=== PATIENT | female | born 1935 | race Caucasian/White ===

== ENCOUNTER → 2021-11-03 14:25 | Outpatient (BNVA) | payer OTHER, SELFPAY | PROVIDERS: PCP Internal Medicine; Referring Provider Internal Medicine; Visit Provider Internal Medicine Gastroenterology | DX: R19.7 Diarrhea, unspecified (principal); K21.9 Gastro-esophageal reflux disease without esophagitis; Z79.899 Other long term (current) drug therapy | CPT/HCPCS: 99212 ==

== ENCOUNTER 2021-11-11 08:32 | Outpatient (REF) | payer OTHER, SELFPAY ==
[2021-11-11 09:17] LABS: MANUAL DIFF FLAG NO
[2021-11-11 09:27] LABS: Basophils Percent Auto 0.6 % (0-2); Eosinophils Absolute Auto 0.1 X10*3/uL (0.0-0.4); Eosinophils Percent Auto 1.3 % (0-4); Hematocrit 35.8 % (37.0-47.0); Imm Gran Abs Auto 0.03 X10*3/uL (0.00-0.03); Imm Gran Pct Auto 0.4 % (0.0-0.4); Lymphocytes Absolute Auto 2.3 X10*3/uL (1.2-4.9); Lymphocytes Percent Auto 32.7 % (20-40); Mean Corpuscular HGB Conc 33.5 g/dl (31.0-35.0); Mean Corpuscular Hemoglobin 31.3 pg (27.0-33.0); Mean Corpuscular Volume 93.5 fL (80.0-98.0); Mean Platelet Volume 9.6 fL (9.4-12.3); Monocytes Absolute Auto 0.6 X10*3/uL (0.1-1.2); Monocytes Percent Auto 8.5 % (2-11); Neutrophils Absolute Auto 3.9 x10*3/uL (2.0-8.3); Neutrophils Percent Auto 56.5 % (45-73); Platelet Count 288 X10*3/uL (160-400); Red Blood Count 3.83 X10*6/uL (4.20-5.50); Red Cell Distribution Width 13.4 % (11.0-16.0); White Blood Count 6.9 X10*3/uL (4.8-10.8)
[2021-11-11 09:47] LABS: Estimated Average Glucose 169 mg/dL; Hemoglobin A1c % 7.5 %
[2021-11-11 10:00] LABS: Alanine Aminotransferase 18 U/L (0-31); Albumin Level 3.8 g/dL (3.5-5.0); Alkaline Phosphatase 64 U/L (39-117); Anion Gap 16 (12-20); Aspartate Amino Transferase 14 U/L (5-31); Bilirubin Total 0.2 mg/dL (0.0-1.0); Blood Urea Nitrogen 26 mg/dL (9-16); Calcium 8.2 mg/dL (8.4-10.2); Carbon Dioxide 24 mmol/L (22-29); Chloride 102 mmol/L (96-108); Cholesterol 179 mg/dL; Estimated Glomerular Filt Rate 33; Glucose Fasting 188 mg/dL (60-99); HDL Cholesterol 40 mg/dL; LDL Cholesterol Calculated 83 mg/dl; Potassium 4.4 mmol/L (3.3-5.1); Sodium 138 mmol/L (135-145); Total Protein 6.2 g/dL (6.5-8.0); Triglycerides 283 mg/dL
[2021-11-11 10:11] LABS: TSH reflex Free T4 4.29 uIU/mL (0.32-4.0); Vitamin D 25-OH Total 29.1 ng/mL (>30)
[2021-11-11 11:11] LABS: Free T4 (Free Thyroxine) 1.03 ng/dL (0.71-1.85)
== END 2021-11-11 08:33 | disposition home or self-care (01) ==
LOC: HO.LAB 08:32
PROVIDERS: PCP Internal Medicine; Visit Provider Internal Medicine Hypertension Specialist
DX: E78.00 Pure hypercholesterolemia, unspecified (principal); E55.9 Vitamin D deficiency, unspecified; I12.9 Hypertensive chronic kidney disease with stage 1 through stage 4 chronic kidney disease, or unspecified chronic kidney disease; N18.32 Chronic kidney disease, stage 3b; E11.22 Type 2 diabetes mellitus with diabetic chronic kidney disease
CPT/HCPCS: 36415; 80053; 80061; 82306; 83036; 84439; 84443; 85025

== ENCOUNTER 2021-11-12 15:09 | Outpatient (REF) | payer OTHER, SELFPAY ==
[2021-11-12 15:29] LABS: Appearance Urine CLEAR; Color Urine YELLOW; Glucose Urine UA NEG (NEG); Leukocyte Esterase Urine 1+ (NEG); Nitrite Urine NEG (NEG); PH 5.5 (5.0-8.0); Specific Gravity - Urine <= 1.005 (1.005-1.025); UACC Culture Trigger YES; Urine Blood NEG (NEG); Urine Ketones NEG (NEG); Urine Protein NEG (NEG-TRACE)
[2021-11-12 15:46] LABS: Bacteria Urine 1+ /LPF; Squamous Epithelial Cell Urine 3+ /LPF
[2021-11-12 16:22] LABS: Creatinine Urine 50.28 mg/dL; Microalbum/Creatinine Ratio Ur 31.8 ug/mg cr
== END 2021-11-12 15:10 | disposition home or self-care (01) ==
LOC: HO.LNP 15:09
PROVIDERS: Visit Provider Internal Medicine
DX: G47.33 Obstructive sleep apnea (adult) (pediatric) (principal); J44.9 Chronic obstructive pulmonary disease, unspecified; J30.9 Allergic rhinitis, unspecified; I10 Essential (primary) hypertension; E11.9 Type 2 diabetes mellitus without complications; Z99.89 Dependence on other enabling machines and devices
CPT/HCPCS: 81001; 82043; 87086; 99212

== ENCOUNTER → 2022-01-12 13:20 | Outpatient (BNVA) | payer OTHER, SELFPAY | PROVIDERS: PCP Internal Medicine; Visit Provider Physician Assistant | DX: M17.0 Bilateral primary osteoarthritis of knee (principal); E66.01 Morbid (severe) obesity due to excess calories; Z68.41 Body mass index [BMI] 40.0-44.9, adult | CPT/HCPCS: 20610; 99212; J1020 ==

== ENCOUNTER → 2022-03-19 13:12 | Outpatient (BNVA) | payer OTHER, SELFPAY | PROVIDERS: PCP Internal Medicine; Visit Provider Internal Medicine | DX: J44.9 Chronic obstructive pulmonary disease, unspecified (principal); G47.33 Obstructive sleep apnea (adult) (pediatric); E66.01 Morbid (severe) obesity due to excess calories; Z68.41 Body mass index [BMI] 40.0-44.9, adult; Z99.89 Dependence on other enabling machines and devices | CPT/HCPCS: 99212 ==

== ENCOUNTER → 2022-04-13 14:02 | Outpatient (BNVA) | payer OTHER, SELFPAY | PROVIDERS: PCP Internal Medicine; Visit Provider Internal Medicine Gastroenterology | DX: R19.7 Diarrhea, unspecified (principal); R13.10 Dysphagia, unspecified | CPT/HCPCS: 99212 ==

== ENCOUNTER → 2022-04-17 12:47 | Outpatient (BNVA) | payer OTHER, SELFPAY | PROVIDERS: PCP Internal Medicine; Visit Provider Physician Assistant | DX: M17.0 Bilateral primary osteoarthritis of knee (principal); E66.01 Morbid (severe) obesity due to excess calories; E11.8 Type 2 diabetes mellitus with unspecified complications; Z68.41 Body mass index [BMI] 40.0-44.9, adult | CPT/HCPCS: 20610; J1020 ==

== ENCOUNTER 2022-06-29 09:42 | Outpatient (REF) | payer OTHER, SELFPAY ==
[2022-06-29 10:01] LABS: MANUAL DIFF FLAG NO
[2022-06-29 10:28] LABS: Basophils Absolute Auto 0.1 X10*3/uL (0.0-0.2); Basophils Percent Auto 0.7 % (0-2); Eosinophils Absolute Auto 0.1 X10*3/uL (0.0-0.4); Eosinophils Percent Auto 1.6 % (0-4); Hematocrit 35.8 % (37.0-47.0); Hemoglobin 11.6 g/dl (12.0-16.0); Imm Gran Abs Auto 0.02 X10*3/uL (0.00-0.03); Imm Gran Pct Auto 0.3 % (0.0-0.4); Lymphocytes Absolute Auto 1.8 X10*3/uL (1.2-4.9); Mean Corpuscular HGB Conc 32.4 g/dl (31.0-35.0); Mean Corpuscular Hemoglobin 30.4 pg (27.0-33.0); Mean Platelet Volume 9.6 fL (9.4-12.3); Monocytes Absolute Auto 0.6 X10*3/uL (0.1-1.2); Monocytes Percent Auto 7.9 % (2-11); Neutrophils Absolute Auto 4.8 x10*3/uL (2.0-8.3); Neutrophils Percent Auto 65.5 % (45-73); Platelet Count 254 X10*3/uL (160-400); Red Blood Count 3.81 X10*6/uL (4.20-5.50); Red Cell Distribution Width 12.8 % (11.0-16.0); White Blood Count 7.4 X10*3/uL (4.8-10.8)
[2022-06-29 10:54] LABS: Estimated Average Glucose 180 mg/dL; Hemoglobin A1c % 7.9 %
[2022-06-29 11:31] LABS: Alanine Aminotransferase 12 U/L (0-31); Albumin Level 3.9 g/dL (3.5-5.0); Alkaline Phosphatase 60 U/L (39-117); Anion Gap 16 (12-20); Aspartate Amino Transferase 13 U/L (5-31); Bilirubin Total 0.3 mg/dL (0.0-1.0); Blood Urea Nitrogen 30 mg/dL (9-16); Calcium 8.9 mg/dL (8.4-10.2); Carbon Dioxide 25 mmol/L (22-29); Chloride 104 mmol/L (96-108); Cholesterol 187 mg/dL; Estimated Glomerular Filt Rate 33; Glucose Fasting 167 mg/dL (60-99); HDL Cholesterol 36 mg/dL; LDL Cholesterol Calculated 93 mg/dl; Potassium 4.6 mmol/L (3.3-5.1); Sodium 140 mmol/L (135-145); TSH reflex Free T4 1.91 uIU/mL (0.32-4.0); Total Protein 6.2 g/dL (6.5-8.0); Triglycerides 292 mg/dL; Vitamin D 25-OH Total 28.3 ng/mL (>30)
== END 2022-06-29 09:43 | disposition home or self-care (01) ==
LOC: HO.LAB 09:42
PROVIDERS: PCP Internal Medicine; Visit Provider Internal Medicine
DX: E55.9 Vitamin D deficiency, unspecified (principal); E78.00 Pure hypercholesterolemia, unspecified; E11.9 Type 2 diabetes mellitus without complications; I10 Essential (primary) hypertension
CPT/HCPCS: 36415; 80053; 80061; 82306; 83036; 84443; 85025

== ENCOUNTER 2022-07-01 09:12 | Outpatient (REF) | payer OTHER, SELFPAY ==
[2022-07-01 09:37] LABS: Appearance Urine Cloudy; Color Urine Yellow; Glucose Urine UA Negative (Negative); Leukocyte Esterase Urine Moderate (2+) (Negative); Nitrite Urine Negative (Negative); PH 5.5 (5.0-9.0); UMIC TRIGGER UACC YES; Urine Blood Negative (Negative); Urine Ketones Trace mg/dL (Negative); Urine Protein Negative (Neg-Trace)
[2022-07-01 09:40] LABS: Bacteria Urine 2+ (None Seen); RBC Urine 0-2 /HPF (0-2); UACC Culture Trigger YES; WBC Urine 21-50 /HPF (0-5)
[2022-07-01 09:52] LABS: Creatinine Urine 194.22 mg/dL; Microalbum/Creatinine Ratio Ur 5.6 ug/mg cr
== END 2022-07-01 09:13 | disposition home or self-care (01) ==
LOC: HO.LNP 09:12
PROVIDERS: Visit Provider Internal Medicine
DX: I10 Essential (primary) hypertension (principal); E11.9 Type 2 diabetes mellitus without complications; R82.90 Unspecified abnormal findings in urine
CPT/HCPCS: 81001; 82043; 87086

== ENCOUNTER → 2022-08-03 12:45 | Outpatient (BNVA) | payer OTHER, SELFPAY | PROVIDERS: PCP Internal Medicine; Visit Provider Physician Assistant | DX: M17.0 Bilateral primary osteoarthritis of knee (principal); E11.8 Type 2 diabetes mellitus with unspecified complications; E66.01 Morbid (severe) obesity due to excess calories; Z68.41 Body mass index [BMI] 40.0-44.9, adult | CPT/HCPCS: 20610; 99212; J1020 ==

== ENCOUNTER → 2022-09-30 14:21 | Outpatient (BNVA) | payer OTHER, SELFPAY | PROVIDERS: PCP Internal Medicine; Referring Provider Internal Medicine; Visit Provider Internal Medicine | DX: I11.0 Hypertensive heart disease with heart failure (principal); I50.32 Chronic diastolic (congestive) heart failure; I25.10 Atherosclerotic heart disease of native coronary artery without angina pectoris; G47.33 Obstructive sleep apnea (adult) (pediatric); E11.8 Type 2 diabetes mellitus with unspecified complications; E66.01 Morbid (severe) obesity due to excess calories; Z68.41 Body mass index [BMI] 40.0-44.9, adult | CPT/HCPCS: 93005; 99212 ==

== ENCOUNTER → 2022-10-07 13:44 | Outpatient (BNVA) | payer OTHER, SELFPAY | PROVIDERS: PCP Internal Medicine; Visit Provider Internal Medicine | DX: J44.9 Chronic obstructive pulmonary disease, unspecified (principal); J30.9 Allergic rhinitis, unspecified; G47.33 Obstructive sleep apnea (adult) (pediatric); Z99.89 Dependence on other enabling machines and devices | CPT/HCPCS: 99212 ==

== ENCOUNTER → 2022-11-02 13:30 | Outpatient (BNVA) | payer OTHER, SELFPAY | PROVIDERS: PCP Internal Medicine; Visit Provider Physician Assistant | DX: M17.0 Bilateral primary osteoarthritis of knee (principal); E11.8 Type 2 diabetes mellitus with unspecified complications; E66.01 Morbid (severe) obesity due to excess calories; Z68.41 Body mass index [BMI] 40.0-44.9, adult | CPT/HCPCS: 20610; 99212; J1020 ==

== ENCOUNTER 2022-11-17 09:08 | Outpatient (REF) | payer OTHER, SELFPAY ==
--- NOTE | ~2022-11-17 | FL_ITS ---
EXAMINATION: FL BARIUM SWALLOW CLINICAL INFORMATION: Food gets stuck when swallowing. Dysphagia. COMPARISON: None available. TECHNIQUE: Exam is limited due to limited patient mobility and language barrier. Barium swallow was performed using thin and thick barium. Patient was given a barium tablet. Effervescent granules were not administered. Fluoroscopy time: 1.3 minutes DAP: 8.3 Gycm2 Images: 93 FINDINGS: Evaluation of swallowing is limited due to patient condition and communication. There is retention in the vallecula. No aspiration or penetration is appreciated. Barium tablet passed freely into the stomach. No mass or stricture is seen. There is mild gastroesophageal reflux. No appreciable hernia. The stomach is normal. FL/FL barium swallow IMPRESSION: Limited exam. Retention of liquid barium in the vallecula. No aspiration or penetration. Gastroesophageal reflux. Barium tablet passed freely into the esophagus.
== END 2022-11-17 09:09 | disposition home or self-care (01) ==
LOC: HO.XRAY 09:08
PROVIDERS: PCP Internal Medicine; Visit Provider Internal Medicine Gastroenterology
DX: R13.10 Dysphagia, unspecified (principal)
CPT/HCPCS: 74220

== ENCOUNTER 2022-12-28 09:22 | Outpatient (REF) | payer OTHER, SELFPAY ==
[2022-12-28 09:47] LABS: MANUAL DIFF FLAG NO
[2022-12-28 10:19] LABS: Basophils Absolute Auto 0.1 X10*3/uL (0.0-0.2); Basophils Percent Auto 0.7 % (0-2); Eosinophils Absolute Auto 0.1 X10*3/uL (0.0-0.4); Eosinophils Percent Auto 1.6 % (0-4); Hematocrit 32.6 % (37.0-47.0); Hemoglobin 10.7 g/dl (12.0-16.0); Imm Gran Abs Auto 0.04 X10*3/uL (0.00-0.03); Imm Gran Pct Auto 0.5 % (0.0-0.4); Lymphocytes Absolute Auto 1.7 X10*3/uL (1.2-4.9); Lymphocytes Percent Auto 22.3 % (20-40); Mean Corpuscular HGB Conc 32.8 g/dl (31.0-35.0); Mean Corpuscular Volume 94.5 fL (80.0-98.0); Mean Platelet Volume 9.5 fL (9.4-12.3); Monocytes Absolute Auto 0.6 X10*3/uL (0.1-1.2); Monocytes Percent Auto 7.7 % (2-11); Neutrophils Absolute Auto 5.1 x10*3/uL (2.0-8.3); Neutrophils Percent Auto 67.2 % (45-73); Platelet Count 278 X10*3/uL (160-400); Red Blood Count 3.45 X10*6/uL (4.20-5.50); Red Cell Distribution Width 12.6 % (11.0-16.0); White Blood Count 7.6 X10*3/uL (4.8-10.8)
[2022-12-28 10:53] LABS: Alanine Aminotransferase 12 U/L (0-31); Albumin Level 3.8 g/dL (3.5-5.0); Alkaline Phosphatase 49 U/L (39-117); Anion Gap 18 (12-20); Aspartate Amino Transferase 11 U/L (5-31); Bilirubin Total 0.2 mg/dL (0.0-1.0); Blood Urea Nitrogen 42 mg/dL (9-16); Calcium 8.6 mg/dL (8.4-10.2); Carbon Dioxide 20 mmol/L (22-29); Chloride 105 mmol/L (96-108); Cholesterol 202 mg/dL; Estimated Glomerular Filt Rate 19; Glucose Fasting 121 mg/dL (60-99); HDL Cholesterol 40 mg/dL; LDL Cholesterol Calculated 104 mg/dl; Potassium 4.3 mmol/L (3.3-5.1); Sodium 139 mmol/L (135-145); Total Protein 6.3 g/dL (6.5-8.0); Triglycerides 294 mg/dL
[2022-12-28 11:09] LABS: Estimated Average Glucose 143 mg/dL; Hemoglobin A1c % 6.6 %
[2022-12-28 11:13] LABS: TSH reflex Free T4 2.37 uIU/mL (0.32-4.0); Vitamin D 25-OH Total 38.6 ng/mL (>30)
== END 2022-12-28 09:23 | disposition home or self-care (01) ==
LOC: HO.LAB 09:22
PROVIDERS: PCP Internal Medicine; Visit Provider Internal Medicine
DX: E11.9 Type 2 diabetes mellitus without complications (principal); E78.00 Pure hypercholesterolemia, unspecified; I10 Essential (primary) hypertension; E55.9 Vitamin D deficiency, unspecified; R30.0 Dysuria
CPT/HCPCS: 36415; 80053; 80061; 82306; 83036; 84443; 85025

== ENCOUNTER 2023-01-06 14:13 | Outpatient (AMB) | payer OTHER, SELFPAY ==
[2023-01-06 14:35] VITALS: BP 116/62; PULSE 72; O2SAT 97; BMI 43.0
--- NOTE | 2023-01-06 14:35 | MHC.PC.OV ---
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 cetirizine (Zyrtec) 10 mg PO DAILY PRN 15 days cetirizine (Zyrtec) 10 mg PO DAILY 30 days [CHAIR LIFT As directed] cholecalciferol (vitamin D3) 25 mcg PO DAILY 90 days citalopram 20 mg PO QAM clotrimazole-betamethasone 1-0.05 % 1 appl topical BID 15 days cyanocobalamin (vitamin B-12) 500 mcg PO DAILY 90 days ferrous sulfate 325 mg PO DAILY furosemide 40 mg PO DAILY 90 days ipratropium-albuterol 0.5 mg-3 mg(2.5 mg base)/3 mL 3 mL inhalation Q6H PRN lancets (COADE Delica Lancets) As directed-To test blood sugar daily. [LIGHTWEIGHT TRANSPORT WHEELCHAIR WITH HANDBRAKES As directed] linagliptin (Tradjenta) 5 mg PO DAILY loperamide 2 mg PO Q6-8H PRN melatonin 10 mg PO BEDTIME metformin 1,000 mg PO BID 90 days metoprolol succinate ER (Toprol XL) 25 mg PO DAILY nebulizers (VixOne Nebulizer-Adult Mask) As directed nitroglycerin 0.2 mg/hr 1 patch topical DAILY omeprazole 20 mg PO BID pravastatin 40 mg PO DAILY 90 days quetiapine 50 mg PO BEDTIME quetiapine 25 mg PO BID zolpidem 5 mg PO BEDTIME PRN Tobacco use date assessed: 01/06/23 Fall risk assessment: 1 Fall in past year Last assessed Fall Risk: 01/06/23 Dental Screening Dental Screen Date: 01/06/23 Did you have a dental visit in the last 12 months?: No Did you have a dental problem in the last 6 months where you did not have access to dental care?: No Was dental information given to patient?: No HPI 3mth f/u HPI Details Patient comes in today for her follow up visit - is accompanied as usual by her daughter Patient's daughter states that she found patient on the floor at home one day last month, thinks it was on 12/07/2022 and that she was reportedly down on the floor for about 45 minutes until they could get her back up States that she called some nurse on the phone but was reportedly not told much as to what she should do at the time Recalls that patient was also experiencing lightheadedness and dizziness at the time and could not get up on her own States that she noted that patient's blood pressure was also low then and has held her Amlodipine 5 mg since; has also cut back on her Metoprolol ER 25 mg to 1/2 tablet daily - is currently still just on 1/2 tablet QD of Metoprolol ER Her daughter has also noticed that patient seems weaker overall since her fall last month Patient presently denies increased dizziness; daughter states that she's had on and off headaches lately and recalls that she was also complaining of both headaches and dizziness after she fell last month Denies any chest pains or SOB but reports (+) on and off epigastric discomfort and pressure Denies any nausea/vomiting and no change in bowel habits noted; has not noticed any blood in her stool or black stools lately Needs her Nitropatch Rx refilled Had her follow up labs done last week - to discuss her results [facility] Medical History (Updated 01/06/23 @ 16:12 by Nima Farooq MD) Anxiety Benign essential hypertension CAD (coronary artery disease) Cellulitis of right foot Chronic heart failure with preserved ejection fraction (HFpEF) Chronic kidney disease (CKD), stage III (moderate) Chronic kidney disease, stage 4 (severe) CKD (chronic kidney disease) stage 3, GFR 30-59 ml/min COPD (chronic obstructive pulmonary disease) Coronary artery disease COVID-19 Depression Diabetes mellitus GERD (gastroesophageal reflux disease) GERD without esophagitis GI bleed Heart disease HTN (hypertension) Hypercholesteremia Mild cognitive impairment Morbid obesity with BMI of 40.0-44.9, adult Obstructive sleep apnea LESLIE (obstructive sleep apnea) LESLIE on CPAP Primary insomnia Pulmonary hypertension Pure hypercholesterolemia Type 2 diabetes mellitus with diabetic chronic kidney disease Vitamin D deficiency Surgical History H/O abdominal hysterectomy History of esophagogastroduodenoscopy (EGD) History of eye surgery Hx of colonoscopy Family History Father No problems noted. Mother No problems noted. Social History Household Members Other:: lives with her daughter who cares for her Housing: Apartment Alcohol intake: never Patient Tobacco Use Status: Never used Tobacco e-Cigarette/Vaping Use: Never Used Second Hand Smoke Exposure: Yes service: No Current occupational status: retired and disabled Cognitive needs: No Hearing needs: No Vision needs: Yes Questionnaire PHQ-9 Over the last 2 weeks, how often have you been bothered by any of the following problems? 1. Little interest or pleasure in doing things: not at all 2. Feeling down, depressed, or hopeless: several days 3. Trouble falling or staying asleep, or sleeping too much: not at all 4. Feeling tired or having little energy: not at all 5. Poor appetite or overeating: not at all 6. Feeling bad about yourself - or that you are a failure or have let yourself or your family down: not at all 7. Trouble concentrating on things, such as reading the newspaper or watching television: not at all 8. Moving or speaking so slowly that other people could have noticed. Or the opposite - being so fidgety or restless that you have been moving around a lot more than usual: not at all 9. Thoughts that you would be better off or of hurting yourself in some way: not at all Total score: 1 Depression Screening Interpretation: Negative [id number] - PHQ-9 Billing: Yes Source: Developed by Drs. Feng Suazo, Liz Carrillo, Raymond Morales and colleagues, with an educational katarina from [employer] Thrive Questionnaire Date Thrive assessed: 01/06/23 I am a: Patient What is your living situation today?: I have a steady place to live Within the past 12 months, did the food you bought not last and you didn't have the money to get more?: Never true Within the past 12 months, did you worry whether your food would run out before you got money to buy more?: Never true Do you have trouble paying for medicines?: No Do you have trouble getting transportation to medical appointments?: No Do you have trouble paying your heating and electricity bill?: No Do you have trouble taking care of your child, family member or friend?: No Do you have trouble with day-to-day activities such as bathing, preparing meals, shopping, managing finances, etc.?: No Are you currently unemployed and looking for a job?: No Are you interested in more education?: No Please select the resources that you would like help with: None Currently or been in a relationship where the following occur: no concerns reported AUDIT C Alcohol Use Questionnaire (AUDIT-C) 1. How often do you have a drink containing alcohol?: Never 3. How often do you have six or more drinks on one occasion?: Never Total Score: 0 Score Reviewed/Action Taken: Yes EMERSON-7 AMB Questionnaire EMERSON-7 Date EMERSON - 7 assessed: 01/06/23 Feeling nervous, anxious, or on edge: 0 = Not at all Not being able to stop or control worryin = Not at all Worrying too much about different things: 0 = Not at all Trouble relaxin = Not at all Being so restless that it is hard to sit still: 0 = Not at all Becoming easily annoyed or irritable: 0 = Not at all Feeling afraid as if something awful might happen: 0 = Not at all Total EMERSON-7 score (0-4 normal; 5-9 mild; 10-14 moderate; 15-21 severe): 0 Source: Developed by Drs. Feng Suazo, Liz Carrillo, Raymond Morales and colleagues, with an educational katarina from [employer] Review of Systems Const Details: information is obtained primarily from daughter as patient has some confusion and is unable to provide any pertinent info; also has issues with language barrier - patient speaks very little Georgian Denies chills, Reports fatigue, Denies fever(s), Reports headache(s) (occasionally; did report also (+) TRONCOSO when she fell last month) and Reports weakness ENT Denies dysphagia, Reports dizziness (on and off for the past month), Reports dry mouth (frequent - mostly due to her nightly CPAP device use), Denies otalgia, Reports headache(s) (occasionally; did report also (+) TRONCOSO when she fell last month), Denies odynophagia, Denies sinus pain and Denies sore throat Card Denies chest pain, Denies palpitations and Reports dyspnea on exertion (mild) Resp Denies cough and Reports dyspnea on exertion (mild) GI Denies abdominal pain (but reports (+) epigastric discomfort/pressure at times), Denies hematochezia, Denies constipation, Denies dysphagia, Denies heartburn, Reports diarrhea (occasional, controlled with Imodium PRN), Denies nausea, Denies odynophagia and Denies vomiting Denies difficulty voiding, Denies nocturia and Denies dysuria Musc Reports tingling (on and off in both hands) Neuro Denies behavioral changes, Reports confusion (on and off), Reports dizziness (on and off for the past month), Reports headache(s) (occasionally; did report also (+) TRONCOSO when she fell last month), Reports memory loss, Reports tingling (on and off in both hands), Reports paresthesias (on and off in her hands) and Reports weakness Psych Denies behavioral changes, Reports confusion (on and off) and Reports memory loss Endo Reports fatigue and Denies palpitations Physical exam (Primary Care) Vital Signs: Last Vital Signs Pulse 72 01/06/23 14:35 BP 116/62 01/06/23 14:35 Pulse Ox 97 01/06/23 14:35 Oxygen Delivery Method Room Air 01/06/23 14:35 BMI result Body Mass Index 43.0 Tobacco/Smoking Status: Tobacco use Status Tobacco use date assessed 01/06/23 01/06/23 14:42 Patient Tobacco Use Status Never used Tobacco 01/06/23 14:42 e-Cigarette/Vaping Use Never Used 01/06/23 14:42 PHQ-9: PHQ-9 Score PHQ-9: Total score 1 01/06/23 14:42 Depression Screening Interpretation: Negative Thrive Assessment: Date of Thrive Assessment Date Thrive assessed 01/06/23 01/06/23 14:42 Currently or been in a relationship where the following occur: no concerns reported Const General: comfortable, no acute distress and confusion (on and off) Orientation/consciousness: confusion (on and off) HENMT Ears: TM's normal bilaterally and EAC's normal Throat: Yes posterior oropharynx normal and Yes tonsils normal (no TP congestion noted) Neck Neck: Yes no lymphadenopathy and Yes supple Resp Auscultation: clear to auscultation bilaterally, no rales and no wheezes Cardio Rate: regular rate Rhythm: regular rhythm Heart sounds: no murmurs GI Palpation (GI): Soft to palpation, nontender and no guarding Auscultation: normal bowel sounds General: Yes no CVA tenderness Back/Spine/Pelvis Back: no CVA tenderness Neuro General: confusion (on and off) Extrem General: Yes no clubbing, cyanosis or edema Results Reviewed Results Reviewed: Laboratory Tests 12/28/22 12/28/22 12/28/22 09:45 09:45 09:45 WBC 7.6 Hgb 10.7 L Hct 32.6 L Plt Count 278 Sodium 139 Potassium 4.3 Creatinine 2.37 H Estimated GFR 19 Fasting Glucose 121 H Hemoglobin A1c % 6.6 Calcium 8.6 AST 11 ALT 12 Cholesterol 202 LDL Cholesterol, Calc 104 HDL Cholesterol 40 25-OH Vitamin D Total 38.6 TSH 2.37 Assessment and Plan Assessment & Plan (1) Coronary artery disease: Code(s): I25.10 - Atherosclerotic heart disease of [place] coronary artery without angina pectoris Qualifiers: Coronary Disease-Associated Artery/Lesion type: [place] artery [place] vs. transplanted heart: [place] heart Associated angina: without angina Qualified Code(s): I25.10 - Atherosclerotic heart disease of [place] coronary artery without angina pectoris Plan: Myocardial perfusion scan done back in 2008 at [facility] showed (+) ischemia of the left ventricular apex; EF and wall motion studies were normal Echocardiogram done on 04/17/2009 showed low-normal LV systolic function with EF between 55-60%, mild concentric left ventricular hypertrophy, mild MR; diastolic filling pattern indicated impaired relaxation and moderate pulmonary hypertension Patient has been asymptomatic so far from a cardiac standpoint Continue Nitroglycerin patch 0.2 mg per hour once a day - Rx refilled Was seen by cardiology in September 2022 and advised to continue on current meds and management EKG done in the office at the time showed normal EKG with low voltage Follow up with cardiology as scheduled (2) Chronic heart failure with preserved ejection fraction (HFpEF): Code(s): I50.32 - Chronic diastolic (congestive) heart failure Plan: Has been compensated and was advised by cardiology to continue on low dose beta ciro and conservative medical management, given patient's age Was on Metoprolol ER 25 mg QD but patient's daughter cut this down to 1/2 tablet QD since she fell and was experiencing frequent dizziness and on and off headaches last month Amlodipine 5 mg QD was also held since Will send patient for some repeat labs and EKG ANA for further work up Will also have her get a repeat echocardiogram ANA for further evaluation (3) Type 2 diabetes mellitus with diabetic chronic kidney disease: Code(s): E11.22 - Type 2 diabetes mellitus with diabetic chronic kidney disease Qualifiers: Diabetes mellitus snf insulin use: without buttermaker continuous churn use Chronic kidney disease stage: unspecified stage Qualified Code(s): E11.22 - Type 2 diabetes mellitus with diabetic chronic kidney disease Plan: Patient's HgbA1c was at 6.6% on her labs done last week (in-office HgbA1c was at 7.0% a few months ago) - goal is at least < 7.5% Reinforced diabetic diet Continue Metformin 1000 mg BID and Tradjenta 5 mg QD for now although if her repeat serum creatinine and renal function continue to be suppressed, may need to discontinue Metformin (4) Chronic kidney disease, stage 4 (severe): Code(s): N18.4 - Chronic kidney disease, stage 4 (severe) Plan: Have cautioned patient and her daughter that based on her recent labs, patient's kidney function has declined significantly lately and she is now in CKD stage 4 Discussed that whatever happened to her last month when she fell (suspect possible mild TN, dehydration, rhabdomyolysis, etc) may have led to hypoperfusion of her kidneys and accelerated the decline in her renal function Will have patient get some labs rechecked ANA for further evaluation - will include tests for CPK, ESR as well as repeat CBC (5) Status post fall: Code(s): Z91.81 - History of falling Plan: Occurred around 12/07/2022, wherein patient was found on the floor and was reportedly down for about 45 minutes before she could be helped up Patient's daughter did not bring her to the ER for evaluation following her fall - states that she was never instructed by the nurses she talked to on the phone to do so At this time, patient is not complaining of any specific symptoms although she is reportedly weaker, still has on and off dizziness and relates (+) on and off epigastric discomfort Follow up labs revealed (+) decline in her H/H as well as her renal function Will send her for some follow up labs ANA for now and further intervention will be determined depending on the results of her labs and tests (6) Pure hypercholesterolemia: Code(s): E78.00 - Pure hypercholesterolemia, unspecified Plan: Results of her labs done last week reviewed and discussed with patient and her daughter Reinforced low cholesterol diet Continue Pravastatin 40 mg QD Will recheck her labs in 3 months for follow-up (7) Benign essential hypertension: Code(s): I10 - Essential (primary) hypertension Plan: Reinforced low-sodium diet -? goal is systolic BP of at least 140 to 150 mm or less Was on Amlodipine 5 mg QD and Furosemide 20 mg QD in AM as well as Metoprolol ER 25 mg QD but her Amlodipine has been held and Metoprolol ER cut in half by her daughter over the past few weeks since she fell (8) Mild cognitive impairment: Code(s): G31.84 - Mild cognitive impairment of uncertain or unknown etiology Plan: Follow up with neurology as scheduled (9) COPD (chronic obstructive pulmonary disease): Comment: PATIENT HAS MODERATELY SEVERE OBSTRUCTIVE AIRWAY DISORDER. ALSO HAS SIGNIFICANT RESTRICTIVE DISORDER. NO RECENT PULMONARY FUNCTION TEST HAS BEEN DONE BECAUSE IT WILL BE IMPOSSIBLE TO DO. TX : DUO -NEB UDs . AT LEAST BID ,, AND Q 6 HRS PRN Code(s): J44.9 - Chronic obstructive pulmonary disease, unspecified Qualifiers: COPD type: unspecified COPD Qualified Code(s): J44.9 - Chronic obstructive pulmonary disease, unspecified Plan: Well-controlled and stable on her current regimen - uses her Albuterol HFA every 6 hours PRN; also uses Duoneb updraft when needed if she is at home and has access to her nebulizer Follow-up with pulmonary as scheduled (10) Obstructive sleep apnea: Code(s): G47.33 - Obstructive sleep apnea (adult) (pediatric) Plan: Continue using her CPAP device when sleeping at night daily (11) At high risk for aspiration: Code(s): Z91.89 - Other specified personal risk factors, not elsewhere classified Plan: Barium swallow done in October 2022 revealed (+)limited exam but (+) retention of liquid barium in the vallecula; no aspiration or penetration; (+) gastroesophageal reflux. Barium tablet passed freely into the esophagus Following up Dr. Weaver (GI) as scheduled (12) GERD without esophagitis: Code(s): K21.9 - Gastro-esophageal reflux disease without esophagitis Plan: Dietary restrictions reinforced Continue Omeprazole 20 mg QD Follow-up with GI as scheduled (13) Vitamin D deficiency: Code(s): E55.9 - Vitamin D deficiency, unspecified Plan: Continue Vitamin D3 1000 units QD (14) Primary osteoarthritis of knees, bilateral: Code(s): M17.0 - Bilateral primary osteoarthritis of knee Plan: Has received injections into her knees in the past and more recently in December 2021 with (+) relief of her knee pain Follow-up with orthopedics as scheduled (15) Paresthesia of both hands: Code(s): R20.2 - Paresthesia of skin Plan: Symptoms are likely due to a combination of 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 (similar to what one would experience in carpal tunnel syndrome) Advised that unless her symptoms are significant and keep her up at night, would prefer not to start her on any Rx to help with her neuropathic pain as a lot of these Rx can cause sedation or are associated with some side effects that can be problematic for her given her age (16) Primary insomnia: Code(s): F51.01 - Primary insomnia Plan: Sleep hygiene reinforced Continue OTC Melatonin capsule 10 mg once a day at bedtime as needed (17) Anxiety: Code(s): F41.9 - Anxiety disorder, unspecified Plan: Continue Alprazolam 0.5 mg 1 tablet twice a day as needed for agitation (18) Depression: Code(s): F32.9 - Major depressive disorder, single episode, unspecified Qualifiers: Depression Type: unspecified Qualified Code(s): F32.9 - Major depressive disorder, single episode, unspecified Plan: Continue Citalopram? 20 mg QD in AM and Seroquel 25 mg Q HS Follow-up with Psychiatry as scheduled (19) Morbid obesity with BMI of 40.0-44.9, adult: Code(s): E66.01 - Morbid (severe) obesity due to excess calories; Z68.41 - Body mass index [BMI] 40.0-44.9, adult Plan: Reinforced diet; due to patient's age and comorbidities, there is no realistic expectation of any significant improvement in her activity level and in losing weight here Plan Follow up in 3 months Orders: Orders CA echo transthoracic complete Today I50.32 - Chronic diastolic (congestive) heart failure, R06.09 - Other forms of dyspnea B Type Natriuretic Peptide Today I50.9 - Heart failure, unspecified, N18.4 - Chronic kidney disease, stage 4 (severe), R06.00 - Dyspnea, unspecified, Z91.81 - History of falling CK, Total+Isoenzymes, Serum Today N18.4 - Chronic kidney disease, stage 4 (severe), R06.00 - Dyspnea, unspecified, Z91.81 - History of falling Comprehensive Met. Panel Today N18.4 - Chronic kidney disease, stage 4 (severe), R06.00 - Dyspnea, unspecified, Z91.81 - History of falling Complete Blood Count Auto Diff Today N18.4 - Chronic kidney disease, stage 4 (severe), R06.00 - Dyspnea, unspecified, Z91.81 - History of falling C Reactive Protein Today R07.9 - Chest pain, unspecified Erythrocyte Sedimentation Rate Today R07.9 - Chest pain, unspecified ECG 12 lead EKG Today I25.10 - Atherosclerotic heart disease of [place] coronary artery without angina pectoris, I50.32 - Chronic diastolic (congestive) heart failure, Z91.81 - History of falling B Type Natriuretic Peptide 3 Months I50.9 - Heart failure, unspecified Comprehensive Hiko. Panel Fast 3 Months E78.00 - Pure hypercholesterolemia, unspecified Lipid Panel 3 Months E78.00 - Pure hypercholesterolemia, unspecified TSH reflex Free T4 3 Months E78.00 - Pure hypercholesterolemia, unspecified Vitamin D 25-OH Total 3 Months E55.9 - Vitamin D deficiency, unspecified Complete Blood Count Auto Diff 3 Months I10 - Essential (primary) hypertension UA CC w/rflx Micro + Cult 3 Months R30.0 - Dysuria Hemoglobin A1c 3 Months E11.9 - Type 2 diabetes mellitus without complications Microalbumin, Random (w Creat) 3 Months E11.9 - Type 2 diabetes mellitus without complications Medications: Refilled nitroglycerin 0.2 mg/hr 1 patch topical DAILY 30 patches 5RF Coding Level of Care Code Est Pt Level 4 (23778) Diagnoses Coronary artery disease I25.10 Coronary Disease-Associated Artery/Lesion type: [place] artery [place] vs. transplanted heart: [place] heart Associated angina: without angina Chronic heart failure with preserved ejection fraction (HFpEF) I50.32 Type 2 diabetes mellitus with diabetic chronic kidney disease E11.22 Diabetes mellitus buttermaker continuous churn insulin use: without snf use Chronic kidney disease stage: unspecified stage Chronic kidney disease, stage 4 (severe) N18.4 Status post fall Z91.81 Pure hypercholesterolemia E78.00 Benign essential hypertension I10 Mild cognitive impairment G31.84 COPD (chronic obstructive pulmonary disease) J44.9 COPD type: unspecified COPD Obstructive sleep apnea G47.33 At high risk for aspiration Z91.89 GERD without esophagitis K21.9 Vitamin D deficiency E55.9 Primary osteoarthritis of knees, bilateral M17.0 Paresthesia of both hands R20.2 Primary insomnia F51.01 Anxiety F41.9 Depression F32.9 Depression Type: unspecified Morbid obesity with BMI of 40.0-44.9, adult E66.01; Z68.41
== END 2023-01-06 15:42 | disposition home or self-care (01) ==
PROVIDERS: PCP Internal Medicine; Visit Provider Internal Medicine
DX: E11.22 Type 2 diabetes mellitus with diabetic chronic kidney disease (principal); I50.32 Chronic diastolic (congestive) heart failure; N18.4 Chronic kidney disease, stage 4 (severe); Z91.81 History of falling; I25.10 Atherosclerotic heart disease of native coronary artery without angina pectoris; E78.00 Pure hypercholesterolemia, unspecified; I12.9 Hypertensive chronic kidney disease with stage 1 through stage 4 chronic kidney disease, or unspecified chronic kidney disease; G31.84 Mild cognitive impairment of uncertain or unknown etiology; J44.9 Chronic obstructive pulmonary disease, unspecified; G47.33 Obstructive sleep apnea (adult) (pediatric); Z91.89 Other specified personal risk factors, not elsewhere classified; K21.9 Gastro-esophageal reflux disease without esophagitis
CPT/HCPCS: 99214

== ENCOUNTER → 2023-01-06 15:48 | Outpatient (REF) | payer OTHER, SELFPAY ==
--- NOTE | 2023-01-06 15:53 | ECG_ITS ---
Test Reason : chr chf Blood Pressure : / mmHG Vent. Rate : 072 BPM Atrial Rate : 072 BPM P-R Int : 198 ms QRS Dur : 076 ms QT Int : 390 ms P-R-T Axes : 049 003 034 degrees QTc Int : 427 ms Normal sinus rhythm Low voltage QRS Borderline ECG When compared with ECG of 10-JAN-2019 09:25, No significant change was found Referred By: Nima Farooq Electronically Signed By:Mykel Taylor
[2023-01-06 16:06] LABS: MANUAL DIFF FLAG NO
[2023-01-06 16:45] LABS: Basophils Percent Auto 0.5 % (0-2); Eosinophils Absolute Auto 0.1 X10*3/uL (0.0-0.4); Hematocrit 33.8 % (37.0-47.0); Hemoglobin 10.9 g/dl (12.0-16.0); Imm Gran Abs Auto 0.05 X10*3/uL (0.00-0.03); Imm Gran Pct Auto 0.6 % (0.0-0.4); Lymphocytes Absolute Auto 1.8 X10*3/uL (1.2-4.9); Lymphocytes Percent Auto 21.7 % (20-40); Mean Corpuscular HGB Conc 32.2 g/dl (31.0-35.0); Mean Corpuscular Hemoglobin 30.7 pg (27.0-33.0); Mean Corpuscular Volume 95.2 fL (80.0-98.0); Mean Platelet Volume 9.4 fL (9.4-12.3); Monocytes Absolute Auto 0.7 X10*3/uL (0.1-1.2); Monocytes Percent Auto 7.7 % (2-11); Neutrophils Absolute Auto 5.8 x10*3/uL (2.0-8.3); Neutrophils Percent Auto 68.5 % (45-73); Platelet Count 330 X10*3/uL (160-400); Red Blood Count 3.55 X10*6/uL (4.20-5.50); Red Cell Distribution Width 12.8 % (11.0-16.0); White Blood Count 8.4 X10*3/uL (4.8-10.8)
[2023-01-06 16:52] LABS: B Type Natriuretic Peptide 31 pg/mL (<100)
[2023-01-06 17:12] LABS: Alanine Aminotransferase 10 U/L (0-31); Albumin Level 4.1 g/dL (3.5-5.0); Alkaline Phosphatase 61 U/L (39-117); Anion Gap 17 (12-20); Aspartate Amino Transferase 11 U/L (5-31); Bilirubin Total 0.2 mg/dL (0.0-1.0); Blood Urea Nitrogen 42 mg/dL (9-16); C Reactive Protein 0.16 mg/dL (< or = 0.50); Calcium 9.3 mg/dL (8.4-10.2); Carbon Dioxide 24 mmol/L (22-29); Chloride 106 mmol/L (96-108); Estimated Glomerular Filt Rate 20; Glucose Random 119 mg/dL (60-115); Potassium 5.8 mmol/L (3.3-5.1); Sodium 141 mmol/L (135-145); Total Protein 6.9 g/dL (6.5-8.0)
[2023-01-06 18:09] LABS: Erythrocyte Sedimentation Rate 27 MM/HR (0-20)
[2023-01-12 19:55] LABS: CK-BB None Detected (None Detected); CK-MB 0 % (<5); CK-MM 100 % (95-100); Creatine Kinase,Total,Serum 103 U/L (29-143)
== END ==
LOC: HO.CARD 15:48
PROVIDERS: PCP Internal Medicine; Visit Provider Internal Medicine
DX: R07.9 Chest pain, unspecified (principal); I50.32 Chronic diastolic (congestive) heart failure; I25.10 Atherosclerotic heart disease of native coronary artery without angina pectoris; R06.00 Dyspnea, unspecified; N18.4 Chronic kidney disease, stage 4 (severe); Z91.81 History of falling
CPT/HCPCS: 36415; 80053; 82552; 83880; 85025; 85652; 86140; 93005

== ENCOUNTER → 2023-01-06 15:53 | Outpatient (BNV) | payer OTHER, SELFPAY | PROVIDERS: PCP Internal Medicine; Visit Provider Internal Medicine Cardiovascular Disease | DX: I50.32 Chronic diastolic (congestive) heart failure (principal) | CPT/HCPCS: 93010 ==

== ENCOUNTER → 2023-02-11 12:54 | Outpatient (REF) | payer OTHER, SELFPAY ==
--- NOTE | 2023-02-11 12:57 | CA_ITS ---
Transthoracic Echocardiogram Patient (Last, First, Middle): Deepika Fernandez, Gender: Female Date of : 1935 Age: 87 Procedure Date: 02/11/2023 Procedure Type: Transthoracic Echocardiogram Location: OP Height: 139.7 cm Weight: 84.37 kg BSA: 1.70 m2 Heart Rate: 71 bpm BP: 120 / 60 mmHg Health Science Specialist: TO Referring MD: Nima Farooq MD Symptoms: I50.32 - Chronic diastolic (congestive) heart failure Study Quality: Technically Difficult/no iv access ECG Rhythm: Sinus Conclusions: - The left ventricular systolic function is hyperdynamic. The visually estimated ejection fraction is >70%. - There is moderate septal asymmetric hypertrophy. - Evidence suggests grade I (mild) diastolic dysfunction. - No obvious valvular pathology seen on this study. Findings Procedure Information The study quality is limited by patients body habitus. Left Ventricle Normal left ventricular cavity size. The left ventricular systolic function is hyperdynamic. The visually estimated ejection fraction is >70%. There is no evidence of regional wall motion abnormalities. Evidence suggests grade I (mild) diastolic dysfunction. There is moderate septal asymmetric hypertrophy. Right Ventricle Normal right ventricular cavity size and systolic function. Atria Both atria are normal in size. Aortic Valve There is mild calcification of the aortic valve. There is no aortic valve stenosis. There is no aortic valve regurgitation. Mitral Valve The mitral valve appears normal. There is no mitral valve regurgitation. There is no mitral valve stenosis. Pulmonic Valve The pulmonic valve is likely normal. Tricuspid Valve There is trace tricuspid valve regurgitation. Tricuspid regurgitation envelope is inadequate for calculation of right ventricular systolic pressure. Great Vessels The asc aorta is normal in size. Venous The inferior vena cava is normal in size and collapses greater than 50% with inspiration. Pericardium/Pleural Prominent epicardial adipose tissue noted. There is no evidence of pericardial effusion. Prior Study Comparison No significant change compared to prior study dated: 01/29/2021. Recommendations, Care & Conclusions No obvious valvular pathology seen on this study. Measurements 2D Linear Measurements IVSd: 1.30 0.6-0.9/0.6-1.0 cm LVIDd: 4.10 3.9-5.3/4.2-5.9 cm LVIDd Index: 2.41 2.4-3.2/2.2-3.1 cm/m2 LVIDs: 2.80 2.0-3.6 cm LVPWd: 0.80 0.7-1.1 cm LA Diam: 3.20 2.7-3.8/3.0-4.0 cm LAIDs Index: 1.88 1.5-2.3 cm/m2 LV Mass: 176.18 67-162/88-224 g LV Mass Index: 103.64 43-95/49-115 g/m2 LVOT Diam: 1.80 3.0+(-)1.3 cm Mitral Valve MV VTI: 0.23 MV Pk Casey: 1.02 MV Mn Casey: 0.61 MV Pk Grad: 4.00 MV Mn Grad: 2.00 MV Pk E: 0.62 MV PK A: 1.08 MV Decel Time: 195.00 E/A: 0.60 E'Lateral: 3.59 E'Medial: 3.81 E/E' Med: 16.30 E/E' Lat: 17.30 PHT: 57.00 MVA PHT: 3.86 MVA Continuity: 2.26 Decel Zavala: 3.18 Aortic Valve AoV Pk Casey: 1.78 AoV Mn Casey: 1.15 AoV VTI: 0.35 AoV Pk Grad: 13.00 Aov Mn Grad: 6.00 TOMMIE Cont.VTI: 1.51 LVOT LVOT Pk Casey: 0.95 LVOT Mn Casey: 0.59 LVOT VTI: 0.21 LVOT Pk Grad: 4.00 LVOT Mn Grad: 2.00 LVOT Diam: 1.80 LVOT Area: 2.54 Diastolic Function MV Pk E: 0.62 MV Pk A: 1.08 E/A: 0.60 E'Medial: 3.81 E/E' Med: 16.30 E' Laterial: 3.59 E/E' Lat: 17.30 Right Ventricle TAPSE (mm): 21.40 TVS' Casey: 12.30 Tricuspid Valve RA Press: 3.00 Great Vessels Aorta Sinus of Valsalva: 2.90 2.0-3.5 cm Ao Asc: 3.40 2.1-3.4 cm Updated in Other Vendor System with Status of Final Arthur Bess MD electronically signed on 02/12/2023 8:44:40 AM with status of Final
== END ==
LOC: HO.CARD 12:54
PROVIDERS: Visit Provider Internal Medicine
DX: I50.32 Chronic diastolic (congestive) heart failure (principal); R06.09 Other forms of dyspnea
CPT/HCPCS: 93306

== ENCOUNTER → 2023-02-11 12:57 | Outpatient (BNV) | payer OTHER, SELFPAY | PROVIDERS: Visit Provider Internal Medicine | DX: I50.32 Chronic diastolic (congestive) heart failure (principal) | CPT/HCPCS: 93306 ==

== ENCOUNTER 2023-03-05 13:48 | Outpatient (AMB) | payer OTHER, SELFPAY ==
[2023-03-05 13:57] VITALS: BMI 43.0
--- NOTE | 2023-03-05 13:57 | MHC.OFFVIS ---
Intake Vital Signs 03/05/23 13:57 Height 4 ft 7 in Weight 185 lb BMI 43.0 Intake Visit Reasons: OV-B/L knee pain, last inj 11/02/22 Intake Note: Deepika is a 87 year old female who presents today for a follow up for her bilateral knee pain, last inj 11/02/22. Patient reports here last injection gave her relief and would like to repeat. Allergies No Known Allergies Allergy (Verified 03/05/23 14:01) HPI OV-B/L knee pain, last inj 11/02/22 HPI Details Deepika is a 87 year old female who presents today for a follow up for her bilateral knee pain, last inj 11/02/22. Patient reports here last injection gave her relief and would like to repeat. [facility] Medical History (Updated 01/06/23 @ 16:12 by Nima Farooq MD) Chronic kidney disease, stage 4 (severe) Mild cognitive impairment LESLIE on CPAP Chronic heart failure with preserved ejection fraction (HFpEF) COPD (chronic obstructive pulmonary disease) Cellulitis of right foot Morbid obesity with BMI of 40.0-44.9, adult Depression Primary insomnia GERD without esophagitis Vitamin D deficiency Obstructive sleep apnea Benign essential hypertension Pure hypercholesterolemia Chronic kidney disease (CKD), stage III (moderate) Type 2 diabetes mellitus with diabetic chronic kidney disease Coronary artery disease COVID-19 GI bleed GERD (gastroesophageal reflux disease) LESLIE (obstructive sleep apnea) Anxiety CKD (chronic kidney disease) stage 3, GFR 30-59 ml/min Pulmonary hypertension CAD (coronary artery disease) Diabetes mellitus Heart disease Hypercholesteremia HTN (hypertension) Surgical History Hx of colonoscopy History of esophagogastroduodenoscopy (EGD) History of eye surgery H/O abdominal hysterectomy Family History Father No problems noted. Mother No problems noted. Social History Household Members Other:: lives with her daughter who cares for her Housing: Apartment Alcohol intake: never Patient Tobacco Use Status: Never used Tobacco e-Cigarette/Vaping Use: Never Used Second Hand Smoke Exposure: Yes service: No Current occupational status: retired and disabled Cognitive needs: No Hearing needs: No Vision needs: Yes Review of Systems Const All systems reviewed & are unremarkable except as noted in HPI and below Physical Exam Vital Signs: BMI result Body Mass Index 43.0 Const General: cooperative and no acute distress Orientation/consciousness: patient oriented x3 Resp Effort & Inspection: normal respiratory effort and able to speak in complete sentences Cardio Rate: regular rate Peripheral pulses: Peripheral pulses 2+ throughout GI Palpation (GI): Soft to palpation Skin Lesions: no lesions Rashes: no rashes Neuro General: patient oriented x3 Extrem Other: Bilateral knees: Normal to inspection. No ecchymosis, erythema, or joint effusion. Patient is able to demonstrate full knee flexion and extension. NVI. Psych Mental Status: mental status grossly normal Office Procedures Joint Injection/Drain Joint Injection/Drain Primary Site: right knee Secondary Site: left knee Injected: 40 mg of, DepoMedrol, with 8 mL of (2% plain lido ) and in the joint Approach Used: anterolateral Procedure: The patient tolerated the procedure well, but had some pain with the injection and there was some relief with the local anesthesia Coding 41414 - Large joint Procedure code (CPT) selection complete Results Reviewed Results Reviewed: 03/05/23 13:59 Lidocaine HCl 2 % MPF [Xylocaine 2 % MPF] 5 ml .ROUTE .STK-MED ONE methylPREDNISolone acetate [DEPO-MedroL] 40 mg .ROUTE .STK-MED ONE Assessment & Plan Assessment & Plan (1) Osteoarthritis of knees, bilateral: Code(s): M17.0 - Bilateral primary osteoarthritis of knee (2) Type 2 diabetes mellitus with unspecified complications: Code(s): E11.8 - Type 2 diabetes mellitus with unspecified complications (3) Morbid obesity with BMI of 40.0-44.9, adult: Code(s): E66.01 - Morbid (severe) obesity due to excess calories; Z68.41 - Body mass index [BMI] 40.0-44.9, adult Plan Ms. Fernandez is an 87-year-old female who presents in the office today for a follow up of bilateral knee pain. The patient had bilateral knee cortisone injections on 08/03/2022, which gave her relief. She would like to have repeat injections while in the office today. The patient was offered a cortisone injection in the bilateral knees with 40 mg of DepoMedrol. The patient was explained the risk, benefits, and alternatives to receiving this injection. After receiving consent for the injection, the patient had the procedure done while in office today. The patient tolerated the procedure well with no complications. Due to the patient?s history of diabetes, they were instructed to monitor her blood glucose level. The patient was informed that they could see a rise in their numbers and if the numbers became too high, they were instructed to call their PCP. The patient was also informed that they could have facial flushing as a side effect of the injection but this will pass. Follow up will be in 3 months for repeat cortisone injections, or sooner if needed. Coding Level of Care Code Est Pt Level 3 (94616) Diagnoses Osteoarthritis of knees, bilateral M17.0 Type 2 diabetes mellitus with unspecified complications E11.8 Morbid obesity with BMI of 40.0-44.9, adult E66.01; Z68.41 CPT Codes Coding - 22152 Large joint: 50960 - Large joint ([id number])
== END 2023-03-05 14:26 | disposition home or self-care (01) ==
PROVIDERS: PCP Internal Medicine; Visit Provider Physician Assistant
DX: M17.0 Bilateral primary osteoarthritis of knee (principal); E11.8 Type 2 diabetes mellitus with unspecified complications; E66.01 Morbid (severe) obesity due to excess calories; Z68.41 Body mass index [BMI] 40.0-44.9, adult
CPT/HCPCS: 20610; 99213

== ENCOUNTER → 2023-03-05 13:48 | Outpatient (BNVA) | payer OTHER, SELFPAY | PROVIDERS: PCP Internal Medicine; Visit Provider Physician Assistant | DX: M17.0 Bilateral primary osteoarthritis of knee (principal); E11.8 Type 2 diabetes mellitus with unspecified complications; E66.01 Morbid (severe) obesity due to excess calories; Z68.41 Body mass index [BMI] 40.0-44.9, adult | CPT/HCPCS: 20610; 99212; J1020 ==

== ENCOUNTER 2023-03-15 13:45 | Emergency (ER) | payer OTHER, SELFPAY ==
--- NOTE | ~2023-03-15 | CT_ITS ---
EXAMINATION: CT ABDOMEN AND PELVIS WITHOUT CONTRAST CLINICAL INFORMATION: Low back pain and flank pain. COMPARISON: None available. TECHNIQUE: Multidetector volumetric imaging was performed from the superior aspect of the liver through the pubic symphysis. Sagittal and coronal reformatted images were obtained on the technologist's workstation. This CT examination was performed using dose optimization techniques as appropriate, variously including the following: *Automated exposure control *Adjustment of mA and/or kV according to patient size (this includes techniques or standardized protocols for targeted exams where dose is matched to indication/reason for exam; i.e. extremities or head) *Use of iterative reconstruction technique DLP: 669 mGy-cm FINDINGS: LUNG BASES: Minimal atelectatic changes seen in the right lower lobe lateral basal segment. LIVER, GALLBLADDER, AND BILIARY TREE: The liver is normal in size, shape, and attenuation. No focal hepatic lesion or biliary ductal dilatation is present. The gallbladder is unremarkable with no evidence of radiopaque gallstones, gallbladder wall thickening, or obvious pericholecystic inflammatory changes. PANCREAS: Unremarkable. SPLEEN: Unremarkable. ADRENAL GLANDS: Unremarkable. KIDNEYS AND URETERS: The kidneys are normal in size, shape, and attenuation. No hydronephrosis, hydroureter, or calculi seen. No perinephric stranding. There is a small exophytic 9 mm cyst in mid and lower pole left kidney. BLADDER: The bladder is mildly distended but no radiopaque calculi wall thickening. GASTROINTESTINAL TRACT: There is scattered stool, diverticuli and gas seen throughout the colon without any significant distention. The small bowel loops are normal caliber. The appendix is normal caliber There is no free air or free fluid seen. ABDOMINAL WALL: There is a small umbilical hernia containing fat the neck is 1.5 cm wide and 1.4 cm in craniocaudad length. LYMPH NODES: Normal. VASCULAR: The abdominal aorta is of normal caliber. No aneurysmal dilatation seen. PELVIC VISCERA: There is no free air or free fluid. OSSEOUS STRUCTURES: No aggressive lytic or sclerotic process seen. There is moderate ventral bridging osteophytes lower dorsal and upper lumbar spine. CT/CT abdomen pelvis wo IV con IMPRESSION: 1. No acute intra-abdominal process seen. 2. Colonic diverticulosis without diverticulitis. Mild constipation. 3. No radiopaque urolith or hydroureteronephrosis. Fleischner guidelines were followed.
[2023-03-15 14:15] VITALS: BP 111/47; PULSE 84; RESP 18; TEMP 36.4; O2SAT 98; BMI 43.2
[2023-03-15 16:33] LABS: MANUAL DIFF FLAG NO
[2023-03-15 16:36] LABS: Appearance Urine Cloudy; Basophils Percent Auto 0.3 % (0-2); Color Urine Yellow; Eosinophils Percent Auto 0.3 % (0-4); Glucose Urine UA Negative (Negative); Hematocrit 34.7 % (37.0-47.0); Hemoglobin 11.6 g/dl (12.0-16.0); Imm Gran Abs Auto 0.06 X10*3/uL (0.00-0.03); Imm Gran Pct Auto 0.4 % (0.0-0.4); Leukocyte Esterase Urine Moderate (2+) (Negative); Lymphocytes Absolute Auto 1.8 X10*3/uL (1.2-4.9); Lymphocytes Percent Auto 13.1 % (20-40); Mean Corpuscular HGB Conc 33.4 g/dl (31.0-35.0); Mean Corpuscular Hemoglobin 31.3 pg (27.0-33.0); Mean Corpuscular Volume 93.5 fL (80.0-98.0); Mean Platelet Volume 9.2 fL (9.4-12.3); Monocytes Absolute Auto 1.2 X10*3/uL (0.1-1.2); Monocytes Percent Auto 8.4 % (2-11); Neutrophils Absolute Auto 10.7 x10*3/uL (2.0-8.3); Neutrophils Percent Auto 77.5 % (45-73); Nitrite Urine Negative (Negative); Platelet Count 309 X10*3/uL (160-400); Red Blood Count 3.71 X10*6/uL (4.20-5.50); Red Cell Distribution Width 12.6 % (11.0-16.0); Specific Gravity - Urine 1.015 (1.005-1.025); UMIC TRIGGER UACC YES; Urine Blood Negative (Negative); Urine Ketones Negative (Negative); Urine Protein Negative (Neg-Trace); White Blood Count 13.8 X10*3/uL (4.8-10.8)
[2023-03-15 16:41] LABS: Bacteria Urine 2+ (None Seen); RBC Urine 0-2 /HPF (0-2); UACC Culture Trigger YES; WBC Urine 21-50 /HPF (0-5)
[2023-03-15 17:02] LABS: Alanine Aminotransferase 13 U/L (0-31); Albumin Level 4.3 g/dL (3.5-5.0); Alkaline Phosphatase 70 U/L (39-117); Anion Gap 20 (12-20); Aspartate Amino Transferase 12 U/L (5-31); Bilirubin Total 0.4 mg/dL (0.0-1.0); Blood Urea Nitrogen 54 mg/dL (9-16); Calcium 9.2 mg/dL (8.4-10.2); Carbon Dioxide 17 mmol/L (22-29); Chloride 104 mmol/L (96-108); Creatinine Clr Calc Pharmacy 13.3; Estimated Glomerular Filt Rate 18; Glucose Random 144 mg/dL (60-115); Potassium 4.9 mmol/L (3.3-5.1); Sodium 136 mmol/L (135-145); Total Protein 7.8 g/dL (6.5-8.0)
[2023-03-15 19:18] VITALS: BP 105/86; PULSE 86; RESP 17; TEMP 36.6; O2SAT 100
--- NOTE | 2023-03-15 19:20 | MHC.EDTECH ---
vital done, pt changed into hospital attire
--- NOTE | 2023-03-15 19:31 | PC.NURSE ---
pt a &ox3. respirations even and unlabored. pt reporting 10/10 lower back pain for 2 weeks that is radiating into the left leg. pt reports being able to walk but very uncomfortable. pt able to lift lower extremities but has pain when lifting the left leg. pt reports normal bowel movements and no issues with urination. pt denies nausea, vomiting, diarrhea and chest pain.
--- NOTE | 2023-03-15 19:45 | ED.BACK ---
HPI - Back Pain/Injury General Chief Complaint: Back Pain/Injury Stated Complaint: low back pain travels to leg Time Seen by Provider: 03/15/23 19:43 Source: patient and family History of Present Illness HPI Narrative: 87-year-old female who reports that she has had atraumatic lower back discomfort for a couple of days, this is not been associated with any fever, chills. Related Data Home Medications Medication Instructions Recorded Confirmed alprazolam 0.5 mg tablet 0.5 mg PO BID 03/18/20 01/06/23 ascorbic acid (vitamin C) 500 mg mg PO DAILY 03/18/20 01/06/23 capsule quetiapine 25 mg tablet 25 mg PO BID 03/18/20 01/06/23 quetiapine 50 mg tablet 50 mg PO BEDTIME 06/10/20 01/06/23 citalopram 20 mg tablet 20 mg PO QAM 12/24/20 01/06/23 zolpidem 5 mg tablet 5 mg PO BEDTIME PRN insomnia 12/24/20 01/06/23 Previous Rx's Medication Instructions Recorded cetirizine 10 mg capsule (Zyrtec) 10 mg PO DAILY PRN allergy 05/07/20 symptoms 15 days #20 caps clotrimazole-betamethasone 1 1 appl topical BID itching 15 days 05/07/20 %-0.05 % topical cream #15 grams CHAIR LIFT #1 ea 05/26/21 LIGHTWEIGHT TRANSPORT WHEELCHAIR #1 ea 05/26/21 WITH HANDBRAKES amlodipine 5 mg tablet 5 mg PO DAILY 90 days #90 tabs 11/19/21 loperamide 2 mg capsule 2 mg PO Q6-8H PRN loose stool #90 12/30/21 caps blood pressure monitor #1 ea 03/16/22 linagliptin 5 mg tablet (Tradjenta) 5 mg PO DAILY #90 tabs 04/19/22 melatonin 10 mg capsule 10 mg PO BEDTIME #90 caps 05/07/22 metoprolol succinate 25 mg 25 mg PO DAILY #90 tabs 07/28/22 tablet,extended release 24 hr (Toprol XL) cyanocobalamin (vitamin B-12) 500 500 mcg PO DAILY 90 days #90 tabs 09/21/22 mcg tablet pravastatin 40 mg tablet 40 mg PO DAILY 90 days #90 tabs 09/21/22 cetirizine 10 mg tablet (Zyrtec) 10 mg PO DAILY 30 days #30 tabs 10/07/22 furosemide 40 mg tablet 40 mg PO DAILY 90 days #90 tabs 11/22/22 albuterol sulfate 90 mcg/actuation 2 puff PO Q4-6H PRN for wheezing 12/04/22 aerosol inhaler #8.5 ea ipratropium 0.5 mg-albuterol 3 mg 3 ml inhalation Q6H PRN shortness 12/04/22 (2.5 mg base)/3 mL nebulization of breath or wheezing #270 mL soln nebulizers (VixOne Nebulizer-Adult #1 ea 12/04/22 Mask) nitroglycerin 0.2 mg/hr 1 patch topical DAILY #30 patches 01/06/23 transdermal 24 hour patch cholecalciferol (vitamin D3) 25 25 mcg PO DAILY 90 days #90 tabs 01/20/23 mcg (1,000 unit) tablet ferrous sulfate 325 mg (65 mg 325 mg PO DAILY #90 tabs 01/20/23 iron) tablet blood sugar diagnostic (OneTouch #100 ea 01/25/23 Verio test strips) lancets 30 gauge #100 ea 01/25/23 omeprazole 20 mg capsule,delayed 20 mg PO BID #60 caps 01/28/23 release metformin 1,000 mg tablet 1,000 mg PO BID 90 days #180 tabs 03/02/23 Allergies Allergy/AdvReac Type Severity Reaction Status Date / Time No Known Allergies Allergy Verified 03/05/23 14:01 Review of Systems Review of Systems: Pertinent positives and negatives as stated in HPI [facility] Past Medical History Source: nursing notes reviewed Medical History (Updated 03/15/23 @ 22:49 by Lashell Sarabia MD) Chronic kidney disease, stage 4 (severe) Mild cognitive impairment LESLIE on CPAP Chronic heart failure with preserved ejection fraction (HFpEF) COPD (chronic obstructive pulmonary disease) Cellulitis of right foot Morbid obesity with BMI of 40.0-44.9, adult Depression Primary insomnia GERD without esophagitis Vitamin D deficiency Obstructive sleep apnea Benign essential hypertension Pure hypercholesterolemia Chronic kidney disease (CKD), stage III (moderate) Type 2 diabetes mellitus with diabetic chronic kidney disease Coronary artery disease COVID-19 GI bleed GERD (gastroesophageal reflux disease) LESLIE (obstructive sleep apnea) Anxiety CKD (chronic kidney disease) stage 3, GFR 30-59 ml/min Pulmonary hypertension CAD (coronary artery disease) Diabetes mellitus Heart disease Hypercholesteremia HTN (hypertension) Surgical History Hx of colonoscopy History of esophagogastroduodenoscopy (EGD) History of eye surgery H/O abdominal hysterectomy Family History Family History Father No problems noted. Mother No problems noted. Social History Social History Household Members Other:: lives with her daughter who cares for her Housing: Apartment Alcohol intake: never Patient Tobacco Use Status: Never used Tobacco Smoked in Last 30 Days: No e-Cigarette/Vaping Use: Never Used Second Hand Smoke Exposure: Yes Use of substances other than those prescribed or required for medical reasons: No Advance Directives: No Advance Directives Information Provided: No service: No Current occupational status: retired and disabled Cognitive needs: No Hearing needs: No Vision needs: Yes Physical Exam Vital Signs: Vital Signs: Last Vital Signs Temp 97.8 F 03/15/23 19:18 Pulse 86 03/15/23 19:18 Resp 17 03/15/23 19:18 BP 105/86 03/15/23 19:18 Pulse Ox 100 03/15/23 19:18 O2 Del Method Room Air 03/15/23 19:18 BMI result Body Mass Index 43.2 VITAL SIGNS: Reviewed. GENERAL: Well developed, well nourished, in no acute distress. HEAD: Normocephalic/atraumatic EYES: PERRLA, EOMI EARS: Ext canals without abnormality NOSE: Nares patent bilateral OROPHARYNX: no oral lesions noted, posterior pharynx clear NECK: Supple, no adenopathy LUNGS: Normal breath sounds. No adventitious sounds or accessory muscle use. SpO2<100> CARDIOVASCULAR: Regular rate and rhythm without noted murmurs ABDOMEN: Soft, non-tender, non-distended with bowel sounds. BACK: There is tenderness to palpation but notes office in no erythema or induration MUSCULOSKELETAL: No tenderness, deformities, or effusions noted on gross inspection. EXTREMITIES: No cyanosis, clubbing or edema. SKIN: Inspection of the skin reveals no rashes NEUROLOGIC: Alert and oriented x 4. Strength and sensation to light touch were grossly intact x 4. Medications Administered Discontinued Medications Generic Name Dose Route Start Last Admin Trade Name Rosalva PRN Reason Stop Dose Admin Acetaminophen 975 mg 03/15/23 20:15 03/15/23 20:19 Acetaminophen 325 Mg Tablet PO 03/15/23 20:16 975 mg ONCE ONE Administration Lidocaine 1 patch 03/15/23 20:15 03/15/23 20:19 Lidocaine 4 % Patch Adh..Patch TRANSDERMA 03/15/23 20:16 1 patch ONCE ONE Administration Protocol Medical Decision Making Medical Decision Making [facility] Narrative: 87-year-old female with history and clinical presentation, DDX: Acute on chronic back pain, UTI, intra-abdominal pathology I reviewed all investigations, hematologic indices demonstrate a leukocytosis as well as a left shift but patient is afebrile and review of urine appears to be a dirty sample and CT scan negative for any acute infectious intra-abdominal pathology. Chemistry indices demonstrate chronically stable CKD, no electrolyte or liver enzyme abnormalities. Urinalysis negative for nitrite positivity or the presence of ketones and patient has leukocyte esterase but appears to be a dirty sample as there are numerous squamous epithelial cells and on review of prior microbiology urine cultures there has been no growth. Patient offered acetaminophen and lidocaine and on re-evaluation is resting comfortably. 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 Differential Diagnosis Differential Diagnoses: The differential diagnosis associated with the presentation includes Please see the discussion above Admission/Observation Consideration of admission/observation: Escalation of care including admission/observation considered Please see the discussion above Lab Data [facility] Lab Attestation statement: I reviewed the patient's lab results. Please see the discussion above 03/15/23 16:28 03/15/23 16:28 Labs: Lab Results 03/15/23 03/15/23 03/15/23 Range/Units 16:28 16:28 16:28 WBC 13.8 H (4.8-10.8) X10*3/uL RBC 3.71 L (4.20-5.50) X10*6/uL Hgb 11.6 L (12.0-16.0) g/dl Hct 34.7 L (37.0-47.0) % MCV 93.5 (80.0-98.0) fL MCH 31.3 (27.0-33.0) pg MCHC 33.4 (31.0-35.0) g/dl RDW 12.6 (11.0-16.0) % Plt Count 309 (160-400) X10*3/uL MPV 9.2 L (9.4-12.3) fL Immature Gran % (Auto) 0.4 (0.0-0.4) % Neut % (Auto) 77.5 H (45-73) % Lymph % (Auto) 13.1 L (20-40) % [place] % (Auto) 8.4 (2-11) % Eos % (Auto) 0.3 (0-4) % Baso % (Auto) 0.3 (0-2) % Lymph # (Auto) 1.8 (1.2-4.9) X10*3/uL [place] # (Auto) 1.2 (0.1-1.2) X10*3/uL Eos # (Auto) 0.0 (0.0-0.4) X10*3/uL Baso # (Auto) 0.0 (0.0-0.2) X10*3/uL Abs Immat Gran (auto) 0.06 H (0.00-0.03) X10*3/uL Absolute Neuts (auto) 10.7 H (2.0-8.3) x10*3/uL Absolute Nucleated RBC 0.000 (0.0-0.012) X10*3/uL Nucleated RBC % (auto) 0.0 (0.0-0.2) /100WBC Sodium 136 (135-145) mmol/L Potassium 4.9 (3.3-5.1) mmol/L Chloride 104 (96-108) mmol/L Carbon Dioxide 17 L (22-29) mmol/L Anion Gap 20 (12-20) BUN 54 H (9-16) mg/dL Creatinine 2.50 H (0.5-1.4) mg/dL Estim Creat Clear Calc 13.3 Estimated GFR 18 Random Glucose 144 H (60-115) mg/dL Calcium 9.2 (8.4-10.2) mg/dL Total Bilirubin 0.4 (0.0-1.0) mg/dL AST 12 (5-31) U/L ALT 13 (0-31) U/L Alkaline Phosphatase 70 (39-117) U/L Total Protein 7.8 (6.5-8.0) g/dL Albumin 4.3 (3.5-5.0) g/dL Urine Color Yellow Cancelled Urine Appearance Cloudy Cancelled Urine pH 5.0 (5.0-9.0) Ur Specific [place] (1.005-1.025) Urine Protein (Neg-Trace) mg/dL Urine Glucose (UA) (Negative) mg/dL Urine Ketones (Negative) mg/dL Urine Blood (Negative) Urine Nitrite (Negative) Ur Leukocyte Esterase (Negative) Urine RBC (0-2) /HPF Urine WBC (0-5) /HPF Urine WBC Clumps Ur Squamous Epith Cells (0-2) /HPF Ur Transition Epith Cell Ur Renal Epithelial Cell Calcium Oxalate Crystal Leucine Crystals Cystine Crystals Tyrosine Crystals Other Crystals Urine Bacteria (None Seen) Urine Parasites Bilirubin Casts Epithelial Casts Fatty Casts Hyaline Casts (0-2) /LPF Granular Casts Waxy Casts Broad Casts RBC Casts WBC Casts Other Casts Urine Trichomonas Urine Yeast 03/15/23 03/15/23 03/15/23 Range/Units 16:28 16:28 16:28 WBC (4.8-10.8) X10*3/uL RBC (4.20-5.50) X10*6/uL Hgb (12.0-16.0) g/dl Hct (37.0-47.0) % MCV (80.0-98.0) fL MCH (27.0-33.0) pg MCHC (31.0-35.0) g/dl RDW (11.0-16.0) % Plt Count (160-400) X10*3/uL MPV (9.4-12.3) fL Immature Gran % (Auto) (0.0-0.4) % Neut % (Auto) (45-73) % Lymph % (Auto) (20-40) % [place] % (Auto) (2-11) % Eos % (Auto) (0-4) % Baso % (Auto) (0-2) % Lymph # (Auto) (1.2-4.9) X10*3/uL [place] # (Auto) (0.1-1.2) X10*3/uL Eos # (Auto) (0.0-0.4) X10*3/uL Baso # (Auto) (0.0-0.2) X10*3/uL Abs Immat Gran (auto) (0.00-0.03) X10*3/uL Absolute Neuts (auto) (2.0-8.3) x10*3/uL Absolute Nucleated RBC (0.0-0.012) X10*3/uL Nucleated RBC % (auto) (0.0-0.2) /100WBC Sodium (135-145) mmol/L Potassium (3.3-5.1) mmol/L Chloride (96-108) mmol/L Carbon Dioxide (22-29) mmol/L Anion Gap (12-20) BUN (9-16) mg/dL Creatinine (0.5-1.4) mg/dL Estim Creat Clear Calc Estimated GFR Random Glucose (60-115) mg/dL Calcium (8.4-10.2) mg/dL Total Bilirubin (0.0-1.0) mg/dL AST (5-31) U/L ALT (0-31) U/L Alkaline Phosphatase (39-117) U/L Total Protein (6.5-8.0) g/dL Albumin (3.5-5.0) g/dL Urine Color Urine Appearance Urine pH Cancelled (5.0-9.0) Ur Specific [place] 1.015 Cancelled (1.005-1.025) Urine Protein Negative Cancelled (Neg-Trace) mg/dL Urine Glucose (UA) Negative (Negative) mg/dL Urine Ketones (Negative) mg/dL Urine Blood (Negative) Urine Nitrite (Negative) Ur Leukocyte Esterase (Negative) Urine RBC (0-2) /HPF Urine WBC (0-5) /HPF Urine WBC Clumps Ur Squamous Epith Cells (0-2) /HPF Ur Transition Epith Cell Ur Renal Epithelial Cell Calcium Oxalate Crystal Leucine Crystals Cystine Crystals Tyrosine Crystals Other Crystals Urine Bacteria (None Seen) Urine Parasites Bilirubin Casts Epithelial Casts Fatty Casts Hyaline Casts (0-2) /LPF Granular Casts Waxy Casts Broad Casts RBC Casts WBC Casts Other Casts Urine Trichomonas Urine Yeast 03/15/23 03/15/23 03/15/23 Range/Units 16:28 16:28 16:28 WBC (4.8-10.8) X10*3/uL RBC (4.20-5.50) X10*6/uL Hgb (12.0-16.0) g/dl Hct (37.0-47.0) % MCV (80.0-98.0) fL MCH (27.0-33.0) pg MCHC (31.0-35.0) g/dl RDW (11.0-16.0) % Plt Count (160-400) X10*3/uL MPV (9.4-12.3) fL Immature Gran % (Auto) (0.0-0.4) % Neut % (Auto) (45-73) % Lymph % (Auto) (20-40) % [place] % (Auto) (2-11) % Eos % (Auto) (0-4) % Baso % (Auto) (0-2) % Lymph # (Auto) (1.2-4.9) X10*3/uL [place] # (Auto) (0.1-1.2) X10*3/uL Eos # (Auto) (0.0-0.4) X10*3/uL Baso # (Auto) (0.0-0.2) X10*3/uL Abs Immat Gran (auto) (0.00-0.03) X10*3/uL Absolute Neuts (auto) (2.0-8.3) x10*3/uL Absolute Nucleated RBC (0.0-0.012) X10*3/uL Nucleated RBC % (auto) (0.0-0.2) /100WBC Sodium (135-145) mmol/L Potassium (3.3-5.1) mmol/L Chloride (96-108) mmol/L Carbon Dioxide (22-29) mmol/L Anion Gap (12-20) BUN (9-16) mg/dL Creatinine (0.5-1.4) mg/dL Estim Creat Clear Calc Estimated GFR Random Glucose (60-115) mg/dL Calcium (8.4-10.2) mg/dL Total Bilirubin (0.0-1.0) mg/dL AST (5-31) U/L ALT (0-31) U/L Alkaline Phosphatase (39-117) U/L Total Protein (6.5-8.0) g/dL Albumin (3.5-5.0) g/dL Urine Color Urine Appearance Urine pH (5.0-9.0) Ur Specific [place] (1.005-1.025) Urine Protein (Neg-Trace) mg/dL Urine Glucose (UA) Cancelled (Negative) mg/dL Urine Ketones Negative Cancelled (Negative) mg/dL Urine Blood Negative Cancelled (Negative) Urine Nitrite Negative (Negative) Ur Leukocyte Esterase (Negative) Urine RBC (0-2) /HPF Urine WBC (0-5) /HPF Urine WBC Clumps Ur Squamous Epith Cells (0-2) /HPF Ur Transition Epith Cell Ur Renal Epithelial Cell Calcium Oxalate Crystal Leucine Crystals Cystine Crystals Tyrosine Crystals Other Crystals Urine Bacteria (None Seen) Urine Parasites Bilirubin Casts Epithelial Casts Fatty Casts Hyaline Casts (0-2) /LPF Granular Casts Waxy Casts Broad Casts RBC Casts WBC Casts Other Casts Urine Trichomonas Urine Yeast 03/15/23 03/15/23 03/15/23 Range/Units 16:28 16:28 16:28 WBC (4.8-10.8) X10*3/uL RBC (4.20-5.50) X10*6/uL Hgb (12.0-16.0) g/dl Hct (37.0-47.0) % MCV (80.0-98.0) fL MCH (27.0-33.0) pg MCHC (31.0-35.0) g/dl RDW (11.0-16.0) % Plt Count (160-400) X10*3/uL MPV (9.4-12.3) fL Immature Gran % (Auto) (0.0-0.4) % Neut % (Auto) (45-73) % Lymph % (Auto) (20-40) % [place] % (Auto) (2-11) % Eos % (Auto) (0-4) % Baso % (Auto) (0-2) % Lymph # (Auto) (1.2-4.9) X10*3/uL [place] # (Auto) (0.1-1.2) X10*3/uL Eos # (Auto) (0.0-0.4) X10*3/uL Baso # (Auto) (0.0-0.2) X10*3/uL Abs Immat Gran (auto) (0.00-0.03) X10*3/uL Absolute Neuts (auto) (2.0-8.3) x10*3/uL Absolute Nucleated RBC (0.0-0.012) X10*3/uL Nucleated RBC % (auto) (0.0-0.2) /100WBC Sodium (135-145) mmol/L Potassium (3.3-5.1) mmol/L Chloride (96-108) mmol/L Carbon Dioxide (22-29) mmol/L Anion Gap (12-20) BUN (9-16) mg/dL Creatinine (0.5-1.4) mg/dL Estim Creat Clear Calc Estimated GFR Random Glucose (60-115) mg/dL Calcium (8.4-10.2) mg/dL Total Bilirubin (0.0-1.0) mg/dL AST (5-31) U/L ALT (0-31) U/L Alkaline Phosphatase (39-117) U/L Total Protein (6.5-8.0) g/dL Albumin (3.5-5.0) g/dL Urine Color Urine Appearance Urine pH (5.0-9.0) Ur Specific [place] (1.005-1.025) Urine Protein (Neg-Trace) mg/dL Urine Glucose (UA) (Negative) mg/dL Urine Ketones (Negative) mg/dL Urine Blood (Negative) Urine Nitrite Cancelled (Negative) Ur Leukocyte Esterase Moderate (2+) H Cancelled (Negative) Urine RBC 0-2 Cancelled (0-2) /HPF Urine WBC 21-50 H (0-5) /HPF Urine WBC Clumps Ur Squamous Epith Cells (0-2) /HPF Ur Transition Epith Cell Ur Renal Epithelial Cell Calcium Oxalate Crystal Leucine Crystals Cystine Crystals Tyrosine Crystals Other Crystals Urine Bacteria (None Seen) Urine Parasites Bilirubin Casts Epithelial Casts Fatty Casts Hyaline Casts (0-2) /LPF Granular Casts Waxy Casts Broad Casts RBC Casts WBC Casts Other Casts Urine Trichomonas Urine Yeast 03/15/23 03/15/23 03/15/23 Range/Units 16:28 16:28 16:28 WBC (4.8-10.8) X10*3/uL RBC (4.20-5.50) X10*6/uL Hgb (12.0-16.0) g/dl Hct (37.0-47.0) % MCV (80.0-98.0) fL MCH (27.0-33.0) pg MCHC (31.0-35.0) g/dl RDW (11.0-16.0) % Plt Count (160-400) X10*3/uL MPV (9.4-12.3) fL Immature Gran % (Auto) (0.0-0.4) % Neut % (Auto) (45-73) % Lymph % (Auto) (20-40) % [place] % (Auto) (2-11) % Eos % (Auto) (0-4) % Baso % (Auto) (0-2) % Lymph # (Auto) (1.2-4.9) X10*3/uL [place] # (Auto) (0.1-1.2) X10*3/uL Eos # (Auto) (0.0-0.4) X10*3/uL Baso # (Auto) (0.0-0.2) X10*3/uL Abs Immat Gran (auto) (0.00-0.03) X10*3/uL Absolute Neuts (auto) (2.0-8.3) x10*3/uL Absolute Nucleated RBC (0.0-0.012) X10*3/uL Nucleated RBC % (auto) (0.0-0.2) /100WBC Sodium (135-145) mmol/L Potassium (3.3-5.1) mmol/L Chloride (96-108) mmol/L Carbon Dioxide (22-29) mmol/L Anion Gap (12-20) BUN (9-16) mg/dL Creatinine (0.5-1.4) mg/dL Estim Creat Clear Calc Estimated GFR Random Glucose (60-115) mg/dL Calcium (8.4-10.2) mg/dL Total Bilirubin (0.0-1.0) mg/dL AST (5-31) U/L ALT (0-31) U/L Alkaline Phosphatase (39-117) U/L Total Protein (6.5-8.0) g/dL Albumin (3.5-5.0) g/dL Urine Color Urine Appearance Urine pH (5.0-9.0) Ur Specific [place] (1.005-1.025) Urine Protein (Neg-Trace) mg/dL Urine Glucose (UA) (Negative) mg/dL Urine Ketones (Negative) mg/dL Urine Blood (Negative) Urine Nitrite (Negative) Ur Leukocyte Esterase (Negative) Urine RBC (0-2) /HPF Urine WBC Cancelled (0-5) /HPF Urine WBC Clumps Cancelled Ur Squamous Epith Cells 11-20 Cancelled (0-2) /HPF Ur Transition Epith Cell Cancelled Ur Renal Epithelial Cell Cancelled Calcium Oxalate Crystal Cancelled Leucine Crystals Cancelled Cystine Crystals Cancelled Tyrosine Crystals Cancelled Other Crystals Cancelled Urine Bacteria 2+ Cancelled (None Seen) Urine Parasites Cancelled Bilirubin Casts Cancelled Epithelial Casts Cancelled Fatty Casts Cancelled Hyaline Casts 3-5 (0-2) /LPF Granular Casts Waxy Casts Broad Casts RBC Casts WBC Casts Other Casts Urine Trichomonas Urine Yeast 03/15/23 Range/Units 16:28 WBC (4.8-10.8) X10*3/uL RBC (4.20-5.50) X10*6/uL Hgb (12.0-16.0) g/dl Hct (37.0-47.0) % MCV (80.0-98.0) fL MCH (27.0-33.0) pg MCHC (31.0-35.0) g/dl RDW (11.0-16.0) % Plt Count (160-400) X10*3/uL MPV (9.4-12.3) fL Immature Gran % (Auto) (0.0-0.4) % Neut % (Auto) (45-73) % Lymph % (Auto) (20-40) % [place] % (Auto) (2-11) % Eos % (Auto) (0-4) % Baso % (Auto) (0-2) % Lymph # (Auto) (1.2-4.9) X10*3/uL [place] # (Auto) (0.1-1.2) X10*3/uL Eos # (Auto) (0.0-0.4) X10*3/uL Baso # (Auto) (0.0-0.2) X10*3/uL Abs Immat Gran (auto) (0.00-0.03) X10*3/uL Absolute Neuts (auto) (2.0-8.3) x10*3/uL Absolute Nucleated RBC (0.0-0.012) X10*3/uL Nucleated RBC % (auto) (0.0-0.2) /100WBC Sodium (135-145) mmol/L Potassium (3.3-5.1) mmol/L Chloride (96-108) mmol/L Carbon Dioxide (22-29) mmol/L Anion Gap (12-20) BUN (9-16) mg/dL Creatinine (0.5-1.4) mg/dL Estim Creat Clear Calc Estimated GFR Random Glucose (60-115) mg/dL Calcium (8.4-10.2) mg/dL Total Bilirubin (0.0-1.0) mg/dL AST (5-31) U/L ALT (0-31) U/L Alkaline Phosphatase (39-117) U/L Total Protein (6.5-8.0) g/dL Albumin (3.5-5.0) g/dL Urine Color Urine Appearance Urine pH (5.0-9.0) Ur Specific [place] (1.005-1.025) Urine Protein (Neg-Trace) mg/dL Urine Glucose (UA) (Negative) mg/dL Urine Ketones (Negative) mg/dL Urine Blood (Negative) Urine Nitrite (Negative) Ur Leukocyte Esterase (Negative) Urine RBC (0-2) /HPF Urine WBC (0-5) /HPF Urine WBC Clumps Ur Squamous Epith Cells (0-2) /HPF Ur Transition Epith Cell Ur Renal Epithelial Cell Calcium Oxalate Crystal Leucine Crystals Cystine Crystals Tyrosine Crystals Other Crystals Urine Bacteria (None Seen) Urine Parasites Bilirubin Casts Epithelial Casts Fatty Casts Hyaline Casts Cancelled (0-2) /LPF Granular Casts Cancelled Waxy Casts Cancelled Broad Casts Cancelled RBC Casts Cancelled WBC Casts Cancelled Other Casts Cancelled Urine Trichomonas Cancelled Urine Yeast Cancelled Radiology Impression Discussion of test interpretation with radiology: I have reviewed the radiologist's reading. Radiologist Impression: Please see the discussion above External Record Review External record reviewed: Outpatient record, Prior outpatient labs and Prior outpatient radiology Chronic Conditions Patient?s care impacted by: Diabetes and Hypertension CKD Critical Care Time Critical Care Time Critical Care Time: Yes Total Critical Care Time: 30 Attestation: I personally attest to this time spent taking care of the patient. Discharge Plan Discharge Clinical Impression: Acute exacerbation of chronic low back pain Patient Disposition: Home, Self-Care Instructions: Lower Back Exercises (ED), Back Pain (ED) Additional Instructions: 1. Reanudar todos los medicamentos caseros. 2. Tylenol 1000 mg, por v?a oral, cada 6 horas seg?n sea necesario para el control del dolor. No exceda los 4000 mg en 24 horas. 3. Parche de lidoca?na, apl?quelo en el ?alex de m?xima sensibilidad mitch se indica en el paquete exterior. 4. Vijaya un seguimiento con el m?dico de atenci?n primaria y analice la derivaci?n a fisioterapia para aliviar el dolor de espalda. Regrese a la bernadette de emergencias si presenta n?useas, v?mitos, fiebre o escalofr?os. 1. Resume all home medications. 2. Tylenol 1000 mg, orally, every 6 hours as needed pain control. Do not exceed 4000 mg within 24 hours. 3. Lidocaine patch, apply this to the area of maximal tenderness as directed on the outside packaging. 4. Follow-up with the primary care doctor and discuss referral to physical therapy for relief of back pain. Return to the ER if there is any development of nausea, vomiting, fever, chills. Prescriptions: No Action amlodipine 5 mg tablet 5 mg PO DAILY 90 Days Qty: 90 2RF loperamide 2 mg capsule 2 mg PO Q6-8H PRN (Reason: loose stool) Qty: 90 1RF Tradjenta 5 mg tablet 5 mg PO DAILY Qty: 90 3RF melatonin 10 mg capsule 10 mg PO BEDTIME Qty: 90 0RF metoprolol succinate [Toprol XL] 25 mg tablet extended release 24 hr 25 mg PO DAILY Qty: 90 4RF cyanocobalamin (vitamin B-12) 500 mcg tablet 500 mcg PO DAILY 90 Days Qty: 90 3RF pravastatin 40 mg tablet 40 mg PO DAILY 90 Days Qty: 90 1RF furosemide 40 mg tablet 40 mg PO DAILY 90 Days Qty: 90 1RF albuterol sulfate 90 mcg/actuation HFA aerosol inhaler 2 puff PO Q4-6H PRN (Reason: for wheezing) Qty: 8.5 1RF ipratropium-albuterol 0.5 mg-3 mg(2.5 mg base)/3 mL solution for nebulization 3 ml inhalation Q6H PRN (Reason: shortness of breath or wheezing) Qty: 270 4RF (DME) VixOne Nebulizer-Adult Mask Misc See Rx Instructions .ROUTE .MEDSUPPLY Qty: 1 2RF Rx Instructions: As directed ferrous sulfate 325 mg (65 mg iron) tablet 325 mg PO DAILY Qty: 90 0RF cholecalciferol (vitamin D3) 25 mcg (1,000 unit) tablet 25 mcg PO DAILY 90 Days Qty: 90 2RF (DME) OneTouch Verio test strips Strip See Rx Instructions .Route Qty: 100 3RF Rx Instructions: As directed- To test blood sugar daily. (DME) lancets 30 gauge misc See Rx Instructions .Route Qty: 100 0RF Rx Instructions: As directed-To test blood sugar daily. omeprazole 20 mg capsule,delayed release(DR/EC) 20 mg PO BID Qty: 60 3RF metformin 1,000 mg tablet 1,000 mg PO BID 90 Days Qty: 180 1RF (DME) LIGHTWEIGHT TRANSPORT WHEELCHAIR WITH HANDBRAKES See Rx Instructions .Route .MEDSUPPLY Qty: 1 0RF Rx Instructions: As directed (DME) CHAIR LIFT See Rx Instructions .Route .MEDSUPPLY Qty: 1 0RF Rx Instructions: As directed Zyrtec 10 mg capsule 10 mg PO DAILY PRN (Reason: allergy symptoms) 15 Days Qty: 20 0RF clotrimazole-betamethasone 1-0.05 % cream 1 appl topical BID 15 Days Qty: 15 0RF nitroglycerin 0.2 mg/hr patch 24 hour 1 patch topical DAILY Qty: 30 5RF (DME) blood pressure monitor Kit See Rx Instructions .Route Qty: 1 0RF Rx Instructions: As directed quetiapine 50 mg tablet 50 mg PO BEDTIME alprazolam 0.5 mg tablet 0.5 mg PO BID Rx Instructions: TAKE TWICE A DAY AND 1 TABLET ADDITIONAL PER DAY NEEDED FOR AGITATION quetiapine 25 mg tablet 25 mg PO BID ascorbic acid (vitamin C) 500 mg capsule PO DAILY citalopram 20 mg tablet 20 mg PO QAM zolpidem 5 mg tablet 5 mg PO BEDTIME PRN (Reason: insomnia) cetirizine [Zyrtec] 10 mg tablet 10 mg PO DAILY 30 Days Qty: 30 5RF Referrals: Nima Farooq MD [Primary Care Provider] - Print Language: Sinhala
[2023-03-15] MEDS: Lidocaine 4 % Patch ADH..PATCH 1 PATCH TRANSDERMA (20:19)
[2023-03-15] MEDS: Acetaminophen 325 MG TABLET 975 MG PO (20:19)
--- NOTE | 2023-03-15 21:40 | PC.NURSE ---
this rn and Carmen Virgen, 2 person assisted pt to bathroom with wheeled walker. pt unsteady on feet initially but able to stand up and walk with short steps. pt daughter at bedside reports pt does not have problems ambulating at home. pt helped back into bed and is resting comfortably at this time.
[2023-03-15 23:02] VITALS: BP 115/78; PULSE 98; RESP 18; O2SAT 98
== END 2023-03-15 23:05 | disposition home or self-care (01) ==
PROVIDERS: Emergency Provider Student in an Organized Health Care Education/Training Program; PCP Internal Medicine
DX: M54.50 Low back pain, unspecified (principal); M79.605 Pain in left leg; R10.2 Pelvic and perineal pain; Z79.899 Other long term (current) drug therapy
CPT/HCPCS: 36415; 74176; 80053; 81001; 85025; 87086; 99284

== ENCOUNTER 2023-04-05 10:11 | Outpatient (AMB) | payer OTHER, SELFPAY ==
--- NOTE | 2023-04-05 10:11 | MHC.OFFVIS ---
Intake Intake Visit Reasons: Follow Up appt Intake Note: Deepika presents as a video follow up. CC: unable to eat - lots of diarrhea. She has to run to the bathroom when she eats. She did the BA swallow. 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 Allergies No Known Allergies Allergy (Verified 04/05/23 10:12) HPI Follow Up appt HPI Details RECAP: Saw Yodit for epigastric pain and diarrhea had been taking imodium on omeprazole at baseline EGD/colon 2005 for IGNACIO with doshi--polyps removed 5 mm, diverticulosis, nml duodenal bx EGD 2010- small to moderate hiatal hernia, no ulcers MBS 2018- Ba swallow: ba tab passed freely, retention of some fluid in vallecula INTERIM: she has has some choking with water, otherwise ok, she does howard when drinking she has post prandial diarrhea for several months, maybe longer she has cut down the dairy, uses lactose free milk she has ongoing epigastric discomfort she has omeprazole 20 mg, rakes OD not BID EXAM: GENERAL: The patient is frail and nontoxic, obese, sitting in the house but relaxed A/P: 1/ Diarrhea-- multifactorial prob from DM, medication effects, lactose intolerance (eats cheese +) ddx: microscopic colitis, other colitis, 2/ swallowing issues, maybe related to GERD or? DM--no mechanical obstruction PLAN: 1/ stool tests, if neg then increase fiber and fluids 2/ Offered speech therapy eval but wants to try smaller sips and upright posture at home first 3/ increase oomeprazole 40 mg once daily [facility] Medical History (Updated 04/05/23 @ 10:34 by Angel Weaver MD) Chronic kidney disease, stage 4 (severe) Mild cognitive impairment LESLIE on CPAP Chronic heart failure with preserved ejection fraction (HFpEF) COPD (chronic obstructive pulmonary disease) Cellulitis of right foot Morbid obesity with BMI of 40.0-44.9, adult Depression Primary insomnia GERD without esophagitis Vitamin D deficiency Obstructive sleep apnea Benign essential hypertension Pure hypercholesterolemia Chronic kidney disease (CKD), stage III (moderate) Type 2 diabetes mellitus with diabetic chronic kidney disease Coronary artery disease COVID-19 GI bleed GERD (gastroesophageal reflux disease) LESLIE (obstructive sleep apnea) Anxiety CKD (chronic kidney disease) stage 3, GFR 30-59 ml/min Pulmonary hypertension CAD (coronary artery disease) Diabetes mellitus Heart disease Hypercholesteremia HTN (hypertension) Surgical History Hx of colonoscopy History of esophagogastroduodenoscopy (EGD) History of eye surgery H/O abdominal hysterectomy Family History Father No problems noted. Mother No problems noted. Social History Household Members Other:: lives with her daughter who cares for her Housing: Apartment Alcohol intake: never Patient Tobacco Use Status: Never used Tobacco e-Cigarette/Vaping Use: Never Used Second Hand Smoke Exposure: Yes service: No Current occupational status: retired and disabled Cognitive needs: No Hearing needs: No Vision needs: Yes Assessment & Plan Assessment & Plan (1) Postprandial diarrhea: Code(s): K52.9 - Noninfective gastroenteritis and colitis, unspecified Orders: Orders CDiff Gene PCR Today K52.9 - Noninfective gastroenteritis and colitis, unspecified Giardia Ag Stool EIA Today K52.9 - Noninfective gastroenteritis and colitis, unspecified Lactoferrin, Fecal, Quant. Today K51.50 - Left sided colitis without complications, K52.9 - Noninfective gastroenteritis and colitis, unspecified Pancreatic Elastase-1 Today K52.9 - Noninfective gastroenteritis and colitis, unspecified Fecal Fat Qualitative Today K52.9 - Noninfective gastroenteritis and colitis, unspecified Medications: New omeprazole 40 mg PO DAILY 30 caps 2RF Discontinued omeprazole Discontinued Reason: Doctor's Order 20 mg PO BID 60 caps 3RF K21.9 - Gastro-esophageal reflux disease without esophagitis Coding Level of Care Code Est Pt Level 3 (17145) Diagnoses Postprandial diarrhea K52.9
== END 2023-04-05 12:32 | disposition home or self-care (01) ==
LOC: HO.HGI 10:11
PROVIDERS: PCP Internal Medicine; Visit Provider Internal Medicine Gastroenterology
DX: K52.9 Noninfective gastroenteritis and colitis, unspecified (principal)
CPT/HCPCS: 99213

== ENCOUNTER → 2023-04-05 10:11 | Outpatient (BNVA) | payer OTHER, SELFPAY | PROVIDERS: PCP Internal Medicine; Visit Provider Internal Medicine Gastroenterology | DX: K52.9 Noninfective gastroenteritis and colitis, unspecified (principal) | CPT/HCPCS: 99212 ==

== ENCOUNTER 2023-04-06 15:44 | Outpatient (AMB) | payer OTHER, SELFPAY ==
--- NOTE | 2023-04-06 14:54 | HO.NEPHOV ---
HPI HPI Comments History of Present Illness Details 87-year-old old woman with a history of chronic kidney disease stage IIIB baseline creatinine of I 0.5 mg/dL. She has a history of atherosclerotic cardiovascular disease and hypertension. In November she had a fall she was on the floor for quite some time. She has been on Lasix 40 mg daily. Creatinine is bumped to 2.3 in December and as of February creatinine is at 2.5. This was a tele visit. Spoke to her daughter who was able to give a clear history. The patient does not have any edema at this time. No shortness of breath. No urinary symptoms. Blood pressure has been relatively low at home. [facility] Medical History (Updated 04/05/23 @ 10:34 by Angel Weaver MD) Chronic kidney disease, stage 4 (severe) Mild cognitive impairment LESLIE on CPAP Chronic heart failure with preserved ejection fraction (HFpEF) COPD (chronic obstructive pulmonary disease) Cellulitis of right foot Morbid obesity with BMI of 40.0-44.9, adult Depression Primary insomnia GERD without esophagitis Vitamin D deficiency Obstructive sleep apnea Benign essential hypertension Pure hypercholesterolemia Chronic kidney disease (CKD), stage III (moderate) Type 2 diabetes mellitus with diabetic chronic kidney disease Coronary artery disease COVID-19 GI bleed GERD (gastroesophageal reflux disease) LESLIE (obstructive sleep apnea) Anxiety CKD (chronic kidney disease) stage 3, GFR 30-59 ml/min Pulmonary hypertension CAD (coronary artery disease) Diabetes mellitus Heart disease Hypercholesteremia HTN (hypertension) Surgical History Hx of colonoscopy History of esophagogastroduodenoscopy (EGD) History of eye surgery H/O abdominal hysterectomy Family History Father No problems noted. Mother No problems noted. Social History Household Members Other:: lives with her daughter who cares for her Housing: Apartment Alcohol intake: never Patient Tobacco Use Status: Never used Tobacco e-Cigarette/Vaping Use: Never Used Second Hand Smoke Exposure: Yes service: No Current occupational status: retired and disabled Cognitive needs: No Hearing needs: No Vision needs: Yes Results Reviewed Results Reviewed: All labs are reviewed Assessment & Plan Assessment & Plan (1) Chronic kidney disease, stage 4 (severe): Code(s): N18.4 - Chronic kidney disease, stage 4 (severe) Plan Elderly woman with acute kidney injury superimposed on chronic disease. Acute kidney injury is most likely due to hypoperfusion from relatively low blood pressure and volume depletion. According to her daughter she has no edema and I believe she is hypovolemic. Recommendation would be to hold the Lasix for 1 day. Restart Lasix at 50% of the dose which would be 20 mg daily. I will wait 2 weeks and recheck the renal function. New The meantime increase the diuretic monitor her mom for shortness of breath and edema. I have asked her to call me if she has any questions. I will see her again in the next 3-4 weeks Orders: Orders Electrolytes 2 Weeks N18.4 - Chronic kidney disease, stage 4 (severe) Blood Urea Nitrogen 2 Weeks N18.4 - Chronic kidney disease, stage 4 (severe) Creatinine 2 Weeks N18.4 - Chronic kidney disease, stage 4 (severe) Calcium 2 Weeks N18.4 - Chronic kidney disease, stage 4 (severe) Telehealth Telehealth Location of provider rendering services: practice address Location of patient: address on file Patient Identification confirmed using: Name, : Yes Telehealth method: voice only Patient verbally consented to treatment: Yes Patient verbally consented to billing insurance company: Yes Patient informed of any privacy concerns related to visit: Yes Minutes spent on Phone/Video with Pt.: 12 Coding Level of Care Code Tele New Pt Level 3 (80688) Diagnoses Chronic kidney disease, stage 4 (severe) N18.4
== END 2023-04-06 16:07 | disposition home or self-care (01) ==
PROVIDERS: PCP Internal Medicine; Visit Provider Internal Medicine Hypertension Specialist
DX: N18.4 Chronic kidney disease, stage 4 (severe) (principal)
CPT/HCPCS: 99442

== ENCOUNTER 2023-04-19 13:47 | Outpatient (AMB) | payer OTHER, SELFPAY ==
[2023-04-19 13:58] VITALS: BP 108/68; PULSE 70; O2SAT 97; BMI 45.4
--- NOTE | 2023-04-19 13:58 | A.OFFPC_ITS ---
Vital Signs 04/19/23 13:58 Height 4 ft 7 in Weight 195 lb 8.8 oz BMI 45.4 BP 108/68 Blood Pressure Location Lt brachial Position Sitting Pulse 70 Pulse Source Pulse Oximeter Pulse Oximetry (%) 97 Oxygen Delivery Method Room Air Intake Visit Reasons: 3 month f/u Optical Advisor Required: No Accompanied by: Self / Same As Patient Allergies No Known Allergies Allergy (Verified 05/12/23 14:54) Tobacco use date assessed: 04/19/23 Fall risk assessment: No Falls in past year Last assessed Fall Risk: 04/19/23 Dental Screening Dental Screen Date: 04/19/23 Did you have a dental visit in the last 12 months?: No Did you have a dental problem in the last 6 months where you did not have access to dental care?: No Was dental information given to patient?: No HPI 3 month f/u HPI Details Patient comes in today for her follow up visit - is accompanied as usual by her daughter States that she feels okay but per her daughter, patientseems to be congested lately and her daughter states that she hears her coughing more than usual over the past few days Patient denies any headaches or dizziness; denies any fever or sore throat Denies any chest pains, no increased SOB No nausea/vomiting, no abdominal pain No change in bowel habits noted - still has occasional diarrhea/loose stools Patient did not get her follow up labs done recently - her daughter states that it is becoming harder to get patient to the lab to get her blood drawn, especially in the winter time, and is requesting for VNA referral to have her labs drawn at home prior to her next follow up [facility] Medical History Chronic kidney disease, stage 4 (severe) Mild cognitive impairment LESLIE on CPAP Chronic heart failure with preserved ejection fraction (HFpEF) COPD (chronic obstructive pulmonary disease) Cellulitis of right foot Morbid obesity with BMI of 40.0-44.9, adult Depression Primary insomnia GERD without esophagitis Vitamin D deficiency Obstructive sleep apnea Benign essential hypertension Pure hypercholesterolemia Chronic kidney disease (CKD), stage III (moderate) Type 2 diabetes mellitus with diabetic chronic kidney disease Coronary artery disease COVID-19 GI bleed GERD (gastroesophageal reflux disease) LESLIE (obstructive sleep apnea) Anxiety CKD (chronic kidney disease) stage 3, GFR 30-59 ml/min Pulmonary hypertension CAD (coronary artery disease) Diabetes mellitus Heart disease Hypercholesteremia HTN (hypertension) Surgical History Hx of colonoscopy History of esophagogastroduodenoscopy (EGD) History of eye surgery H/O abdominal hysterectomy Family History Father No problems noted. Mother No problems noted. Social History Household Members Other:: lives with her daughter who cares for her Housing: Apartment Alcohol intake: never Patient Tobacco Use Status: Never used Tobacco e-Cigarette/Vaping Use: Never Used Second Hand Smoke Exposure: Yes service: No Current occupational status: retired and disabled Cognitive needs: No Hearing needs: No Vision needs: Yes Questionnaire PHQ-9 Over the last 2 weeks, how often have you been bothered by any of the following problems? 1. Little interest or pleasure in doing things: not at all 2. Feeling down, depressed, or hopeless: several days 3. Trouble falling or staying asleep, or sleeping too much: not at all 4. Feeling tired or having little energy: not at all 5. Poor appetite or overeating: not at all 6. Feeling bad about yourself - or that you are a failure or have let yourself or your family down: not at all 7. Trouble concentrating on things, such as reading the newspaper or watching television: not at all 8. Moving or speaking so slowly that other people could have noticed. Or the opposite - being so fidgety or restless that you have been moving around a lot more than usual: not at all 9. Thoughts that you would be better off or of hurting yourself in some way: not at all Total score: 1 Depression Screening Interpretation: Negative Depression Screening Done: Yes [id number] - PHQ-9 Billing: Yes Source: Developed by Drs. Feng Suazo, Liz Carrillo, Raymond Morales and colleagues, with an educational katarina from [employer]. Thrive Questionnaire Date Thrive assessed: 04/19/23 I am a: Patient What is your living situation today?: I have a steady place to live Within the past 12 months, did the food you bought not last and you didn't have the money to get more?: Never true Within the past 12 months, did you worry whether your food would run out before you got money to buy more?: Never true Do you have trouble paying for medicines?: No Do you have trouble getting transportation to medical appointments?: No Do you have trouble paying your heating and electricity bill?: No Do you have trouble taking care of your child, family member or friend?: No Do you have trouble with day-to-day activities such as bathing, preparing meals, shopping, managing finances, etc.?: No Are you currently unemployed and looking for a job?: No Are you interested in more education?: No Please select the resources that you would like help with: None Currently or been in a relationship where the following occur: no concerns reported AUDIT C Alcohol Use Questionnaire (AUDIT-C) 1. How often do you have a drink containing alcohol?: Never 3. How often do you have six or more drinks on one occasion?: Never Total Score: 0 Score Reviewed/Action Taken: Yes EMERSON-7 AMB Questionnaire EMERSON-7 Date EMERSON - 7 assessed: 04/19/23 Feeling nervous, anxious, or on edge: 0 = Not at all Not being able to stop or control worryin = Not at all Worrying too much about different things: 0 = Not at all Trouble relaxin = Not at all Being so restless that it is hard to sit still: 0 = Not at all Becoming easily annoyed or irritable: 0 = Not at all Feeling afraid as if something awful might happen: 0 = Not at all Total EMERSON-7 score (0-4 normal; 5-9 mild; 10-14 moderate; 15-21 severe): 0 Source: Developed by Drs. Feng Suazo, Liz Carrillo, Raymond Morales and colleagues, with an educational katarina from [employer]. Review of Systems Const Details: information is obtained primarily from daughter as patient has some confusion and is unable to provide any pertinent info; also has issues with language barrier - patient speaks very little Kosovan Denies chills, Denies fatigue, Denies fever(s) and Denies headache(s) ENT Denies dysphagia, Denies dizziness, Reports dry mouth (frequent - mostly due to her nightly CPAP device use), Denies otalgia, Denies headache(s), Denies odynophagia, Denies sinus pain and Denies sore throat Card Denies chest pain, Denies palpitations and Reports dyspnea on exertion (mild) Resp Denies chest congestion, Reports cough (on and off lately), Reports dyspnea on exertion (mild) and Denies wheezing GI Denies abdominal pain (but reports (+) epigastric discomfort/pressure at times), Denies hematochezia, Denies constipation, Denies dysphagia, Denies heartburn, Reports diarrhea (occasional, controlled with Imodium PRN), Denies nausea, Denies odynophagia and Denies vomiting Denies difficulty voiding, Denies nocturia, Denies dysuria and Denies urinary urgency Musc Reports tingling (on and off in both hands) Neuro Denies behavioral changes, Reports confusion (on and off), Denies dizziness, Denies headache(s), Reports memory loss, Reports tingling (on and off in both hands) and Reports paresthesias (on and off in her hands) Psych Denies behavioral changes, Reports confusion (on and off) and Reports memory loss Endo Denies fatigue and Denies palpitations Aller/Immun Denies wheezing Physical exam (Primary Care) Vital Signs: Last Vital Signs Pulse 70 04/19/23 13:58 BP 108/68 04/19/23 13:58 Pulse Ox 97 04/19/23 13:58 Oxygen Delivery Method Room Air 04/19/23 13:58 BMI result Body Mass Index 45.4 Tobacco/Smoking Status: Tobacco use Status Tobacco use date assessed 04/19/23 04/19/23 14:00 Patient Tobacco Use Status Never used Tobacco 04/19/23 14:00 e-Cigarette/Vaping Use Never Used 04/19/23 14:00 PHQ-9: PHQ-9 Score PHQ-9: Total score 1 04/19/23 14:49 Depression Screening Interpretation: Negative Thrive Assessment: Date of Thrive Assessment Date Thrive assessed 04/19/23 04/19/23 14:00 Currently or been in a relationship where the following occur: no concerns reported Const General: confusion (on and off) Orientation/consciousness: confusion (on and off) HENMT Ears: TM's normal bilaterally and EAC's normal Throat: Yes posterior oropharynx normal and Yes tonsils normal (no TP congestion noted) Neck Neck: Yes no lymphadenopathy and Yes supple Resp Auscultation: no rales, rhonchi (occasional, bilaterally), no wheezes and diminished lung sounds (slightly, bilaterally) Cardio Rate: regular rate Rhythm: regular rhythm Heart sounds: no murmurs GI Palpation (GI): Soft to palpation and nontender Auscultation: normal bowel sounds General: Yes no CVA tenderness Back/Spine/Pelvis Back: no CVA tenderness Skin Rashes: no rashes Neuro General: confusion (on and off) Extrem General: Yes no clubbing, cyanosis or edema Assessment and Plan Assessment & Plan (1) Upper respiratory tract infection: Code(s): J06.9 - Acute upper respiratory infection, unspecified Qualifiers: URI type: unspecified URI Qualified Code(s): J06.9 - Acute upper respiratory infection, unspecified Plan: Will start patient empirically on Azithromycin QD x 5 days Patient's daughter is instructed to call if patient's symptoms do not improve or get worse despite empiric Abx Tx (2) Coronary artery disease: Code(s): I25.10 - Atherosclerotic heart disease of [place] coronary artery without angina pectoris Qualifiers: Coronary Disease-Associated Artery/Lesion type: [place] artery [place] vs. transplanted heart: [place] heart Associated angina: without angina Qualified Code(s): I25.10 - Atherosclerotic heart disease of [place] coronary artery without angina pectoris Plan: Myocardial perfusion scan done back in 2008 at [facility] [place] showed (+) ischemia of the left ventricular apex; EF and wall motion studies were normal Echocardiogram done on 04/17/2009 showed low-normal LV systolic function with EF between 55-60%, mild concentric left ventricular hypertrophy, mild MR; diastolic filling pattern indicated impaired relaxation and moderate pulmonary hypertension Patient has been asymptomatic so far from a cardiac standpoint Continue Nitroglycerin patch 0.2 mg per hour once a day - Rx refilled Was seen by cardiology last year in September 2022 and advised to continue on current meds and management EKG done in the office at the time showed normal EKG with low voltage Follow up with cardiology as scheduled (3) Chronic heart failure with preserved ejection fraction (HFpEF): Code(s): I50.32 - Chronic diastolic (congestive) heart failure Plan: Has been compensated and was advised by cardiology to continue on low dose beta ciro and conservative medical management, given patient's age Was on Metoprolol ER 25 mg QD but patient's daughter cut this down to 1/2 tablet QD since she fell and was experiencing frequent dizziness and on and off headaches a few months ago Amlodipine 5 mg QD has also been held since EKG done back in December 2022 revealed low voltage but EKG was otherwise normal Echocardiogram done in January 2023 showed that the left ventricular systolic function is hyperdynamic. The visually estimated ejection fraction is >70%. There is moderate septal asymmetric hypertrophy and evidence suggests grade I (mild) diastolic dysfunction. No obvious valvular pathology was seen on this study. (4) Type 2 diabetes mellitus with diabetic chronic kidney disease: Code(s): E11.22 - Type 2 diabetes mellitus with diabetic chronic kidney disease Qualifiers: Diabetes mellitus continuous churn buttermaker insulin use: without penitentiary use Chronic kidney disease stage: unspecified stage Qualified Code(s): E11.22 - Type 2 diabetes mellitus with diabetic chronic kidney disease Plan: Patient's HgbA1c was at 6.6% when last checked in November 2022 (in-office HgbA1c was at 7.0% a few months prior to that) - goal is at least < 7.5% Reinforced diabetic diet Continue Metformin 1000 mg BID and Tradjenta 5 mg QD for now although if her repeat serum creatinine and renal function continue to be suppressed, may need to discontinue Metformin (5) Chronic kidney disease, stage 4 (severe): Code(s): N18.4 - Chronic kidney disease, stage 4 (severe) Plan: Have cautioned patient and her daughter before that based on her most recent labs, patient's kidney function has declined significantly lately and she is now in CKD stage 4 Follow up with nephrology as scheduled (6) Status post fall: Code(s): Z91.81 - History of falling Plan: Occurred around 12/07/2022, wherein patient was found on the floor and was reportedly down for about 45 minutes before she could be helped up Patient's daughter did not bring her to the ER for evaluation following her fall - states that she was never instructed by the nurses she talked to on the phone to do so Follow up labs done at the time revealed (+) decline in her H/H as well as her renal function Fall precautions reinforced - patient's daughter is aware that patient should NEVER be left alone on her own for any given period of time (7) Pure hypercholesterolemia: Code(s): E78.00 - Pure hypercholesterolemia, unspecified Plan: Reinforced low cholesterol diet Continue Pravastatin 40 mg QD Will recheck her labs and fasting lpids in 3 months for follow-up (8) Benign essential hypertension: Code(s): I10 - Essential (primary) hypertension Plan: Reinforced low-sodium diet -? goal is systolic BP of at least 140 to 150 mm or less Was on Amlodipine 5 mg QD and Furosemide 20 mg QD in AM as well as Metoprolol ER 25 mg QD but her Amlodipine has been held and Metoprolol ER cut in half by her daughter over the past few weeks since she fell (9) Mild cognitive impairment: Code(s): G31.84 - Mild cognitive impairment of uncertain or unknown etiology Plan: Follow up with neurology as scheduled (10) COPD (chronic obstructive pulmonary disease): Comment: PATIENT HAS MODERATELY SEVERE OBSTRUCTIVE AIRWAY DISORDER. ALSO HAS SIGNIFICANT RESTRICTIVE DISORDER. NO RECENT PULMONARY FUNCTION TEST HAS BEEN DONE BECAUSE IT WILL BE IMPOSSIBLE TO DO. Code(s): J44.9 - Chronic obstructive pulmonary disease, unspecified Qualifiers: COPD type: unspecified COPD Qualified Code(s): J44.9 - Chronic obstructive pulmonary disease, unspecified Plan: Well-controlled and stable on her current regimen - uses her Albuterol HFA every 6 hours PRN; also uses Duoneb updraft when needed if she is at home and has access to her nebulizer Follow-up with pulmonary as scheduled (11) Obstructive sleep apnea: Code(s): G47.33 - Obstructive sleep apnea (adult) (pediatric) Plan: Continue using her CPAP device when sleeping at night daily (12) At high risk for aspiration: Code(s): Z91.89 - Other specified personal risk factors, not elsewhere classified Plan: Barium swallow done in October 2022 revealed (+)limited exam but (+) retention of liquid barium in the vallecula; no aspiration or penetration; (+) gastroesophageal reflux. Barium tablet passed freely into the esophagus Following up Dr. Weaver (GI) as scheduled (13) GERD without esophagitis: Code(s): K21.9 - Gastro-esophageal reflux disease without esophagitis Plan: Dietary restrictions reinforced Continue Omeprazole 20 mg QD Follow-up with GI as scheduled (14) Vitamin D deficiency: Code(s): E55.9 - Vitamin D deficiency, unspecified Plan: Continue Vitamin D3 1000 units QD (15) Primary osteoarthritis of knees, bilateral: Code(s): M17.0 - Bilateral primary osteoarthritis of knee Plan: Has received injections into her knees in the past and more recently in December 2021 with (+) relief of her knee pain Follow-up with orthopedics as scheduled (16) Paresthesia of both hands: Code(s): R20.2 - Paresthesia of skin Plan: Symptoms are likely due to a combination of 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 (similar to what one would experience in carpal tunnel syndrome) Advised that unless her symptoms are significant and keep her up at night, would prefer not to start her on any Rx to help with her neuropathic pain as a lot of these Rx can cause sedation or are associated with some side effects that can be problematic for her given her age (17) Primary insomnia: Code(s): F51.01 - Primary insomnia Plan: Sleep hygiene reinforced Continue OTC Melatonin capsule 10 mg once a day at bedtime as needed (18) Anxiety: Code(s): F41.9 - Anxiety disorder, unspecified Plan: Continue Alprazolam 0.5 mg 1 tablet twice a day as needed for agitation (19) Depression: Code(s): F32.9 - Major depressive disorder, single episode, unspecified Qualifiers: Depression Type: unspecified Qualified Code(s): F32.9 - Major depressive disorder, single episode, unspecified Plan: Continue Citalopram? 20 mg QD in AM and Seroquel 25 mg Q HS Follow-up with Psychiatry as scheduled (20) Morbid obesity with BMI of 40.0-44.9, adult: Code(s): E66.01 - Morbid (severe) obesity due to excess calories; Z68.41 - Body mass index [BMI] 40.0-44.9, adult Plan: Reinforced diet; due to patient's age and comorbidities, there is no realistic expectation of any significant improvement in her activity level and in losing weight here Plan Follow up in 3 months Orders: Orders Complete Blood Count Auto Diff 3 Months I10 - Essential (primary) hypertension Comprehensive [place]. Panel Fast 3 Months E78.00 - Pure hypercholesterolemia, unspecified Lipid Panel 3 Months E78.00 - Pure hypercholesterolemia, unspecified Hemoglobin A1c 3 Months E11.9 - Type 2 diabetes mellitus without complications UA CC w/rflx Micro + Cult 3 Months R30.0 - Dysuria TSH reflex Free T4 3 Months E78.00 - Pure hypercholesterolemia, unspecified Microalbumin, Random (w Creat) 3 Months E11.9 - Type 2 diabetes mellitus without complications Vitamin D 25-OH Total 3 Months E55.9 - Vitamin D deficiency, unspecified [facility]errals [facility] Referral Z01.89 - Encounter for other specified special examinations Medications: New azithromycin take 500 mg today (day 1), then 250 mg for 4 days (days 2-5) PO 6 tabs 0RF Coding Level of Care Code Est Pt Level 4 (51877) Diagnoses Upper respiratory tract infection, unspecified type J06.9 URI type: unspecified URI Coronary artery disease involving [place] coronary artery of [place] heart without angina pectoris I25.10 Coronary Disease-Associated Artery/Lesion type: [place] artery [place] vs. transplanted heart: [place] heart Associated angina: without angina Chronic heart failure with preserved ejection fraction (HFpEF) I50.32 Type 2 diabetes mellitus with chronic kidney disease, without long-term current use of insulin, unspecified CKD stage E11.22 Diabetes mellitus continuous churn buttermaker insulin use: without continuous churn buttermaker use Chronic kidney disease stage: unspecified stage Chronic kidney disease, stage 4 (severe) N18.4 Status post fall Z91.81 Pure hypercholesterolemia E78.00 Benign essential hypertension I10 Mild cognitive impairment G31.84 Chronic obstructive pulmonary disease, unspecified COPD type J44.9 COPD type: unspecified COPD Obstructive sleep apnea G47.33 At high risk for aspiration Z91.89 GERD without esophagitis K21.9 Vitamin D deficiency E55.9 Primary osteoarthritis of knees, bilateral M17.0 Paresthesia of both hands R20.2 Primary insomnia F51.01 Anxiety F41.9 Depression, unspecified depression type F32.9 Depression Type: unspecified Morbid obesity with BMI of 40.0-44.9, adult E66.01; Z68.41
== END 2023-04-19 15:14 | disposition home or self-care (01) ==
PROVIDERS: PCP Internal Medicine; Visit Provider Internal Medicine
DX: E11.22 Type 2 diabetes mellitus with diabetic chronic kidney disease (principal); I50.32 Chronic diastolic (congestive) heart failure; N18.4 Chronic kidney disease, stage 4 (severe); J44.9 Chronic obstructive pulmonary disease, unspecified; E66.01 Morbid (severe) obesity due to excess calories; Z68.41 Body mass index [BMI] 40.0-44.9, adult; J06.9 Acute upper respiratory infection, unspecified; I25.10 Atherosclerotic heart disease of native coronary artery without angina pectoris; Z91.81 History of falling; E78.00 Pure hypercholesterolemia, unspecified; I12.9 Hypertensive chronic kidney disease with stage 1 through stage 4 chronic kidney disease, or unspecified chronic kidney disease; G31.84 Mild cognitive impairment of uncertain or unknown etiology
CPT/HCPCS: 99214

== ENCOUNTER 2023-05-12 14:20 | Outpatient (AMB) | payer OTHER, SELFPAY ==
--- NOTE | 2023-05-12 14:32 | A.OFFVIS_ITS ---
Intake Vital Signs 05/12/23 14:33 Height 4 ft 7 in Weight 182 lb 15.739 oz BMI 42.5 BP 120/62 Blood Pressure Location Rt brachial Position Sitting Pulse 72 Pulse Source Doppler Pulse Oximetry (%) 97 Oxygen Delivery Method Room Air Intake Visit Reasons: COPD follow-up Intake Note: Patient is here for a follow up on COPD, reports good use of CPAP machine and doing well Allergies No Known Allergies Allergy (Verified 05/12/23 14:54) Medication List - Last Reconciled 05/12/23 by Brandy Blank MD albuterol sulfate 90 mcg/actuation 2 puffs PO Q4-6H PRN alprazolam 0.5 mg PO BID amlodipine 5 mg PO DAILY ascorbic acid (vitamin C) mg PO DAILY azithromycin take 500 mg today (day 1), then 250 mg for 4 days (days 2-5) PO blood pressure monitor As directed blood sugar diagnostic (Boost MediaTouch Verio test strips) As directed- To test blood sugar daily. cetirizine (Zyrtec) 10 mg PO DAILY PRN 15 days [CHAIR LIFT As directed] cholecalciferol (vitamin D3) 25 mcg PO DAILY 90 days citalopram 20 mg PO QAM clotrimazole-betamethasone 1-0.05 % 1 appl topical BID 15 days cyanocobalamin (vitamin B-12) 500 mcg PO DAILY 90 days ferrous sulfate 325 mg PO DAILY furosemide 40 mg PO DAILY 90 days ipratropium-albuterol 0.5 mg-3 mg(2.5 mg base)/3 mL 3 mL inhalation Q6H PRN lancets As directed-To test blood sugar daily. lidocaine 5% 1 patch topical DAILY [LIGHTWEIGHT TRANSPORT WHEELCHAIR WITH HANDBRAKES As directed] linagliptin (Tradjenta) 5 mg PO DAILY loperamide 2 mg PO Q6-8H PRN melatonin 10 mg PO BEDTIME metformin 1,000 mg PO BID 90 days metoprolol succinate ER (Toprol XL) 12.5 mg PO DAILY nebulizers (VixOne Nebulizer-Adult Mask) As directed nitroglycerin 0.2 mg/hr 1 patch topical DAILY omeprazole 40 mg PO DAILY pravastatin 40 mg PO DAILY 90 days quetiapine 50 mg PO BEDTIME zolpidem 5 mg PO BEDTIME PRN Do you need a note to return to daycare/school/sports/work: No HPI COPD follow-up HPI Details This 87 years old very pleasant female is morbidly obese and is being treated for obstructive sleep apnea. She uses her CPAP very regularly every night, and sleeps well. She does wake up with some wheezing during the night only off and on. She uses the albuterol HFA with a spacing tube and face mask.. She has mild anxiety which is controlled with alprazolam 0.5 mg b.i.d.. [facility] Medical History Chronic kidney disease, stage 4 (severe) Mild cognitive impairment LESLIE on CPAP Chronic heart failure with preserved ejection fraction (HFpEF) COPD (chronic obstructive pulmonary disease) Cellulitis of right foot Morbid obesity with BMI of 40.0-44.9, adult Depression Primary insomnia GERD without esophagitis Vitamin D deficiency Obstructive sleep apnea Benign essential hypertension Pure hypercholesterolemia Chronic kidney disease (CKD), stage III (moderate) Type 2 diabetes mellitus with diabetic chronic kidney disease Coronary artery disease COVID-19 GI bleed GERD (gastroesophageal reflux disease) LESLIE (obstructive sleep apnea) Anxiety CKD (chronic kidney disease) stage 3, GFR 30-59 ml/min Pulmonary hypertension CAD (coronary artery disease) Diabetes mellitus Heart disease Hypercholesteremia HTN (hypertension) Surgical History Hx of colonoscopy History of esophagogastroduodenoscopy (EGD) History of eye surgery H/O abdominal hysterectomy Family History Father No problems noted. Mother No problems noted. Social History Household Members Other:: lives with her daughter who cares for her Housing: Apartment Alcohol intake: never Patient Tobacco Use Status: Never used Tobacco e-Cigarette/Vaping Use: Never Used Second Hand Smoke Exposure: Yes service: No Current occupational status: retired and disabled Cognitive needs: No Hearing needs: No Vision needs: Yes Review of Systems Const All systems reviewed & are unremarkable except as noted in HPI and below Eyes Reports no additional complaints ENT Reports no additional complaints and Reports nasal congestion (off and on ) Card Denies chest pain, Denies irregular heart rhythm, Denies leg edema and Reports dyspnea on exertion (But she does not exert much anyway.) Resp Reports as per HPI, Reports cough (MILD INTERMITTENT) and Reports dyspnea on exertion (But she does not exert much anyway.) GI Reports no additional complaints Reports no additional complaints Musc Reports abnormal gait (PATIENT IS MOSTLY IN THE WHEELCHAIR), Reports back pain and Reports muscle weakness (BOTH LOWER EXTREMITIES ARE WEAK) Skin/Breast Reports system reviewed and no additional complaints, except as documented Neuro Reports abnormal gait (PATIENT IS MOSTLY IN THE WHEELCHAIR) and Reports memory loss (HAS COGNITIVE IMPAIRMENT) Psych Reports depression (BEING TREATED WITH MED) and Reports memory loss (HAS COGNITIVE IMPAIRMENT) Endo Reports other (BEING TREATED FOR DIABETES MELLITUS) Physical Exam Vital Signs: Last Vital Signs Pulse 72 05/12/23 14:33 BP 120/62 05/12/23 14:33 Pulse Ox 97 05/12/23 14:33 Oxygen Delivery Method Room Air 05/12/23 14:33 BMI result Body Mass Index 42.5 Const Other: PATIENT IS MODERATELY OBESE, SHE IS IN A WHEELCHAIR, SHE IS ALERT BUT NOT ABLE TO CONVERSE General: comfortable, no acute distress, alert and awake Orientation/consciousness: patient oriented x3 HEENT Head: Yes normal to inspection General nose exam: No nasal polyps present and No nasal discharge present Face and sinus: Yes sinuses nontender Mouth: oropharynx normal Throat: Yes posterior oropharynx normal Eyes General: appearance normal, both eyes and all related structures Neck Neck: Yes normal visual inspection, Yes no lymphadenopathy, Yes trachea midline and Yes no JVD Thyroid: Thyroid normal Chest Chest palpation & inspection: normal inspection of the chest, normal palpation of entire chest wall and no tenderness Resp Other: PERCUSSION NOTE IS NOT PERCEPTIBLE, BREATH SOUNDS ARE DISTANT ESPECIALLY DECREASED OVER THE BASILAR AREAS. NO AUDIBLE WHEEZES RHONCHI OR CREPITATIONS. Cardio Palpation: normal PMI Rate: regular rate Rhythm: regular rhythm Heart sounds: no gallops and no murmurs GI Palpation (GI): Soft to palpation, nontender, No hepatosplenomegaly present, no masses and Other GI palpation findings present (ABDOMEN IS OBESE AND PROTUBERANT) Auscultation: normal bowel sounds Back/Spine/Pelvis Thoracic/Lumbar Spine: thoracic and lumbar spine normal to inspection and thoraco-lumbar ROM limited Skin General skin exam: no rashes or lesions noted Neuro General: patient oriented x3, No gait normal (PATIENT IS NON AMBULATORY AND IS IN WHEELCHAIR) and no focal motor deficits Cranial nerves: Yes CN's II-XII intact bilaterally Extrem General: Yes normal to inspection, Yes no clubbing, cyanosis or edema and Yes no calf tenderness Psych Mental Status: mental status grossly normal and other (PATIENT HAS IMPAIRED MENTAL STATUS, NOT VERY COMMUNICATIVE) Results Reviewed Results Reviewed: . 97% Average use it per night 6 hours 55 minutes. Pressure 12 cm. There is moderate amount of air leak. Residual AHI 1.5 Assessment & Plan Assessment & Plan (1) LESLIE on CPAP: Comment: PATIENT HAS HAD OBSTRUCTIVE SLEEP APNEA FOR MANY YEARS. REMAINS WELL CONTROLLED WITH THE USE OF CPAP. WHICH SHE USES EVERY NIGHT. COMPLIANCEIS 97 % NO ISSUES WITH THE CPAP DEVICE ARE MASK ARE RAISED AT THIS TIME. WILL CONTINUE TO USE REGULARLY. Code(s): G47.33 - Obstructive sleep apnea (adult) (pediatric); Z99.89 - Dependence on other enabling machines and devices Plan: COMMENDED FOR GOOD COMPLIANCE. ADVISED TO KEEP ON USING IT EVERY NIGHT (2) Allergic rhinitis: Comment: CHRONIC MILD INTERMITTENT. Code(s): J30.9 - Allergic rhinitis, unspecified Plan: [place] : USE CETRAZINE 10 MG ONCE A DAY NEEDED. (3) COPD (chronic obstructive pulmonary disease): Comment: PATIENT HAS MODERATELY SEVERE OBSTRUCTIVE AIRWAY DISORDER. ALSO HAS SIGNIFICANT RESTRICTIVE DISORDER. NO RECENT PULMONARY FUNCTION TEST HAS BEEN DONE BECAUSE IT WILL BE IMPOSSIBLE TO DO. Code(s): J44.9 - Chronic obstructive pulmonary disease, unspecified Qualifiers: COPD type: unspecified COPD Qualified Code(s): J44.9 - Chronic obstructive pulmonary disease, unspecified Plan: [place] : DUO -NEB UDs . AT LEAST BID ,, AND Q 6 HRS PRN Coding Level of Care Code Est Pt Level 3 (03803) Diagnoses LESLIE on CPAP G47.33; Z99.89 Allergic rhinitis J30.9 Chronic obstructive pulmonary disease, unspecified COPD type J44.9 COPD type: unspecified COPD
[2023-05-12 14:33] VITALS: BP 120/62; PULSE 72; O2SAT 97; BMI 42.5
== END 2023-05-12 14:51 | disposition home or self-care (01) ==
PROVIDERS: PCP Internal Medicine; Visit Provider Internal Medicine
DX: G47.33 Obstructive sleep apnea (adult) (pediatric) (principal); Z99.89 Dependence on other enabling machines and devices; J30.9 Allergic rhinitis, unspecified; J44.9 Chronic obstructive pulmonary disease, unspecified
CPT/HCPCS: 99213

== ENCOUNTER → 2023-05-12 14:20 | Outpatient (BNVA) | payer OTHER, SELFPAY | PROVIDERS: PCP Internal Medicine; Visit Provider Internal Medicine | DX: J44.9 Chronic obstructive pulmonary disease, unspecified (principal); J30.9 Allergic rhinitis, unspecified; G47.33 Obstructive sleep apnea (adult) (pediatric); Z99.89 Dependence on other enabling machines and devices | CPT/HCPCS: 99212 ==

== ENCOUNTER 2023-07-27 08:17 | Outpatient (REF) | payer OTHER, SELFPAY ==
[2023-07-27 08:38] LABS: MANUAL DIFF FLAG NO
[2023-07-27 09:30] LABS: Basophils Absolute Auto 0.1 X10*3/uL (0.0-0.2); Basophils Percent Auto 0.7 % (0-2); Eosinophils Absolute Auto 0.1 X10*3/uL (0.0-0.4); Eosinophils Percent Auto 2.1 % (0-4); Hematocrit 29.7 % (37.0-47.0); Hemoglobin 9.4 g/dl (12.0-16.0); Imm Gran Abs Auto 0.06 X10*3/uL (0.00-0.03); Imm Gran Pct Auto 0.9 % (0.0-0.4); Lymphocytes Absolute Auto 1.6 X10*3/uL (1.2-4.9); Lymphocytes Percent Auto 23.9 % (20-40); Mean Corpuscular HGB Conc 31.6 g/dl (31.0-35.0); Mean Corpuscular Hemoglobin 30.6 pg (27.0-33.0); Mean Corpuscular Volume 96.7 fL (80.0-98.0); Mean Platelet Volume 9.4 fL (9.4-12.3); Monocytes Absolute Auto 0.7 X10*3/uL (0.1-1.2); Monocytes Percent Auto 10.9 % (2-11); Neutrophils Absolute Auto 4.2 x10*3/uL (2.0-8.3); Neutrophils Percent Auto 61.5 % (45-73); Platelet Count 300 X10*3/uL (160-400); Red Blood Count 3.07 X10*6/uL (4.20-5.50); Red Cell Distribution Width 13.2 % (11.0-16.0); White Blood Count 6.8 X10*3/uL (4.8-10.8)
[2023-07-27 09:43] LABS: Estimated Average Glucose 126 mg/dL
[2023-07-27 10:35] LABS: B Type Natriuretic Peptide < 10 pg/mL (<100)
[2023-07-27 11:32] LABS: Alanine Aminotransferase 12 U/L (0-31); Albumin Level 3.7 g/dL (3.5-5.0); Alkaline Phosphatase 63 U/L (39-117); Anion Gap 16 (12-20); Aspartate Amino Transferase 13 U/L (5-31); Bilirubin Total 0.2 mg/dL (0.0-1.0); Blood Urea Nitrogen 45 mg/dL (9-16); Calcium 7.9 mg/dL (8.4-10.2); Carbon Dioxide 19 mmol/L (22-29); Chloride 107 mmol/L (96-108); Cholesterol 156 mg/dL (<200); Estimated Glomerular Filt Rate 17; Glucose Fasting 114 mg/dL (60-99); HDL Cholesterol 41 mg/dL (>40); LDL Cholesterol Calculated 63 mg/dL (<100); Potassium 4.4 mmol/L (3.3-5.1); Sodium 138 mmol/L (135-145); TSH reflex Free T4 2.86 uIU/mL (0.32-4.0); Total Protein 6.3 g/dL (6.5-8.0); Triglycerides 264 mg/dL (<150)
== END 2023-07-27 08:18 | disposition home or self-care (01) ==
LOC: HO.LAB 08:17
PROVIDERS: PCP Internal Medicine; Visit Provider Internal Medicine
DX: I10 Essential (primary) hypertension (principal); E55.9 Vitamin D deficiency, unspecified; R30.0 Dysuria; E78.00 Pure hypercholesterolemia, unspecified; E11.9 Type 2 diabetes mellitus without complications
CPT/HCPCS: 36415; 80053; 80061; 82306; 83036; 83880; 84443; 85025

== ENCOUNTER 2023-08-02 13:51 | Outpatient (AMB) | payer OTHER, SELFPAY ==
[2023-08-02 14:44] VITALS: BP 130/70; PULSE 80; O2SAT 97; BMI 41.9
--- NOTE | 2023-08-02 14:44 | A.OFFPC_ITS ---
Vital Signs 08/02/23 14:44 Height 4 ft 7 in Weight 180 lb 5.41 oz BMI 41.9 BP 130/70 Blood Pressure Location Lt brachial Position Sitting Pulse 80 Pulse Source Pulse Oximeter Pulse Oximetry (%) 97 Oxygen Delivery Method Room Air Intake Visit Reasons: 3mth f/u Intake Note: Patient is here to follow up on 3months Contracting Executive Required: No Allergies No Known Allergies Allergy (Verified 08/02/23 15:15) Medication List - Last Reconciled 08/02/23 by Nima Farooq MD acetaminophen 500 mg PO Q6-8H PRN albuterol sulfate 90 mcg/actuation 2 puffs PO Q4-6H PRN alprazolam 0.5 mg PO BID amlodipine 5 mg PO DAILY ascorbic acid (vitamin C) mg PO DAILY benzonatate 100 mg PO BID-TID PRN blood pressure monitor As directed blood sugar diagnostic ([employer] App[employer] Verio test strips) As directed- To test blood sugar daily. cetirizine (Zyrtec) 10 mg PO DAILY PRN 15 days [CHAIR LIFT As directed] cholecalciferol (vitamin D3) 25 mcg PO DAILY 90 days citalopram 20 mg PO QAM clotrimazole-betamethasone 1-0.05 % 1 appl topical BID 15 days cyanocobalamin (vitamin B-12) 500 mcg PO DAILY 90 days ferrous sulfate 325 mg PO DAILY furosemide 40 mg PO DAILY 90 days ipratropium-albuterol 0.5 mg-3 mg(2.5 mg base)/3 mL 3 mL inhalation Q6H PRN lancets As directed-To test blood sugar daily. lidocaine 5% 1 patch topical DAILY [LIGHTWEIGHT TRANSPORT WHEELCHAIR WITH HANDBRAKES As directed] linagliptin (Tradjenta) 5 mg PO DAILY loperamide 2 mg PO Q6-8H PRN melatonin 10 mg PO BEDTIME metformin 1,000 mg PO BID 90 days metoprolol succinate ER (Toprol XL) 12.5 mg PO DAILY nebulizers (VixOne Nebulizer-Adult Mask) As directed nitroglycerin 0.2 mg/hr 1 patch topical DAILY omeprazole 40 mg PO DAILY pravastatin 40 mg PO DAILY 90 days quetiapine 50 mg PO BEDTIME zolpidem 5 mg PO BEDTIME PRN Tobacco use date assessed: 08/02/23 Fall risk assessment: No Falls in past year Last assessed Fall Risk: 08/02/23 HPI 3mth f/u HPI Details Patient comes in today for her follow up visit - is accompanied as usual by her daughter, who is also her caregiver and HCP Per her daughter, patient has reportedly been coughing a lot and sounds very congested for about 3 weeks now Relates that she called up the office a few weeks ago for the same issues but she only had some Tylenol and Benzonatate Rx sent in to the pharmacy even though her daughter was expecting some Abx Rx at the time States that she herself had a prescription for Doxycycline called in by pulmonary for her and she ended up giving her mother the Abx Rx instead of taking it for herself States that she thinks the Abx helped her mother somewhat but never did completely clear up her respiratory symptoms as she is still presently coughing a lot and coughs up thick yellowish phlegm at times States that her mother also looks fatigued often lately and frequently does not eat much as she has no appetite She has not had any fever or chills lately; denies any increased headaches or dizziness Denies any chest pains but often sounds very congested with her breathing lately No nausea/vomiting, no abdominal pain No change in bowel habits noted Had her follow up labs done last week [facility] Medical History Anemia of chronic disease Chronic kidney disease, stage 4 (severe) Mild cognitive impairment LESLIE on CPAP Chronic heart failure with preserved ejection fraction (HFpEF) COPD (chronic obstructive pulmonary disease) Cellulitis of right foot Morbid obesity with BMI of 40.0-44.9, adult Depression Primary insomnia GERD without esophagitis Vitamin D deficiency Obstructive sleep apnea Benign essential hypertension Pure hypercholesterolemia Chronic kidney disease (CKD), stage III (moderate) Type 2 diabetes mellitus with diabetic chronic kidney disease Coronary artery disease COVID-19 GI bleed GERD (gastroesophageal reflux disease) LESLIE (obstructive sleep apnea) Anxiety CKD (chronic kidney disease) stage 3, GFR 30-59 ml/min Pulmonary hypertension CAD (coronary artery disease) Diabetes mellitus Heart disease Hypercholesteremia HTN (hypertension) Surgical History Hx of colonoscopy History of esophagogastroduodenoscopy (EGD) History of eye surgery H/O abdominal hysterectomy Family History Father No problems noted. Mother No problems noted. Social History Household Members Other:: lives with her daughter who cares for her Housing: Apartment Alcohol intake: never Patient Tobacco Use Status: Never used Tobacco e-Cigarette/Vaping Use: Never Used Second Hand Smoke Exposure: Yes service: No Current occupational status: retired and disabled Cognitive needs: No Hearing needs: No Vision needs: Yes Questionnaire PHQ-9 Over the last 2 weeks, how often have you been bothered by any of the following problems? 1. Little interest or pleasure in doing things: not at all 2. Feeling down, depressed, or hopeless: several days 3. Trouble falling or staying asleep, or sleeping too much: not at all 4. Feeling tired or having little energy: not at all 5. Poor appetite or overeating: not at all 6. Feeling bad about yourself - or that you are a failure or have let yourself or your family down: not at all 7. Trouble concentrating on things, such as reading the newspaper or watching television: not at all 8. Moving or speaking so slowly that other people could have noticed. Or the opposite - being so fidgety or restless that you have been moving around a lot more than usual: not at all 9. Thoughts that you would be better off or of hurting yourself in some way: not at all Total score: 1 Depression Screening Interpretation: Negative Depression Screening Done: Yes 50541 - PHQ-9 Billing: Yes Source: Developed by Drs. Feng Suazo, Liz Carrillo, Raymond Morales and colleagues, with an educational katarina from [employer]. Thrive Questionnaire Date Thrive assessed: 08/02/23 I am a: Patient What is your living situation today?: I have a steady place to live Within the past 12 months, did the food you bought not last and you didn't have the money to get more?: Never true Within the past 12 months, did you worry whether your food would run out before you got money to buy more?: Never true Do you have trouble paying for medicines?: No Do you have trouble getting transportation to medical appointments?: No Do you have trouble paying your heating and electricity bill?: No Do you have trouble taking care of your child, family member or friend?: No Do you have trouble with day-to-day activities such as bathing, preparing meals, shopping, managing finances, etc.?: No Are you currently unemployed and looking for a job?: No Are you interested in more education?: No Please select the resources that you would like help with: None Currently or been in a relationship where the following occur: no concerns reported THRIVE Score: 0 AUDIT C Alcohol Use Questionnaire (AUDIT-C) 1. How often do you have a drink containing alcohol?: Never 3. How often do you have six or more drinks on one occasion?: Never Total Score: 0 Score Reviewed/Action Taken: Yes EMERSON-7 AMB Questionnaire EMERSON-7 Date EMERSON - 7 assessed: 08/02/23 Source: Developed by Drs. Feng Suazo, Liz Carrillo, Raymond Morales and colleagues, with an educational katarina from [employer]. Review of Systems Const Details: information is obtained primarily from daughter as patient has some confusion and is unable to provide any pertinent info; also has issues with language barrier - patient speaks very little Marshallese Denies chills, Reports fatigue (increased lately), Denies fever(s), Denies headache(s) and Reports poor appetite ENT Denies dysphagia, Denies dizziness, Reports dry mouth (frequent - mostly due to her nightly CPAP device use), Denies otalgia, Denies headache(s), Reports nasal congestion, Denies odynophagia, Denies sinus pain and Denies sore throat Card Denies chest pain, Denies palpitations and Reports dyspnea on exertion (mild) Resp Reports chest congestion (increased), Reports cough (recurrent; coughs up thick yellowish phlegm at times), Reports dyspnea on exertion (mild) and Denies wheezing GI Denies abdominal pain (but reports (+) epigastric discomfort/pressure at times), Denies hematochezia, Denies constipation, Denies dysphagia, Denies heartburn, Reports diarrhea (occasional, controlled with Imodium PRN), Denies nausea, Denies odynophagia and Denies vomiting Denies difficulty voiding, Denies nocturia, Denies dysuria and Denies urinary urgency Musc Reports tingling (on and off in both hands) Skin/Breast Denies rash Neuro Denies behavioral changes, Reports confusion (on and off), Denies dizziness, Denies headache(s), Reports memory loss, Reports tingling (on and off in both hands) and Reports paresthesias (on and off in her hands) Psych Denies behavioral changes, Reports confusion (on and off) and Reports memory loss Endo Reports fatigue (increased lately) and Denies palpitations Aller/Immun Denies wheezing Physical exam (Primary Care) Vital Signs: Last Vital Signs Pulse 80 08/02/23 14:44 BP 130/70 08/02/23 14:44 Pulse Ox 97 08/02/23 14:44 Oxygen Delivery Method Room Air 08/02/23 14:44 BMI result Body Mass Index 41.9 Tobacco/Smoking Status: Tobacco use Status Tobacco use date assessed 08/02/23 08/02/23 14:53 Patient Tobacco Use Status Never used Tobacco 08/02/23 14:46 e-Cigarette/Vaping Use Never Used 08/02/23 14:46 Depression Screening Interpretation: Negative Thrive Assessment: Date of Thrive Assessment Date Thrive assessed 04/19/23 08/02/23 14:46 Currently or been in a relationship where the following occur: no concerns reported Const General: confusion (on and off) Orientation/consciousness: confusion (on and off) HENMT Ears: TM's normal bilaterally and EAC's normal Throat: Yes posterior oropharynx normal and Yes tonsils normal (no TP congestion noted) Neck Neck: Yes no lymphadenopathy and Yes supple Thyroid: Thyroid normal Resp Auscultation: no crackles, no rales, rhonchi (scattered, bilaterally), no wheezes, diminished lung sounds (bilaterally) and bronchial breath sounds Cardio Rate: regular rate Rhythm: regular rhythm Heart sounds: no murmurs GI Palpation (GI): Soft to palpation and nontender Auscultation: normal bowel sounds General: Yes no CVA tenderness Back/Spine/Pelvis Back: no CVA tenderness Skin Rashes: no rashes Neuro General: confusion (on and off) Extrem General: Yes no clubbing, cyanosis or edema Results Reviewed Results Reviewed: Laboratory Tests 07/27/23 08:33 WBC 6.8 Hgb 9.4 L Hct 29.7 L Plt Count 300 Sodium 138 Potassium 4.4 Creatinine 2.67 H Estimated GFR 17 Fasting Glucose 114 H Hemoglobin A1c % 6.0 Calcium 7.9 L D AST 13 ALT 12 Triglycerides 264 H Cholesterol 156 LDL Cholesterol, Calc 63 HDL Cholesterol 41 25-OH Vitamin D Total 36.0 TSH 2.86 Assessment and Plan Assessment & Plan (1) COPD exacerbation: Comment: PATIENT HAS MODERATELY SEVERE OBSTRUCTIVE AIRWAY DISORDER. ALSO HAS SIGNIFICANT RESTRICTIVE DISORDER. NO RECENT PULMONARY FUNCTION TEST HAS BEEN DONE BECAUSE IT WILL BE IMPOSSIBLE TO DO Code(s): J44.1 - Chronic obstructive pulmonary disease with (acute) exacerbation Plan: Patient currently sounds very congested on chest auscultation Will send her for chest x-rays ANA for further evaluation and to help r/o pneumonia Will go ahead and start her empirically as well on Doxycycline 100 mg BID x 10 days Continue Albuterol HFA every 6 hours PRN; also has Duoneb updraft to use when needed if she is at home and has access to her nebulizer Follow-up with pulmonary as scheduled As always, have advised patient's daughter to call for help ([phone]) immediately if patient starts experiencing increasing SOB (2) Chronic kidney disease, stage 4 (severe): Code(s): N18.4 - Chronic kidney disease, stage 4 (severe) Plan: Have cautioned patient and her daughter before that based on her most recent labs, patient's kidney function has declined significantly lately and she is now in CKD stage 4 Will now have to take her OFF her Metformin 1000 mg BID Follow up with nephrology as scheduled (3) Anemia of chronic disease: Code(s): D63.8 - Anemia in other chronic diseases classified elsewhere Plan: Have cautioned patient's daughter that patient's recent labs show a significant decline in her H/H, which is now down to 9.4/29.7 Discussed that this is most likely related to her declining renal function - anemia of chronic disease Will have patient recheck her CBC in 1 month and if her H/H continues to decline further, may need to see nephrology about getting Procrit injections (4) Coronary artery disease: Code(s): I25.10 - Atherosclerotic heart disease of [place] coronary artery without angina pectoris Qualifiers: Coronary Disease-Associated Artery/Lesion type: [place] artery [place] vs. transplanted heart: [place] heart Associated angina: without angina Qualified Code(s): I25.10 - Atherosclerotic heart disease of [place] coronary artery without angina pectoris Plan: Myocardial perfusion scan done back in 2008 at [facility] [place] showed (+) ischemia of the left ventricular apex; EF and wall motion studies were normal Echocardiogram done on 04/17/2009 showed low-normal LV systolic function with EF between 55-60%, mild concentric left ventricular hypertrophy, mild MR; diastolic filling pattern indicated impaired relaxation and moderate pulmonary hypertension Patient has been asymptomatic so far from a cardiac standpoint Continue Nitroglycerin patch 0.2 mg per hour once a day - Rx refilled Was seen by cardiology last year in September 2022 and advised to continue on current meds and management EKG done in the office at the time showed normal EKG with low voltage Follow up with cardiology as scheduled (5) Chronic heart failure with preserved ejection fraction (HFpEF): Code(s): I50.32 - Chronic diastolic (congestive) heart failure Plan: Has been compensated and was advised by cardiology to continue on low dose beta ciro and conservative medical management, given patient's age Was on Metoprolol ER 25 mg QD but patient's daughter cut this down to 1/2 tablet QD since she fell and was experiencing frequent dizziness and on and off headaches a few months ago Amlodipine 5 mg QD has also been held since EKG done back in December 2022 revealed low voltage but EKG was otherwise normal Echocardiogram done in January 2023 showed that the left ventricular systolic function is hyperdynamic. The visually estimated ejection fraction is >70%. There is moderate septal asymmetric hypertrophy and evidence suggests grade I (mild) diastolic dysfunction. No obvious valvular pathology was seen on this study. (6) Type 2 diabetes mellitus with diabetic chronic kidney disease: Code(s): E11.22 - Type 2 diabetes mellitus with diabetic chronic kidney disease Qualifiers: Diabetes mellitus intermission coordinator insulin use: without intermission coordinator use Chronic kidney disease stage: unspecified stage Qualified Code(s): E11.22 - Type 2 diabetes mellitus with diabetic chronic kidney disease Plan: Patient's HgbA1c was at 6.0% on her labs done last week (was at 6.6% a few months ago) - goal is at least < 7.5% Reinforced diabetic diet Continue Tradjenta 5 mg QD Will need to discontinue her Metformin 1000 mg BID as her renal function and serum creatinine has been progressively declining over the past year and her serum creatinine is now at 2.67 on her recent labs Will start her additionally for now on Glimepiride 1 mg QD to offset the loss of Metformin for her diabetes (7) Pure hypercholesterolemia: Code(s): E78.00 - Pure hypercholesterolemia, unspecified Plan: Results of her labs done last week reviewed and discussed with patient's daughter Reinforced low cholesterol diet Continue Pravastatin 40 mg QD Will recheck her labs and fasting lpids in 3 months for follow-up (8) Benign essential hypertension: Code(s): I10 - Essential (primary) hypertension Plan: Reinforced low-sodium diet -? goal is systolic BP of at least 140 to 150 mm or less Was on Amlodipine 5 mg QD and Furosemide 20 mg QD in AM as well as Metoprolol ER 25 mg QD but her Amlodipine has been held and Metoprolol ER cut in half by her daughter over the past few months (since she fell back in November 2022) and patient seems to be doing well on her reduced Rx dosage - will continue on her current dosages for now (9) Mild cognitive impairment: Code(s): G31.84 - Mild cognitive impairment of uncertain or unknown etiology Plan: Follow up with neurology as scheduled (10) Obstructive sleep apnea: Code(s): G47.33 - Obstructive sleep apnea (adult) (pediatric) Plan: Continue using her CPAP device when sleeping at night daily (11) At high risk for aspiration: Code(s): Z91.89 - Other specified personal risk factors, not elsewhere classified Plan: Barium swallow done in October 2022 revealed (+)limited exam but (+) retention of liquid barium in the vallecula; no aspiration or penetration; (+) gastroesophageal reflux. Barium tablet passed freely into the esophagus Following up Dr. Weaver (GI) as scheduled (12) GERD without esophagitis: Code(s): K21.9 - Gastro-esophageal reflux disease without esophagitis Plan: Dietary restrictions reinforced Continue Omeprazole 20 mg QD Follow-up with GI as scheduled (13) Vitamin D deficiency: Code(s): E55.9 - Vitamin D deficiency, unspecified Plan: Continue Vitamin D3 1000 units QD (14) Primary osteoarthritis of knees, bilateral: Code(s): M17.0 - Bilateral primary osteoarthritis of knee Plan: Has received injections into her knees in the past and more recently in December 2021 with (+) relief of her knee pain Follow-up with orthopedics as scheduled (15) Paresthesia of both hands: Code(s): R20.2 - Paresthesia of skin Plan: Symptoms are likely due to a combination of 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 (similar to what one would experience in carpal tunnel syndrome) Advised that unless her symptoms are significant and keep her up at night, would prefer not to start her on any Rx to help with her neuropathic pain as a lot of these Rx can cause sedation or are associated with some side effects that can be problematic for her given her age (16) Primary insomnia: Code(s): F51.01 - Primary insomnia Plan: Sleep hygiene reinforced Continue OTC Melatonin capsule 10 mg once a day at bedtime as needed (17) Anxiety: Code(s): F41.9 - Anxiety disorder, unspecified Plan: Continue Alprazolam 0.5 mg 1 tablet twice a day as needed for agitation (18) Depression: Code(s): F32.9 - Major depressive disorder, single episode, unspecified Qualifiers: Depression Type: unspecified Qualified Code(s): F32.9 - Major depressive disorder, single episode, unspecified Plan: Continue Citalopram? 20 mg QD in AM and Seroquel 25 mg Q HS Follow-up with Psychiatry as scheduled (19) Morbid obesity with BMI of 40.0-44.9, adult: Code(s): E66.01 - Morbid (severe) obesity due to excess calories; Z68.41 - Body mass index [BMI] 40.0-44.9, adult Plan: Reinforced diet; due to patient's age and comorbidities, there is no realistic expectation of any significant improvement in her activity level and in losing weight here Plan Follow up in 3 months Orders: Orders Erythropoietin (EPO) 1 Month D64.9 - Anemia, unspecified XR chest 2V Today R05.9 - Cough, unspecified Lipid Panel 3 Months E78.00 - Pure hypercholesterolemia, unspecified TSH reflex Free T4 3 Months E78.00 - Pure hypercholesterolemia, unspecified UA CC w/rflx Micro + Cult 3 Months R30.0 - Dysuria Microalbumin, Random (w Creat) 3 Months E11.9 - Type 2 diabetes mellitus without complications Comprehensive Met. Panel 1 Month N18.4 - Chronic kidney disease, stage 4 (severe) Complete Blood Count Auto Diff 1 Month D64.9 - Anemia, unspecified Hemoglobin A1c 3 Months E11.9 - Type 2 diabetes mellitus without complications Complete Blood Count Auto Diff 3 Months D64.9 - Anemia, unspecified Comprehensive [place]. Panel Fast 3 Months E78.00 - Pure hypercholesterolemia, unspecified Vitamin D 25-OH Total 3 Months E55.9 - Vitamin D deficiency, unspecified Medications: New doxycycline hyclate 100 mg PO BID 10 days 20 tabs 0RF glimepiride administer with breakfast 1 mg PO QAM 30 days 30 tabs 2RF Coding Level of Care Code Est Pt Level 4 (06946) Diagnoses COPD exacerbation J44.1 Chronic kidney disease, stage 4 (severe) N18.4 Anemia of chronic disease D63.8 Coronary artery disease involving [place] coronary artery of [place] heart without angina pectoris I25.10 Coronary Disease-Associated Artery/Lesion type: [place] artery [place] vs. transplanted heart: [place] heart Associated angina: without angina Chronic heart failure with preserved ejection fraction (HFpEF) I50.32 Type 2 diabetes mellitus with chronic kidney disease, without long-term current use of insulin, unspecified CKD stage E11.22 Diabetes mellitus intermission coordinator insulin use: without group home use Chronic kidney disease stage: unspecified stage Pure hypercholesterolemia E78.00 Benign essential hypertension I10 Mild cognitive impairment G31.84 Obstructive sleep apnea G47.33 At high risk for aspiration Z91.89 GERD without esophagitis K21.9 Vitamin D deficiency E55.9 Primary osteoarthritis of knees, bilateral M17.0 Paresthesia of both hands R20.2 Primary insomnia F51.01 Anxiety F41.9 Depression, unspecified depression type F32.9 Depression Type: unspecified Morbid obesity with BMI of 40.0-44.9, adult E66.01; Z68.41
== END 2023-08-02 15:52 | disposition home or self-care (01) ==
PROVIDERS: PCP Internal Medicine; Visit Provider Internal Medicine
DX: J44.1 Chronic obstructive pulmonary disease with (acute) exacerbation (principal); I12.9 Hypertensive chronic kidney disease with stage 1 through stage 4 chronic kidney disease, or unspecified chronic kidney disease; N18.4 Chronic kidney disease, stage 4 (severe); D63.8 Anemia in other chronic diseases classified elsewhere; I25.10 Atherosclerotic heart disease of native coronary artery without angina pectoris; E78.00 Pure hypercholesterolemia, unspecified; G31.84 Mild cognitive impairment of uncertain or unknown etiology; G47.33 Obstructive sleep apnea (adult) (pediatric); Z91.89 Other specified personal risk factors, not elsewhere classified; K21.9 Gastro-esophageal reflux disease without esophagitis; E55.9 Vitamin D deficiency, unspecified; M17.0 Bilateral primary osteoarthritis of knee
CPT/HCPCS: 99214

== ENCOUNTER 2023-08-02 16:01 | Outpatient (REF) | payer OTHER, SELFPAY ==
--- NOTE | ~2023-08-02 | XR_ITS ---
EXAMINATION: XR CHEST CLINICAL INFORMATION: Cough. Rule out pneumonia. COMPARISON: Chest radiograph dated 02/16/2019. TECHNIQUE: 2 views of the chest were obtained. FINDINGS: The trachea remains in normal anatomic position. Heart size remains normal. The cardiomediastinal lead remains unchanged in contour. There is no consolidation. No pleural effusion or pneumothorax. No acute osseous abnormality. XR/XR chest 2V IMPRESSION: No acute cardiopulmonary disease. No pneumonia. No significant change compared with prior examination.
== END 2023-08-02 16:02 | disposition home or self-care (01) ==
LOC: HO.XRAY 16:01
PROVIDERS: PCP Internal Medicine; Visit Provider Internal Medicine
DX: R05.9 Cough, unspecified (principal)
CPT/HCPCS: 71046

== ENCOUNTER 2023-09-15 10:14 | Outpatient (REF) | payer OTHER, SELFPAY ==
[2023-09-15 10:29] LABS: MANUAL DIFF FLAG NO
[2023-09-15 10:45] LABS: Basophils Percent Auto 0.8 % (0-2); Eosinophils Absolute Auto 0.1 X10*3/uL (0.0-0.4); Eosinophils Percent Auto 2.4 % (0-4); Hematocrit 30.3 % (37.0-47.0); Hemoglobin 10.1 g/dl (12.0-16.0); Imm Gran Abs Auto 0.02 X10*3/uL (0.00-0.03); Imm Gran Pct Auto 0.4 % (0.0-0.4); Lymphocytes Absolute Auto 1.4 X10*3/uL (1.2-4.9); Lymphocytes Percent Auto 28.2 % (20-40); Mean Corpuscular HGB Conc 33.3 g/dl (31.0-35.0); Mean Corpuscular Hemoglobin 31.9 pg (27.0-33.0); Mean Corpuscular Volume 95.6 fL (80.0-98.0); Mean Platelet Volume 9.3 fL (9.4-12.3); Monocytes Absolute Auto 0.4 X10*3/uL (0.1-1.2); Monocytes Percent Auto 8.9 % (2-11); Neutrophils Absolute Auto 2.9 x10*3/uL (2.0-8.3); Neutrophils Percent Auto 59.3 % (45-73); Platelet Count 210 X10*3/uL (160-400); Red Blood Count 3.17 X10*6/uL (4.20-5.50); Red Cell Distribution Width 13.2 % (11.0-16.0)
[2023-09-15 11:21] LABS: Alanine Aminotransferase 10 U/L (0-31); Albumin Level 3.7 g/dL (3.5-5.0); Alkaline Phosphatase 56 U/L (39-117); Anion Gap 12 (12-20); Aspartate Amino Transferase 11 U/L (5-31); Bilirubin Total 0.3 mg/dL (0.0-1.0); Blood Urea Nitrogen 41 mg/dL (9-16); Calcium 8.9 mg/dL (8.4-10.2); Carbon Dioxide 23 mmol/L (22-29); Chloride 107 mmol/L (96-108); Estimated Glomerular Filt Rate 14; Glucose Random 104 mg/dL (60-115); Potassium 4.2 mmol/L (3.3-5.1); Sodium 138 mmol/L (135-145); Total Protein 6.4 g/dL (6.5-8.0)
== END 2023-09-15 10:15 | disposition home or self-care (01) ==
LOC: HO.LAB 10:14
PROVIDERS: PCP Internal Medicine; Visit Provider Internal Medicine
DX: D64.9 Anemia, unspecified (principal); N18.4 Chronic kidney disease, stage 4 (severe)
CPT/HCPCS: 36415; 80053; 82668; 85025

== ENCOUNTER 2023-10-04 09:41 | Outpatient (AMB) | payer OTHER, SELFPAY ==
--- NOTE | 2023-10-04 10:07 | MHC.OFFVIS ---
Vital Signs 10/04/23 10:08 Height 4 ft 7 in Weight 186 lb BMI 43.2 BP 137/59 L Blood Pressure Location Lt brachial Position Sitting Pulse 61 Intake Visit Reasons: 4 month follow up Intake Note: Deepika presents in the office as a 4 month follow up. CC: When they took her off her metformin she had diarrhea but now she has severe constipation. daughter tries to give her prune juice and it does not seem to be working for her. Daughter has been giving patient ProLax that works for her. Allergies No Known Allergies Allergy (Verified 10/04/23 10:08) HPI HPI 4 month follow up: Details: 88 yr old f here for f/u RECAP: Saw Yodit for epigastric pain and diarrhea had been taking imodium on omeprazole at baseline EGD/colon 2005 for IGNACIO with doshi--polyps removed 5 mm, diverticulosis, nml duodenal bx EGD 2010- small to moderate hiatal hernia, no ulcers MBS 2019- Ba swallow: ba tab passed freely, retention of some fluid in vallecula INTERIM: she feels better with omeprazole 40 mg, daughter had been adding OTC 20 mg in the evening and she feels this worked well not choking as much now denies epigastric pain conts to use lactose free milk she stopped metformin and no longer having post prandial diarrhea but rather having constipation, daugher tried prune lax and it is working well EXAM: GENERAL: The patient is relaxed and sitting in the wheelchair VITAL SIGNS:see workflow HEENT: Nonicteric sclerae, PERRLA, EOMI. Oropharynx clear. Moist mucous membranes. Conjunctivae appear well perfused. No thyroid mass. CHEST: Chest wall is nontender. HEART: Regular rate and rhythm without murmurs. LUNGS: Clear to auscultation bilaterally. ABDOMEN: Soft, positive bowel sounds, nontender, no organomegaly.no flank tenderness SKIN: No rash, no excessive bruising, petechiae, or purpura. NEUROLOGIC: Cranial nerves II-XII intact without motor/sensory deficit. Psych: normal affect A/P: 1/ Diarrhea--better since stopped metformin, now taking prunlax 2/ swallowing issues, maybe related to GERD or? DM--no mechanical obstruction --better with PPI PLAN: 1/ change to esomeprazole 40 mg, and stop omeprazole 2/ cont with prune [facility] Medical History Anemia of chronic disease Chronic kidney disease, stage 4 (severe) Mild cognitive impairment LESLIE on CPAP Chronic heart failure with preserved ejection fraction (HFpEF) COPD (chronic obstructive pulmonary disease) Cellulitis of right foot Morbid obesity with BMI of 40.0-44.9, adult Depression Primary insomnia GERD without esophagitis Vitamin D deficiency Obstructive sleep apnea Benign essential hypertension Pure hypercholesterolemia Chronic kidney disease (CKD), stage III (moderate) Type 2 diabetes mellitus with diabetic chronic kidney disease Coronary artery disease COVID-19 GI bleed GERD (gastroesophageal reflux disease) LESLIE (obstructive sleep apnea) Anxiety CKD (chronic kidney disease) stage 3, GFR 30-59 ml/min Pulmonary hypertension CAD (coronary artery disease) Diabetes mellitus Heart disease Hypercholesteremia HTN (hypertension) Surgical History Hx of colonoscopy History of esophagogastroduodenoscopy (EGD) History of eye surgery H/O abdominal hysterectomy Family History Father No problems noted. Mother No problems noted. Social History Household Members Other:: lives with her daughter who cares for her Housing: Apartment Alcohol intake: never Patient Tobacco Use Status: Never used Tobacco e-Cigarette/Vaping Use: Never Used Second Hand Smoke Exposure: Yes service: No Current occupational status: retired and disabled Cognitive needs: No Hearing needs: No Vision needs: Yes Physical Exam Vital Signs: Last Vital Signs Pulse 61 10/04/23 10:08 BP 137/59 L 10/04/23 10:08 BMI result Body Mass Index 43.2 Assessment & Plan Assessment & Plan (1) Postprandial diarrhea: Code(s): K52.9 - Noninfective gastroenteritis and colitis, unspecified Category: Medical Plan: A/P: 1/ Diarrhea--better since stopped metformin, now taking prunlax 2/ swallowing issues, maybe related to GERD or? DM--no mechanical obstruction --better with PPI PLAN: 1/ change to esomeprazole 40 mg, and stop omeprazole 2/ cont with prune Medications: New esomeprazole magnesium 40 mg PO DAILY 30 caps 2RF Discontinued omeprazole Discontinued Reason: Doctor's Order 40 mg PO DAILY 30 caps 2RF Coding Level of Care Code Est Pt Level 3 (44275) Diagnoses Postprandial diarrhea K52.9
[2023-10-04 10:08] VITALS: BP 137/59; PULSE 61; BMI 43.2
== END 2023-10-04 10:48 | disposition home or self-care (01) ==
PROVIDERS: PCP Internal Medicine; Visit Provider Internal Medicine Gastroenterology
DX: K52.9 Noninfective gastroenteritis and colitis, unspecified (principal)
CPT/HCPCS: 99213

== ENCOUNTER 2023-10-04 09:41 | Outpatient (REF) | payer OTHER, SELFPAY ==
--- NOTE | ~2023-10-04 | XR_ITS ---
EXAMINATION: XR CHEST CLINICAL INFORMATION: Dyspnea, unspecified. COMPARISON: 08/02/2023 TECHNIQUE: 2 views of the chest were obtained. FINDINGS: There is no gross pneumothorax. Lung volumes are low. Stable cardiomediastinal silhouette, allowing for patient rotation. Redemonstration of mild bibasilar opacities, left greater than right, characteristic of atelectasis, although an infectious/inflammatory process should also be considered in the appropriate clinical setting. Multilevel degenerative changes in the imaged thoracolumbar spine. XR/XR chest 2V IMPRESSION: Redemonstration of mild bibasilar opacities, left greater than right, characteristic of atelectasis, although an infectious/inflammatory process should also be considered in the appropriate clinical setting.
== END 2023-10-04 09:42 | disposition home or self-care (01) ==
LOC: HO.XRAY 09:41
PROVIDERS: PCP Internal Medicine; Visit Provider Internal Medicine Gastroenterology
DX: R06.00 Dyspnea, unspecified (principal); K52.9 Noninfective gastroenteritis and colitis, unspecified; K59.00 Constipation, unspecified
CPT/HCPCS: 71046; 99212

== ENCOUNTER 2023-10-05 14:19 | Outpatient (AMB) | payer OTHER, SELFPAY ==
[2023-10-05 14:33] VITALS: BP 120/54; PULSE 64; BMI 43.2
--- NOTE | 2023-10-05 14:33 | MHC.OFFVIS ---
Vital Signs 10/05/23 14:33 Height 4 ft 7 in Weight 186 lb BMI 43.2 BP 120/54 L Blood Pressure Location Rt brachial Position Sitting Pulse 64 Intake Visit Reasons: 1 yr f/u Medical Certification Specialist Required: No Medical Certification Specialist Name: brigid/ daughter Accompanied by: Daughter Allergies No Known Allergies Allergy (Verified 10/04/23 10:08) Medication List - Last Reconciled 10/05/23 by Arthur Bess MD acetaminophen 500 mg PO Q6-8H PRN albuterol sulfate 90 mcg/actuation 2 puffs PO Q4-6H PRN alprazolam 0.5 mg PO BID amlodipine 5 mg PO DAILY ascorbic acid (vitamin C) mg PO DAILY benzonatate 100 mg PO BID-TID PRN blood pressure monitor As directed blood sugar diagnostic (Bandwidthuch Verio test strips) As directed- To test blood sugar daily. cetirizine 10 mg PO DAILY cetirizine (Zyrtec) 10 mg PO DAILY PRN 15 days [CHAIR LIFT As directed] cholecalciferol (vitamin D3) 25 mcg PO DAILY 90 days citalopram 20 mg PO QAM cyanocobalamin (vitamin B-12) 500 mcg PO DAILY 90 days doxycycline hyclate 100 mg PO BID 10 days esomeprazole magnesium 40 mg PO DAILY ferrous sulfate 325 mg PO DAILY furosemide 40 mg PO DAILY 90 days glimepiride 1 mg PO QAM 30 days ipratropium-albuterol 0.5 mg-3 mg(2.5 mg base)/3 mL 3 mL inhalation Q6H PRN lancets As directed-To test blood sugar daily. lidocaine 5% 1 patch topical DAILY [LIGHTWEIGHT TRANSPORT WHEELCHAIR WITH HANDBRAKES As directed] linagliptin (Tradjenta) 5 mg PO DAILY melatonin 10 mg PO BEDTIME metoprolol succinate ER (Toprol XL) 12.5 mg (1/2 x 25 mg) PO DAILY 90 days nebulizers (VixOne Nebulizer-Adult Mask) As directed nitroglycerin 0.2 mg/hr 1 patch topical DAILY pravastatin 40 mg PO DAILY 90 days quetiapine 100 mg PO BEDTIME quetiapine 25 mg PO DAILY zolpidem 5 mg PO BEDTIME PRN HPI Comments Details: Deepika returns for follow-up. She is frail and comes in a wheelchair. Carries a diagnosis of congestive heart failure. Probably diastolic. Suspected CAD based on prior stress testing, but did not have any catheterization. Occasional shortness of breath/chest pressure but unclear etiology. Per daughter, question of happening with anxiety. She has been on nitro patch for a long time. In 2008, she underwent a stress test that showed apical ischemia but patient states that she never underwent any cardiac catheterization because of possible GI bleed but again details are not very clear. No new complaints since last seen. [facility] Medical History Anemia of chronic disease Chronic kidney disease, stage 4 (severe) Mild cognitive impairment LESLIE on CPAP Chronic heart failure with preserved ejection fraction (HFpEF) COPD (chronic obstructive pulmonary disease) Cellulitis of right foot Morbid obesity with BMI of 40.0-44.9, adult Depression Primary insomnia GERD without esophagitis Vitamin D deficiency Obstructive sleep apnea Benign essential hypertension Pure hypercholesterolemia Chronic kidney disease (CKD), stage III (moderate) Type 2 diabetes mellitus with diabetic chronic kidney disease Coronary artery disease COVID-19 GI bleed GERD (gastroesophageal reflux disease) LESLIE (obstructive sleep apnea) Anxiety CKD (chronic kidney disease) stage 3, GFR 30-59 ml/min Pulmonary hypertension CAD (coronary artery disease) Diabetes mellitus Heart disease Hypercholesteremia HTN (hypertension) Surgical History Hx of colonoscopy History of esophagogastroduodenoscopy (EGD) History of eye surgery H/O abdominal hysterectomy Family History Father No problems noted. Mother No problems noted. Social History Household Members Other:: lives with her daughter who cares for her Housing: Apartment Alcohol intake: never Patient Tobacco Use Status: Never used Tobacco e-Cigarette/Vaping Use: Never Used Second Hand Smoke Exposure: Yes service: No Current occupational status: retired and disabled Cognitive needs: No Hearing needs: No Vision needs: Yes Review of Systems Const Denies chills, Denies fatigue, Denies fever(s), Denies frequent falls, Denies weakness, Denies weight gain and Denies weight loss ENT Denies dizziness Card Denies chest pain, Denies leg edema, Denies lightheadedness, Denies palpitations, Denies dyspnea and Denies dyspnea on exertion Resp Denies cough, Denies dyspnea and Denies dyspnea on exertion GI Denies hematochezia Musc Denies abnormal gait, Denies muscle weakness, Denies numbness, Denies radiating pain into limb and Denies tingling Neuro Denies abnormal gait, Denies dizziness, Denies frequent falls, Denies numbness, Denies tingling and Denies weakness Endo Denies fatigue and Denies palpitations Physical Exam Vital Signs: Last Vital Signs Pulse 64 10/05/23 14:33 BP 120/54 L 10/05/23 14:33 BMI result Body Mass Index 43.2 Const General: comfortable and no acute distress Orientation/consciousness: patient oriented x3 HEENT Other: Unremarkable Head: Yes normal to inspection Neck Neck: Yes normal visual inspection Chest Chest palpation & inspection: normal inspection of the chest Resp Auscultation: clear to auscultation bilaterally Cardio Palpation: normal PMI Heart sounds: S1 normal heart sound present, S2 normal heart sound present, no gallops, no murmurs and no rubs GI Palpation (GI): Soft to palpation Back/Spine/Pelvis Other: unremarkable Skin General skin exam: no rashes or lesions noted Neuro General: patient oriented x3 Extrem General: Yes normal to inspection Psych Mental Status: mental status grossly normal Assessment & Plan Assessment & Plan (1) Chronic heart failure with preserved ejection fraction (HFpEF): Code(s): I50.32 - Chronic diastolic (congestive) heart failure Category: Medical Plan: Continue diuretics. No changes. (2) Atherosclerotic cardiovascular disease: Code(s): I25.10 - Atherosclerotic heart disease of wiyot coronary artery without angina pectoris Category: Medical Plan: Apical ischemia reported a stress test from 2008. No reports of cardiac catheterization. Repeat stress test shows mild anteroapical reversible defect that could be from soft tissue attenuation versus mild ischemia. There is presumed CAD at her age but no clear-cut symptoms. Has been on long-term nitro patch and that can be continued without changes. Continue beta-blockers. With regard to aspirin use, she states there was GI bleed from peptic ulcer disease and hence not started. With advanced age, being wheelchair-bound, high creatinine, not a candidate for any invasive workup. Discussed with daughter. (3) Obstructive sleep apnea: Code(s): G47.33 - Obstructive sleep apnea (adult) (pediatric) Category: Medical Plan: Continue CPAP. (4) Type 2 diabetes mellitus with unspecified complications: Code(s): E11.8 - Type 2 diabetes mellitus with unspecified complications Category: Medical Plan: Hemoglobin A1c is 6%. (5) Essential hypertension: Code(s): I10 - Essential (primary) hypertension Category: Medical Plan: On amlodipine. (6) Morbid obesity with BMI of 40.0-44.9, adult: Code(s): E66.01 - Morbid (severe) obesity due to excess calories; Z68.41 - Body mass index [BMI] 40.0-44.9, adult Category: Medical Plan: Unlikely that this is going to change as she presents in a wheelchair and has minimal mobility. Coding Level of Care Code Est Pt Level 4 (87435) Diagnoses Chronic heart failure with preserved ejection fraction (HFpEF) I50.32 Atherosclerotic cardiovascular disease I25.10 Obstructive sleep apnea G47.33 Type 2 diabetes mellitus with unspecified complications E11.8 Essential hypertension I10 Morbid obesity with BMI of 40.0-44.9, adult E66.01; Z68.41
== END 2023-10-05 15:01 | disposition home or self-care (01) ==
PROVIDERS: Visit Provider Internal Medicine
DX: I50.32 Chronic diastolic (congestive) heart failure (principal); I25.10 Atherosclerotic heart disease of native coronary artery without angina pectoris; G47.33 Obstructive sleep apnea (adult) (pediatric); E11.8 Type 2 diabetes mellitus with unspecified complications; I10 Essential (primary) hypertension; E66.01 Morbid (severe) obesity due to excess calories; Z68.41 Body mass index [BMI] 40.0-44.9, adult
CPT/HCPCS: 99214

== ENCOUNTER → 2023-10-05 14:19 | Outpatient (BNVA) | payer OTHER, SELFPAY | PROVIDERS: Visit Provider Internal Medicine | DX: I11.0 Hypertensive heart disease with heart failure (principal); I50.32 Chronic diastolic (congestive) heart failure; I25.10 Atherosclerotic heart disease of native coronary artery without angina pectoris; E11.8 Type 2 diabetes mellitus with unspecified complications; G47.33 Obstructive sleep apnea (adult) (pediatric); E66.01 Morbid (severe) obesity due to excess calories; Z68.41 Body mass index [BMI] 40.0-44.9, adult; Z79.899 Other long term (current) drug therapy; Z99.89 Dependence on other enabling machines and devices | CPT/HCPCS: 99212 ==

== ENCOUNTER 2023-10-12 12:57 | Outpatient (AMB) | payer OTHER, SELFPAY ==
[2023-10-12 13:06] VITALS: BP 112/50; PULSE 64; O2SAT 93
--- NOTE | 2023-10-12 13:06 | HO.NEPHOV ---
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 She has a history of atherosclerotic cardiovascular disease and hypertension. In November she had a fall she was on the floor for quite some time. She has been on Lasix 40 mg daily. Creatinine is bumped to 2.3 in December and as of February creatinine is at 2.5. The patient does not have any edema at this time. No shortness of breath. Creatinine has bumped up [facility] Medical History Anemia of chronic disease Chronic kidney disease, stage 4 (severe) Mild cognitive impairment LESLIE on CPAP Chronic heart failure with preserved ejection fraction (HFpEF) COPD (chronic obstructive pulmonary disease) Cellulitis of right foot Morbid obesity with BMI of 40.0-44.9, adult Depression Primary insomnia GERD without esophagitis Vitamin D deficiency Obstructive sleep apnea Benign essential hypertension Pure hypercholesterolemia Chronic kidney disease (CKD), stage III (moderate) Type 2 diabetes mellitus with diabetic chronic kidney disease Coronary artery disease COVID-19 GI bleed GERD (gastroesophageal reflux disease) LESLIE (obstructive sleep apnea) Anxiety CKD (chronic kidney disease) stage 3, GFR 30-59 ml/min Pulmonary hypertension CAD (coronary artery disease) Diabetes mellitus Heart disease Hypercholesteremia HTN (hypertension) Surgical History Hx of colonoscopy History of esophagogastroduodenoscopy (EGD) History of eye surgery H/O abdominal hysterectomy Family History Father No problems noted. Mother No problems noted. Social History Household Members Other:: lives with her daughter who cares for her Housing: Apartment Alcohol intake: never Patient Tobacco Use Status: Never used Tobacco e-Cigarette/Vaping Use: Never Used Second Hand Smoke Exposure: Yes service: No Current occupational status: retired and disabled Cognitive needs: No Hearing needs: No Vision needs: Yes Physical Exam Vital Signs: Last Vital Signs Pulse 64 10/12/23 13:06 BP 112/50 L 10/12/23 13:06 Pulse Ox 93 10/12/23 13:06 Oxygen Delivery Method Room Air 10/12/23 13:06 Const General: comfortable and no acute distress Orientation/consciousness: patient oriented x3 HEENT Other: Unremarkable Head: Yes normal to inspection Neck Neck: Yes normal visual inspection Chest Chest palpation & inspection: normal inspection of the chest Resp Auscultation: clear to auscultation bilaterally Cardio Palpation: normal PMI Heart sounds: S1 normal heart sound present, S2 normal heart sound present, no gallops, no murmurs and no rubs GI Palpation (GI): Soft to palpation Back/Spine/Pelvis Other: unremarkable Skin General skin exam: no rashes or lesions noted Neuro General: patient oriented x3 Extrem General: Yes normal to inspection Psych Mental Status: mental status grossly normal Results Reviewed Nephrology Results: Hgb 10.1 g/dl (12.0-16.0) L 09/15/23 WBC 5.0 X10*3/uL (4.8-10.8) 09/15/23 Plt Count 210 X10*3/uL (160-400) 09/15/23 Sodium 138 mmol/L (135-145) 09/15/23 Potassium 4.2 mmol/L (3.3-5.1) 09/15/23 Chloride 107 mmol/L (96-108) 09/15/23 Carbon Dioxide 23 mmol/L (22-29) 09/15/23 BUN 41 mg/dL (9-16) H 09/15/23 Creatinine 3.11 mg/dL (0.5-1.4) H 09/15/23 Calcium 8.9 mg/dL (8.4-10.2) 09/15/23 Assessment & Plan Assessment & Plan (1) Chronic kidney disease, stage 4 (severe): Code(s): N18.4 - Chronic kidney disease, stage 4 (severe) Category: Medical (2) Anemia of chronic disease: Code(s): D63.8 - Anemia in other chronic diseases classified elsewhere Category: Medical Plan Elderly woman with acute kidney injury superimposed on chronic disease. Advanced renal failure approaching ESRD NO s/s of uremia Fluid status seems acceptable Need to r/o obstruction Ordered ultrasound Avoid hypotension and nephrotoxins Anemia due to CKD If HCT < 30%, will start Epogen check Iron Orders: Orders US renal BI Today D63.8 - Anemia in other chronic diseases classified elsewhere, N18.4 - Chronic kidney disease, stage 4 (severe) Complete Blood Count Auto Diff 2 Weeks N18.30 - Chronic kidney disease, stage 3 unspecified, N18.4 - Chronic kidney disease, stage 4 (severe) Comprehensive Met. Panel 2 Weeks N18.4 - Chronic kidney disease, stage 4 (severe), N18.9 - Chronic kidney disease, unspecified Parathyroid Hormone Intact 2 Weeks N18.4 - Chronic kidney disease, stage 4 (severe) IRON PROFILE 2 Weeks N18.4 - Chronic kidney disease, stage 4 (severe), N18.5 - Chronic kidney disease, stage 5 Phosphorus 2 Weeks N18.4 - Chronic kidney disease, stage 4 (severe) UA and rflx microscopic 2 Weeks N18.4 - Chronic kidney disease, stage 4 (severe) Coding Level of Care Code Est Pt Level 4 (60972) Diagnoses Chronic kidney disease, stage 4 (severe) N18.4 Anemia of chronic disease D63.8
== END 2023-10-12 13:38 | disposition home or self-care (01) ==
PROVIDERS: PCP Internal Medicine; Visit Provider Internal Medicine Hypertension Specialist
DX: N18.4 Chronic kidney disease, stage 4 (severe) (principal); D63.8 Anemia in other chronic diseases classified elsewhere
CPT/HCPCS: 99214

== ENCOUNTER → 2023-10-12 12:57 | Outpatient (BNVA) | payer OTHER, SELFPAY | PROVIDERS: PCP Internal Medicine; Visit Provider Internal Medicine Hypertension Specialist | DX: N18.4 Chronic kidney disease, stage 4 (severe) (principal); D63.1 Anemia in chronic kidney disease | CPT/HCPCS: 99212 ==

== ENCOUNTER 2023-10-20 13:13 | Outpatient (REF) | payer OTHER, SELFPAY ==
--- NOTE | ~2023-10-20 | US_ITS ---
EXAMINATION: US RETROPERITONEAL LIMITED (RENAL ONLY) CLINICAL INFORMATION: Chronic kidney disease, stage IV. COMPARISON: CT abdomen and pelvis 03/15/2023. TECHNIQUE: Real-time imaging of the kidneys. FINDINGS: RIGHT KIDNEY: 9.2 x 5.4 x 5.1 cm (SAG x AP x TRV). The kidney is normal in size, contour, and echogenicity. Renal cortical thickness is normal. No renal calculi or hydronephrosis. 0.4 x 0.3 x 0.4 cm simple cyst is seen in the mid kidney, 0.3 x 0.3 x 0.4 cm cyst is seen in the upper pole, no imaging follow-up recommended. 0.4 x 0.3 x 0.4 cm mid renal echogenic focus is consistent with an angiomyolipoma. Minimal caliectasis. LEFT KIDNEY: 8.3 x 4.6 x 3.1 cm (SAG x AP x TRV). The kidney is normal in size, contour, and echogenicity. Renal cortical thickness is normal. No renal calculi or hydronephrosis. 1.4 x 1.3 x 1.2 cm exophytic lower pole cyst is seen, no imaging follow-up recommended. 0.5 x 0.4 x 0.5 cm mid renal cyst with layering milk of calcium is seen, no imaging follow-up recommended. Minimal caliectasis. US/US renal BI IMPRESSION: 1. Bilateral renal cysts, no imaging follow-up is recommended. 2. 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
== END 2023-10-20 13:14 | disposition home or self-care (01) ==
LOC: HO.US 13:13
PROVIDERS: PCP Internal Medicine; Visit Provider Internal Medicine Hypertension Specialist
DX: N18.4 Chronic kidney disease, stage 4 (severe) (principal); D63.8 Anemia in other chronic diseases classified elsewhere
CPT/HCPCS: 76775

== ENCOUNTER 2023-10-21 08:59 | Outpatient (REF) | payer OTHER, SELFPAY | END 2023-10-21 09:00 | disposition home or self-care (01) | LOC: HO.HOSX 08:59 | PROVIDERS: Visit Provider Physician Assistant | DX: M17.0 Bilateral primary osteoarthritis of knee (principal); E11.8 Type 2 diabetes mellitus with unspecified complications; E66.01 Morbid (severe) obesity due to excess calories; Z68.41 Body mass index [BMI] 40.0-44.9, adult | CPT/HCPCS: 20610; 99212; J1010 ==

== ENCOUNTER 2023-10-21 13:44 | Outpatient (AMB) | payer OTHER, SELFPAY ==
--- NOTE | 2023-10-21 14:07 | MHC.OFFVIS ---
Intake Visit Reasons: Bilateral Knee Injections - 03/05/23 Intake Note: Deepika is a 87 year old female who presents today for a follow up for her bilateral knee pain, last inj 11/02/22. Patient reports here last injection gave her relief and would like to repeat. Allergies No Known Allergies Allergy (Verified 10/12/23 13:08) HPI HPI Bilateral Knee Injections - 03/05/23: Details: 88-year-old female who presents in the office today for a follow up of bilateral knee pain. I last saw the patient in the office on 03/05/2023 when she received cortisone injections in the bilateral knees. Patient has a significant medical history of diabetes mellitus and a BMI of 43.2 as of 10/05/2023. [facility] Medical History Anemia of chronic disease Chronic kidney disease, stage 4 (severe) Mild cognitive impairment LESLIE on CPAP Chronic heart failure with preserved ejection fraction (HFpEF) COPD (chronic obstructive pulmonary disease) Cellulitis of right foot Morbid obesity with BMI of 40.0-44.9, adult Depression Primary insomnia GERD without esophagitis Vitamin D deficiency Obstructive sleep apnea Benign essential hypertension Pure hypercholesterolemia Chronic kidney disease (CKD), stage III (moderate) Type 2 diabetes mellitus with diabetic chronic kidney disease Coronary artery disease COVID-19 GI bleed GERD (gastroesophageal reflux disease) LESLIE (obstructive sleep apnea) Anxiety CKD (chronic kidney disease) stage 3, GFR 30-59 ml/min Pulmonary hypertension CAD (coronary artery disease) Diabetes mellitus Heart disease Hypercholesteremia HTN (hypertension) Surgical History Hx of colonoscopy History of esophagogastroduodenoscopy (EGD) History of eye surgery H/O abdominal hysterectomy Family History Father No problems noted. Mother No problems noted. Social History Household Members Other:: lives with her daughter who cares for her Housing: Apartment Alcohol intake: never Patient Tobacco Use Status: Never used Tobacco e-Cigarette/Vaping Use: Never Used Second Hand Smoke Exposure: Yes service: No Current occupational status: retired and disabled Cognitive needs: No Hearing needs: No Vision needs: Yes Review of Systems Const All systems reviewed & are unremarkable except as noted in HPI and below Physical Exam Const General: cooperative, healthy appearing and no acute distress Resp Effort & Inspection: normal respiratory effort and able to speak in complete sentences Cardio Rate: regular rate Peripheral pulses: Peripheral pulses 2+ throughout GI Palpation (GI): Soft to palpation Skin Lesions: no lesions Rashes: no rashes Extrem Other: Bilateral knees: Normal to inspection. No ecchymosis, erythema, or joint effusion. Patient is able to demonstrate full knee flexion and extension. NVI. Office Procedures Joint Injection/Drain Joint Injection/Drain Primary Site: right knee Secondary Site: left knee Prep: site was prepped using aseptic technique, ethochloride spray was applied and injection warnings given Injected: 40 mg of, DepoMedrol, with 8 mL of (2% plain lido ) and in the joint Approach Used: anterolateral Procedure: The patient tolerated the procedure well, but had some pain with the injection and there was some relief with the local anesthesia Coding 31231 - Large joint Procedure code (CPT) selection complete Assessment & Plan Assessment & Plan (1) Osteoarthritis of knees, bilateral: Code(s): M17.0 - Bilateral primary osteoarthritis of knee Category: Medical (2) Type 2 diabetes mellitus with unspecified complications: Code(s): E11.8 - Type 2 diabetes mellitus with unspecified complications Category: Medical (3) Morbid obesity with BMI of 40.0-44.9, adult: Code(s): E66.01 - Morbid (severe) obesity due to excess calories; Z68.41 - Body mass index [BMI] 40.0-44.9, adult Category: Medical Plan Ms. Fernandez is a 88-year-old female who presents in the office today for a follow up of bilateral knee pain. I last saw the patient in the office on 03/05/2023 when she received cortisone injections in the bilateral knees. Patient has a significant medical history of diabetes mellitus and a BMI of 43.2 as of 10/05/2023. The patient was offered a cortisone injection in the bilateral knees with 40 mg of DepoMedrol. The patient was explained the risk, benefits, and alternatives to receiving this injection. After receiving consent for the injection, the patient had the procedure done while in the office today. The patient tolerated the procedure well with no complications. Due to the patient?s history of diabetes, they were instructed to monitor her blood glucose level. The patient was informed that they could see a rise in their numbers and if the numbers became too high, they were instructed to call their PCP. The patient was also informed that they could have facial flushing as a side effect of the injection, but this will pass. Follow up will be PRN, or sooner if needed. Patient Instructions: Scribed by Myla Clayton medical instrument technician, for Shiloh Gonzalez PA-C on 10/21/2023 at 2:09 pm, EST. Coding Level of Care Code Est Pt Level 4 (72324) Diagnoses Osteoarthritis of knees, bilateral M17.0 Type 2 diabetes mellitus with unspecified complications E11.8 Morbid obesity with BMI of 40.0-44.9, adult E66.01; Z68.41 CPT Codes Coding - 43647 Large joint: 77747 - Large joint ([id number])
== END 2023-10-21 14:32 | disposition home or self-care (01) ==
PROVIDERS: PCP Internal Medicine; Visit Provider Physician Assistant
DX: M17.0 Bilateral primary osteoarthritis of knee (principal); E11.8 Type 2 diabetes mellitus with unspecified complications; E66.01 Morbid (severe) obesity due to excess calories; Z68.41 Body mass index [BMI] 40.0-44.9, adult
CPT/HCPCS: 20610; 99214

== ENCOUNTER 2023-11-04 09:32 | Outpatient (REF) | payer OTHER, SELFPAY ==
[2023-11-04 09:54] LABS: MANUAL DIFF FLAG NO
[2023-11-04 10:18] LABS: Basophils Absolute Auto 0.1 X10*3/uL (0.0-0.2); Basophils Percent Auto 0.7 % (0-2); Eosinophils Absolute Auto 0.5 X10*3/uL (0.0-0.4); Hematocrit 31.7 % (37.0-47.0); Hemoglobin 10.3 g/dl (12.0-16.0); Imm Gran Abs Auto 0.03 X10*3/uL (0.00-0.03); Imm Gran Pct Auto 0.4 % (0.0-0.4); Lymphocytes Absolute Auto 1.8 X10*3/uL (1.2-4.9); Lymphocytes Percent Auto 27.3 % (20-40); Mean Corpuscular HGB Conc 32.5 g/dl (31.0-35.0); Mean Corpuscular Hemoglobin 31.4 pg (27.0-33.0); Mean Corpuscular Volume 96.6 fL (80.0-98.0); Mean Platelet Volume 9.6 fL (9.4-12.3); Monocytes Absolute Auto 0.5 X10*3/uL (0.1-1.2); Monocytes Percent Auto 7.2 % (2-11); Neutrophils Absolute Auto 3.8 x10*3/uL (2.0-8.3); Neutrophils Percent Auto 57.4 % (45-73); Platelet Count 226 X10*3/uL (160-400); Red Blood Count 3.28 X10*6/uL (4.20-5.50); Red Cell Distribution Width 12.9 % (11.0-16.0); White Blood Count 6.7 X10*3/uL (4.8-10.8)
[2023-11-04 10:22] LABS: Estimated Average Glucose 128 mg/dL; Hemoglobin A1c % 6.1 % (<6.0)
[2023-11-04 10:51] LABS: Alanine Aminotransferase 11 U/L (0-31); Albumin Level 3.8 g/dL (3.5-5.0); Alkaline Phosphatase 64 U/L (39-117); Anion Gap 15 (12-20); Aspartate Amino Transferase 10 U/L (5-31); Bilirubin Total 0.3 mg/dL (0.0-1.0); Blood Urea Nitrogen 58 mg/dL (9-16); Calcium 9.2 mg/dL (8.4-10.2); Carbon Dioxide 22 mmol/L (22-29); Chloride 108 mmol/L (96-108); Cholesterol 207 mg/dL (<200); Estimated Glomerular Filt Rate 15; Glucose Fasting 103 mg/dL (60-99); HDL Cholesterol 45 mg/dL (>40); LDL Cholesterol Calculated 127 mg/dL (<100); Potassium 4.3 mmol/L (3.3-5.1); Sodium 141 mmol/L (135-145); Total Protein 6.4 g/dL (6.5-8.0); Triglycerides 178 mg/dL (<150)
[2023-11-04 11:15] LABS: TSH reflex Free T4 2.26 uIU/mL (0.32-4.0); Vitamin D 25-OH Total 33.9 ng/mL (>30)
== END 2023-11-04 09:33 | disposition home or self-care (01) ==
LOC: HO.LAB 09:32
PROVIDERS: Absent Provider Internal Medicine Hypertension Specialist; PCP Internal Medicine; Visit Provider Internal Medicine
DX: E11.9 Type 2 diabetes mellitus without complications (principal); D64.9 Anemia, unspecified; E78.00 Pure hypercholesterolemia, unspecified; E55.9 Vitamin D deficiency, unspecified
CPT/HCPCS: 36415; 80053; 80061; 82306; 83036; 84443; 85025

== ENCOUNTER 2023-11-09 14:30 | Outpatient (AMB) | payer OTHER, SELFPAY ==
[2023-11-09 14:31] VITALS: BP 118/66; PULSE 57; O2SAT 97; BMI 42.3
--- NOTE | 2023-11-09 14:31 | A.OFFPC_ITS ---
Vital Signs 11/09/23 14:31 Height 4 ft 7 in Weight 182 lb 1.629 oz BMI 42.3 BP 118/66 Blood Pressure Location Lt brachial Position Sitting Pulse 57 Pulse Source Pulse Oximeter Pulse Oximetry (%) 97 Oxygen Delivery Method Room Air Intake Visit Reasons: 3mth f/u Venue Attendant Required: No Allergies No Known Allergies Allergy (Verified 11/09/23 15:14) Medication List - Last Reconciled 11/09/23 by Nima Farooq MD acetaminophen 500 mg PO Q6-8H PRN albuterol sulfate 90 mcg/actuation 2 puffs PO Q4-6H PRN alprazolam 0.5 mg PO BID ascorbic acid (vitamin C) mg PO DAILY benzonatate 100 mg PO BID-TID PRN blood pressure monitor As directed blood sugar diagnostic ([employer] Dxuch Verio test strips) As directed- To test blood sugar daily. cetirizine 10 mg PO DAILY cetirizine (Zyrtec) 10 mg PO DAILY PRN 15 days [CHAIR LIFT As directed] cholecalciferol (vitamin D3) 25 mcg PO DAILY 90 days citalopram 20 mg PO QAM cyanocobalamin (vitamin B-12) 500 mcg PO DAILY 90 days esomeprazole magnesium 40 mg PO DAILY ferrous sulfate 325 mg PO DAILY furosemide 20 mg PO DAILY glimepiride 1 mg PO QAM 30 days ipratropium-albuterol 0.5 mg-3 mg(2.5 mg base)/3 mL 3 mL inhalation Q6H PRN lancets As directed-To test blood sugar daily. [LIGHTWEIGHT TRANSPORT WHEELCHAIR WITH HANDBRAKES As directed] linagliptin (Tradjenta) 5 mg PO DAILY melatonin 10 mg PO BEDTIME metoprolol succinate ER (Toprol XL) 12.5 mg (1/2 x 25 mg) PO DAILY 90 days nebulizers (VixOne Nebulizer-Adult Mask) As directed nitroglycerin 0.2 mg/hr 1 patch topical DAILY pravastatin 40 mg PO DAILY 90 days quetiapine 100 mg PO BEDTIME quetiapine 25 mg PO DAILY zolpidem 5 mg PO BEDTIME PRN Tobacco use date assessed: 11/09/23 Fall risk assessment: No Falls in past year Last assessed Fall Risk: 11/09/23 Dental Screening Dental Screen Date: 11/09/23 HPI 3mth f/u HPI Details Patient comes in today for her follow up visit - she is accompanied as usual by her daughter, who is her caregiver and also her HCP Her daughter states that patient still feels fatigued often but has been eating fairly well lately She has not had any increased headaches or dizziness lately Denies any chest pains but notes that she still has exertional dyspnea and often cannot do too much in terms of activities This is likely multifactorial, including due to her CHF and physical deconditioning No nausea/vomiting, no abdominal pain No change in bowel habits noted Had her follow up labs done a few days ago - to discuss her results She was also seen by nephrology recently for her CKD and was sent for a renal US for further evaluation and to r/o any obstruction Renal US done a couple of weeks ago revealed only (+) bilateral renal cysts and a right renal angiomyolipoma, with no follow up needed for these PFSH Medical History Anemia of chronic disease Chronic kidney disease, stage 4 (severe) Mild cognitive impairment LESLIE on CPAP Chronic heart failure with preserved ejection fraction (HFpEF) COPD (chronic obstructive pulmonary disease) Cellulitis of right foot Morbid obesity with BMI of 40.0-44.9, adult Depression Primary insomnia GERD without esophagitis Vitamin D deficiency Obstructive sleep apnea Benign essential hypertension Pure hypercholesterolemia Chronic kidney disease (CKD), stage III (moderate) Type 2 diabetes mellitus with diabetic chronic kidney disease Coronary artery disease COVID-19 GI bleed GERD (gastroesophageal reflux disease) LESLIE (obstructive sleep apnea) Anxiety CKD (chronic kidney disease) stage 3, GFR 30-59 ml/min Pulmonary hypertension CAD (coronary artery disease) Diabetes mellitus Heart disease Hypercholesteremia HTN (hypertension) Surgical History Hx of colonoscopy History of esophagogastroduodenoscopy (EGD) History of eye surgery H/O abdominal hysterectomy Family History Father No problems noted. Mother No problems noted. Social History Household Members Other:: lives with her daughter who cares for her Housing: Apartment Alcohol intake: never Patient Tobacco Use Status: Never used Tobacco e-Cigarette/Vaping Use: Never Used Second Hand Smoke Exposure: Yes service: No Current occupational status: retired and disabled Cognitive needs: No Hearing needs: No Vision needs: Yes Questionnaire Thrive Questionnaire Date Thrive assessed: 08/02/23 AUDIT C Alcohol Use Questionnaire (AUDIT-C) 1. How often do you have a drink containing alcohol?: Never 3. How often do you have six or more drinks on one occasion?: Never Total Score: 0 Score Reviewed/Action Taken: Yes EMERSON-7 AMB Questionnaire EMERSON-7 Date EMERSON - 7 assessed: 08/02/23 Source: Developed by Drs. Feng Suazo, Liz Carrillo, Raymond Morales and colleagues, with an educational katarina from [employer]. Review of Systems Const Details: information is obtained primarily from daughter as patient has some confusion and is unable to provide any pertinent info; also has issues with language barrier - patient speaks very little Malawian Denies chills, Reports fatigue (frequent), Denies fever(s) and Denies headache(s) ENT Denies dysphagia, Denies dizziness, Reports dry mouth (frequent - mostly due to her nightly CPAP device use), Denies otalgia, Denies headache(s), Denies neck pain, Denies odynophagia and Denies sore throat Card Denies chest pain, Denies palpitations and Reports dyspnea on exertion Resp Denies chest congestion, Denies cough, Reports dyspnea on exertion and Denies wheezing GI Denies abdominal pain (but reports (+) epigastric discomfort/pressure at times), Denies hematochezia, Denies constipation, Denies dysphagia, Denies heartburn, Reports diarrhea (occasional, controlled with Imodium PRN), Denies nausea, Denies odynophagia and Denies vomiting Denies difficulty voiding, Denies nocturia, Denies dysuria and Denies urinary urgency Musc Reports arthralgias (in both knees), Denies neck pain and Reports tingling (on and off in both hands) Skin/Breast Denies rash Neuro Denies behavioral changes, Reports confusion (on and off), Denies dizziness, Denies headache(s), Reports memory loss, Reports tingling (on and off in both hands) and Reports paresthesias (on and off in her hands) Psych Denies behavioral changes, Reports confusion (on and off) and Reports memory loss Endo Reports fatigue (frequent) and Denies palpitations Aller/Immun Denies wheezing Physical exam (Primary Care) Vital Signs: Last Vital Signs Pulse 57 11/09/23 14:31 BP 118/66 11/09/23 14:31 Pulse Ox 97 11/09/23 14:31 Oxygen Delivery Method Room Air 11/09/23 14:31 BMI result Body Mass Index 42.3 Tobacco/Smoking Status: Tobacco use Status Tobacco use date assessed 11/09/23 11/09/23 14:32 Patient Tobacco Use Status Never used Tobacco 11/09/23 14:32 e-Cigarette/Vaping Use Never Used 11/09/23 14:32 Thrive Assessment: Date of Thrive Assessment Date Thrive assessed 08/02/23 11/09/23 14:32 Const General: no acute distress, alert and confusion (on and off) Orientation/consciousness: confusion (on and off) HENMT Ears: TM's normal bilaterally and EAC's normal Throat: Yes posterior oropharynx normal and Yes tonsils normal (no TP congestion noted) Neck Neck: Yes no lymphadenopathy and Yes supple Thyroid: Thyroid normal Resp Auscultation: clear to auscultation bilaterally, no rales, no wheezes and diminished lung sounds (slightly) bilateral Cardio Rate: regular rate Rhythm: regular rhythm Heart sounds: no murmurs GI Palpation (GI): Soft to palpation and nontender Auscultation: normal bowel sounds General: Yes no CVA tenderness Back/Spine/Pelvis Back: no CVA tenderness Thoracic/Lumbar Spine: No lumbar spinal tenderness Skin Rashes: no rashes Neuro General: confusion (on and off) Extrem General: Yes no clubbing, cyanosis or edema Right lower extremity: knee Details: tenderness; no swelling Left lower extremity: knee Details: tenderness; no swelling Results Reviewed Results Reviewed: Laboratory Tests 11/04/23 09:53 WBC 6.7 Hgb 10.3 L Hct 31.7 L Plt Count 226 Sodium 141 Potassium 4.3 Creatinine 2.98 H Estimated GFR 15 Fasting Glucose 103 H Hemoglobin A1c % 6.1 H Calcium 9.2 AST 10 ALT 11 Triglycerides 178 H Cholesterol 207 H LDL Cholesterol, Calc 127 H HDL Cholesterol 45 25-OH Vitamin D Total 33.9 TSH 2.26 Assessment and Plan Assessment & Plan (1) COPD (chronic obstructive pulmonary disease): Comment: PATIENT HAS MODERATELY SEVERE OBSTRUCTIVE AIRWAY DISORDER. ALSO HAS SIGNIFICANT RESTRICTIVE DISORDER. NO RECENT PULMONARY FUNCTION TEST HAS BEEN DONE BECAUSE IT WILL BE IMPOSSIBLE TO DO. Code(s): J44.9 - Chronic obstructive pulmonary disease, unspecified Qualifiers: COPD type: unspecified COPD Qualified Code(s): J44.9 - Chronic obstructive pulmonary disease, unspecified Plan: Appears stable/controlled currently Continue Albuterol HFA every 6 hours PRN; she also has Duoneb updraft to use when needed if she is at home and has access to her nebulizer Follow-up with pulmonary as scheduled (2) Chronic kidney disease, stage 4 (severe): Code(s): N18.4 - Chronic kidney disease, stage 4 (severe) Plan: Her renal function appears to have stabilized on her recent labs Patient was taken OFF her Metformin 1000 mg BID at her last visit due to her then declining renal function She recently had renal US done, which revealed no obstructive process Follow up with nephrology as scheduled (3) Anemia of chronic disease: Code(s): D63.8 - Anemia in other chronic diseases classified elsewhere Plan: Discussed again that this is most likely related to her declining renal function - anemia of chronic disease Her H/H appears to have stabilized recently - H/H is at 10.3/31.7% on her recent labs Has been advised by nephrology that unless her Hct drops below 30%, she should not require Epogen yet Will continue to monitor her CBC regularly (4) Coronary artery disease: Code(s): I25.10 - Atherosclerotic heart disease of [place] coronary artery without angina pectoris Qualifiers: Associated angina: without angina Coronary Disease-Associated Artery/Lesion type: [place] artery [place] vs. transplanted heart: [place] heart Qualified Code(s): I25.10 - Atherosclerotic heart disease of [place] coronary artery without angina pectoris Plan: [place]ocardial [place] [facility] [place] (+) ischemia of the left ventricular apex; EF and wall motion studies were normal Echocardiogram done on 04/17/2009 showed low-normal LV systolic function with EF between 55-60%, mild concentric left ventricular hypertrophy, mild MR; diastolic filling pattern indicated impaired relaxation and moderate pulmonary hypertension Patient has been asymptomatic so far from a cardiac standpoint Continue Nitroglycerin patch 0.2 mg per hour once a day - Rx refilled Was seen by cardiology last year in September 2022 and advised to continue on current meds and management EKG done in the office at the time showed normal EKG with low voltage Follow up with cardiology as scheduled (5) Chronic heart failure with preserved ejection fraction (HFpEF): Code(s): I50.32 - Chronic diastolic (congestive) heart failure Plan: Patient has been compensated and was advised by cardiology to continue on low dose beta ciro and conservative medical management, given patient's age She was on Metoprolol ER 25 mg QD but patient's daughter cut this down to 1/2 t ablet QD since she fell and was experiencing frequent dizziness and on and off headaches several months ago Amlodipine 5 mg QD has also been held since EKG done back in December 2022 revealed low voltage but EKG was otherwise normal Echocardiogram done in January 2023 showed that the left ventricular systolic function is hyperdynamic. The visually estimated ejection fraction is >70%. There is moderate septal asymmetric hypertrophy and evidence suggests grade I (mild) diastolic dysfunction. No obvious valvular pathology was seen on this study. (6) Type 2 diabetes mellitus with diabetic chronic kidney disease: Code(s): E11.22 - Type 2 diabetes mellitus with diabetic chronic kidney disease Qualifiers: Chronic kidney disease stage: unspecified stage Diabetes mellitus long term acute care registered nurse insulin use: without long term acute care registered nurse use Qualified Code(s): E11.22 - Type 2 diabetes mellitus with diabetic chronic kidney disease Plan: Patient's HgbA1c was at 6.1% on her labs done a few days ago (was at 6.0% a few months ago) - goal is at least < 7.5% Reinforced diabetic diet Continue Tradjenta 5 mg QD and Glimepiride 1 mg QD (started at her last visit to offset Metformin being discontinued) Metformin 1000 mg BID was discontinued at her last appointment as her renal function and serum creatinine were progressively declining over the past year - her serum creatinine is now at 2.98 on her recent labs (7) Pure hypercholesterolemia: Code(s): E78.00 - Pure hypercholesterolemia, unspecified Plan: Results of her labs done a few days ago reviewed and discussed with patient's daughter - her daughter is cautioned that patient's cholesterol levels have increased significantly from previous Reinforced low cholesterol diet - her daughter admits that she has been giving her a lot of fried foods lately to try and coax her to eat more but will now stop doing this Continue Pravastatin 40 mg QD Will recheck her labs and fasting lpids in 3 months for follow-up (8) Benign essential hypertension: Code(s): I10 - Essential (primary) hypertension Plan: Reinforced low-sodium diet -? goal is systolic BP of at least 140 to 150 mm or less Was on Amlodipine 5 mg QD and Furosemide 20 mg QD in AM as well as Metoprolol ER 25 mg QD but her Amlodipine has been held and Metoprolol ER cut in half by her daughter over the past few months (since she fell back in November 2022) and patient seems to be doing well on her reduced Rx dosage - will continue on her current dosages for now (9) Mild cognitive impairment: Code(s): G31.84 - Mild cognitive impairment of uncertain or unknown etiology Plan: Follow up with neurology as scheduled (10) Obstructive sleep apnea: Code(s): G47.33 - Obstructive sleep apnea (adult) (pediatric) Plan: Continue using her CPAP device when sleeping at night daily (11) At high risk for aspiration: Code(s): Z91.89 - Other specified personal risk factors, not elsewhere classified Plan: Barium swallow done in October 2022 revealed (+)limited exam but (+) retention of liquid barium in the vallecula; no aspiration or penetration; (+) gastroesophageal reflux. Barium tablet passed freely into the esophagus Following up Dr. Weaver (GI) as scheduled (12) GERD without esophagitis: Code(s): K21.9 - Gastro-esophageal reflux disease without esophagitis Plan: Dietary restrictions reinforced Continue Omeprazole 20 mg QD Follow-up with GI as scheduled (13) Vitamin D deficiency: Code(s): E55.9 - Vitamin D deficiency, unspecified Plan: Continue Vitamin D3 1000 units QD (14) Primary osteoarthritis of knees, bilateral: Code(s): M17.0 - Bilateral primary osteoarthritis of knee Plan: Has received injections into her knees in the past and more recently in August 2023 with (+) relief of her knee pain Follow-up with orthopedics as scheduled (15) Paresthesia of both hands: Code(s): R20.2 - Paresthesia of skin Plan: Symptoms are likely due to a combination of 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 (similar to what one would experience in carpal tunnel syndrome) Advised that unless her symptoms are significant and keep her up at night, would prefer not to start her on any Rx to help with her neuropathic pain as a lot of these Rx can cause sedation or are associated with some side effects that can be problematic for her given her age (16) Primary insomnia: Code(s): F51.01 - Primary insomnia Plan: Sleep hygiene reinforced Continue OTC Melatonin capsule 10 mg once a day at bedtime as needed (17) Anxiety: Code(s): F41.9 - Anxiety disorder, unspecified Plan: Continue Alprazolam 0.5 mg 1 tablet twice a day as needed for agitation (18) Depression: Code(s): F32.9 - Major depressive disorder, single episode, unspecified Qualifiers: Depression Type: unspecified Qualified Code(s): F32.9 - Major depressive disorder, single episode, unspecified Plan: Continue Citalopram? 20 mg QD in AM and Seroquel 25 mg Q HS Follow-up with Psychiatry as scheduled (19) Morbid obesity with BMI of 40.0-44.9, adult: Code(s): E66.01 - Morbid (severe) obesity due to excess calories; Z68.41 - Body mass index [BMI] 40.0-44.9, adult Plan: Reinforced diet; due to patient's age and comorbidities, there is no realistic expectation of any significant improvement in her activity level and in losing weight here Plan Follow up in 3 months Orders: Orders Comprehensive [place]. Panel Fast 3 Months E78.00 - Pure hypercholesterolemia, unspecified TSH reflex Free T4 3 Months E78.00 - Pure hypercholesterolemia, unspecified UA CC w/rflx Micro + Cult 3 Months R30.0 - Dysuria Complete Blood Count Auto Diff 3 Months D64.9 - Anemia, unspecified Lipid Panel 3 Months E78.00 - Pure hypercholesterolemia, unspecified B Type Natriuretic Peptide 3 Months I50.9 - Heart failure, unspecified Hemoglobin A1c 3 Months E11.9 - Type 2 diabetes mellitus without complications Microalbumin, Random (w Creat) 3 Months E11.9 - Type 2 diabetes mellitus without complications Vitamin B12 and Folate 3 Months E53.8 - Deficiency of other specified B group vitamins Vitamin D 25-OH Total 3 Months E55.9 - Vitamin D deficiency, unspecified Coding Level of Care Code Est Pt Level 4 (10122) Complex EM visit Add On G2211 Diagnoses Chronic obstructive pulmonary disease, unspecified COPD type J44.9 COPD type: unspecified COPD Chronic kidney disease, stage 4 (severe) N18.4 Anemia of chronic disease D63.8 Coronary artery disease involving t[place] coronary artery of [place] heart without angina pectoris I25.10 Associated angina: without angina Coronary Disease-Associated Artery/Lesion type: [place] artery [place] vs. transplanted heart: [place] heart Chronic heart failure with preserved ejection fraction (HFpEF) I50.32 Type 2 diabetes mellitus with chronic kidney disease, without long-term current use of insulin, unspecified CKD stage E11.22 Chronic kidney disease stage: unspecified stage Diabetes mellitus long term acute care registered nurse insulin use: without long term acute care registered nurse use Pure hypercholesterolemia E78.00 Benign essential hypertension I10 Mild cognitive impairment G31.84 Obstructive sleep apnea G47.33 At high risk for aspiration Z91.89 GERD without esophagitis K21.9 Vitamin D deficiency E55.9 Primary osteoarthritis of knees, bilateral M17.0 Paresthesia of both hands R20.2 Primary insomnia F51.01 Anxiety F41.9 Depression, unspecified depression type F32.9 Depression Type: unspecified Morbid obesity with BMI of 40.0-44.9, adult E66.01; Z68.41
== END 2023-11-09 15:33 | disposition home or self-care (01) ==
PROVIDERS: PCP Internal Medicine; Visit Provider Internal Medicine
DX: J44.9 Chronic obstructive pulmonary disease, unspecified (principal); N18.4 Chronic kidney disease, stage 4 (severe); D63.8 Anemia in other chronic diseases classified elsewhere; I25.10 Atherosclerotic heart disease of native coronary artery without angina pectoris; I50.32 Chronic diastolic (congestive) heart failure; E11.22 Type 2 diabetes mellitus with diabetic chronic kidney disease; E78.00 Pure hypercholesterolemia, unspecified; I12.9 Hypertensive chronic kidney disease with stage 1 through stage 4 chronic kidney disease, or unspecified chronic kidney disease; G31.84 Mild cognitive impairment of uncertain or unknown etiology; G47.33 Obstructive sleep apnea (adult) (pediatric); E66.01 Morbid (severe) obesity due to excess calories; Z68.41 Body mass index [BMI] 40.0-44.9, adult
CPT/HCPCS: 99214; G2211

== ENCOUNTER 2023-11-10 13:49 | Outpatient (AMB) | payer OTHER, SELFPAY ==
[2023-11-10 14:07] VITALS: BP 102/62; PULSE 60; O2SAT 97
--- NOTE | 2023-11-10 14:07 | MHC.OFFVIS ---
Vital Signs 11/10/23 14:07 Height 4 ft 7 in BP 102/62 Blood Pressure Location Lt brachial Position Sitting Pulse 60 Pulse Source Pulse Oximeter Pulse Oximetry (%) 97 Oxygen Delivery Method Room Air Intake Visit Reasons: COPD follow-up Intake Note: pt is here for follow up and states she has some wheezing and cannot take a deep breath, and having issues with albuterol causing shaking when used with nebulizer. 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 cetirizine 10 mg PO DAILY cetirizine (Zyrtec) 10 mg PO DAILY PRN 15 days [CHAIR LIFT As directed] cholecalciferol (vitamin D3) 25 mcg PO DAILY 90 days citalopram 20 mg PO QAM cyanocobalamin (vitamin B-12) 500 mcg PO DAILY 90 days esomeprazole magnesium 40 mg PO DAILY ferrous sulfate 325 mg PO DAILY furosemide 20 mg PO DAILY glimepiride 1 mg PO QAM 30 days ipratropium-albuterol 0.5 mg-3 mg(2.5 mg base)/3 mL 3 mL inhalation Q6H PRN lancets As directed-To test blood sugar daily. [LIGHTWEIGHT TRANSPORT WHEELCHAIR WITH HANDBRAKES As directed] linagliptin (Tradjenta) 5 mg PO DAILY melatonin 10 mg PO BEDTIME metoprolol succinate ER (Toprol XL) 12.5 mg (1/2 x 25 mg) PO DAILY 90 days nebulizers (VixOne Nebulizer-Adult Mask) As directed nitroglycerin 0.2 mg/hr 1 patch topical DAILY pravastatin 40 mg PO DAILY 90 days quetiapine 100 mg PO BEDTIME quetiapine 25 mg PO DAILY zolpidem 5 mg PO BEDTIME PRN Do you need a note to return to daycare/school/sports/work: No HPI HPI COPD follow-up: Details: AMOS IS 88 YEARS OLD VERY PLEASANT FEMALE, COMES AFTER 6 MONTHS FOR ROUTINE FOLLOW-UP. MAIN COMPLAINT IS GETTING SHORT OF BREATH WHEN SHE CLIMBS 1 FLIGHT OF STAIRS, WHICH IS NEEDED TO GO TO THE BEDROOM. SHE DOES USE THE DUONEB UPDRAFT NEEDED, THE DAUGHTER TELLS THAT WITH THE ALBUTEROL IN THAT DUONEB SOLUTION, MAKES HER SHAKY. HOWEVER SHE CAN TOLERATE PROAIR 2 PUFFS WITHOUT ANY PROBLEM. SHE USES HER CPAP VERY REGULARLY EVERY NIGHT AND IT MAKES HER SLEEP GOOD. [facility] Medical History Anemia of chronic disease Chronic kidney disease, stage 4 (severe) Mild cognitive impairment LESLIE on CPAP Chronic heart failure with preserved ejection fraction (HFpEF) COPD (chronic obstructive pulmonary disease) Cellulitis of right foot Morbid obesity with BMI of 40.0-44.9, adult Depression Primary insomnia GERD without esophagitis Vitamin D deficiency Obstructive sleep apnea Benign essential hypertension Pure hypercholesterolemia Chronic kidney disease (CKD), stage III (moderate) Type 2 diabetes mellitus with diabetic chronic kidney disease Coronary artery disease COVID-19 GI bleed GERD (gastroesophageal reflux disease) LESLIE (obstructive sleep apnea) Anxiety CKD (chronic kidney disease) stage 3, GFR 30-59 ml/min Pulmonary hypertension CAD (coronary artery disease) Diabetes mellitus Heart disease Hypercholesteremia HTN (hypertension) Surgical History Hx of colonoscopy History of esophagogastroduodenoscopy (EGD) History of eye surgery H/O abdominal hysterectomy Family History Father No problems noted. Mother No problems noted. Social History Household Members Other:: lives with her daughter who cares for her Housing: Apartment Alcohol intake: never Patient Tobacco Use Status: Never used Tobacco e-Cigarette/Vaping Use: Never Used Second Hand Smoke Exposure: Yes service: No Current occupational status: retired and disabled Cognitive needs: No Hearing needs: No Vision needs: Yes Review of Systems Const All systems reviewed & are unremarkable except as noted in HPI and below Eyes Reports no additional complaints ENT Reports no additional complaints and Reports nasal congestion (off and on ) Card Denies chest pain, Denies irregular heart rhythm, Denies leg edema and Reports dyspnea on exertion (But she does not exert much anyway.) Resp Reports as per HPI, Reports cough (MILD INTERMITTENT) and Reports dyspnea on exertion (But she does not exert much anyway.) GI Reports no additional complaints Reports no additional complaints Musc Reports abnormal gait (PATIENT IS MOSTLY IN THE WHEELCHAIR), Reports back pain and Reports muscle weakness (BOTH LOWER EXTREMITIES ARE WEAK) Skin/Breast Reports system reviewed and no additional complaints, except as documented Neuro Reports abnormal gait (PATIENT IS MOSTLY IN THE WHEELCHAIR) and Reports memory loss (HAS COGNITIVE IMPAIRMENT) Psych Reports depression (BEING TREATED WITH MED) and Reports memory loss (HAS COGNITIVE IMPAIRMENT) Endo Reports other (BEING TREATED FOR DIABETES MELLITUS) Physical Exam Vital Signs: Last Vital Signs Pulse 60 11/10/23 14:07 BP 102/62 11/10/23 14:07 Pulse Ox 97 11/10/23 14:07 Oxygen Delivery Method Room Air 11/10/23 14:07 Const Other: PATIENT IS MODERATELY OBESE, SHE IS IN A WHEELCHAIR, SHE IS ALERT BUT NOT ABLE TO CONVERSE General: comfortable, no acute distress, alert and awake Orientation/consciousness: patient oriented x3 HEENT Head: Yes normal to inspection General nose exam: No nasal polyps present and No nasal discharge present Face and sinus: Yes sinuses nontender Mouth: oropharynx normal Throat: Yes posterior oropharynx normal Eyes General: appearance normal, both eyes and all related structures Neck Neck: Yes normal visual inspection, Yes no lymphadenopathy, Yes trachea midline and Yes no JVD Thyroid: Thyroid normal Chest Chest palpation & inspection: normal inspection of the chest, normal palpation of entire chest wall and no tenderness Resp Other: PERCUSSION NOTE IS NOT PERCEPTIBLE, BREATH SOUNDS ARE DISTANT ESPECIALLY DECREASED OVER THE BASILAR AREAS. NO AUDIBLE WHEEZES RHONCHI OR CREPITATIONS. Cardio Palpation: normal PMI Rate: regular rate Rhythm: regular rhythm Heart sounds: no gallops and no murmurs GI Palpation (GI): Soft to palpation, nontender, No hepatosplenomegaly present, no masses and Other GI palpation findings present (ABDOMEN IS OBESE AND PROTUBERANT) Auscultation: normal bowel sounds Back/Spine/Pelvis Thoracic/Lumbar Spine: thoracic and lumbar spine normal to inspection and thoraco-lumbar ROM limited Skin General skin exam: no rashes or lesions noted Neuro General: patient oriented x3, No gait normal (PATIENT IS NON AMBULATORY AND IS IN WHEELCHAIR) and no focal motor deficits Cranial nerves: Yes CN's II-XII intact bilaterally Extrem General: Yes normal to inspection, Yes no clubbing, cyanosis or edema and Yes no calf tenderness Psych Mental Status: mental status grossly normal and other (PATIENT HAS IMPAIRED MENTAL STATUS, NOT VERY COMMUNICATIVE) Results Reviewed Results Reviewed: COMPLIANCE REPORT FOR THE LAST 30 NIGHTS IS REVIEWED. SHE HAS USED THE CPAP 30/30 NIGHTS., 100% AVERAGE USE IT PER NIGHT. 8 HOURS 28 MINUTES WHICH IS EXCELLENT PRESSURE IS 12 CM. THERE IS SLIGHT AIR LEAK. HOWEVER HER RESIDUAL AHI IS ONLY 0.5 Assessment & Plan Assessment & Plan (1) Allergic rhinitis: Comment: CHRONIC MILD INTERMITTENT, REMAINS WELL CONTROLLED. Code(s): J30.9 - Allergic rhinitis, unspecified Category: Medical Plan: CETIRIZINE 10 MG HALF OR 1 TABLET ONCE A DAY P.R.N. IF THERE IS NASAL CONGESTION. (2) LESLIE on CPAP: Comment: PATIENT HAS HAD OBSTRUCTIVE SLEEP APNEA FOR MANY YEARS. REMAINS WELL CONTROLLED WITH THE USE OF CPAP. WHICH SHE USES EVERY NIGHT. COMPLIANCEIS 100 % NO ISSUES WITH THE CPAP DEVICE OR MASK ARE RAISED AT THIS TIME. Code(s): G47.33 - Obstructive sleep apnea (adult) (pediatric); Z99.89 - Dependence on other enabling machines and devices Category: Medical Plan: COMMENDED FOR GOOD COMPLIANCE AND ADVISED TO CONTINUE USING CPAP REGULARLY EVERY NIGHT. (3) COPD (chronic obstructive pulmonary disease): Comment: PATIENT HAS MODERATELY SEVERE OBSTRUCTIVE AIRWAY DISORDER. ALSO HAS SIGNIFICANT RESTRICTIVE DISORDER. CLINICALLY SEEMS TO BE WELL CONTROLLED. DYSPNEA ON EXERTION SINCE LIKE WHEN CLIMBING ONE FLIGHT OF STAIRS, IS THE EXPECTED. NO RECENT PULMONARY FUNCTION TEST HAS BEEN DONE BECAUSE IT WILL BE IMPOSSIBLE TO DO. Code(s): J44.9 - Chronic obstructive pulmonary disease, unspecified Category: Medical Qualifiers: COPD type: unspecified COPD Qualified Code(s): J44.9 - Chronic obstructive pulmonary disease, unspecified Plan: ADVISED TO CONTINUE THE BREATHING EXERCISES. CONTINUE TO USED IPRATROPIUM-ALBUTEROL INHALATION SOLUTION Q 6 HOURS P.R.N.. BUT USE ONLY HALF OF THE SOLUTION NOT THE COMPLETE WHILE. ALTERNATIVELY DURING THE DAYTIME SHE CAN USE PROAIR 2 PUFFS Q 4-6 HOURS P.R.N.. Coding Level of Care Code Est Pt Level 3 (00751) Diagnoses Allergic rhinitis J30.9 LSELIE on CPAP G47.33; Z99.89 Chronic obstructive pulmonary disease, unspecified COPD type J44.9 COPD type: unspecified COPD
== END 2023-11-10 14:21 | disposition home or self-care (01) ==
PROVIDERS: PCP Internal Medicine; Visit Provider Internal Medicine
DX: J30.9 Allergic rhinitis, unspecified (principal); G47.33 Obstructive sleep apnea (adult) (pediatric); Z99.89 Dependence on other enabling machines and devices; J44.9 Chronic obstructive pulmonary disease, unspecified
CPT/HCPCS: 99213

== ENCOUNTER 2023-11-10 14:45 | Outpatient (REF) | payer OTHER, SELFPAY ==
[2023-11-10 14:55] LABS: Appearance Urine Cloudy; Color Urine Yellow; Glucose Urine UA Negative (Negative); Leukocyte Esterase Urine Large (3+) (Negative); Nitrite Urine Negative (Negative); UMIC TRIGGER UACC YES; Urine Blood Negative (Negative); Urine Ketones Negative (Negative); Urine Protein Negative (Neg-Trace)
[2023-11-10 14:57] LABS: Bacteria Urine Trace (None Seen); RBC Urine 0-2 /HPF (0-2); UACC Culture Trigger YES
[2023-11-10 15:25] LABS: Creatinine Urine 58.73 mg/dL; Microalbum/Creatinine Ratio Ur 25.5 ug/mg cr (<30)
== END 2023-11-10 14:46 | disposition home or self-care (01) ==
LOC: HO.LNP 14:45
PROVIDERS: Visit Provider Internal Medicine
DX: E11.9 Type 2 diabetes mellitus without complications (principal); R30.0 Dysuria
CPT/HCPCS: 81001; 82043; 82570; 87086; 99212

== ENCOUNTER 2023-11-11 13:10 | Outpatient (AMB) | payer OTHER, SELFPAY ==
[2023-11-11 13:20] VITALS: BP 126/48; PULSE 61; O2SAT 96
--- NOTE | 2023-11-11 13:20 | HO.NEPHOV_ITS ---
Vital Signs 11/11/23 13:20 Height 4 ft 7 in BP 126/48 L Blood Pressure Location Rt brachial Position Sitting Pulse 61 Pulse Source Pulse Oximeter Pulse Oximetry (%) 96 Oxygen Delivery Method Room Air Intake Visit Reasons: Anemia of chronic disease/ 1 MO FU/ Conf Vehicle Return Associate Required: No Accompanied by: Daughter Allergies No Known Allergies Allergy (Verified 11/11/23 13:22) Medication List - Last Reconciled 11/11/23 by Kevin Cox MD acetaminophen 500 mg PO Q6-8H PRN albuterol sulfate 90 mcg/actuation 2 puffs PO Q4-6H PRN alprazolam 0.5 mg PO BID ascorbic acid (vitamin C) mg PO DAILY benzonatate 100 mg PO BID-TID PRN blood pressure monitor As directed blood sugar diagnostic ([employer] Verio test strips) As directed- To test blood sugar daily. cetirizine 10 mg PO DAILY cetirizine (Zyrtec) 10 mg PO DAILY PRN 15 days [CHAIR LIFT As directed] cholecalciferol (vitamin D3) 25 mcg PO DAILY 90 days citalopram 20 mg PO QAM cyanocobalamin (vitamin B-12) 500 mcg PO DAILY 90 days esomeprazole magnesium 40 mg PO DAILY ferrous sulfate 325 mg PO DAILY furosemide 20 mg PO DAILY glimepiride 1 mg PO QAM 30 days ipratropium-albuterol 0.5 mg-3 mg(2.5 mg base)/3 mL 3 mL inhalation Q6H PRN lancets As directed-To test blood sugar daily. [LIGHTWEIGHT TRANSPORT WHEELCHAIR WITH HANDBRAKES As directed] linagliptin (Tradjenta) 5 mg PO DAILY melatonin 10 mg PO BEDTIME metoprolol succinate ER (Toprol XL) 12.5 mg (1/2 x 25 mg) PO DAILY 90 days nebulizers (VixOne Nebulizer-Adult Mask) As directed nitroglycerin 0.2 mg/hr 1 patch topical DAILY pravastatin 40 mg PO DAILY 90 days quetiapine 100 mg PO BEDTIME quetiapine 25 mg PO DAILY zolpidem 5 mg PO BEDTIME PRN HPI Comments Details: 87-year-old old woman with a history of chronic kidney disease stage IIIB baseline creatinine of I 0.5 mg/dL. She has a history of atherosclerotic cardiovascular disease and hypertension. In November she had a fall she was on the floor for quite some time. She has been on Lasix 40 mg daily. Creatinine is bumped to 2.3 in December and as of February creatinine is at 2.5. The patient does not have any edema at this time. No shortness of breath. Creatinine has bumped up 11/11/2023. Accompanied by daughter today. Feels better no new issues today. Appetite is good No nausea or vomiting no urinary symptoms. [facility] Medical History Anemia of chronic disease Chronic kidney disease, stage 4 (severe) Mild cognitive impairment LESLIE on CPAP Chronic heart failure with preserved ejection fraction (HFpEF) COPD (chronic obstructive pulmonary disease) Cellulitis of right foot Morbid obesity with BMI of 40.0-44.9, adult Depression Primary insomnia GERD without esophagitis Vitamin D deficiency Obstructive sleep apnea Benign essential hypertension Pure hypercholesterolemia Chronic kidney disease (CKD), stage III (moderate) Type 2 diabetes mellitus with diabetic chronic kidney disease Coronary artery disease COVID-19 GI bleed GERD (gastroesophageal reflux disease) LESLIE (obstructive sleep apnea) Anxiety CKD (chronic kidney disease) stage 3, GFR 30-59 ml/min Pulmonary hypertension CAD (coronary artery disease) Diabetes mellitus Heart disease Hypercholesteremia HTN (hypertension) Surgical History Hx of colonoscopy History of esophagogastroduodenoscopy (EGD) History of eye surgery H/O abdominal hysterectomy Family History Father No problems noted. Mother No problems noted. Social History Household Members Other:: lives with her daughter who cares for her Housing: Apartment Alcohol intake: never Patient Tobacco Use Status: Never used Tobacco e-Cigarette/Vaping Use: Never Used Second Hand Smoke Exposure: Yes service: No Current occupational status: retired and disabled Cognitive needs: No Hearing needs: No Vision needs: Yes Physical Exam Vital Signs: Last Vital Signs Pulse 61 11/11/23 13:20 BP 126/48 L 11/11/23 13:20 Pulse Ox 96 11/11/23 13:20 Oxygen Delivery Method Room Air 11/11/23 13:20 Const General: comfortable Nutritional Appearance: well nourished Orientation/consciousness: patient oriented x3 HEENT Head: No normal to inspection Mouth: moist mucous membranes Neck Neck: Yes supple and Yes no JVD Resp Auscultation: clear to auscultation bilaterally, no rales and rub present Cardio Jugular venous distension: no JVD Palpation: no palpable S3 and no palpable S4 Heart sounds: no rubs GI Palpation (GI): Soft to palpation and nontender Percussion: No Fluid wave present General: Yes no CVA tenderness Back/Spine/Pelvis Back: no CVA tenderness Skin General skin exam: no rashes or lesions noted Neuro General: patient oriented x3 Extrem General: Yes no pedal edema and No clubbing Results Reviewed Results Reviewed: September 2023 US/US renal BI IMPRESSION: 1. Bilateral renal cysts, no imaging follow-up is recommended. 2. 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 Nephrology Results: Hgb 10.3 g/dl (12.0-16.0) L 11/04/23 WBC 6.7 X10*3/uL (4.8-10.8) 11/04/23 Plt Count 226 X10*3/uL (160-400) 11/04/23 Sodium 141 mmol/L (135-145) 11/04/23 Potassium 4.3 mmol/L (3.3-5.1) 11/04/23 Chloride 108 mmol/L (96-108) 11/04/23 Carbon Dioxide 22 mmol/L (22-29) 11/04/23 BUN 58 mg/dL (9-16) H 11/04/23 Creatinine 2.98 mg/dL (0.5-1.4) H 11/04/23 Calcium 9.2 mg/dL (8.4-10.2) 11/04/23 Urine Protein Negative mg/dL (Neg-Trace) 11/10/23 Urine Creatinine 58.73 mg/dL 11/10/23 Renal US 10/20/23 Assessment & Plan Assessment & Plan (1) Chronic kidney disease, stage 4 (severe): Code(s): N18.4 - Chronic kidney disease, stage 4 (severe) Category: Medical (2) Anemia of chronic disease: Code(s): D63.8 - Anemia in other chronic diseases classified elsewhere Category: Medical Plan Elderly woman with acute kidney injury superimposed on chronic disease. Advanced renal failure approaching ESRD NO s/s of uremia Fluid status seems acceptable No obstruction on USG Given her advanced age we will try to manage her conservatively. 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 Continue current regimen. No changes were made Orders: Orders Complete Blood Count no Diff 3 Months D63.8 - Anemia in other chronic diseases classified elsewhere, N18.4 - Chronic kidney disease, stage 4 (severe) Parathyroid Hormone Intact 3 Months D63.8 - Anemia in other chronic diseases classified elsewhere, N18.4 - Chronic kidney disease, stage 4 (severe) Comprehensive Met. Panel 3 Months D63.8 - Anemia in other chronic diseases classified elsewhere, N18.4 - Chronic kidney disease, stage 4 (severe) Coding Level of Care Code Est Pt Level 4 (94612) Diagnoses Chronic kidney disease, stage 4 (severe) N18.4 Anemia of chronic disease D63.8
== END 2023-11-11 13:38 | disposition home or self-care (01) ==
PROVIDERS: PCP Internal Medicine; Visit Provider Internal Medicine Hypertension Specialist
DX: N18.4 Chronic kidney disease, stage 4 (severe) (principal); D63.8 Anemia in other chronic diseases classified elsewhere
CPT/HCPCS: 99214

== ENCOUNTER → 2023-11-11 13:10 | Outpatient (BNVA) | payer OTHER, SELFPAY | PROVIDERS: PCP Internal Medicine; Visit Provider Internal Medicine Hypertension Specialist | DX: I12.9 Hypertensive chronic kidney disease with stage 1 through stage 4 chronic kidney disease, or unspecified chronic kidney disease (principal); N18.32 Chronic kidney disease, stage 3b; D63.8 Anemia in other chronic diseases classified elsewhere; I25.10 Atherosclerotic heart disease of native coronary artery without angina pectoris | CPT/HCPCS: 99212 ==

== ENCOUNTER 2023-12-10 13:14 | Outpatient (AMB) | payer OTHER, SELFPAY ==
--- NOTE | 2023-12-10 13:53 | MHC.OFFVIS ---
Vital Signs 12/10/23 13:56 Handedness Right Intake Visit Reasons: Newprob-Left wrist pain Intake Note: Deepika is a 88 year old female who presents today with her daughter for a new problem visit with complaints of bilateral wrist pain. She is right hand dominant but does everything with her left hand. She expresses she has numbness, tingling and pain in the dorsal aspect of both her wrist. She has pain/discomfort when lifting object. Her daughter states she is unable to do daily task due to her pains such as doing her hair, getting dressed, showering and etc so her daughter does this all for her now. At times her middle and ring finger of her bilateral hands are stiff causing her to be unable to make a closed fist. hx of left hand fracture, unable to remember when this injury occured. Accompanied by: Mother Allergies No Known Allergies Allergy (Verified 12/10/23 14:02) HPI HPI Newprob-Left wrist pain: Details: Patient is a 88 year old female who presents for evaluation of bilateral wrist pain. The patient reports that, approximately 3-4 years ago, she fell and broke her L wrist, and since then she has had an achy pain on the radial and ulnar aspects of the L wrist. She also reports that she has begun to experience a similar pain in the R wrist as well. The patient reports that she is unable to perform her daily tasks due to pain and stiffness in bilateral wrists. Patient inquires about any potential treatment options available to her. Patient reports using OTC tylenol for pain relief, to minimal effect. Cannot take ibuprofen due to kidney disease. [facility] Medical History Anemia of chronic disease Chronic kidney disease, stage 4 (severe) Mild cognitive impairment LESLIE on CPAP Chronic heart failure with preserved ejection fraction (HFpEF) COPD (chronic obstructive pulmonary disease) Cellulitis of right foot Morbid obesity with BMI of 40.0-44.9, adult Depression Primary insomnia GERD without esophagitis Vitamin D deficiency Obstructive sleep apnea Benign essential hypertension Pure hypercholesterolemia Chronic kidney disease (CKD), stage III (moderate) Type 2 diabetes mellitus with diabetic chronic kidney disease Coronary artery disease COVID-19 GI bleed GERD (gastroesophageal reflux disease) LESLIE (obstructive sleep apnea) Anxiety CKD (chronic kidney disease) stage 3, GFR 30-59 ml/min Pulmonary hypertension CAD (coronary artery disease) Diabetes mellitus Heart disease Hypercholesteremia HTN (hypertension) Surgical History Hx of colonoscopy History of esophagogastroduodenoscopy (EGD) History of eye surgery H/O abdominal hysterectomy Family History Father No problems noted. Mother No problems noted. Social History Household Members Other:: lives with her daughter who cares for her Housing: Apartment Alcohol intake: never Patient Tobacco Use Status: Never used Tobacco e-Cigarette/Vaping Use: Never Used Second Hand Smoke Exposure: Yes service: No Current occupational status: retired and disabled Cognitive needs: No Hearing needs: No Vision needs: Yes Physical Exam Extrem Other: Patient is alert, oriented, and in no acute distress. Neuro: Median, ulnar, radial nerves motor and sensory intact and sensation is normal to the tips of all digits. Vascular: Cap refill brisk Pain: Patient reports a dull, achy pain in bilateral wrists at baseline, slightly worsened with ROM ROM: Patient has limited ROM in bilateral wrists due to pain Skin: No lacerations or abrasions. General: No ecchymosis, erythema, or evidence of infection. Psych: Appears grossly normal Affect normal Attitude cooperative Results Reviewed Results Reviewed: X-rays obtained in the office today and independently reviewed by me, Fercho Hand PA-C, demonstrate degenerative changes in the L wrist consistent with osteoarthritis. Assessment & Plan Assessment & Plan (1) Primary osteoarthritis, left wrist: Code(s): M19.032 - Primary osteoarthritis, left wrist Category: Medical (2) Right wrist pain: Code(s): M25.531 - Pain in right wrist Category: Medical Plan 1. L wrist osteoarthritis Due to patient symptom load and restriction of daily activities, I feel she is a good candidate for intra-articular wrist injection in her L wrist However, as Dr. Cordero is not in the office, this cannot be done today Patient is advised to follow up with Dr. Cordero in 3-4 weeks for discussion of wrist injections In the meantime, patient is advised to continue use of Tylenol, as well as rest, ice, compression, elevation, and topical treatments for pain relief 2. R wrist pain Patient reports that pain is similar to pain in the L wrist Patient will have R wrist X rays performed at follow up for assessment and subsequent discussion of treatment options Patient will follow up with R wrist X rays with Dr. Cordero for potential injections, sooner with any acute concerns. Orders: Orders XR wrist LT min 3V 12/10/23 M25.532 - Pain in left wrist Coding Level of Care Code Est Pt Level 3 (90339) Diagnoses Primary osteoarthritis, left wrist M19.032 Right wrist pain M25.531
== END 2023-12-10 14:36 | disposition home or self-care (01) ==
PROVIDERS: PCP Internal Medicine
DX: M19.032 Primary osteoarthritis, left wrist (principal); M25.531 Pain in right wrist
CPT/HCPCS: 99213

== ENCOUNTER 2023-12-10 15:05 | Outpatient (REF) | payer OTHER, SELFPAY ==
--- NOTE | ~2023-12-10 | XR_ITS ---
EXAMINATION: XR WRIST, LEFT CLINICAL INFORMATION: Pain left wrist, question arthritis. COMPARISON: February 17, 2012 x-rays. TECHNIQUE: PA, lateral, and oblique views of the left wrist. FINDINGS: Diffuse demineralization. Evidence of healing of previously identified impacted distal radial and ulnar styloid process fractures. Moderate degenerative changes in the first carpometacarpal joint with joint space narrowing and hypertrophic change. Narrowing of the radiocarpal joint. Amorphous calcifications in the soft tissues distal to the ulna are suggestive of chondrocalcinosis. XR/XR wrist LT min 3V IMPRESSION: 1. Advanced degenerative changes in the wrist. 2. Diffuse demineralization.
== END 2023-12-10 15:06 | disposition home or self-care (01) ==
LOC: HO.HOSX 15:05
DX: M19.032 Primary osteoarthritis, left wrist (principal); M25.531 Pain in right wrist; Z87.81 Personal history of (healed) traumatic fracture
CPT/HCPCS: 73110; 99212

== ENCOUNTER 2024-01-21 13:40 | Outpatient (AMB) | payer OTHER, SELFPAY ==
--- NOTE | 2024-01-21 13:44 | A.OFFVIS_ITS ---
Intake Visit Reasons: inj-Bilateral Knee Injections -last inj 10/21/23 Intake Note: Deepika is a 88 year old female who presents today with her daughter for repeat injections for her bilateral knees, last inj 10/21/23. Patient's daughter mentioned that the last injections didn't give her relief, however she would li ke to try gel injections. Accompanied by: Mother Allergies No Known Allergies Allergy (Verified 01/21/24 14:05) HPI HPI inj-Bilateral Knee Injections -last inj 10/21/23: Details: 88-year-old female who presents in the office today for a follow-up of bilateral knee pain. I last saw the patient in the office on 10/21/23 when she received cortisone injections in the bilateral knees. ? ? While in the office today, the patient?s daughter reports the last injection did not give the patient relief. However, she would like to repeat the injections today. ? ? Patient has a significant medical history of diabetes mellitus (A1c of 6.1 on 11/04/23) and a BMI of 42.3 as of 11/09/23.? PFSH Medical History Anemia of chronic disease Chronic kidney disease, stage 4 (severe) Mild cognitive impairment LESLIE on CPAP Chronic heart failure with preserved ejection fraction (HFpEF) COPD (chronic obstructive pulmonary disease) Cellulitis of right foot Morbid obesity with BMI of 40.0-44.9, adult Depression Primary insomnia GERD without esophagitis Vitamin D deficiency Obstructive sleep apnea Benign essential hypertension Pure hypercholesterolemia Chronic kidney disease (CKD), stage III (moderate) Type 2 diabetes mellitus with diabetic chronic kidney disease Coronary artery disease COVID-19 GI bleed GERD (gastroesophageal reflux disease) LESLIE (obstructive sleep apnea) Anxiety CKD (chronic kidney disease) stage 3, GFR 30-59 ml/min Pulmonary hypertension CAD (coronary artery disease) Diabetes mellitus Heart disease Hypercholesteremia HTN (hypertension) Surgical History Hx of colonoscopy History of esophagogastroduodenoscopy (EGD) History of eye surgery H/O abdominal hysterectomy Family History Father No problems noted. Mother No problems noted. Social History Household Members Other:: lives with her daughter who cares for her Housing: Apartment Alcohol intake: never Patient Tobacco Use Status: Never used Tobacco e-Cigarette/Vaping Use: Never Used Second Hand Smoke Exposure: Yes service: No Current occupational status: retired and disabled Cognitive needs: No Hearing needs: No Vision needs: Yes Review of Systems Const All systems reviewed & are unremarkable except as noted in HPI and below Physical Exam Const General: cooperative, healthy appearing and no acute distress Resp Effort & Inspection: normal respiratory effort and able to speak in complete sentences Cardio Rate: regular rate Peripheral pulses: Peripheral pulses 2+ throughout GI Palpation (GI): Soft to palpation Skin Lesions: no lesions Rashes: no rashes Extrem Other: Bilateral knees: Normal to inspection. No ecchymosis, erythema, or joint effusion. Patient is able to demonstrate full knee flexion and extension. NVI. Office Procedures Joint Injection/Aspiration Joint Injection/Aspiration Primary Site: right knee Secondary Site: left knee Injected: 40 mg of, DepoMedrol, with 8 mL of (2% plain lido) and in the joint Approach Used: anterolateral Procedure: The patient tolerated the procedure well, but had some pain with the injection and there was some relief with the local anesthesia Coding 93169 - Large joint Procedure code (CPT) selection complete Assessment & Plan Assessment & Plan (1) Osteoarthritis of knees, bilateral: Code(s): M17.0 - Bilateral primary osteoarthritis of knee Category: Medical (2) Type 2 diabetes mellitus with unspecified complications: Code(s): E11.8 - Type 2 diabetes mellitus with unspecified complications Category: Medical (3) Morbid obesity with BMI of 40.0-44.9, adult: Code(s): E66.01 - Morbid (severe) obesity due to excess calories; Z68.41 - Body mass index [BMI] 40.0-44.9, adult Category: Medical Plan Ms. Fernandez is an 88-year-old female who presents in the office today for a follow-up of bilateral knee pain. I last saw the patient in the office on 10/21/23 when she received cortisone injections in the bilateral knees. ? ? While in the office today, the patient?s daughter reports the last injection did not give the patient relief. However, she would like to repeat the injections today. ? ? Patient has a significant medical history of diabetes mellitus (A1c of 6.1 on 11/04/23) and a BMI of 42.3 as of 11/09/23.? ? The patient was offered a cortisone injection in the bilateral knees with 40 mg of DepoMedrol. The patient was explained the risk, benefits, and alternatives to receiving this injection. After receiving consent for the injection, the patient had the procedure done while in the office today. The patient tolerated the procedure well with no complications.? ?? Due to the patient?s history of diabetes, they were instructed to monitor her blood glucose level. The patient was informed that they could see a rise in their numbers and if the numbers became too high, they were instructed to call their PCP. The patient was also informed that they could have facial flushing as a side effect of the injection, but this will pass.? ?? Follow up will be PRN, or sooner if needed.? Patient Instructions: Scribed by Myla Clayton medical equipment repairer, for Shiloh Gonzalez PA-C on 01/21/2024 at 2:09 pm, EST.? Coding Level of Care Code Est Pt Level 3 (24655) Diagnoses Osteoarthritis of knees, bilateral M17.0 Type 2 diabetes mellitus with unspecified complications E11.8 Morbid obesity with BMI of 40.0-44.9, adult E66.01; Z68.41 CPT Codes Coding - 35572 Large joint: 60480 - Large joint ([id number])
== END 2024-01-21 14:05 | disposition home or self-care (01) ==
PROVIDERS: PCP Internal Medicine; Visit Provider Physician Assistant
DX: M17.0 Bilateral primary osteoarthritis of knee (principal); E11.8 Type 2 diabetes mellitus with unspecified complications; E66.01 Morbid (severe) obesity due to excess calories; Z68.41 Body mass index [BMI] 40.0-44.9, adult
CPT/HCPCS: 20610; 99214

== ENCOUNTER → 2024-01-21 13:40 | Outpatient (BNVA) | payer OTHER, SELFPAY | PROVIDERS: PCP Internal Medicine; Visit Provider Physician Assistant | DX: M17.0 Bilateral primary osteoarthritis of knee (principal); E11.8 Type 2 diabetes mellitus with unspecified complications; E66.01 Morbid (severe) obesity due to excess calories; Z68.41 Body mass index [BMI] 40.0-44.9, adult | CPT/HCPCS: 20610; 99212; J1010 ==

== ENCOUNTER 2024-02-04 09:51 | Outpatient (REF) | payer OTHER, SELFPAY ==
[2024-02-04 10:27] LABS: MANUAL DIFF FLAG NO
[2024-02-04 11:44] LABS: Basophils Percent Auto 0.6 % (0-2); Eosinophils Absolute Auto 0.1 X10*3/uL (0.0-0.4); Eosinophils Percent Auto 1.9 % (0-4); Hematocrit 32.8 % (37.0-47.0); Hemoglobin 10.7 g/dl (12.0-16.0); Imm Gran Abs Auto 0.03 X10*3/uL (0.00-0.03); Imm Gran Pct Auto 0.4 % (0.0-0.4); Lymphocytes Absolute Auto 1.5 X10*3/uL (1.2-4.9); Mean Corpuscular HGB Conc 32.6 g/dl (31.0-35.0); Mean Corpuscular Hemoglobin 31.8 pg (27.0-33.0); Mean Corpuscular Volume 97.3 fL (80.0-98.0); Mean Platelet Volume 9.7 fL (9.4-12.3); Monocytes Absolute Auto 0.5 X10*3/uL (0.1-1.2); Neutrophils Absolute Auto 4.5 x10*3/uL (2.0-8.3); Neutrophils Percent Auto 68.1 % (45-73); Platelet Count 228 X10*3/uL (160-400); Red Blood Count 3.37 X10*6/uL (4.20-5.50); Red Cell Distribution Width 13.1 % (11.0-16.0); White Blood Count 6.7 X10*3/uL (4.8-10.8)
[2024-02-04 11:47] LABS: Appearance Urine Clear; Color Urine Yellow; Glucose Urine UA Negative (Negative); Leukocyte Esterase Urine Moderate (2+) (Negative); Nitrite Urine Negative (Negative); PH 5.5 (5.0-9.0); UMIC TRIGGER UACC YES; Urine Blood Negative (Negative); Urine Ketones Negative (Negative); Urine Protein Negative (Neg-Trace)
[2024-02-04 11:58] LABS: B Type Natriuretic Peptide 31 pg/mL (<100)
[2024-02-04 12:15] LABS: Creatinine Urine 56.47 mg/dL; Microalbum/Creatinine Ratio Ur 33.6 ug/mg cr (<30)
[2024-02-04 12:21] LABS: Parathyroid Hormone Intact 287.9 pg/mL (8.7-77.1)
[2024-02-04 12:22] LABS: Alanine Aminotransferase 13 U/L (0-31); Albumin Level 3.8 g/dL (3.5-5.0); Alkaline Phosphatase 69 U/L (39-117); Anion Gap 10 (12-20); Aspartate Amino Transferase 9 U/L (5-31); Bilirubin Total 0.2 mg/dL (0.0-1.0); Blood Urea Nitrogen 50 mg/dL (9-16); Carbon Dioxide 23 mmol/L (22-29); Chloride 110 mmol/L (96-108); Cholesterol 195 mg/dL (<200); Estimated Glomerular Filt Rate 15; Glucose Fasting 101 mg/dL (60-99); Glucose Random 101 mg/dL (60-115); HDL Cholesterol 45 mg/dL (>40); Iron 51 mcg/dL (30-160); LDL Cholesterol Calculated 104 mg/dL (<100); Percent Iron Saturation 22 % (15-50); Phosphorus 3.9 mg/dL (2.7-4.5); Potassium 4.3 mmol/L (3.3-5.1); Sodium 139 mmol/L (135-145); Total Iron Binding Capacity 235 mcg/dL (228-428); Total Protein 6.3 g/dL (6.5-8.0); Triglycerides 232 mg/dL (<150); Unsaturated Iron Binding 184 ug/dL
[2024-02-04 12:25] LABS: Bacteria Urine None Seen (None Seen); Hyaline Casts Urine 0-2 /LPF (0-2); RBC Urine 0-2 /HPF (0-2); UACC Culture Trigger YES
[2024-02-04 12:33] LABS: Estimated Average Glucose 128 mg/dL; Hemoglobin A1c % 6.1 % (<6.0)
[2024-02-04 12:47] LABS: Vitamin D 25-OH Total 32.3 ng/mL (>30)
[2024-02-04 13:03] LABS: Folate 7.5 ng/mL (> or = 4.0); Vitamin B12 864 pg/mL (200-900)
== END 2024-02-04 09:52 | disposition home or self-care (01) ==
LOC: HO.LAB 09:51
PROVIDERS: Absent Provider Internal Medicine; PCP Internal Medicine; Visit Provider Internal Medicine Hypertension Specialist
DX: I50.9 Heart failure, unspecified (principal); E55.9 Vitamin D deficiency, unspecified; E53.8 Deficiency of other specified B group vitamins; E11.9 Type 2 diabetes mellitus without complications; E78.00 Pure hypercholesterolemia, unspecified; N18.30 Chronic kidney disease, stage 3 unspecified; N18.5 Chronic kidney disease, stage 5; D63.8 Anemia in other chronic diseases classified elsewhere; N18.4 Chronic kidney disease, stage 4 (severe)
CPT/HCPCS: 36415; 80053; 80061; 81001; 82043; 82306; 82570; 82607; 82746; 83036; 83540; 83880; 83970; 84100; 84443; 85025; 85027; 87086

== ENCOUNTER 2024-02-10 13:31 | Outpatient (AMB) | payer OTHER, SELFPAY ==
[2024-02-10 13:33] VITALS: BP 126/54; PULSE 58; O2SAT 97
--- NOTE | 2024-02-10 13:33 | HO.NEPHOV ---
Vital Signs 02/10/24 13:33 Height 4 ft 7 in BP 126/54 L Blood Pressure Location Rt brachial Position Sitting Pulse 58 Pulse Source Pulse Oximeter Pulse Oximetry (%) 97 Oxygen Delivery Method Room Air Intake Visit Reasons: Anemia of chronic disease/ Conf Billet Header Required: No Accompanied by: Daughter Allergies No Known Allergies Allergy (Verified 02/10/24 13:35) Medication List - Last Reconciled 02/10/24 by Kevin Cox MD acetaminophen 500 mg PO Q6-8H PRN albuterol sulfate 90 mcg/actuation 2 puffs PO Q4-6H PRN alprazolam 0.5 mg PO BID amlodipine 2.5 mg PO DAILY ascorbic acid (vitamin C) mg PO DAILY benzonatate 100 mg PO BID-TID PRN blood pressure monitor As directed blood sugar diagnostic ([employer]uch Verio test strips) As directed- To test blood sugar daily. cetirizine (Zyrtec) 10 mg PO DAILY PRN 15 days cetirizine 10 mg PO DAILY PRN [CHAIR LIFT As directed] cholecalciferol (vitamin D3) 25 mcg PO DAILY 90 days citalopram 20 mg PO QAM cyanocobalamin (vitamin B-12) 500 mcg PO DAILY 90 days esomeprazole magnesium 40 mg PO DAILY ferrous sulfate 325 mg PO DAILY furosemide 20 mg PO DAILY glimepiride 1 mg PO QAM 30 days ipratropium-albuterol 0.5 mg-3 mg(2.5 mg base)/3 mL 3 mL inhalation Q6H PRN lancets As directed-To test blood sugar daily. [LIGHTWEIGHT TRANSPORT WHEELCHAIR WITH HANDBRAKES As directed] linagliptin (Tradjenta) 5 mg PO DAILY melatonin 10 mg PO BEDTIME metoprolol succinate ER (Toprol XL) 12.5 mg (1/2 x 25 mg) PO DAILY 90 days nebulizers ([employer] Nebulizer-Adult Mask) As directed nitroglycerin 0.2 mg/hr 1 patch topical DAILY pravastatin 40 mg PO DAILY 90 days quetiapine 100 mg PO BEDTIME quetiapine 25 mg PO DAILY zolpidem 5 mg PO BEDTIME PRN HPI Comments Details: 87-year-old old woman with a history of chronic kidney disease stage IIIB baseline creatinine of I 0.5 mg/dL. She has a history of atherosclerotic cardiovascular disease and hypertension. In November she had a fall she was on the floor for quite some time. She has been on Lasix 40 mg daily. Creatinine is bumped to 2.3 in December and as of February creatinine is at 2.5. The patient does not have any edema at this time. No shortness of breath. Creatinine has bumped up 11/11/2023. Accompanied by daughter today. Feels better no new issues today. Appetite is good No nausea or vomiting no urinary symptoms. [facility] Medical History Anemia of chronic disease Chronic kidney disease, stage 4 (severe) Mild cognitive impairment LESLIE on CPAP Chronic heart failure with preserved ejection fraction (HFpEF) COPD (chronic obstructive pulmonary disease) Cellulitis of right foot Morbid obesity with BMI of 40.0-44.9, adult Depression Primary insomnia GERD without esophagitis Vitamin D deficiency Obstructive sleep apnea Benign essential hypertension Pure hypercholesterolemia Chronic kidney disease (CKD), stage III (moderate) Type 2 diabetes mellitus with diabetic chronic kidney disease Coronary artery disease COVID-19 GI bleed GERD (gastroesophageal reflux disease) LESLIE (obstructive sleep apnea) Anxiety CKD (chronic kidney disease) stage 3, GFR 30-59 ml/min Pulmonary hypertension CAD (coronary artery disease) Diabetes mellitus Heart disease Hypercholesteremia HTN (hypertension) Surgical History Hx of colonoscopy History of esophagogastroduodenoscopy (EGD) History of eye surgery H/O abdominal hysterectomy Family History Father No problems noted. Mother No problems noted. Social History Household Members Other:: lives with her daughter who cares for her Housing: Apartment Alcohol intake: never Patient Tobacco Use Status: Never used Tobacco e-Cigarette/Vaping Use: Never Used Second Hand Smoke Exposure: Yes service: No Current occupational status: retired and disabled Cognitive needs: No Hearing needs: No Vision needs: Yes Physical Exam Vital Signs: Last Vital Signs Pulse 58 02/10/24 13:33 BP 126/54 L 02/10/24 13:33 Pulse Ox 97 02/10/24 13:33 Oxygen Delivery Method Room Air 02/10/24 13:33 Const General: comfortable; No acute distress Orientation/consciousness: patient oriented x3 Eyes General: appearance normal, both eyes and all related structures Visual Ribera: normal visual ribera by confrontation Neck Neck: Yes supple and Yes no JVD Resp Effort & Inspection: normal respiratory effort and respiratory effort not decreased Auscultation: rhonchi Cardio Palpation: no palpable S3 and no palpable S4 Heart sounds: no rubs GI Inspection: Yes normal to inspection Palpation (GI): Soft to palpation Percussion: Yes normal to percussion Auscultation: normal bowel sounds General: Yes no CVA tenderness Back/Spine/Pelvis Back: no CVA tenderness Skin General skin exam: no petechiae and no purpura Neuro General: patient oriented x3 and no focal motor deficits Extrem General: No clubbing and No edema Results Reviewed Nephrology Results: Hgb 10.7 g/dl (12.0-16.0) L 02/04/24 WBC 6.7 X10*3/uL (4.8-10.8) 02/04/24 Plt Count 228 X10*3/uL (160-400) 02/04/24 Sodium 139 mmol/L (135-145) 02/04/24 Potassium 4.3 mmol/L (3.3-5.1) 02/04/24 Chloride 110 mmol/L (96-108) H 02/04/24 Carbon Dioxide 23 mmol/L (22-29) 02/04/24 BUN 50 mg/dL (9-16) H 02/04/24 Creatinine 2.89 mg/dL (0.5-1.4) H 02/04/24 Calcium 9.0 mg/dL (8.4-10.2) 02/04/24 Phosphorus 3.9 mg/dL (2.7-4.5) 02/04/24 PTH Intact 287.9 pg/mL (8.7-77.1) H 02/04/24 Urine Protein Negative mg/dL (Neg-Trace) 02/04/24 Urine Creatinine 56.47 mg/dL 02/04/24 Assessment & Plan Assessment & Plan (1) Chronic kidney disease, stage 4 (severe): Code(s): N18.4 - Chronic kidney disease, stage 4 (severe) Category: Medical (2) Anemia of chronic disease: Code(s): D63.8 - Anemia in other chronic diseases classified elsewhere Category: Medical Plan Elderly woman with acute kidney injury superimposed on chronic disease. Advanced renal failure approaching ESRD NO s/s of uremia Fluid status seems acceptable No obstruction on USG Given her advanced age we will try to manage her conservatively. 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 Continue current regimen. No changes were made Medications: New amlodipine 2.5 mg PO DAILY 30 tabs 6RF Coding Level of Care Code Est Pt Level 4 (81466) Diagnoses Chronic kidney disease, stage 4 (severe) N18.4 Anemia of chronic disease D63.8
== END 2024-02-10 13:54 | disposition home or self-care (01) ==
PROVIDERS: PCP Internal Medicine; Visit Provider Internal Medicine Hypertension Specialist
DX: N18.4 Chronic kidney disease, stage 4 (severe) (principal); D63.8 Anemia in other chronic diseases classified elsewhere
CPT/HCPCS: 99214

== ENCOUNTER → 2024-02-10 13:31 | Outpatient (BNVA) | payer OTHER, SELFPAY | PROVIDERS: PCP Internal Medicine; Visit Provider Internal Medicine Hypertension Specialist | DX: N18.4 Chronic kidney disease, stage 4 (severe) (principal); D63.1 Anemia in chronic kidney disease | CPT/HCPCS: 99212 ==

== ENCOUNTER → 2024-02-17 13:47 | Outpatient (BNVA) | payer OTHER, SELFPAY | PROVIDERS: PCP Internal Medicine; Visit Provider Physician Assistant | DX: M17.0 Bilateral primary osteoarthritis of knee (principal); E11.22 Type 2 diabetes mellitus with diabetic chronic kidney disease; N18.30 Chronic kidney disease, stage 3 unspecified; E66.01 Morbid (severe) obesity due to excess calories; Z68.41 Body mass index [BMI] 40.0-44.9, adult | CPT/HCPCS: 20610; J7323 ==

== ENCOUNTER 2024-02-17 13:59 | Outpatient (AMB) | payer OTHER, SELFPAY ==
--- NOTE | 2024-02-17 14:00 | A.OFFVIS_ITS ---
Intake Visit Reasons: B/L Euflexxa gel injections #1 Intake Note: Deepika is 88 year old female who presents today for her first Euflexxa gel injection for both of her knees. Allergies No Known Allergies Allergy (Verified 02/17/24 14:13) HPI HPI B/L Euflexxa gel injections #1: Details: 88-year-old female who presents in the office today for a follow up of bilateral knee pain and to obtain her first Euflexxa injection in a series of 3. I last saw the patient in the office on 01/21/24 when she received a cortisone injection in the bilateral knees. ? ? Patient has a significant medical history of diabetes mellitus.? [facility], [facility] Medical History Anemia of chronic disease Chronic kidney disease, stage 4 (severe) Mild cognitive impairment LESLIE on CPAP Chronic heart failure with preserved ejection fraction (HFpEF) COPD (chronic obstructive pulmonary disease) Cellulitis of right foot Morbid obesity with BMI of 40.0-44.9, adult Depression Primary insomnia GERD without esophagitis Vitamin D deficiency Obstructive sleep apnea Benign essential hypertension Pure hypercholesterolemia Chronic kidney disease (CKD), stage III (moderate) Type 2 diabetes mellitus with diabetic chronic kidney disease Coronary artery disease COVID-19 GI bleed GERD (gastroesophageal reflux disease) LESLIE (obstructive sleep apnea) Anxiety CKD (chronic kidney disease) stage 3, GFR 30-59 ml/min Pulmonary hypertension CAD (coronary artery disease) Diabetes mellitus Heart disease Hypercholesteremia HTN (hypertension) Surgical History Hx of colonoscopy History of esophagogastroduodenoscopy (EGD) History of eye surgery H/O abdominal hysterectomy Family History Father No problems noted. Mother No problems noted. Social History Household Members Other:: lives with her daughter who cares for her Housing: Apartment Alcohol intake: never Patient Tobacco Use Status: Never used Tobacco e-Cigarette/Vaping Use: Never Used Second Hand Smoke Exposure: Yes service: No Current occupational status: retired and disabled Cognitive needs: No Hearing needs: No Vision needs: Yes Review of Systems Const All systems reviewed & are unremarkable except as noted in HPI and below Physical Exam Const General: cooperative, healthy appearing and no acute distress Resp Effort & Inspection: normal respiratory effort and able to speak in complete sentences Cardio Rate: regular rate Peripheral pulses: Peripheral pulses 2+ throughout GI Palpation (GI): Soft to palpation Skin Lesions: no lesions Rashes: no rashes Extrem Other: Bilateral knees: Normal to inspection. No ecchymosis, erythema, or joint effusion. Patient is able to demonstrate full knee flexion and extension. NVI. Office Procedures Joint Injection/Aspiration Joint Injection/Aspiration Primary Site: right knee Secondary Site: left knee Prep: site was prepped using aseptic technique, ethochloride spray was applied and injection warnings given Injected: in the joint (Euflexxa #1) Approach Used: anterolateral Procedure: The patient tolerated the procedure well, but had some pain with the injection and there was some relief with the local anesthesia Coding 84389 - Large joint Procedure code (CPT) selection complete Assessment & Plan Assessment & Plan (1) Osteoarthritis of knees, bilateral: Code(s): M17.0 - Bilateral primary osteoarthritis of knee Category: Medical (2) Type 2 diabetes mellitus with unspecified complications: Code(s): E11.8 - Type 2 diabetes mellitus with unspecified complications Category: Medical (3) Morbid obesity with BMI of 40.0-44.9, adult: Code(s): E66.01 - Morbid (severe) obesity due to excess calories; Z68.41 - Body mass index [BMI] 40.0-44.9, adult Category: Medical Plan Ms. Fernandez is a 88-year-old female who presents in the office today for a follow up of bilateral knee pain and to obtain her first Euflexxa injection in a series of 3. I last saw the patient in the office on 01/21/24 when she received a cortisone injection in the bilateral knees. ? ? Patient has a significant medical history of diabetes mellitus.? ? The patient was injection with her first Euflexxa injection in the bilateral knees. The patient was explained the risk, benefits, and alternatives to receiving this injection. After receiving consent for the injection, the patient had the procedure done while in the office today. The patient tolerated the procedure well with no complications.?? ? The patient has a small half dollar sized superficial abrasion on the lateral aspect of the left knee distal to the joint line. This is from a fall that she took while trying to get ready to come to her appointment today. The abrasion was washed with normal saline and dressed with a dry bandage.? ? Follow-up will be in one week for her second Eulfexxa injection in a series of three, or sooner if needed.? Patient Instructions: Scribed by Myla Clayton medical safety director, for Shiloh Gonzalez PA-C on 02/17/2024 at 2:12 pm, EST.? Coding Level of Care Code Procedure Only Diagnoses Osteoarthritis of knees, bilateral M17.0 Type 2 diabetes mellitus with unspecified complications E11.8 Morbid obesity with BMI of 40.0-44.9, adult E66.01; Z68.41 CPT Codes Coding - 85855 Large joint: 52244 - Large joint ([id number])
== END 2024-02-17 14:13 | disposition home or self-care (01) ==
PROVIDERS: PCP Internal Medicine; Visit Provider Physician Assistant
DX: M17.0 Bilateral primary osteoarthritis of knee (principal)
CPT/HCPCS: 20610

== ENCOUNTER 2024-02-23 14:48 | Outpatient (AMB) | payer OTHER, SELFPAY ==
[2024-02-23 14:53] VITALS: BP 132/78; PULSE 74; O2SAT 95; BMI 42.5
--- NOTE | 2024-02-23 14:53 | MHC.PC.OV ---
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 cetirizine 10 mg PO DAILY PRN [CHAIR LIFT As directed] cholecalciferol (vitamin D3) 25 mcg PO DAILY 90 days citalopram 20 mg PO QAM cyanocobalamin (vitamin B-12) 500 mcg PO DAILY 90 days esomeprazole magnesium 40 mg PO DAILY ferrous sulfate 325 mg PO DAILY furosemide 20 mg PO DAILY glimepiride 1 mg PO QAM 30 days ipratropium-albuterol 0.5 mg-3 mg(2.5 mg base)/3 mL 3 mL inhalation Q6H PRN lancets As directed-To test blood sugar daily. [LIGHTWEIGHT TRANSPORT WHEELCHAIR WITH HANDBRAKES As directed] linagliptin (Tradjenta) 5 mg PO DAILY melatonin 10 mg PO BEDTIME metoprolol succinate ER (Toprol XL) 12.5 mg (1/2 x 25 mg) PO DAILY 90 days nebulizers ([employer] Nebulizer-Adult Mask) As directed nitroglycerin 0.2 mg/hr 1 patch topical DAILY pravastatin 40 mg PO DAILY 90 days quetiapine 100 mg PO BEDTIME quetiapine 25 mg PO DAILY zolpidem 5 mg PO BEDTIME PRN Tobacco use date assessed: 02/23/24 Fall risk assessment: 2 + Falls in past year Last assessed Fall Risk: 02/23/24 Dental Screening Dental Screen Date: 02/23/24 Did you have a dental visit in the last 12 months?: No Did you have a dental problem in the last 6 months where you did not have access to dental care?: No Was dental information given to patient?: No HPI 3mth f/u HPI Details Patient comes in today for her follow up visit - she is accompanied as usual by her daughter, who is her caregiver and also her HCP Her daughter states that patient still feels fatigued often but has been eating well and sleeps well at night She denies any headaches or dizziness Denies any chest pains but still has some EVANS Her daughter states that she is still coughing a lot often - cough is mostly non-productive and seems worse at night States that she would give patient a nebulizer treatment and her cough would calm down for a while after her updraft treatment States that she has no maintenance inhaler to use No nausea/vomiting, no abdominal pain No change in bowel habits noted She still has pain in her knees and just received her first shots of Euflexxa a couple of weeks ago - states that she has noticed only some relief so far She is scheduled for her second injection tomorrow with orthopedics She had her follow up labs done a couple of weeks ago - to discuss her results [facility] Medical History (Updated 02/23/24 @ 16:26 by Nima Farooq MD) Hyperparathyroidism, secondary renal Anemia of chronic disease Chronic kidney disease, stage 4 (severe) Mild cognitive impairment LESLIE on CPAP Chronic heart failure with preserved ejection fraction (HFpEF) COPD (chronic obstructive pulmonary disease) Cellulitis of right foot Morbid obesity with BMI of 40.0-44.9, adult Depression Primary insomnia GERD without esophagitis Vitamin D deficiency Obstructive sleep apnea Benign essential hypertension Pure hypercholesterolemia Chronic kidney disease (CKD), stage III (moderate) Type 2 diabetes mellitus with diabetic chronic kidney disease Coronary artery disease COVID-19 GI bleed GERD (gastroesophageal reflux disease) LESLIE (obstructive sleep apnea) Anxiety CKD (chronic kidney disease) stage 3, GFR 30-59 ml/min Pulmonary hypertension CAD (coronary artery disease) Diabetes mellitus Heart disease Hypercholesteremia HTN (hypertension) Surgical History Hx of colonoscopy History of esophagogastroduodenoscopy (EGD) History of eye surgery H/O abdominal hysterectomy Family History Father No problems noted. Mother No problems noted. Social History Household Members Other:: lives with her daughter who cares for her Housing: Apartment Alcohol intake: never Patient Tobacco Use Status: Never used Tobacco e-Cigarette/Vaping Use: Never Used Second Hand Smoke Exposure: Yes service: No Current occupational status: retired and disabled Cognitive needs: No Hearing needs: No Vision needs: Yes Questionnaire PHQ-9 Over the last 2 weeks, how often have you been bothered by any of the following problems? 1. Little interest or pleasure in doing things: not at all 2. Feeling down, depressed, or hopeless: several days 3. Trouble falling or staying asleep, or sleeping too much: not at all 4. Feeling tired or having little energy: not at all 5. Poor appetite or overeating: not at all 6. Feeling bad about yourself - or that you are a failure or have let yourself or your family down: not at all 7. Trouble concentrating on things, such as reading the newspaper or watching television: not at all 8. Moving or speaking so slowly that other people could have noticed. Or the opposite - being so fidgety or restless that you have been moving around a lot more than usual: not at all 9. Thoughts that you would be better off or of hurting yourself in some way: not at all Total score: 1 Depression Screening Interpretation: Negative Depression Screening Done: Yes 07017 - PHQ-9 Billing: Yes Source: Developed by Drs. Feng Suazo, Liz Carrillo, Raymond Morales and colleagues, with an educational katarina from [employer]. Thrive Questionnaire Date Thrive assessed: 02/23/24 I am a: Patient What is your living situation today?: I have a steady place to live Within the past 12 months, did the food you bought not last and you didn't have the money to get more?: Never true Within the past 12 months, did you worry whether your food would run out before you got money to buy more?: Never true Do you have trouble paying for medicines?: No Do you have trouble getting transportation to medical appointments?: No Do you have trouble paying your heating and electricity bill?: No Do you have trouble taking care of your child, family member or friend?: No Do you have trouble with day-to-day activities such as bathing, preparing meals, shopping, managing finances, etc.?: No Are you currently unemployed and looking for a job?: I choose not to answer this question Are you interested in more education?: No Please select the resources that you would like help with: None Currently or been in a relationship where the following occur: No concerns reported THRIVE Score: 0 AUDIT C Alcohol Use Questionnaire (AUDIT-C) 1. How often do you have a drink containing alcohol?: Never 3. How often do you have six or more drinks on one occasion?: Never Total Score: 0 Score Reviewed/Action Taken: Yes EMERSON-7 AMB Questionnaire EMERSON-7 Date EMERSON - 7 assessed: 02/23/24 Feeling nervous, anxious, or on edge: 0 = Not at all Not being able to stop or control worryin = Not at all Worrying too much about different things: 0 = Not at all Trouble relaxin = Not at all Being so restless that it is hard to sit still: 0 = Not at all Becoming easily annoyed or irritable: 0 = Not at all Feeling afraid as if something awful might happen: 0 = Not at all Total EMERSON-7 score (0-4 normal; 5-9 mild; 10-14 moderate; 15-21 severe): 0 Source: Developed by Drs. Feng Suazo, Liz Carrillo, Raymond Morales and colleagues, with an educational katarina from [employer]. Review of Systems Const Details: information is obtained primarily from daughter as patient has some confusion and is unable to provide any pertinent info; also has issues with language barrier - patient speaks very little Montenegrin Denies chills, Reports fatigue (frequent), Denies fever(s) and Denies headache(s) ENT Denies dysphagia, Denies dizziness, Reports dry mouth (frequent - mostly due to her nightly CPAP device use), Denies otalgia, Denies headache(s), Denies neck pain, Denies odynophagia and Denies sore throat Card Denies chest pain, Denies palpitations and Reports dyspnea on exertion (mild) Resp Denies chest congestion, Reports cough (recurrent, non-productive; often worse at night), Reports dyspnea on exertion (mild) and Denies wheezing GI Denies abdominal pain, Denies constipation, Denies dysphagia, Denies heartburn, Denies diarrhea, Denies nausea, Denies odynophagia and Denies vomiting Denies difficulty voiding, Denies nocturia, Denies dysuria and Denies urinary urgency Musc Details: legs feel weak; gait is unsteady Reports arthralgias (in both knees), Denies neck pain and Reports tingling (on and off in both hands) Skin/Breast Denies rash Neuro Denies behavioral changes, Reports confusion (on and off), Denies dizziness, Denies headache(s), Reports memory loss, Reports tingling (on and off in both hands) and Reports paresthesias (on and off in her hands) Psych Denies behavioral changes, Reports confusion (on and off) and Reports memory loss Endo Reports fatigue (frequent) and Denies palpitations Aller/Immun Denies wheezing Physical exam (Primary Care) Vital Signs: Last Vital Signs Pulse 74 02/23/24 14:53 BP 132/78 02/23/24 14:53 Pulse Ox 95 02/23/24 14:53 Oxygen Delivery Method Room Air 02/23/24 14:53 BMI result Body Mass Index 42.5 Tobacco/Smoking Status: Tobacco use Status Tobacco use date assessed 02/23/24 02/23/24 15:05 Patient Tobacco Use Status Never used Tobacco 02/23/24 14:56 e-Cigarette/Vaping Use Never Used 02/23/24 14:56 PHQ-9: PHQ-9 Score PHQ-9: Total score 1 02/23/24 15:05 Depression Screening Interpretation: Negative Thrive Assessment: Date of Thrive Assessment Date Thrive assessed 02/23/24 02/23/24 15:05 Currently or been in a relationship where the following occur: No concerns reported Const General: confusion (on and off) Orientation/consciousness: confusion (on and off) HENMT Ears: TM's normal bilaterally and EAC's normal Throat: Yes posterior oropharynx normal and Yes tonsils normal (no TP congestion noted) Neck Neck: Yes no lymphadenopathy and Yes supple Thyroid: Thyroid normal Resp Auscultation: clear to auscultation bilaterally, no rales, no wheezes and diminished lung sounds (slightly) bilateral Cardio Rate: regular rate Rhythm: regular rhythm Heart sounds: no murmurs GI Palpation (GI): Soft to palpation and nontender Auscultation: normal bowel sounds General: Yes no CVA tenderness Back/Spine/Pelvis Back: no CVA tenderness Thoracic/Lumbar Spine: No lumbar spinal tenderness Skin Rashes: no rashes Neuro General: confusion (on and off) Extrem General: Yes no clubbing, cyanosis or edema Right lower extremity: knee Details: tenderness; no swelling Left lower extremity: knee Details: tenderness; no swelling Results Reviewed Results Reviewed: Laboratory Tests 02/04/24 10:25 WBC 6.7 Hgb 10.7 L Hct 32.8 L Plt Count 228 Sodium 139 Potassium 4.3 Creatinine 2.89 H Estimated GFR 15 Fasting Glucose 101 H Hemoglobin A1c % 6.1 H Calcium 9.0 Phosphorus 3.9 Iron 51 TIBC 235 % Saturation 22 AST 9 ALT 13 B-Natriuretic Peptide 31 Triglycerides 232 H Cholesterol 195 LDL Cholesterol, Calc 104 H HDL Cholesterol 45 Vitamin B12 864 25-OH Vitamin D Total 32.3 TSH 2.10 PTH Intact 287.9 H Ur Specific Adams 1.010 Urine Protein Negative Urine Glucose (UA) Negative Urine Blood Negative Urine Nitrite Negative Ur Leukocyte Esterase Moderate (2+) H Microalb/Creat Ratio 33.6 H Assessment and Plan Assessment & Plan (1) COPD (chronic obstructive pulmonary disease): Comment: PATIENT HAS MODERATELY SEVERE OBSTRUCTIVE AIRWAY DISORDER. ALSO HAS SIGNIFICANT RESTRICTIVE DISORDER. CLINICALLY SEEMS TO BE WELL CONTROLLED. DYSPNEA ON EXERTION SINCE LIKE WHEN CLIMBING ONE FLIGHT OF STAIRS, IS THE EXPECTED. NO RECENT PULMONARY FUNCTION TEST HAS BEEN DONE BECAUSE IT WILL BE IMPOSSIBLE TO DO. Code(s): J44.9 - Chronic obstructive pulmonary disease, unspecified Qualifiers: COPD type: unspecified COPD Qualified Code(s): J44.9 - Chronic obstructive pulmonary disease, unspecified Plan: Continue Albuterol HFA every 6 hours PRN; she also has Duoneb updraft to use when needed if she is at home and has access to her nebulizer Her daughter states that she seems to be coughing a lot more often lately, especially at night Her cough is mostly non-productive but is sometimes so frequent that she is unable to sleep at night Follow-up with pulmonary as scheduled - have advised her to speak with Dr. Blank about this at her upcoming appointment with him in a few weeks to see if she needs to be on any maintenance inhaler Rx to help calm her respiratory symptoms down (2) Chronic kidney disease, stage 4 (severe): Code(s): N18.4 - Chronic kidney disease, stage 4 (severe) Plan: Her renal function appears to be stable on her recent labs although she is far along and approaching ESRD, based on her lab results Patient was taken OFF her Metformin 1000 mg BID at a previous visit due to her then declining renal function She recently had renal US done, which revealed no obstructive process Follow up with nephrology as scheduled (3) Anemia of chronic disease: Code(s): D63.8 - Anemia in other chronic diseases classified elsewhere Plan: Discussed again that this is most likely related to her declining renal function - anemia of chronic disease Her H/H appears to have stabilized recently - H/H is at 10.7/32.8% on her recent labs Has been advised by nephrology that unless her Hct drops below 30%, she should not require Epogen yet Will continue to monitor her CBC regularly (4) Coronary artery disease: Code(s): I25.10 - Atherosclerotic heart disease of cherokee coronary artery without angina pectoris Qualifiers: Coronary Disease-Associated Artery/Lesion type: cherokee artery [place] vs. transplanted heart: cherokee heart Associated angina: without angina Qualified Code(s): I25.10 - Atherosclerotic heart disease of cherokee coronary artery without angina pectoris Plan: [place] [address] [facility] [place] (+) ischemia of the left ventricular apex; EF and wall motion studies were normal Echocardiogram done on 04/17/2009 showed low-normal LV systolic function with EF between 55-60%, mild concentric left ventricular hypertrophy, mild MR; diastolic filling pattern indicated impaired relaxation and moderate pulmonary hypertension Patient has been asymptomatic so far from a cardiac standpoint Continue Nitroglycerin patch 0.2 mg per hour once a day - Rx refilled She was seen by cardiology last year in September 2022 and advised to continue on current meds and management EKG done in the office at the time showed normal EKG with low voltage Follow up with cardiology as scheduled (5) Chronic heart failure with preserved ejection fraction (HFpEF): Code(s): I50.32 - Chronic diastolic (congestive) heart failure Plan: Patient has been compensated and was advised by cardiology to continue on low dose beta ciro and conservative medical management, given patient's age She was on Metoprolol ER 25 mg QD but patient's daughter cut this down to 1/2 tablet QD since she fell and was experiencing frequent dizziness and on and off headaches several months ago Amlodipine 5 mg QD has also been held since EKG done back in December 2022 revealed low voltage but EKG was otherwise normal Echocardiogram done in January 2023 showed that the left ventricular systolic function is hyperdynamic. The visually estimated ejection fraction is >70%. There is moderate septal asymmetric hypertrophy and evidence suggests grade I (mild) diastolic dysfunction. No obvious valvular pathology was seen on this study. 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 insulin use: without watermelon harvesting supervisor use Chronic kidney disease stage: unspecified stage Qualified Code(s): E11.22 - Type 2 diabetes mellitus with diabetic chronic kidney disease Plan: Patient's HgbA1c was unchanged at 6.1% on her labs done a few days ago (was also previously at 6.1% a few months ago) - goal is at least < 7.5% Reinforced diabetic diet Continue Tradjenta 5 mg QD and Glimepiride 1 mg QD (is used to offset her Metformin being discontinued) Metformin 1000 mg BID was discontinued at a previous appointment as her renal function and serum creatinine were progressively declining over the past year - her serum creatinine is now at 2.89 on her recent labs (8) Pure hypercholesterolemia: Code(s): E78.00 - Pure hypercholesterolemia, unspecified Plan: Results of her labs done a few days ago reviewed and discussed with patient's daughter Reinforced low cholesterol diet Continue Pravastatin 40 mg QD Will recheck her labs and fasting lipids in 3 months for follow-up (9) Benign essential hypertension: Code(s): I10 - Essential (primary) hypertension Plan: Reinforced low-sodium diet -? goal is systolic BP of at least 140 to 150 mm or less She was on Amlodipine 5 mg QD and Furosemide 20 mg QD in AM as well as Metoprolol ER 25 mg QD but her Amlodipine has been held and Metoprolol ER cut in half by her daughter over the past few months (since she fell back in November 2022) and patient seems to be doing well on her reduced Rx dosage - will continue on her current dosages for now (10) Mild cognitive impairment: Code(s): G31.84 - Mild cognitive impairment of uncertain or unknown etiology Plan: Follow up with neurology as scheduled (11) Obstructive sleep apnea: Code(s): G47.33 - Obstructive sleep apnea (adult) (pediatric) Plan: Continue using her CPAP device when sleeping at night daily (12) At high risk for aspiration: Code(s): Z91.89 - Other specified personal risk factors, not elsewhere classified Plan: Barium swallow done in October 2022 revealed (+)limited exam but (+) retention of liquid barium in the vallecula; no aspiration or penetration; (+) gastroesophageal reflux. Barium tablet passed freely into the esophagus Following up Dr. Weaver (GI) as scheduled (13) GERD without esophagitis: Code(s): K21.9 - Gastro-esophageal reflux disease without esophagitis Plan: Dietary restrictions reinforced Continue Omeprazole 20 mg QD Follow-up with GI as scheduled (14) Vitamin D deficiency: Code(s): E55.9 - Vitamin D deficiency, unspecified Plan: Continue Vitamin D3 1000 units QD (15) Primary osteoarthritis of knees, bilateral: Code(s): M17.0 - Bilateral primary osteoarthritis of knee Plan: Has received injections into her knees in the past with (+) relief of her knee pain She recently had her first dose of Euflexxa and is scheduled for her next dose tomorrow Follow-up with orthopedics as scheduled (16) Paresthesia of both hands: Code(s): R20.2 - Paresthesia of skin Plan: Symptoms are likely due to a combination of 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 (similar to what one would experience in carpal tunnel syndrome) Advised that unless her symptoms are significant and keep her up at night, would prefer not to start her on any Rx to help with her neuropathic pain as a lot of these Rx can cause sedation or are associated with some side effects that can be problematic for her given her age (17) Primary insomnia: Code(s): F51.01 - Primary insomnia Plan: Sleep hygiene reinforced Continue OTC Melatonin capsule 10 mg once a day at bedtime as needed (18) Anxiety: Code(s): F41.9 - Anxiety disorder, unspecified Plan: Continue Alprazolam 0.5 mg 1 tablet twice a day as needed for agitation (19) Depression: Code(s): F32.9 - Major depressive disorder, single episode, unspecified Qualifiers: Depression Type: unspecified Qualified Code(s): F32.9 - Major depressive disorder, single episode, unspecified Plan: Continue Citalopram? 20 mg QD in AM and Seroquel 25 mg Q HS Follow-up with Psychiatry as scheduled (20) Morbid obesity with BMI of 40.0-44.9, adult: Code(s): E66.01 - Morbid (severe) obesity due to excess calories; Z68.41 - Body mass index [BMI] 40.0-44.9, adult Plan: Reinforced diet; due to patient's age and comorbidities, there is no realistic expectation of any significant improvement in her activity level and in losing weight here Plan Follow up in 3 months Orders: Orders Lipid Panel 3 Months E78.00 - Pure hypercholesterolemia, unspecified Hemoglobin A1c 3 Months E11.9 - Type 2 diabetes mellitus without complications TSH reflex Free T4 3 Months E78.00 - Pure hypercholesterolemia, unspecified Vitamin B12 and Folate 3 Months E53.8 - Deficiency of other specified B group vitamins Complete Blood Count Auto Diff 3 Months D64.9 - Anemia, unspecified Comprehensive [place]. Panel Fast 3 Months E78.00 - Pure hypercholesterolemia, unspecified B Type Natriuretic Peptide 3 Months I50.9 - Heart failure, unspecified Microalbumin, Random (w Creat) 3 Months E11.9 - Type 2 diabetes mellitus without complications UA CC w/rflx Micro + Cult 3 Months R30.0 - Dysuria Vitamin D 25-OH Total 3 Months E55.9 - Vitamin D deficiency, unspecified Coding Level of Care Code Est Pt Level 4 (75053) Complex EM visit Add On G2211 Diagnoses Chronic obstructive pulmonary disease, unspecified COPD type J44.9 COPD type: unspecified COPD Chronic kidney disease, stage 4 (severe) N18.4 Anemia of chronic disease D63.8 Coronary artery disease involving cherokee coronary artery of cherokee heart without angina pectoris I25.10 Coronary Disease-Associated Artery/Lesion type: cherokee artery [place] vs. transplanted heart: cherokee heart Associated angina: without angina Chronic heart failure with preserved ejection fraction (HFpEF) I50.32 Hyperparathyroidism, secondary renal N25.81 Type 2 diabetes mellitus with chronic kidney disease, without long-term current use of insulin, unspecified CKD stage E11.22 Diabetes mellitus watermelon harvesting supervisor insulin use: without watermelon harvesting supervisor use Chronic kidney disease stage: unspecified stage Pure hypercholesterolemia E78.00 Benign essential hypertension I10 Mild cognitive impairment G31.84 Obstructive sleep apnea G47.33 At high risk for aspiration Z91.89 GERD without esophagitis K21.9 Vitamin D deficiency E55.9 Primary osteoarthritis of knees, bilateral M17.0 Paresthesia of both hands R20.2 Primary insomnia F51.01 Anxiety F41.9 Depression, unspecified depression type F32.9 Depression Type: unspecified Morbid obesity with BMI of 40.0-44.9, adult E66.01; Z68.41
== END 2024-02-23 15:40 | disposition home or self-care (01) ==
PROVIDERS: PCP Internal Medicine; Visit Provider Internal Medicine
DX: J44.9 Chronic obstructive pulmonary disease, unspecified (principal); N18.4 Chronic kidney disease, stage 4 (severe); D63.8 Anemia in other chronic diseases classified elsewhere; I25.10 Atherosclerotic heart disease of native coronary artery without angina pectoris; I50.32 Chronic diastolic (congestive) heart failure; N25.81 Secondary hyperparathyroidism of renal origin; E11.22 Type 2 diabetes mellitus with diabetic chronic kidney disease; E78.00 Pure hypercholesterolemia, unspecified; I12.9 Hypertensive chronic kidney disease with stage 1 through stage 4 chronic kidney disease, or unspecified chronic kidney disease; G31.84 Mild cognitive impairment of uncertain or unknown etiology; E66.01 Morbid (severe) obesity due to excess calories; Z68.41 Body mass index [BMI] 40.0-44.9, adult; G47.33 Obstructive sleep apnea (adult) (pediatric); Z91.89 Other specified personal risk factors, not elsewhere classified; K21.9 Gastro-esophageal reflux disease without esophagitis; E55.9 Vitamin D deficiency, unspecified; M17.0 Bilateral primary osteoarthritis of knee; R20.2 Paresthesia of skin; F51.01 Primary insomnia; F41.9 Anxiety disorder, unspecified

== ENCOUNTER → 2024-02-23 14:48 | Outpatient (BNVA) | payer OTHER, SELFPAY | PROVIDERS: PCP Internal Medicine; Visit Provider Internal Medicine | DX: I13.0 Hypertensive heart and chronic kidney disease with heart failure and stage 1 through stage 4 chronic kidney disease, or unspecified chronic kidney disease (principal); E11.22 Type 2 diabetes mellitus with diabetic chronic kidney disease; N18.4 Chronic kidney disease, stage 4 (severe); I50.32 Chronic diastolic (congestive) heart failure; J44.9 Chronic obstructive pulmonary disease, unspecified; D63.8 Anemia in other chronic diseases classified elsewhere; I25.10 Atherosclerotic heart disease of native coronary artery without angina pectoris; N25.81 Secondary hyperparathyroidism of renal origin; E78.00 Pure hypercholesterolemia, unspecified; K21.9 Gastro-esophageal reflux disease without esophagitis; E55.9 Vitamin D deficiency, unspecified; M17.0 Bilateral primary osteoarthritis of knee; R20.2 Paresthesia of skin | CPT/HCPCS: 99212 ==

== ENCOUNTER 2024-02-24 13:46 | Outpatient (AMB) | payer OTHER, SELFPAY ==
--- NOTE | 2024-02-24 13:57 | A.OFFVIS_ITS ---
Intake Visit Reasons: B/L Euflexxa gel injections #2 Intake Note: Deepika is an 88 year old female who presents today for bilateral knee Euflexxa #2 Allergies No Known Allergies Allergy (Verified 02/23/24 15:12) HPI HPI B/L Euflexxa gel injections #2: Details: Patient presents to the office today for bilateral Euflexxa #2 injections. [facility] Medical History (Updated 02/23/24 @ 16:26 by Nima Farooq MD) Hyperparathyroidism, secondary renal Anemia of chronic disease Chronic kidney disease, stage 4 (severe) Mild cognitive impairment LESLIE on CPAP Chronic heart failure with preserved ejection fraction (HFpEF) COPD (chronic obstructive pulmonary disease) Cellulitis of right foot Morbid obesity with BMI of 40.0-44.9, adult Depression Primary insomnia GERD without esophagitis Vitamin D deficiency Obstructive sleep apnea Benign essential hypertension Pure hypercholesterolemia Chronic kidney disease (CKD), stage III (moderate) Type 2 diabetes mellitus with diabetic chronic kidney disease Coronary artery disease COVID-19 GI bleed GERD (gastroesophageal reflux disease) LESLIE (obstructive sleep apnea) Anxiety CKD (chronic kidney disease) stage 3, GFR 30-59 ml/min Pulmonary hypertension CAD (coronary artery disease) Diabetes mellitus Heart disease Hypercholesteremia HTN (hypertension) Surgical History Hx of colonoscopy History of esophagogastroduodenoscopy (EGD) History of eye surgery H/O abdominal hysterectomy Family History Father No problems noted. Mother No problems noted. Social History Household Members Other:: lives with her daughter who cares for her Housing: Apartment Alcohol intake: never Patient Tobacco Use Status: Never used Tobacco e-Cigarette/Vaping Use: Never Used Second Hand Smoke Exposure: Yes service: No Current occupational status: retired and disabled Cognitive needs: No Hearing needs: No Vision needs: Yes Physical Exam Const General: cooperative, healthy appearing and no acute distress Resp Effort & Inspection: normal respiratory effort and able to speak in complete sentences Cardio Rate: regular rate Peripheral pulses: Peripheral pulses 2+ throughout GI Palpation (GI): Soft to palpation Skin Lesions: no lesions Rashes: no rashes Extrem Other: Bilateral knees: Normal to inspection. No ecchymosis, erythema, or joint effusion. Patient is able to demonstrate full knee flexion and extension. NVI. Office Procedures Joint Injection/Aspiration Joint Injection/Aspiration Primary Site: right knee Secondary Site: left knee Prep: site was prepped using aseptic technique, ethochloride spray was applied and injection warnings given Injected: other (Euflexxa #2) Approach Used: anterolateral Procedure: The patient tolerated the procedure well, but had some pain with the injection and there was some relief with the local anesthesia Coding 32014 - Large joint Procedure code (CPT) selection complete Assessment & Plan Assessment & Plan (1) Osteoarthritis of knees, bilateral: Code(s): M17.0 - Bilateral primary osteoarthritis of knee Category: Medical (2) Type 2 diabetes mellitus with unspecified complications: Code(s): E11.8 - Type 2 diabetes mellitus with unspecified complications Category: Medical (3) Morbid obesity with BMI of 40.0-44.9, adult: Code(s): E66.01 - Morbid (severe) obesity due to excess calories; Z68.41 - Body mass index [BMI] 40.0-44.9, adult Category: Medical Plan Ms. Fernandez is a 88-year-old female who presents in the office today for a follow up of bilateral knee pain and to obtain her first Euflexxa injection in a series of 3. I last saw the patient in the office on 01/21/24 when she received a cortisone injection in the bilateral knees. ? ? Patient has a significant medical history of diabetes mellitus.? ? The patient was injection with her second Euflexxa injection in the bilateral knees. The patient was explained the risk, benefits, and alternatives to receiving this injection. After receiving consent for the injection, the patient had the procedure done while in the office today. The patient tolerated the ? Follow-up will be in one week for her third Eulfexxa injection in a series of three, or sooner if needed.? Coding Level of Care Code Procedure Only Diagnoses Osteoarthritis of knees, bilateral M17.0 Type 2 diabetes mellitus with unspecified complications E11.8 Morbid obesity with BMI of 40.0-44.9, adult E66.01; Z68.41 CPT Codes Coding - 02617 Large joint: 55179 - Large joint ([id number])
== END 2024-02-24 14:04 | disposition home or self-care (01) ==
PROVIDERS: PCP Internal Medicine; Visit Provider Physician Assistant
DX: M17.0 Bilateral primary osteoarthritis of knee (principal); E11.8 Type 2 diabetes mellitus with unspecified complications; E66.01 Morbid (severe) obesity due to excess calories; Z68.41 Body mass index [BMI] 40.0-44.9, adult
CPT/HCPCS: 20610

== ENCOUNTER → 2024-02-24 13:46 | Outpatient (BNVA) | payer OTHER, SELFPAY | PROVIDERS: PCP Internal Medicine; Visit Provider Physician Assistant | DX: M17.0 Bilateral primary osteoarthritis of knee (principal); E11.8 Type 2 diabetes mellitus with unspecified complications; E66.01 Morbid (severe) obesity due to excess calories; Z68.41 Body mass index [BMI] 40.0-44.9, adult | CPT/HCPCS: 20610; J7323 ==

== ENCOUNTER 2024-03-02 12:50 | Outpatient (AMB) | payer OTHER, SELFPAY ==
--- NOTE | 2024-03-02 13:01 | A.OFFVIS_ITS ---
Intake Visit Reasons: B/L Euflexxa gel injections #3 Allergies No Known Allergies Allergy (Verified 02/23/24 15:12) HPI HPI B/L Euflexxa gel injections #3: Details: 88-year-old female who presents in the office today for bilateral knee pain and to obtain her third Euflexxa injection in a series of 3. I last saw the patient on 02/24/24 when she received her second Euflexxa injection in the bilateral knees. Patient has a significant medical history of diabetes mellitus. [facility] Medical History (Updated 02/23/24 @ 16:26 by Nima Farooq MD) Hyperparathyroidism, secondary renal Anemia of chronic disease Chronic kidney disease, stage 4 (severe) Mild cognitive impairment LESLIE on CPAP Chronic heart failure with preserved ejection fraction (HFpEF) COPD (chronic obstructive pulmonary disease) Cellulitis of right foot Morbid obesity with BMI of 40.0-44.9, adult Depression Primary insomnia GERD without esophagitis Vitamin D deficiency Obstructive sleep apnea Benign essential hypertension Pure hypercholesterolemia Chronic kidney disease (CKD), stage III (moderate) Type 2 diabetes mellitus with diabetic chronic kidney disease Coronary artery disease COVID-19 GI bleed GERD (gastroesophageal reflux disease) LESLIE (obstructive sleep apnea) Anxiety CKD (chronic kidney disease) stage 3, GFR 30-59 ml/min Pulmonary hypertension CAD (coronary artery disease) Diabetes mellitus Heart disease Hypercholesteremia HTN (hypertension) Surgical History Hx of colonoscopy History of esophagogastroduodenoscopy (EGD) History of eye surgery H/O abdominal hysterectomy Family History Father No problems noted. Mother No problems noted. Social History Household Members Other:: lives with her daughter who cares for her Housing: Apartment Alcohol intake: never Patient Tobacco Use Status: Never used Tobacco e-Cigarette/Vaping Use: Never Used Second Hand Smoke Exposure: Yes service: No Current occupational status: retired and disabled Cognitive needs: No Hearing needs: No Vision needs: Yes Review of Systems Const All systems reviewed & are unremarkable except as noted in HPI and below Physical Exam Const General: cooperative, healthy appearing and no acute distress Resp Effort & Inspection: normal respiratory effort and able to speak in complete sentences Cardio Rate: regular rate Peripheral pulses: Peripheral pulses 2+ throughout GI Palpation (GI): Soft to palpation Skin Lesions: no lesions Rashes: no rashes Extrem Other: Bilateral knees: Normal to inspection. No ecchymosis, erythema, or joint effusion. Patient is able to demonstrate full knee flexion and extension. NVI. Office Procedures Joint Injection/Aspiration Joint Injection/Aspiration Primary Site: right knee Secondary Site: left knee Prep: site was prepped using aseptic technique, ethochloride spray was applied and injection warnings given Injected: other (Euflexxa #3) Approach Used: anterolateral Procedure: The patient tolerated the procedure well, but had some pain with the injection and there was some relief with the local anesthesia Coding 06315 - Large joint Procedure code (CPT) selection complete Assessment & Plan Assessment & Plan (1) Osteoarthritis of knees, bilateral: Code(s): M17.0 - Bilateral primary osteoarthritis of knee Category: Medical (2) Type 2 diabetes mellitus with unspecified complications: Code(s): E11.8 - Type 2 diabetes mellitus with unspecified complications Category: Medical (3) Morbid obesity with BMI of 40.0-44.9, adult: Code(s): E66.01 - Morbid (severe) obesity due to excess calories; Z68.41 - Body mass index [BMI] 40.0-44.9, adult Category: Medical Plan Ms. Membreno is a 88-year-old female who presents in the office today for bilateral knee pain and to obtain her third Euflexxa injection in a series of 3. I last saw the patient on 02/24/24 when she received her second Euflexxa injection in the bilateral knees. Patient has a significant medical history of diabetes mellitus. The patient was injected with her third Euflexxa injection in the bilateral knees. The patient was explained the risks, benefits, and alternatives to receiving this injection. After receiving consent for the injection, the patient had the procedure done while in the office today. The patient tolerated the procedure well with no complications. Follow up will be PRN, or sooner if needed. Patient Instructions: Scribed by Cherelle Rivero medical transcriber, for Shiloh Gonzalez PA-C on 03/02/24 at 01:10 EST. Coding Level of Care Code Procedure Only Diagnoses Osteoarthritis of knees, bilateral M17.0 Type 2 diabetes mellitus with unspecified complications E11.8 Morbid obesity with BMI of 40.0-44.9, adult E66.01; Z68.41 CPT Codes Coding - 47947 Large joint: 11667 - Large joint ([id number])
== END 2024-03-02 13:06 | disposition home or self-care (01) ==
PROVIDERS: PCP Internal Medicine; Visit Provider Physician Assistant
DX: M17.0 Bilateral primary osteoarthritis of knee (principal); E11.8 Type 2 diabetes mellitus with unspecified complications; E66.01 Morbid (severe) obesity due to excess calories; Z68.41 Body mass index [BMI] 40.0-44.9, adult
CPT/HCPCS: 20610

== ENCOUNTER → 2024-03-02 12:50 | Outpatient (BNVA) | payer OTHER, SELFPAY | PROVIDERS: PCP Internal Medicine; Visit Provider Physician Assistant | CPT/HCPCS: 20610; J7323 ==

== ENCOUNTER 2024-03-13 11:23 | Inpatient (IN) | payer OTHER, SELFPAY ==
[2024-03-13] VITALS (12 sets, daily range): BP systolic 127–159; BP diastolic 36–63; PULSE 66–93; RESP 18–30; TEMP 35.9–36.4; O2SAT 92–96; BMI 36.5; BMI 37.8
--- NOTE | ~2024-03-13 | CT_ITS ---
EXAMINATION: CT ABDOMEN AND PELVIS WITHOUT CONTRAST CLINICAL INFORMATION: Nausea. Vomiting. Abdominal pain. Question bowel obstruction. COMPARISON: CT scans dating between March 15, 2023 and July 14, 2009. More remote prior CT scan is not currently available. TECHNIQUE: Multidetector volumetric imaging was performed from the superior aspect of the liver through the pubic symphysis. Sagittal and coronal reformatted images were obtained on the technologist's workstation. This CT examination was performed using dose optimization techniques as appropriate, variously including the following: *Automated exposure control *Adjustment of mA and/or kV according to patient size (this includes techniques or standardized protocols for targeted exams where dose is matched to indication/reason for exam; i.e. extremities or head) *Use of iterative reconstruction technique DLP: 709 mGy-cm FINDINGS: LUNG BASES: Limited by motion. No gross focal infiltrate or lung nodule identified. No pleural effusion. Heart upper normal in size to mildly enlarged. No pericardial effusion. LIVER, GALLBLADDER, AND BILIARY TREE: The liver appears unremarkable in size, shape, and attenuation. No focal hepatic lesion or biliary ductal dilatation is appreciated. Unremarkable appearance of the gallbladder. PANCREAS: Approximately 2.7 x 2.1 cm soft tissue fullness involving the head of the pancreas (image 26, series 3), not significantly changed compared with March 15, 2023, by my measurements, suboptimally evaluated without the benefit of intravenous contrast. SPLEEN: Unremarkable ADRENAL GLANDS: Unremarkable KIDNEYS AND URETERS: The kidneys appear unremarkable in size, shape, and attenuation. No hydronephrosis, hydroureter, or calculi seen. BLADDER: Unremarkable GASTROINTESTINAL TRACT: Stomach appears unremarkable. Approximately 1 cm diverticulum involving the second portion of duodenum, without evidence of associated inflammation. Small bowel otherwise appears unremarkable. Diverticulosis predominantly involving the sigmoid and descending colon, without evidence of diverticulitis. Normal-appearing distal ileum. No evidence of appendicitis. ABDOMINAL WALL: Suspect mild pelvic prolapse. Approximately 3 cm umbilical hernia containing only fat. LYMPH NODES: No evidence of adenopathy by size criteria. VASCULAR: Unremarkable PELVIC VISCERA: Status post hysterectomy. OSSEOUS STRUCTURES: Decreased bone mineral density. Degenerative changes of the lower lumbar spine. Mild osteoarthritis of the hips. CT/CT abdomen pelvis wo IV con IMPRESSION: No acute finding. No evidence of intestinal obstruction. Additional findings as above. Electronically signed by: Aston Berry MD 03/15/2024 10:21 AM EDT RP
--- NOTE | ~2024-03-13 | XR_ITS ---
EXAMINATION: XR CHEST CLINICAL INFORMATION: Dyspnea.? Aspiration. COMPARISON: 03/14/2024, 03/13/2024, 10/04/2023, 08/02/2023 chest x-rays. TECHNIQUE: AP view of the chest was obtained. FINDINGS: -Exam limited by habitus. -Redemonstration of cardiomegaly. -Enlarged pulmonary arteries in the hilar regions. -Normal aortic contour with significant atherosclerotic calcification. -The superior tracheal air column is significantly narrowed, suggesting possible tracheomalacia. -Prominence of the bronchovascular interstitium, unchanged from prior exams. -No discrete consolidation or definite abnormal opacity. -No pleural effusion or pneumothorax. -No soft tissue abnormalities. -Osseous structures demonstrate mild superior thoracic dextroconvex scoliosis and extensive degenerative spondylosis. Arthritic changes in the right greater than left AC joints, and sternoclavicular joints. XR/XR chest 1V IMPRESSION: 1. Study limited by habitus. 2. Stable cardiomegaly with prominence of the central airways and perihilar vascular structures, and diffuse stable prominence of the vascular interstitium. 3. No definite focal consolidation or pneumonic opacity within confines of limitations.. 4. No pleural effusion or pneumothorax. 5. Abnormal appearance to the superior tracheal air column, possibly representing tracheomalacia. 6. CT would be a preferred method to evaluate these findings. Electronically signed by: Gaudencio John MD 03/16/2024 03:51 PM EDT
--- NOTE | ~2024-03-13 | CT_ITS ---
EXAMINATION: CT CHEST WITHOUT CONTRAST CLINICAL INFORMATION: Dyspnea, rule out pneumonia,? Aspiration. COMPARISON: Comparison made with CT chest 01/23/2015. Correlation made with chest radiograph earlier same day, and several recent dating back to 08/02/2023. TECHNIQUE: Multidetector volumetric CT imaging of the chest was done. Axial MIP volume rendering provided. Sagittal and coronal reformatted images were obtained. This CT examination was performed using dose optimization techniques as appropriate, variously including the following: *Automated exposure control *Adjustment of mA and/or kV according to patient size (this includes techniques or standardized protocols for targeted exams where dose is matched to indication/reason for exam; i.e. extremities or head) *Use of iterative reconstruction technique DLP: 239 mGy-cm FINDINGS: -Study significantly limited by respiratory motion artifact, particularly in the lower lung zones, limiting sensitivity for detection of subtle findings. Examination is partially expiratory. Study is also limited by patient habitus and beam starvation artifact. PULMONARY NODULES: LUNGS: -Diffuse mosaic attenuation again noted throughout both lungs, with involvement of the upper and lower lungs. -Focus of varicoid bronchiectasis with surrounding groundglass changes in the superior segment right lower lobe, somewhat obscured by motion (series 5, image 215). This was at the site of prior cavitary focus in 2015. -In the posterior segment right upper lobe, there are centrilobular peribronchial opacities suggesting developing bronchopneumonia. Unfortunately, this region is obscured heavily by motion artifact. -Linear groundglass opacity in the inferior lateral right upper lobe, nonspecific. -Mild gravity dependent atelectasis is present as well as patchy atelectasis or scarring in the lateral costophrenic angles from both sides, and involving the posterior right middle lobe abutting the major fissure. -Significant large airway thickening and flattening present suggesting tracheobronchial malacia. -No suspicious nodules identified within the confines of respiratory motion. -No pleural effusion. No pneumothorax. MEDIASTINUM: -The aorta is nonaneurysmal, however mildly ectatic and heavily calcified. 2 vessel branching pattern. -The main pulmonary artery is significantly enlarged, measuring 3.7 cm in diameter, findings consistent with pulmonary arterial hypertension. The proximal pulmonary arteries are also dilated with rapid tapering. -Enlargement of the right thyroid lobe, without discrete nodules seen by CT. -There is no pathologic lymphadenopathy in the mediastinum or hilar regions. -There is moderate cardiomegaly. There is no pericardial effusion. -There is mild patulous esophagus present. CORONARY ARTERY CALCIFICATION: There are heavy four-vessel calcifications. AXILLA/CHEST WALL: -No masses or abnormal lymphadenopathy present. UPPER ABDOMEN: -There is cholelithiasis in an otherwise normal-appearing gallbladder. -Probable small type I hiatus hernia. -There is mild to moderate pancreatic atrophy. Thickening of the pancreatic tail is again noted, most likely secondary to accessory splenic tissue. This is unchanged from 2015 and benign. OSSEOUS STRUCTURES: -There are fairly classic changes of diffuse idiopathic skeletal hyperostosis throughout the spine. -There is diffuse osteopenia. -There are severe degenerative changes in both sternoclavicular joints. CT/CT chest wo IV con IMPRESSION: 1. Very Limited exam due to respiratory motion artifact and habitus. Within these confines, suspect developing bronchopneumonia in the posterior segment right upper lobe. 2. Mosaic attenuation of both lungs, similar to 2015, with differential including air trapping, obstructive lung disease, pulmonary hypertension, hypersensitivity pneumonitis, respiratory bronchiolitis or constrictive bronchiolitis. 3. 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 4. Focus of the varicoid bronchiectasis in the right lower lobe, at the site of a previously seen inflammatory cavitary type lesion in 2015. 5. Cardiomegaly. Enlarged pulmonary arteries consistent with pulmonary hypertension. 6. Classical findings of the skeletal structures related to DISH. 7. Additional ancillary findings as discussed in the body of the report. Fleischner guidelines were followed. Electronically signed by: Gaudencio John MD 03/16/2024 03:15 PM EDT
--- NOTE | ~2024-03-13 | XR_ITS ---
EXAMINATION: XR CHEST CLINICAL INFORMATION: Shortness of breath. COMPARISON: October 04, 2023, August 02, 2023. TECHNIQUE: 2 views of the chest were obtained. FINDINGS: Dextroscoliosis with multilevel degenerative changes in the thoracic spine. There is no gross pneumothorax. Cardiac silhouette appears enlarged. Similar appearance of cardiomediastinal silhouette allowing for differences in patient rotation. Trace bilateral pleural effusions. Mild bibasilar hazy opacities, left greater than right. Redemonstration of prominent interstitial opacities. XR/XR chest 2V IMPRESSION: Trace bilateral pleural effusions. Mild bibasilar hazy opacities, left greater than right. Redemonstration of prominent interstitial opacities. This study was presented today March 13, 2024 for interpretation. Stat results provided at this time as requested by referring provider. Electronically signed by: Scarlet Mckenna MD 03/13/2024 02:50 PM EDT
--- NOTE | ~2024-03-13 | XR_ITS ---
EXAMINATION: XR ABDOMEN KUB CLINICAL INDICATION: Nausea, vomiting, constipation. COMPARISON: CT abdomen/pelvis 03/15/2023. TECHNIQUE: AP view of the abdomen. FINDINGS: Limited evaluation secondary to patient body habitus. Moderate gastric distention. Relatively gasless central abdomen. Colonic distention without significant stool burden. No acute osseous findings. Multifocal degenerative changes. XR/XR KUB IMPRESSION: 1. Limited evaluation secondary to patient body habitus. 2. Nonspecific moderate gastric distention, differential considerations include postprandial state, gastroparesis and gastric outlet obstruction. 3. Gasless central abdomen which is indeterminate and could potentially be seen in the context of bowel obstruction, additional evaluation with CT abdomen/pelvis as clinically warranted. Electronically signed by: Carie Bro MD 03/14/2024 04:00 PM EDT
--- NOTE | ~2024-03-13 | XR_ITS ---
EXAMINATION: XR CHEST CLINICAL INFORMATION: Possible aspiration, cough. COMPARISON: 03/13/2024, 10/04/2023, 08/02/2023. TECHNIQUE: AP view of the chest was obtained. FINDINGS: Redemonstration of cardiac enlargement. Mild prominence of the hilar vascular structures. Mediastinal contours normal. Aortic contour is normal with mild calcification. Lungs appear free of consolidations. There is no pneumothorax. Mild blunting of the right costophrenic angle may be due to patient habitus and technique. Mild linear and hazy opacities in both lung bases appear similar to 03/13/2024. Prominence of the perivascular interstitium noted bilaterally, likely reflecting a a baseline degree of vascular congestion. No acute osseous abnormality. Right convex thoracic scoliosis with degenerative changes. Degenerative changes right greater than left AC joints. No soft tissue abnormalities. XR/XR chest 1V IMPRESSION: 1. Cardiomegaly with mild vascular congestion. 2. Similar mild hazy opacities with linear type opacities in both medial lung bases right greater than left. Possible small right effusion versus artifact from habitus. Overall, findings could be on the basis of body habitus and technique, although a developing basilar bronchopneumonia would be difficult to exclude. CT would be a preferred method to evaluate this patient. Electronically signed by: Gaudencio John MD 03/14/2024 04:00 PM EDT
--- NOTE | 2024-03-13 11:27 | ED_ITS ---
HPI - SOB/Dyspnea General Chief Complaint: Dyspnea Stated Complaint: Diff breathing Time Seen by Provider: 03/13/24 12:01 History of Present Illness ED Provider: Dr. Parker HPI Narrative: 88 y/o F patient; PMH COPD, anemia of chronic disease, CKD, LESLIE, HTN, T2DM, HLD, HFpEF, morbid obesity; presents from home with family reporting difficulty breathing and a cough productive of yellow/green sputum since Wednesday (03/10/2024). The patient reports associated generalized fatigue. She denies: fever or chills, chest pain, nausea/vomiting, abdominal pain. No known sick contacts. Related Data Home Medications ?Medication ?Instructions ?Recorded ?Confirmed alprazolam 0.5 mg tablet 0.75 mg PO BID Anxiety 03/18/20 03/13/24 ascorbic acid (vitamin C) 500 mg 500 mg PO DAILY 03/18/20 03/13/24 capsule citalopram 20 mg tablet 20 mg PO DAILY 12/24/20 03/13/24 melatonin 10 mg tablet 10 mg PO BEDTIME 10/04/23 03/13/24 quetiapine 100 mg tablet 100 mg PO BEDTIME 10/04/23 03/13/24 quetiapine 25 mg tablet 25 mg PO DAILY 10/05/23 03/13/24 furosemide 40 mg tablet 20 mg PO DAILY 10/12/23 03/13/24 cetirizine 10 mg tablet 10 mg PO DAILY for allergies 03/13/24 03/13/24 glimepiride 1 mg tablet 1 mg PO DAILY 03/13/24 03/13/24 ipratropium 0.5 mg-albuterol 3 mg 3 ml inhalation BID shortness of 03/13/24 03/13/24 (2.5 mg base)/3 mL nebulization breath or wheezing soln omeprazole 20 mg capsule,delayed 20 mg PO DAILY@0630 03/13/24 03/13/24 release pravastatin 40 mg tablet 40 mg PO BEDTIME 03/13/24 03/13/24 Previous Rx's ?Medication ?Instructions ?Recorded CHAIR LIFT #1 ea 05/26/21 LIGHTWEIGHT TRANSPORT WHEELCHAIR #1 ea 05/26/21 WITH HANDBRAKES blood pressure monitor #1 ea 03/16/22 albuterol sulfate 90 mcg/actuation 2 puff PO Q4-6H PRN for wheezing 12/04/22 aerosol inhaler #8.5 ea nebulizers (VixOne Nebulizer-Adult #1 ea 12/04/22 Mask) blood sugar diagnostic (OneTouch #100 ea 01/25/23 Verio test strips) lancets 30 gauge #100 ea 01/25/23 linagliptin 5 mg tablet (Tradjenta) 5 mg PO DAILY #90 tabs 04/01/23 metoprolol succinate 25 mg 12.5 mg (1/2 x 25 mg) PO DAILY 90 09/07/23 tablet,extended release 24 hr days #45 tabs (Toprol XL) cholecalciferol (vitamin D3) 25 25 mcg PO DAILY 90 days #90 tabs 10/27/23 mcg (1,000 unit) tablet cyanocobalamin (vitamin B-12) 500 500 mcg PO DAILY 90 days #90 tabs 10/27/23 mcg tablet nitroglycerin 0.2 mg/hr 1 patch topical DAILY #30 patches 12/23/23 transdermal 24 hour patch ferrous sulfate 325 mg (65 mg 325 mg PO DAILY #90 tabs 01/18/24 iron) tablet amlodipine 2.5 mg tablet 2.5 mg PO DAILY #30 tabs 02/10/24 Allergies Allergy/AdvReac Type Severity Reaction Status Date / Time No Known Allergies Allergy Verified 03/13/24 11:27 Review of Systems 2 Review of Systems: Yes all other systems are reviewed and are negative PMFSH Past Medical History Attestation statement: The following information was validated with the patient. Source: old records reviewed Medical History Hyperparathyroidism, secondary renal Anemia of chronic disease Chronic kidney disease, stage 4 (severe) Mild cognitive impairment LESLIE on CPAP Chronic heart failure with preserved ejection fraction (HFpEF) COPD (chronic obstructive pulmonary disease) Cellulitis of right foot Morbid obesity with BMI of 40.0-44.9, adult Depression Primary insomnia GERD without esophagitis Vitamin D deficiency Obstructive sleep apnea Benign essential hypertension Pure hypercholesterolemia Chronic kidney disease (CKD), stage III (moderate) Type 2 diabetes mellitus with diabetic chronic kidney disease Coronary artery disease COVID-19 GI bleed GERD (gastroesophageal reflux disease) LESLIE (obstructive sleep apnea) Anxiety CKD (chronic kidney disease) stage 3, GFR 30-59 ml/min Pulmonary hypertension CAD (coronary artery disease) Diabetes mellitus Heart disease Hypercholesteremia HTN (hypertension) Surgical History Hx of colonoscopy History of esophagogastroduodenoscopy (EGD) History of eye surgery H/O abdominal hysterectomy Family History Family History Father No problems noted. Mother No problems noted. Social History Social History Household Members Other:: lives with her daughter who cares for her Housing: Apartment Alcohol intake: never Patient Tobacco Use Status: Never used Tobacco Smoked in Last 30 Days: No e-Cigarette/Vaping Use: Never Used Second Hand Smoke Exposure: Yes Use of substances other than those prescribed or required for medical reasons: No Advance Directives: No Advance Directives Information Provided: No Do you have a plan to hurt others: No Plan service: No Current occupational status: retired and disabled Cognitive needs: No Hearing needs: No Vision needs: Yes Physical Exam 2 Vital Signs: Vital Signs: Last Vital Signs Temp 97.5 F 03/13/24 14:10 Pulse 69 03/13/24 14:40 Resp 20 03/13/24 14:40 BP 127/58 L 03/13/24 14:10 Pulse Ox 94 03/13/24 14:10 O2 Del Method Room Air 03/13/24 14:10 BMI result Body Mass Index 36.5 Patient is afebrile, mildly tachypneic 94% on RA. Const: General: cooperative Orientation/consciousness: patient oriented x3 HEENT: Head: Yes normal to inspection and Yes atraumatic Eyes: General: appearance normal, both eyes and all related structures P upils: Equal, round and reactive pupils present Neck: Neck: Yes normal visual inspection, Yes full ROM, Yes supple and No tender Chest: Chest palpation & inspection: normal inspection of the chest and normal palpation of entire chest wall Resp: Other: Increased WOB, tachypneic Effort & Inspection: Actively coughing Auscultation: rhonchi and wheezes Cardio: Rate: regular rate Rhythm: regular rhythm Peripheral pulses: P eripheral pulses 2+ throughout GI: Inspection: Yes normal to inspection, No Abdominal wall edema and No distended Palpation (GI): Soft to palpation, not firm, nontender, no guarding and not rigid Auscultation: normal bowel sounds Back/Spine/Pelvis: Back: No back tenderness Neuro: General: patient oriented x3 Cranial nerves: Yes Equal, round and reactive pupils present Extrem: Other: 1+ bilateral lower extremity pitting monique ma Course Course Course Narrative: This is an RME: Additional HPI, ROS, PE not included below will be deferred to primary provider. RME assessment and note performed by: Karly Donahue PA-C This is a 88-year-old female, with a past medical history of hyperparathyroidism, LESLIE on CPAP, COPD, CHF, CKD, diabetes, hypertension, who presents emergency department with complaints of shortness for breath, cough, and malaise. Symptoms started 3 days ago. Patient with inspiratory and expiratory wheezes as well as rales noted. 1+ pitting edema noted to bilateral lower extremities. No sick contacts at home. No fevers. Plan: Labs, EKG, chest x-ray, further ER evaluation needed. Reevaluation(s) Reevaluation #1: Patient is afebrile, tachypneic. Will obtain EKG, CXR, and lab work. Provided Ventolin 5mg. Provided Solu-Medrol 125mg IV, Azithromycin 500mg IV for COPD exacerbation. Labs reviewed. Blood culture obtained as treating for COPD exacerbation with antibiotic. No leukocytosis. Mild baseline anemia. Hypomagnesemia - repleted with 2g IV. Cr 2.72, baseline. Troponin 6.2. BNP unremarkable. CXR without focal infiltrate. Patient re-evaluated multiple times. She remains with SpO2 89 - 90% with minimal exertion. She needs maximum assist to sit up in bed. Plan: Admit to hospitalist for COPD exacerbation Condition: Stable Medications Administered Generic Name Dose Route Start Last Admin Trade Name Freq PRN Reason Stop Dose Admin Azithromycin 500 mg/ Sodium 250 mls @ 125 mls/hr 03/13/24 13:00 03/13/24 13:42 Chloride IV 03/13/24 14:59 125 mls/hr ONCE ONE Administration Discontinued Medications Generic Name Dose Route Start Last Admin Trade Name Freq PRN Reason Stop Dose Admin Albuterol Sulfate 5 mg/ 0 mg 03/13/24 11:59 03/13/24 12:03 Albuterol/Ipratropium 3 ml INHALE 03/13/24 12:00 1 each ONCE ONE Administration Albuterol Sulfate 5 mg/ 0 mg 03/13/24 14:17 03/13/24 14:24 Albuterol/Ipratropium 3 ml INHALE 03/13/24 14:18 1 each ONCE ONE Administration Albuterol Sulfate 5 mg/ 0 mg 03/13/24 14:39 03/13/24 14:42 Albuterol/Ipratropium 3 ml INHALE 03/13/24 14:40 1 each ONCE ONE Administration Magnesium Sulfate 2 gm in 50 mls @ 25 mls/hr 03/13/24 12:29 03/13/24 13:37 Magnesium Sulfate/H2o IV 03/13/24 14:28 Infused ONCE ONE Infusion Methylprednisolone Sodium Succinate 125 mg 03/13/24 12:58 03/13/24 13:37 Methylprednisolone Sod Succ 125 Mg/2 Ml Vial IVPUSH 03/13/24 12:59 125 mg ONCE ONE Administration Medical Decision Making Lab Data 03/13/24 11:47 03/13/24 11:47 Labs: Lab Results 03/13/24 Range/Units 11:47 WBC 8.4 (4.8-10.8) X10*3/uL RBC 3.27 L (4.20-5.50) X10*6/uL Hgb 10.4 L (12.0-16.0) g/dl Hct 31.8 L (37.0-47.0) % MCV 97.2 (80.0-98.0) fL MCH 31.8 (27.0-33.0) pg MCHC 32.7 (31.0-35.0) g/dl RDW 13.5 (11.0-16.0) % Plt Count 186 (160-400) X10*3/uL MPV 9.6 (9.4-12.3) fL Immature Gran % (Auto) 0.5 H (0.0-0.4) % Neut % (Auto) 71.5 (45-73) % Lymph % (Auto) 18.3 L (20-40) % [place] % (Auto) 7.9 (2-11) % Eos % (Auto) 1.4 (0-4) % Baso % (Auto) 0.4 (0-2) % Lymph # (Auto) 1.5 (1.2-4.9) X10*3/uL [place] # (Auto) 0.7 (0.1-1.2) X10*3/uL Eos # (Auto) 0.1 (0.0-0.4) X10*3/uL Baso # (Auto) 0.0 (0.0-0.2) X10*3/uL Abs Immat Gran (auto) 0.04 H (0.00-0.03) X10*3/uL Absolute Neuts (auto) 6.0 (2.0-8.3) x10*3/uL Absolute Nucleated RBC 0.000 (0.0-0.012) X10*3/uL Nucleated RBC % (auto) 0.0 (0.0-0.2) /100WBC PT 11.9 (10.9-12.4) SEC INR 1.0 (0.9-1.1) Sodium 141 (135-145) mmol/L Potassium 5.0 (3.3-5.1) mmol/L Chloride 110 H (96-108) mmol/L Carbon Dioxide 20 L (22-29) mmol/L Anion Gap 15 (12-20) BUN 33 H (9-16) mg/dL Creatinine 2.72 H (0.5-1.4) mg/dL Estim Creat Clear Calc 13.5 Estimated GFR 16 Random Glucose 118 H (60-115) mg/dL Calcium 9.0 (8.4-10.2) mg/dL Magnesium 1.5 L (1.6-2.6) mg/dL Total Bilirubin 0.3 (0.0-1.0) mg/dL Direct Bilirubin 0.1 (0.0-0.5) mg/dL AST 19 (5-31) U/L ALT 19 (0-31) U/L Alkaline Phosphatase 82 (39-117) U/L Troponin I High Sens 6.2 (<3.5-17.0) ng/L B-Natriuretic Peptide 37 (<100) pg/mL Total Protein 6.8 (6.5-8.0) g/dL Albumin 4.0 (3.5-5.0) g/dL Influenza Type A (PCR) NEGATIVE (Negative) Influenza Type B (PCR) NEGATIVE (Negative) RSV RNA Qual (PCR) NEGATIVE (Negative) SARS-CoV-2 RNA (RT-PCR) NEGATIVE (Negative) Radiology Impression Discussion of test interpretation with radiology: I have reviewed the radiologist's reading. Radiologist Impression: EXAMINATION: XR CHEST CLINICAL INFORMATION: Shortness of breath. COMPARISON: October 04, 2023, August 02, 2023. TECHNIQUE: 2 views of the chest were obtained. FINDINGS: Dextroscoliosis with multilevel degenerative changes in the thoracic spine. There is no gross pneumothorax. Cardiac silhouette appears enlarged. Similar appearance of cardiomediastinal silhouette allowing for differences in patient rotation. Trace bilateral pleural effusions. Mild bibasilar hazy opacities, left greater than right. Redemonstration of prominent interstitial opacities. XR/XR chest 2V IMPRESSION: Trace bilateral pleural effusions. Mild bibasilar hazy opacities, left greater than right. Redemonstration of prominent interstitial opacities. This study was presented today March 13, 2024 for interpretation. Stat results provided at this time as requested by referring provider. Electronically signed by: Scarlet Mckenna MD 03/13/2024 02:50 PM EDT Discharge Plan Discharge Clinical Impression: COPD (chronic obstructive pulmonary disease) Qualifiers: COPD type: unspecified COPD Qualified Code(s): J44.9 - Chronic obstructive pulmonary disease, unspecified Patient Disposition: Admitted As Inpatient
--- NOTE | 2024-03-13 11:29 | ECG_ITS ---
Test Reason : SOB Blood Pressure : / mmHG Vent. Rate : 072 BPM Atrial Rate : 072 BPM P-R Int : 188 ms QRS Dur : 070 ms QT Int : 400 ms P-R-T Axes : 053 001 023 degrees QTc Int : 438 ms Artifact in tracing Normal sinus rhythm Low voltage QRS Septal infarct , age undetermined Abnormal ECG When compared with ECG of 06-JAN-2023 15:51, Septal infarct is now Present T wave inversion now evident in Lateral leads Referred By: Karly Donahue Electronically Signed By:SHYANN FOREMAN
[2024-03-13 11:54] LABS: MANUAL DIFF FLAG NO
[2024-03-13 11:57] LABS: Basophils Percent Auto 0.4 % (0-2); Eosinophils Absolute Auto 0.1 X10*3/uL (0.0-0.4); Eosinophils Percent Auto 1.4 % (0-4); Hematocrit 31.8 % (37.0-47.0); Hemoglobin 10.4 g/dl (12.0-16.0); Imm Gran Abs Auto 0.04 X10*3/uL (0.00-0.03); Imm Gran Pct Auto 0.5 % (0.0-0.4); Lymphocytes Absolute Auto 1.5 X10*3/uL (1.2-4.9); Lymphocytes Percent Auto 18.3 % (20-40); Mean Corpuscular HGB Conc 32.7 g/dl (31.0-35.0); Mean Corpuscular Hemoglobin 31.8 pg (27.0-33.0); Mean Corpuscular Volume 97.2 fL (80.0-98.0); Mean Platelet Volume 9.6 fL (9.4-12.3); Monocytes Absolute Auto 0.7 X10*3/uL (0.1-1.2); Monocytes Percent Auto 7.9 % (2-11); Neutrophils Percent Auto 71.5 % (45-73); Platelet Count 186 X10*3/uL (160-400); Red Blood Count 3.27 X10*6/uL (4.20-5.50); Red Cell Distribution Width 13.5 % (11.0-16.0); White Blood Count 8.4 X10*3/uL (4.8-10.8)
[2024-03-13 12:02] LABS: Prothrombin Time 11.9 SEC (10.9-12.4)
[2024-03-13] MEDS: Albuterol Sulfate 5 MG, Albuterol/Iprat 2.5/0.5MG 3 ML 3 ML INHALE ×3 (12:03→14:42)
[2024-03-13 12:17] LABS: B Type Natriuretic Peptide 37 pg/mL (<100); Troponin-I High Sensitivity 6.2 ng/L (<3.5-17.0)
[2024-03-13 12:25] LABS: Alanine Aminotransferase 19 U/L (0-31); Alkaline Phosphatase 82 U/L (39-117); Anion Gap 15 (12-20); Aspartate Amino Transferase 19 U/L (5-31); Bilirubin Direct 0.1 mg/dL (0.0-0.5); Bilirubin Total 0.3 mg/dL (0.0-1.0); Blood Urea Nitrogen 33 mg/dL (9-16); Chloride 110 mmol/L (96-108); Creatinine Clr Calc Pharmacy 13.5; Estimated Glomerular Filt Rate 16; Glucose Random 118 mg/dL (60-115); Magnesium 1.5 mg/dL (1.6-2.6); Sodium 141 mmol/L (135-145); Total Protein 6.8 g/dL (6.5-8.0)
[2024-03-13 12:44] LABS: Influenza A PCR NEGATIVE (Negative); Influenza B PCR NEGATIVE (Negative); Resp Syncy Virus RNA Qual PCR NEGATIVE (Negative); SARS COV2 PCR INHOUSE NEGATIVE (Negative)
[2024-03-13] MEDS: Magnesium Sulfate/H2O 2 GM/50 ML PIGGYBACK IV (12:45)
[2024-03-13 12:59] LABS: Carbon Dioxide 20 mmol/L (22-29)
[2024-03-13] MEDS: methylPREDNISolone Sod Succ 125 MG/2 ML VIAL IVPUSH (13:37)
[2024-03-13] MEDS: Azithromycin 500 MG in 0.9 % Sodium Chloride 250 ML 125 MG IV (13:42)
--- NOTE | 2024-03-13 14:14 | PM.IMHP ---
History of Present Illness Date of Service: 03/13/24 Attending physician on admission: Klaus Cowan Chief Complaint: dyspnea, cough x3 days 88 yo f with a pmhx significant for COPD, diastolic CHF, CAD, stage 4 CKD with anemia of chronic disease, HTN, HLD, T2DM, and cognitive impairment who presented to the ED today with dyspnea, cough, fatigue and yellow sputum production x3 days. no fever. was exposed to a sick relative. also complains of pleuritic chest pain, worse with cough, describes as a constant discomfort with sharp pains. nasal congestion, decreased appetite and minimal fluid intake ?due to fatigue. no nausea or vomiting. Review of Systems Constitutional: Constitutional: Denies chills, Reports fatigue, Denies fever(s), Denies headache(s) and Reports poor appetite Eyes: Eyes: Reports blurry vision ENT: Denies headache(s) and Reports nasal congestion Cardiovascular: Cardiovascular: Reports Epigastric Pain and Reports dyspnea Comments: pleuritic chest pain Respiratory: Respiratory: Reports excessive phlegm production, Reports pain with cough and Reports dyspnea Gastrointestinal: Gastrointestinal: Reports constipation (chronic), Denies diarrhea, Denies nausea and Denies vomiting Genitourinary: Genitourinary: Denies dysuria Neurologic: Denies headache(s) Endocrine: Endocrine: Reports fatigue [facility] Medical History Hyperparathyroidism, secondary renal Anemia of chronic disease Chronic kidney disease, stage 4 (severe) Mild cognitive impairment LESLIE on CPAP Chronic heart failure with preserved ejection fraction (HFpEF) COPD (chronic obstructive pulmonary disease) Cellulitis of right foot Morbid obesity with BMI of 40.0-44.9, adult Depression Primary insomnia GERD without esophagitis Vitamin D deficiency Obstructive sleep apnea Benign essential hypertension Pure hypercholesterolemia Chronic kidney disease (CKD), stage III (moderate) Type 2 diabetes mellitus with diabetic chronic kidney disease Coronary artery disease COVID-19 GI bleed GERD (gastroesophageal reflux disease) LESLIE (obstructive sleep apnea) Anxiety CKD (chronic kidney disease) stage 3, GFR 30-59 ml/min Pulmonary hypertension CAD (coronary artery disease) Diabetes mellitus Heart disease Hypercholesteremia HTN (hypertension) Family History Father No problems noted. Mother No problems noted. Surgical History Hx of colonoscopy History of esophagogastroduodenoscopy (EGD) History of eye surgery H/O abdominal hysterectomy Social History Household Members Other:: lives with her daughter who cares for her Housing: Apartment Alcohol intake: never Patient Tobacco Use Status: Never used Tobacco Smoked in Last 30 Days: No e-Cigarette/Vaping Use: Never Used Second Hand Smoke Exposure: Yes Use of substances other than those prescribed or required for medical reasons: No Advance Directives: No Advance Directives Information Provided: No Do you have a plan to hurt others: No Plan service: No Current occupational status: retired and disabled Cognitive needs: No Hearing needs: No Vision needs: Yes Meds Allergies Allergy/AdvReac Type Severity Reaction Status Date / Time No Known Allergies Allergy Verified 03/13/24 11:27 Active Medications: Current Medications Magnesium Sulfate (Magnesium Sulfate/H2o) 2 gm in 50 mls @ 25 mls/hr IV ONCE ONE Stop: 03/13/24 14:28 Last Infusion: 03/13/24 13:37 Dose: Infused Azithromycin 500 mg/ Sodium (Chloride) 250 mls @ 125 mls/hr IV ONCE ONE Stop: 03/13/24 14:59 Last Admin: 03/13/24 13:42 Dose: 125 mls/hr Home Medications ?Medication ?Instructions ?Recorded ?Confirmed ?Last Taken ?Type alprazolam 0.5 mg tablet 0.75 mg PO BID Anxiety 03/18/20 03/13/24 03/13/24 History ascorbic acid (vitamin C) 500 mg 500 mg PO DAILY 03/18/20 03/13/24 03/13/24 History capsule citalopram 20 mg tablet 20 mg PO DAILY 12/24/20 03/13/24 03/13/24 History melatonin 10 mg tablet 10 mg PO BEDTIME 10/04/23 03/13/24 Unknown History quetiapine 100 mg tablet 100 mg PO BEDTIME 10/04/23 03/13/24 Unknown History quetiapine 25 mg tablet 25 mg PO DAILY 10/05/23 03/13/24 03/13/24 History furosemide 40 mg tablet 20 mg PO DAILY 10/12/23 03/13/24 03/13/24 History cetirizine 10 mg tablet 10 mg PO DAILY for allergies 03/13/24 03/13/24 03/13/24 History glimepiride 1 mg tablet 1 mg PO DAILY 03/13/24 03/13/24 03/13/24 History ipratropium 0.5 mg-albuterol 3 mg 3 ml inhalation BID shortness of 03/13/24 03/13/24 03/13/24 History (2.5 mg base)/3 mL nebulization breath or wheezing soln omeprazole 20 mg capsule,delayed 20 mg PO DAILY@0630 03/13/24 03/13/24 03/13/24 History release pravastatin 40 mg tablet 40 mg PO BEDTIME 03/13/24 03/13/24 Unknown History Physical Exam Vital Signs and Narrative: Vital Signs: Last Vital Signs Temp 97.5 F 03/13/24 14:10 Pulse 69 03/13/24 14:10 Resp 20 03/13/24 14:10 BP 127/58 L 03/13/24 14:10 Pulse Ox 94 03/13/24 14:10 O2 Del Method Room Air 03/13/24 14:10 BMI result Body Mass Index 36.5 General: AOx3, seen with daughter who narrates mostly Resp: rhonchi and wheezing bilaterally, using accessory muscles to breathe CVS: S1, S2, RRR GI: +BS, NT, no distention Skin: Warm, dry Extremities: No edema Psych: Appropriate affect Results Labs 03/13/24 11:47 03/13/24 11:47 Labs: Laboratory Results - last 24 hr 03/13/24 11:47 MCV 97.2 MCH 31.8 MCHC 32.7 RDW 13.5 Plt Count 186 MPV 9.6 Immature Gran % (Auto) 0.5 H Neut % (Auto) 71.5 Lymph % (Auto) 18.3 L [place] % (Auto) 7.9 Eos % (Auto) 1.4 Baso % (Auto) 0.4 Lymph # (Auto) 1.5 [place] # (Auto) 0.7 Eos # (Auto) 0.1 Baso # (Auto) 0.0 Abs Immat Gran (auto) 0.04 H Absolute Neuts (auto) 6.0 Absolute Nucleated RBC 0.000 Nucleated RBC % (auto) 0.0 PT 11.9 INR 1.0 Anion Gap 15 Estim Creat Clear Calc 13.5 Estimated GFR 16 Random Glucose 118 H Calcium 9.0 Magnesium 1.5 L Total Bilirubin 0.3 Direct Bilirubin 0.1 AST 19 ALT 19 Alkaline Phosphatase 82 Troponin I High Sens 6.2 B-Natriuretic Peptide 37 Total Protein 6.8 Albumin 4.0 Influenza Type A (PCR) NEGATIVE Influenza Type B (PCR) NEGATIVE RSV RNA Qual (PCR) NEGATIVE SARS-CoV-2 RNA (RT-PCR) NEGATIVE Assessment and Plan (1) COPD exacerbation: Status: Acute (2) Obesity (BMI 30-39.9): Status: Acute Plan 88 yo f with a pmhx significant for COPD, diastolic CHF, CAD, stage 4 CKD with anemia of chronic disease, HTN, HLD, T2DM, and cognitive impairment who presented to the ED today with COPD exacerbation x3 days. COPD exacerbation - no sepsis, tachypnea due to exacerbation - O2 satting well in the 90s - mag was low, given IV mag in ED - CXR with trace bilateral pleural effusions. Mild bibasilar hazy opacities, left greater than right. Redemonstration of prominent interstitial opacities. - RSV/flu/COVID negative - trop negtive, EKG ok, no leukocytosis - check viral resp panel - continue duonebs, solumedrol and azithromycin diastolic CHF/HTN - no IV fluids at this time - continue furosemide 40 QD, metoprolol QD HLD - continue statin T2DM - hold home PO meds - SSI - diabetic diet LESLIE - CPAP DNR/DNI. MOSLT form given per pt request VTE prohpy: heparin and pneumoboots Pt with COPD exacerbation with minimal improvement with breathing treatment, and IV steroid in ED with risk factors for worsening exacerbation including diastolic CHF requiring at least 2 midnights stay treatment of COPD exacerbation. Quality Stroke Does the patient have a stroke diagnosis?: No VTE Prior VTE?: No VTE Risk Level:: Medical - moderate - high VTE Device Contraindication: N/A - Device Ordered VTE Drug Contraindication: N/A - Med Ordered
--- NOTE | 2024-03-13 14:35 | PHA.MEDREC ---
Pharmacy Consult ? Medication Reconciliation Pharmacy has completed the medication reconciliation. Patient's daughter at bedside with list of medications on phone. Able to confirm specific doses and timing; stated patient's alprazolam and nebulizer solution she does not give her PRN but scheduled.
[2024-03-13] MEDS: Heparin Sodium,Porcine 5,000 UNIT/ML VIAL 5000 UNIT SUBCUT (16:56)
[2024-03-13] MEDS: 0.9 % Sodium Chloride Flush 3 ML SYRINGE IVFLUSH ×2 (16:59→20:04)
[2024-03-13 17:10] LABS: Glucose, Whole Blood 162 mg/dL (60-115)
[2024-03-13] MEDS: Insulin Lispro 100 UNIT/ML 3 ML VIAL SUBCUT ×2 (18:22→20:03)
[2024-03-13 20:01] LABS: Glucose, Whole Blood 283 mg/dL (60-115)
[2024-03-13] MEDS: Pravastatin Sodium 40 MG TABLET PO (20:03)
[2024-03-13] MEDS: QUEtiapine Fumarate 100 MG TABLET PO (20:03)
[2024-03-13] MEDS: ALPRAZolam 0.25 MG TABLET 0.75 MG PO (20:03)
[2024-03-13] MEDS: Albuterol/Iprat 2.5/0.5MG 3 ML AMPUL.NEB INHALE (20:07)
[2024-03-14] VITALS (8 sets, daily range): BP systolic 132–174; BP diastolic 63–89; PULSE 78–104; RESP 16–26; TEMP 36.2–36.7; O2SAT 93–96
[2024-03-14] MEDS: Heparin Sodium,Porcine 5,000 UNIT/ML VIAL 5000 UNIT SUBCUT ×2 (02:50→15:24)
[2024-03-14] MEDS: methylPREDNISolone Sod Succ 40 MG/ML VIAL IVPUSH (05:33)
[2024-03-14] MEDS: Omeprazole 20 MG CAPSULE.DR PO (05:33)
[2024-03-14 06:38] LABS: MANUAL DIFF FLAG NO
[2024-03-14 06:49] LABS: Basophils Percent Auto 0.1 % (0-2); Hematocrit 30.5 % (37.0-47.0); Hemoglobin 10.1 g/dl (12.0-16.0); Imm Gran Abs Auto 0.05 X10*3/uL (0.00-0.03); Imm Gran Pct Auto 0.6 % (0.0-0.4); Lymphocytes Absolute Auto 0.6 X10*3/uL (1.2-4.9); Lymphocytes Percent Auto 6.3 % (20-40); Mean Corpuscular HGB Conc 33.1 g/dl (31.0-35.0); Mean Corpuscular Hemoglobin 31.6 pg (27.0-33.0); Mean Corpuscular Volume 95.3 fL (80.0-98.0); Mean Platelet Volume 9.9 fL (9.4-12.3); Monocytes Absolute Auto 0.3 X10*3/uL (0.1-1.2); Monocytes Percent Auto 3.2 % (2-11); Neutrophils Percent Auto 89.8 % (45-73); Platelet Count 209 X10*3/uL (160-400); Red Cell Distribution Width 13.3 % (11.0-16.0)
[2024-03-14 07:04] LABS: Anion Gap 15 (12-20); Blood Urea Nitrogen 30 mg/dL (9-16); Calcium 9.4 mg/dL (8.4-10.2); Carbon Dioxide 20 mmol/L (22-29); Chloride 112 mmol/L (96-108); Creatinine Clr Calc Pharmacy 15.5; Estimated Glomerular Filt Rate 19; Glucose Random 249 mg/dL (60-115); Sodium 142 mmol/L (135-145)
[2024-03-14 07:33] LABS: Glucose, Whole Blood 224 mg/dL (60-115)
[2024-03-14] MEDS: Albuterol/Iprat 2.5/0.5MG 3 ML AMPUL.NEB INHALE (08:27)
[2024-03-14] MEDS: 0.9 % Sodium Chloride Flush 3 ML SYRINGE IVFLUSH ×3 (08:39→21:24)
[2024-03-14] MEDS: ondansetron HCL 4 MG/2 ML VIAL IVPUSH (08:39)
[2024-03-14] MEDS: Insulin Lispro 100 UNIT/ML 3 ML VIAL SUBCUT ×3 (08:42→17:56)
[2024-03-14] MEDS: Ferrous Sulfate 324 MG TABLET.DR PO (08:42)
[2024-03-14] MEDS: ALPRAZolam 0.25 MG TABLET 0.75 MG PO ×2 (08:42→21:11)
[2024-03-14] MEDS: Cyanocobalamin (Vitamin B-12) 500 MCG TABLET PO (08:43)
[2024-03-14] MEDS: Metoprolol Succinate ER 12.5 MG HALFTAB.ER.24H PO (08:43)
[2024-03-14] MEDS: Escitalopram Oxalate 10 MG TABLET PO (08:43)
[2024-03-14] MEDS: Furosemide 20 MG TABLET PO (08:43)
[2024-03-14] MEDS: Ascorbic Acid 500 MG TABLET PO (08:43)
[2024-03-14] MEDS: amLODIPine Besylate 2.5 MG TABLET PO (08:43)
[2024-03-14] MEDS: Cholecalciferol (Vitamin D3) 25 MCG TABLET PO (08:43)
[2024-03-14] MEDS: Loratadine 10 MG TABLET PO (08:43)
[2024-03-14] MEDS: QUEtiapine Fumarate 25 MG TABLET PO (08:43)
[2024-03-14] MEDS: Ampicillin Sodium/Sulbactam Na 3 GM in 0.9 % Sodium Chloride 100 ML IV ×2 (10:19→21:27)
--- NOTE | 2024-03-14 10:24 | MHC.CM.PN ---
PT LIVES WITH DAUGHTER ,PT IN THE ADULT [facility]ER PROGRAM THRU [facility] RETURN HOME VIA FAMILY TRANSPORT
[2024-03-14 10:51] LABS: Adenovirus PCR Not Detected (Not Detect.); Bordetella parapertussis PCR Not Detected (Not Detect.); Bordetella pertussis PCR Not Detected (Not Detect.); Chlamydia pneumoniae PCR Not Detected (Not Detect.); Coronavirus 229E PCR Not Detected (Not Detect.); Coronavirus HKU1 PCR Not Detected (Not Detect.); Coronavirus NL63 PCR Not Detected (Not Detect.); Coronavirus OC43 PCR Not Detected (Not Detect.); Human metapneumovirus PCR Not Detected (Not Detect.); Influenza A PCR Not Detected (Not Detect.); Influenza B PCR Not Detected (Not Detect.); Mycoplasma pneumoniae PCR Not Detected (Not Detect.); Parainfluenza 1 PCR Detected (Not Detect.); Parainfluenza 2 PCR Not Detected (Not Detect.); Parainfluenza 3 PCR Not Detected (Not Detect.); Parainfluenza 4 PCR Not Detected (Not Detect.); RSV PCR Not Detected (Not Detect.); Rhino/Enterovirus PCR Not Detected (Not Detect.)
[2024-03-14 11:09] LABS: SARS-CoV-2 PCR Not Detected (Not Detect.)
[2024-03-14 11:53] LABS: Glucose, Whole Blood 262 mg/dL (60-115)
[2024-03-14] MEDS: LINAGLIPTIN 5 MG 5 EACH PO (11:54)
--- NOTE | 2024-03-14 14:37 | MHC.SL.SWA ---
Speech Pathologist Impression: Risk of Aspiration, Oropharyngeal Dysphagia Risk of Aspiration Due to: Medically Fragile Dysphasia Diet Status: DOWNGRADE from REGULAR/THIN to PUREE/NTL Liquid Consistency and Strategies for Safe Swallow: Liquid Intake Recommendation: [place] Thick Liquid Intake Strategies: Small Sips No Straws Solid Food Consistency: Dietary Recommendations: Pureed (NDD1) Additional Modifications to Solid Foods: Recommend DOWNGRADE to Pureed foods (NDD1) and [place] Thick liquids, pills to be administered Crushed in Puree. Standard aspiration precautions apply. Patient will need 1:1 assistance feeding. Oral Medication Intake: Crushed with Puree Please contact the pharmacy regarding appropriate crushable or liquid drug formulations that are available whenever modified delivery is recommended. Compensatory Strategies and Precautions to be Taken for Safe Swallow: Sitting Upright (90 deg) No Straw Small Bites and Sips Alternate Liquids/Solids Rate of Ingestion Change Avoid Specific Foods Supervision While Eating and Drinking for Safe Swallow: Total Assistance (1:1) Foods to Avoid: Mixed consistencies (i.e. heterogenous foods/ separation of solid and liquid component) Swallowing Recommended Treatments: Compens. Strategy Educat. Recommendation for Speech: Inpatient Speech Therapy Comment: Frequency/Duration: PRN M-F Date Range for Service Req: Timeline to reassess: PRN Youth Agent Clinican/Clinical Fellow: No Supervisory Statement: I have reviewed and agree with the student/clinical fellow's documentation: N/A Speech Language Pathologist: Sandra Mcmahan M.A., CCC-RUG WEAVER
--- NOTE | 2024-03-14 15:01 | P.PNIM_ITS ---
Subjective Subjective Date of Service: 03/14/24 Interval History: nausea/vomiting episode this morning while of cpap feels constipation passing gases nausea /vomiting -? aspirational penumonitis Review of Systems Review of Systems: Yes all other systems are reviewed and are negative Physical Exam 2 Vital Signs: Vital Signs: Last Vital Signs Temp 97.7 F 03/14/24 07:24 Pulse 104 H 03/14/24 08:43 Resp 24 H 03/14/24 08:28 BP 135/63 03/14/24 11:43 Pulse Ox 95 03/14/24 07:24 O2 Del Method CPAP 03/14/24 07:24 O2 Flow Rate 2 03/13/24 22:00 BMI result Body Mass Index 37.8 General: AOx3,japanese speakin Resp: rhonchi and wheezing bilaterally, using accessory muscles to breathe CVS: S1, S2, RRR GI: NT, abd pain mild diffuse ,no rebound or guarding ,soft. Skin: Warm, dry Extremities: No edema Psych: Appropriate affect Objective Data Active Medications Acetaminophen (Acetaminophen 325 Mg Tablet) 650 mg PO Q6H PRN PRN Reason: Pain, Mild (Pain Scale 1-3), fever or headache Albuterol/Ipratropium (Albuterol/Iprat 2.5/0.5mg 3 Ml Ampul.Neb) 3 ml INHALE Q4H PRN PRN Reason: Shortness of Breath/Wheezing Last Admin: 03/14/24 08:27 Dose: 3 ml Documented By: LESLEE Alprazolam (Alprazolam 0.25 Mg Tablet) 0.75 mg PO BID [facility] Last Admin: 03/14/24 08:42 Dose: 0.75 mg Documented By: SALLIE Amlodipine Besylate (Amlodipine Besylate 2.5 Mg Tablet) 2.5 mg PO DAILY [facility]; Protocol Last Admin: 03/14/24 08:43 Dose: 2.5 mg Documented By: SALLIE Ascorbic Acid (Ascorbic Acid 500 Mg Tablet) 500 mg PO DAILY [facility] Last Admin: 03/14/24 08:43 Dose: 500 mg Documented By: SALLIE Calcium Carbonate (Calcium Carbonate 750 Mg Tab.Chew) 750 mg PO Q4H PRN PRN Reason: Heartburn Cyanocobalamin (Cyanocobalamin (Vitamin B-12) 500 Mcg Tablet) 500 mcg PO DAILY [facility] Last Admin: 03/14/24 08:43 Dose: 500 mcg Documented By: SALLIE Docusate Sodium (Docusate Sodium 100 Mg Capsule) 100 mg PO BID [facility] Escitalopram Oxalate (Escitalopram Oxalate 10 Mg Tablet) 10 mg PO DAILY [facility] Last Admin: 03/14/24 08:43 Dose: 10 mg Documented By: SALLIE Ferrous Sulfate (Ferrous Sulfate 324 Mg Tablet.Dr) 324 mg PO DAILY [facility] Last Admin: 03/14/24 08:42 Dose: 324 mg Documented By: SALLIE Furosemide (Furosemide 20 Mg Tablet) 20 mg PO DAILY [facility]; Protocol Last Admin: 03/14/24 08:43 Dose: 20 mg Documented By: SALLIE Glucose (Glucose Gel 15 Gm Gel..Gram.) 15 gm PO Q15M PRN; Protocol PRN Reason: per Hypoglycemia Standing Ord. Heparin Sodium (Porcine) (Heparin Sodium,Porcine 5,000 Unit/Ml Vial) 5,000 unit SUBCUT Q12H [facility] Last Admin: 03/14/24 02:50 Dose: 5,000 unit Documented By: DERIAN Dextrose (D10) 250 mls @ 750 mls/hr IV Q15M PRN; Protocol PRN Reason: per Hypoglycemia Standing Ord. Ampicillin Sodium/Sulbactam (Sodium 3 gm/ Sodium Chloride) 100 mls @ 200 mls/hr IV Q12H [facility] Last Infusion: 03/14/24 11:11 Dose: Infused Documented By: SALLIE Insulin Human Lispro (Insulin Lispro 100 Unit/Ml 3 Ml Vial) 0 unit SUBCUT QIDACHS [facility]; Protocol Last Admin: 03/14/24 11:54 Dose: 6 unit Documented By: SALLIE Loratadine (Loratadine 10 Mg Tablet) 10 mg PO DAILY [facility] Last Admin: 03/14/24 08:43 Dose: 10 mg Documented By: SALLIE Magnesium Hydroxide (Milk Of Magnesia 30 Ml Oral.Susp) 30 ml PO DAILY PRN PRN Reason: Constipation Melatonin (Melatonin 3 Mg Tablet) 6 mg PO BEDTIME PRN PRN Reason: Insomnia Methylprednisolone Sodium Succinate (Methylprednisolone Sod Succ 40 Mg/Ml Vial) 40 mg IVPUSH Q24H [facility] Last Admin: 03/14/24 05:33 Dose: 40 mg Documented By: DERIAN Metoprolol Succinate (Metoprolol Succinate Er 12.5 Mg Halftab.Er.24h) 12.5 mg PO DAILY [facility]; Protocol Last Admin: 03/14/24 08:43 Dose: 12.5 mg Documented By: SALLIE Pt Own (Linagliptin [Tradjenta] 5 Mg Tablet) 5 mg PO DAILY [facility] Last Admin: 03/14/24 11:54 Dose: 5 mg Documented By: SALLIE Omeprazole (Omeprazole 20 Mg Capsule.Dr) 20 mg PO DAILY@0630 [facility] Last Admin: 03/14/24 05:33 Dose: 20 mg Documented By: DERIAN Ondansetron HCl (Ondansetron Hcl 4 Mg/2 Ml Vial) 4 mg IVPUSH Q6H PRN PRN Reason: Nausea and Vomiting Last Admin: 03/14/24 08:39 Dose: 4 mg Documented By: SALLIE Polyethylene Glycol (Polyethylene Glycol 3350 17 Gm Powd.Pack) 17 gm PO DAILY [facility] Pravastatin Sodium (Pravastatin Sodium 40 Mg Tablet) 40 mg PO BEDTIME [facility] Last Admin: 03/13/24 20:03 Dose: 40 mg Documented By: DERIAN Quetiapine Fumarate (Quetiapine Fumarate 25 Mg Tablet) 25 mg PO DAILY [facility] Last Admin: 03/14/24 08:43 Dose: 25 mg Documented By: SALLIE Quetiapine Fumarate (Quetiapine Fumarate 100 Mg Tablet) 100 mg PO BEDTIME [facility] Last Admin: 03/13/24 20:03 Dose: 100 mg Documented By: DERIAN Sodium Chloride (0.9 % Sodium Chloride Flush 3 Ml Syringe) 3 ml IVFLUSH QSHIFT [facility] Last Admin: 03/14/24 08:39 Dose: 3 ml Documented By: SALLIE Vitamin D (Cholecalciferol (Vitamin D3) 25 Mcg Tablet) 25 mcg PO DAILY [facility] Last Admin: 03/14/24 08:43 Dose: 25 mcg Documented By: SALLIE Labs 03/14/24 05:29 03/14/24 05:29 Labs: Laboratory Results - last 24 hr 03/13/24 03/13/24 03/13/24 17:06 17:55 19:57 MCV MCH MCHC RDW Plt Count MPV Immature Gran % (Auto) Neut % (Auto) Lymph % (Auto) [place] % (Auto) Eos % (Auto) Baso % (Auto) Lymph # (Auto) [place] # (Auto) Eos # (Auto) Baso # (Auto) Abs Immat Gran (auto) Absolute Neuts (auto) Absolute Nucleated RBC Nucleated RBC % (auto) Anion Gap Estim Creat Clear Calc Estimated GFR POC Glucose 162 H 283 H Random Glucose Calcium Respiratory Panel [place] See Note Adenovirus (Rapid PCR) Not Detected B.pert (TEM-PCR) Not Detected B.parapertussis DNA PCR Not Detected C. pneumoniae DNA (PCR) Not Detected Coronavirus OC43 (PCR) Not Detected Coronavirus HKU1 (PCR) Not Detected Coronavirus 229E (PCR) Not Detected Coronavirus NL63 (PCR) Not Detected Human Metapneumovir PCR Not Detected Influenza A (RT-PCR) Not Detected Influenza B (RT-PCR) Not Detected M. pneumoniae (PCR) Not Detected Parainfluenza 1 (PCR) Detected A Parainfluenza 2 (PCR) Not Detected Parainfluenza 3 (PCR) Not Detected Parainfluenza 4 (PCR) Not Detected RSV (PCR) Not Detected Entero/Rhino (PCR) Not Detected SARS-CoV-2 RNA (RT-PCR) Not Detected 03/14/24 03/14/24 03/14/24 05:29 07:28 11:44 MCV 95.3 MCH 31.6 MCHC 33.1 RDW 13.3 Plt Count 209 MPV 9.9 Immature Gran % (Auto) 0.6 H Neut % (Auto) 89.8 H Lymph % (Auto) 6.3 L [place] % (Auto) 3.2 Eos % (Auto) 0.0 Baso % (Auto) 0.1 Lymph # (Auto) 0.6 L [place] # (Auto) 0.3 Eos # (Auto) 0.0 Baso # (Auto) 0.0 Abs Immat Gran (auto) 0.05 H Absolute Neuts (auto) 8.0 Absolute Nucleated RBC 0.000 Nucleated RBC % (auto) 0.0 Anion Gap 15 Estim Creat Clear Calc 15.5 Estimated GFR 19 POC Glucose 224 H 262 H Random Glucose 249 H Calcium 9.4 Respiratory Panel [place] Adenovirus (Rapid PCR) B.pert (TEM-PCR) B.parapertussis DNA PCR C. pneumoniae DNA (PCR) Coronavirus OC43 (PCR) Coronavirus HKU1 (PCR) Coronavirus 229E (PCR) Coronavirus NL63 (PCR) Human Metapneumovir PCR Influenza A (RT-PCR) Influenza B (RT-PCR) M. pneumoniae (PCR) Parainfluenza 1 (PCR) Parainfluenza 2 (PCR) Parainfluenza 3 (PCR) Parainfluenza 4 (PCR) RSV (PCR) Entero/Rhino (PCR) SARS-CoV-2 RNA (RT-PCR) Assessment and Plan (1) COPD exacerbation: Status: Acute Plan 88 yo f with a pmhx significant for COPD, diastolic CHF, CAD, stage 4 CKD with anemia of chronic disease, HTN, HLD, T2DM, and cognitive impairment who presented to the ED today with COPD exacerbation x3 days. nausea /vomiting abd pain kub -?gastric outlet obstructtion vs bowel obstruction plan:added ppi, zofran added ct abd npo surgery eval COPD exacerbation - no sepsis, tachypnea due to exacerbation O2 satting well in the 90s RSV/flu/COVID negative,viral resp panel-positive for parainfluenza trop negtive, EKG ok, no leukocytosis cxr and abd kub pending continue duonebs, solumedrol and added unasyn diastolic CHF/HTN- no IV fluids at this time. continue furosemide 40 QD, metoprolol QD HLD - continue statin T2DM - hold home PO meds - SSI - diabetic diet LESLIE - CPAP DNR/DNI. MOSLT form given per pt request. VTE prohpy: heparin and pneumoboots Pt with COPD exacerbation with minimal improvement with breathing treatment, and IV steroid in ED with risk factors for worsening exacerbation including diastolic CHF requiring at least 2 midnights stay treatment of COPD exacerbation. Quality Stroke Does the patient have a stroke diagnosis?: No VTE Prior VTE?: No VTE Risk Level:: Medical - moderate - high VTE Device Contraindication: N/A - Device Ordered VTE Drug Contraindication: N/A - Med Ordered
[2024-03-14] MEDS: polyethylene glycoL 3350 17 GM POWD.PACK PO (15:23)
[2024-03-14] MEDS: Docusate Sodium 100 MG CAPSULE PO (15:23)
[2024-03-14 16:00] LABS: Glucose, Whole Blood 279 mg/dL (60-115)
[2024-03-14] MEDS: Diatrizoate Meglumine, Sodium 30 ML SOLUTION PO (16:32)
[2024-03-14] MEDS: Pantoprazole Sodium 40 MG/10 ML VIAL IVPUSH (17:56)
--- NOTE | 2024-03-14 18:52 | PC.NURSE ---
Pt vomited undigested food this AM before breakfast. CPAP mask was on when vomited. o2 sats stable 93-95% on room air. Lung sounds expiratory wheeze throughout and fine crackles in bases. Occasional nonproductive cough. CXR and Unasyn ordered. Medicated with zofran. Swallow eval done. Diet downgraded to pureed, nectar thick. + Flatus. Reports last BM 2 days ago. Had small, hard stool on commode. Reports stomach ache . Colace and miralax ordered and given. Pt had another episode of vomiting after breakfast. KUB ordered. ? gastric outlet obstruction. CT and Gen Surg consult ordered. Protonix ordered. Pt NPO. POC 279. Given [address] Akhtar instead of 6 units per sliding scale. Pt drank CT contrast. Awaiting CT scan.
[2024-03-14 20:37] LABS: Glucose, Whole Blood 191 mg/dL (60-115)
[2024-03-14] MEDS: Pravastatin Sodium 40 MG TABLET PO (21:11)
[2024-03-14] MEDS: QUEtiapine Fumarate 100 MG TABLET PO (21:11)
[2024-03-14] MEDS: Melatonin 3 MG TABLET 6 MG PO (21:14)
[2024-03-14] MEDS: Milk of Magnesia 30 ML ORAL.SUSP PO (21:31)
[2024-03-14] MEDS: Dextrose 5 % and 0.9 % NaCl 1,000 ML 70 ML IVCONT (22:03)
[2024-03-15] MEDS: Heparin Sodium,Porcine 5,000 UNIT/ML VIAL 5000 UNIT SUBCUT ×2 (03:10→17:14)
[2024-03-15 04:00] VITALS: BP 125/66; PULSE 73; RESP 18; TEMP 36.1; O2SAT 93
[2024-03-15] MEDS: Pantoprazole Sodium 40 MG/10 ML VIAL IVPUSH ×2 (05:41→17:15)
[2024-03-15] MEDS: methylPREDNISolone Sod Succ 40 MG/ML VIAL IVPUSH (05:41)
[2024-03-15 06:07] LABS: Glucose, Whole Blood 188 mg/dL (60-115)
[2024-03-15] MEDS: Haloperidol Lactate 5 MG/ML VIAL IM (06:16)
--- NOTE | 2024-03-15 06:32 | PM.EVENT ---
Event Note Date of Service: 03/15/24 Event Note: 6:06 AM - Contacted to notify that patient is confused and agitated. Her POC was found to be 188. Haldol 5 mg IM ordered for agitation. Time Spent With Patient Time: Total time managing care of this patient today ____ minutes.
--- NOTE | 2024-03-15 07:19 | PC.NURSE ---
Late entry: Upon assuming care of pt at 19:00, pt was A&Ox3, calm & cooperative with care. Persian speaking. Approximately after 03:00, Pt had a change of mental status, A&Ox1, confused, impulsive, and restless. Camera placed in room. Pt bedtime POC 191, vital signs stable, 93-94% O2 via 2L NC. Pt used the bedside commode with 2A, unsteady, and repositioned in bed. Pt became more restless, trying to climb out of bed, and only alert to self. POC checked for 188 and vital signs stable. MD Vanegas notified of the situation. One time dose of Haldol 5mg IM was given to pt with minimal effect, see MAR. Bed in lowest position, call herring within reach, and camera in room. Will continue to monitor .
[2024-03-15 07:46] VITALS: BP 167/78; PULSE 74; RESP 18; TEMP 36; O2SAT 92
[2024-03-15 08:02] LABS: Glucose, Whole Blood 193 mg/dL (60-115)
[2024-03-15] MEDS: Metoprolol Succinate ER 12.5 MG HALFTAB.ER.24H PO (09:17)
[2024-03-15] MEDS: Cholecalciferol (Vitamin D3) 25 MCG TABLET PO (09:20)
[2024-03-15] MEDS: polyethylene glycoL 3350 17 GM POWD.PACK PO (09:20)
[2024-03-15] MEDS: Ferrous Sulfate 324 MG TABLET.DR PO (09:20)
[2024-03-15] MEDS: Furosemide 20 MG TABLET PO (09:20)
[2024-03-15] MEDS: Escitalopram Oxalate 10 MG TABLET PO (09:20)
[2024-03-15] MEDS: Loratadine 10 MG TABLET PO (09:20)
[2024-03-15] MEDS: Cyanocobalamin (Vitamin B-12) 500 MCG TABLET PO (09:20)
[2024-03-15] MEDS: Ascorbic Acid 500 MG TABLET PO (09:20)
[2024-03-15] MEDS: Docusate Sodium 100 MG CAPSULE PO ×2 (09:21→20:51)
[2024-03-15] MEDS: amLODIPine Besylate 2.5 MG TABLET PO (09:21)
[2024-03-15] MEDS: QUEtiapine Fumarate 25 MG TABLET PO (09:22)
[2024-03-15 09:32] LABS: Anion Gap 11 (12-20); Blood Urea Nitrogen 36 mg/dL (9-16); Carbon Dioxide 24 mmol/L (22-29); Chloride 110 mmol/L (96-108); Creatinine Clr Calc Pharmacy 15.3; Estimated Glomerular Filt Rate 19; Glucose Random 202 mg/dL (60-115); Potassium 5.4 mmol/L (3.3-5.1); Sodium 140 mmol/L (135-145)
[2024-03-15] MEDS: Ampicillin Sodium/Sulbactam Na 3 GM in 0.9 % Sodium Chloride 100 ML IV ×2 (09:35→20:52)
--- NOTE | 2024-03-15 10:08 | PM.CNGS ---
History of Present Illness Consult details Consult date: 03/15/24 <Kalyn Garcia PA-C Last Filed: 03/15/24 10:35> Requesting physician: Augusto Akhtar <Kalyn Garcia PA-C Last Filed: 03/15/24 10:35> Narrative: 88 yo female with a extensive PMH significant for COPD, diastolic CHF, CAD, CKD, anemia of chronic disease, HTN, GERD, T2DM, and cognitive impairment who initially presented to the ED with dyspnea, cough, fatigue. She was admitted to the medical service for COPD exacerbation. She apparently developed nausea and had a few episodes of vomiting yesterday. KUB was therefore obtained which showed gastric distention. CT scan abd/pelvis with PO contrast was obtained yesterday which official read is pending but shows nondilated SB loops with contrast in the transverse colon. Stomach is distended and has contrast present after 2 hrs. She apparently has been passing flatus and had two BMs yesterday. Daughter at bedside reports baseline constipation. She has been seen by GI for GERD and reports dysphagia. <Kalyn Garcia PA-C Last Filed: 03/15/24 10:35> Review of Systems Constitutional: Constitutional: Denies chills and Denies fever(s) <Kalyn Garcia PA-C Last Filed: 03/15/24 10:35> Cardiovascular: Cardiovascular: Denies chest pain <Kalyn Garcia PA-C Last Filed: 03/15/24 10:35> Respiratory: Respiratory: Reports as per HPI <Kalyn Garcia PA-C Last Filed: 03/15/24 10:35> Gastrointestinal: Gastrointestinal: Reports as per HPI <HAMILTON Torres Filed: 03/15/24 10:35> Integumentary/Breasts: Skin/Breast: Denies rash <Kalyn Garcia PA-C Last Filed: 03/15/24 10:35> PMFSH Past Medical History Medical History: Medical History Hyperparathyroidism, secondary renal Anemia of chronic disease Chronic kidney disease, stage 4 (severe) Mild cognitive impairment LESLIE on CPAP Chronic heart failure with preserved ejection fraction (HFpEF) COPD (chronic obstructive pulmonary disease) Cellulitis of right foot Morbid obesity with BMI of 40.0-44.9, adult Depression Primary insomnia GERD without esophagitis Vitamin D deficiency Obstructive sleep apnea Benign essential hypertension Pure hypercholesterolemia Chronic kidney disease (CKD), stage III (moderate) Type 2 diabetes mellitus with diabetic chronic kidney disease Coronary artery disease COVID-19 GI bleed GERD (gastroesophageal reflux disease) LESLIE (obstructive sleep apnea) Anxiety CKD (chronic kidney disease) stage 3, GFR 30-59 ml/min Pulmonary hypertension CAD (coronary artery disease) Diabetes mellitus Heart disease Hypercholesteremia HTN (hypertension) <Kalyn Garcia PA-C - Last Filed: 03/15/24 10:35> Family History Family History: Family History Father No problems noted. Mother No problems noted. <Kalyn Garcia PA-C - Last Filed: 03/15/24 10:35> Surgical History Surgical History: Surgical History Hx of colonoscopy History of esophagogastroduodenoscopy (EGD) History of eye surgery H/O abdominal hysterectomy <Kalyn Garcia PA-C - Last Filed: 03/15/24 10:35> Social History Social History: Social History Household Members: Children Household Members Other:: lives with her daughter who cares for her Housing: Apartment Do you presently have visiting nurse or other home services: No Alcohol intake: never Patient Tobacco Use Status: Never used Tobacco Smoked in Last 30 Days: No e-Cigarette/Vaping Use: Never Used Patient Interested in Nicotine Replacement: No Patient Given Instructions on How to Stop Smoking: No Second Hand Smoke Exposure: No Use of substances other than those prescribed or required for medical reasons: No Currently Displaying Signs/Symptoms of Drug Intoxication Withdrawal: No Any prior treatment program specific to substance use: No Have you been hit, kicked, punched, or otherwise hurt by someone within the past year? If so, by whom?: No Do you feel safe in your current relationship?: No Current Relationship Is there a partner from a previous relationship who is making you feel unsafe now?: No Advance Directives: No Advance Directives Information Provided: No Do you have a plan to hurt others: No Plan Recently lost weight without trying: No How much weight loss: Not applicable Eating poorly because of decreased appetite: No Nutrition screen score: 0 Nutrition Risks: No Nutritional Risk Patient : No : No Poor oral hygiene: No service: No Current occupational status: retired and disabled Cognitive needs: No Hearing needs: No Vision needs: Yes <Kalyn Garcia PA-C - Last Filed: 03/15/24 10:35> Meds Allergies/Adverse reactions: Allergies Allergy/AdvReac Type Severity Reaction Status Date / Time No Known Allergies Allergy Verified 03/13/24 11:27 <Kalyn Garcia PA-C - Last Filed: 03/15/24 10:35> Active Medications: Current Medications Acetaminophen (Acetaminophen 325 Mg Tablet) 650 mg PO Q6H PRN PRN Reason: Pain, Mild (Pain Scale 1-3), fever or headache Albuterol/Ipratropium (Albuterol/Iprat 2.5/0.5mg 3 Ml Ampul.Neb) 3 ml INHALE Q4H PRN PRN Reason: Shortness of Breath/Wheezing Last Admin: 03/14/24 08:27 Dose: 3 ml Alprazolam (Alprazolam 0.25 Mg Tablet) 0.75 mg PO BID [facility] Last Admin: 03/14/24 21:11 Dose: 0.75 mg Amlodipine Besylate (Amlodipine Besylate 2.5 Mg Tablet) 2.5 mg PO DAILY [facility]; Protocol Last Admin: 03/15/24 09:21 Dose: 2.5 mg Ascorbic Acid (Ascorbic Acid 500 Mg Tablet) 500 mg PO DAILY [facility] Last Admin: 03/15/24 09:20 Dose: 500 mg Calcium Carbonate (Calcium Carbonate 750 Mg Tab.Chew) 750 mg PO Q4H PRN PRN Reason: Heartburn Cyanocobalamin (Cyanocobalamin (Vitamin B-12) 500 Mcg Tablet) 500 mcg PO DAILY [facility] Last Admin: 03/15/24 09:20 Dose: 500 mcg Docusate Sodium (Docusate Sodium 100 Mg Capsule) 100 mg PO BID [facility] Last Admin: 03/15/24 09:21 Dose: 100 mg Escitalopram Oxalate (Escitalopram Oxalate 10 Mg Tablet) 10 mg PO DAILY [facility] Last Admin: 03/15/24 09:20 Dose: 10 mg Ferrous Sulfate (Ferrous Sulfate 324 Mg Tablet.Dr) 324 mg PO DAILY [facility] Last Admin: 03/15/24 09:20 Dose: 324 mg Furosemide (Furosemide 20 Mg Tablet) 20 mg PO DAILY [facility]; Protocol Last Admin: 03/15/24 09:20 Dose: 20 mg Glucose (Glucose Gel 15 Gm Gel..Gram.) 15 gm PO Q15M PRN; Protocol PRN Reason: per Hypoglycemia Standing Ord. Heparin Sodium (Porcine) (Heparin Sodium,Porcine 5,000 Unit/Ml Vial) 5,000 unit SUBCUT Q12H [facility] Last Admin: 03/15/24 03:10 Dose: 5,000 unit Dextrose (D10) 250 mls @ 750 mls/hr IV Q15M PRN; Protocol PRN Reason: per Hypoglycemia Standing Ord. Ampicillin Sodium/Sulbactam (Sodium 3 gm/ Sodium Chloride) 100 mls @ 200 mls/hr IV Q12H [facility] Last Admin: 03/15/24 09:35 Dose: 200 mls/hr Dextrose/Sodium Chloride (D5ns) 1,000 mls @ 70 mls/hr IVCONT .[id number] [facility] Last Admin: 03/14/24 22:03 Dose: 70 mls/hr Erythromycin Lactobionate 250 (mg/ Sodium Chloride) 100 mls @ 100 mls/hr IV Q6H [facility] Insulin Human Lispro (Insulin Lispro 100 Unit/Ml 3 Ml Vial) 0 unit SUBCUT QIDACHS [facility]; Protocol Last Admin: 03/15/24 08:22 Dose: Not Given Loratadine (Loratadine 10 Mg Tablet) 10 mg PO DAILY [facility] Last Admin: 03/15/24 09:20 Dose: 10 mg Magnesium Hydroxide (Milk Of Magnesia 30 Ml Oral.Susp) 30 ml PO DAILY PRN PRN Reason: Constipation Last Admin: 03/14/24 21:31 Dose: 30 ml Melatonin (Melatonin 3 Mg Tablet) 6 mg PO BEDTIME PRN PRN Reason: Insomnia Last Admin: 03/14/24 21:14 Dose: 6 mg Methylprednisolone Sodium Succinate (Methylprednisolone Sod Succ 40 Mg/Ml Vial) 40 mg IVPUSH Q24H [facility] Last Admin: 03/15/24 05:41 Dose: 40 mg Metoprolol Succinate (Metoprolol Succinate Er 12.5 Mg Halftab.Er.24h) 12.5 mg PO DAILY [facility]; Protocol Last Admin: 03/15/24 09:17 Dose: 12.5 mg Pt Own (Linagliptin [Tradjenta] 5 Mg Tablet) 5 mg PO DAILY [facility] Last Admin: 03/14/24 11:54 Dose: 5 mg Pantoprazole Sodium (Pantoprazole Sodium 40 Mg/10 Ml Vial) 40 mg IVPUSH BID@0630,1630 [facility] Last Admin: 03/15/24 05:41 Dose: 40 mg Polyethylene Glycol (Polyethylene Glycol 3350 17 Gm Powd.Pack) 17 gm PO DAILY [facility] Last Admin: 03/15/24 09:20 Dose: 17 gm Pravastatin Sodium (Pravastatin Sodium 40 Mg Tablet) 40 mg PO BEDTIME [facility] Last Admin: 03/14/24 21:11 Dose: 40 mg Quetiapine Fumarate (Quetiapine Fumarate 25 Mg Tablet) 25 mg PO DAILY [facility] Last Admin: 03/15/24 09:22 Dose: 25 mg Quetiapine Fumarate (Quetiapine Fumarate 100 Mg Tablet) 100 mg PO BEDTIME [facility] Last Admin: 03/14/24 21:11 Dose: 100 mg Sodium Chloride (0.9 % Sodium Chloride Flush 3 Ml Syringe) 3 ml IVFLUSH QSHIFT [facility] Last Admin: 03/15/24 09:50 Dose: Not Given Vitamin D (Cholecalciferol (Vitamin D3) 25 Mcg Tablet) 25 mcg PO DAILY [facility] Last Admin: 03/15/24 09:20 Dose: 25 mcg <Kalyn Garcia PA-C - Last Filed: 03/15/24 10:35> Home medications: Home Medications ?Medication ?Instructions ?Recorded ?Confirmed ?Last Taken ?Type alprazolam 0.5 mg tablet 0.75 mg PO BID Anxiety 03/18/20 03/13/24 03/13/24 History ascorbic acid (vitamin C) 500 mg 500 mg PO DAILY 03/18/20 03/13/24 03/13/24 History capsule citalopram 20 mg tablet 20 mg PO DAILY 12/24/20 03/13/24 03/13/24 History melatonin 10 mg tablet 10 mg PO BEDTIME 10/04/23 03/13/24 Unknown History quetiapine 100 mg tablet 100 mg PO BEDTIME 10/04/23 03/13/24 Unknown History quetiapine 25 mg tablet 25 mg PO DAILY 10/05/23 03/13/24 03/13/24 History furosemide 40 mg tablet 20 mg PO DAILY 10/12/23 03/13/24 03/13/24 History cetirizine 10 mg tablet 10 mg PO DAILY for allergies 03/13/24 03/13/24 03/13/24 History glimepiride 1 mg tablet 1 mg PO DAILY 03/13/24 03/13/24 03/13/24 History ipratropium 0.5 mg-albuterol 3 mg 3 ml inhalation BID shortness of 03/13/24 03/13/24 03/13/24 History (2.5 mg base)/3 mL nebulization breath or wheezing soln omeprazole 20 mg capsule,delayed 20 mg PO DAILY@0630 03/13/24 03/13/24 03/13/24 History release pravastatin 40 mg tablet 40 mg PO BEDTIME 03/13/24 03/13/24 Unknown History <HAMILTON Torres Last Filed: 03/15/24 10:35> Physical Exam Vital Signs: Vital Signs: Last Vital Signs Temp 96.8 F 03/15/24 07:46 Pulse 74 03/15/24 07:46 Resp 18 03/15/24 07:46 BP 167/78 H 03/15/24 07:46 Pulse Ox 92 03/15/24 07:46 O2 Del Method Nasal Cannula 03/15/24 07:46 O2 Flow Rate 3 03/15/24 07:46 BMI result Body Mass Index 37.8 <HAMILTON Torres Last Filed: 03/15/24 10:35> Const: General: comfortable, no acute distress and alert <HAMILTON Torres Last Filed: 03/15/24 10:35> Resp: Effort & Inspection: normal respiratory effort <HAMILTON Torres Last Filed: 03/15/24 10:35> GI: Other: corpulent abdomen <HAMILTON Torres Last Filed: 03/15/24 10:35> Inspection: No distended <HAMILTON Torres Last Filed: 03/15/24 10:35> Palpation (GI): Soft to palpation, nontender and no guarding <HAMILTON Torres Last Filed: 03/15/24 10:35> Percussion: Yes normal to percussion <HAMILTON Torres Last Filed: 03/15/24 10:35> Skin: General skin exam: no rashes or lesions noted <HAMILTON Torres Last Filed: 03/15/24 10:35> Neuro: General: moves all extremities <HAMILTON Torres Last Filed: 03/15/24 10:35> Results Labs Result diagrams: 03/14/24 05:29 03/15/24 08:05 <HAMILTON Torres Last Filed: 03/15/24 10:35> Labs: Abnormal lab results 03/13/24 03/14/24 03/14/24 Range/Units 17:55 11:44 15:48 Potassium (3.3-5.1) mmol/L Chloride (96-108) mmol/L Anion Gap (12-20) BUN (9-16) mg/dL Creatinine (0.5-1.4) mg/dL POC Glucose 262 H 279 H (60-115) mg/dL Random Glucose (60-115) mg/dL Parainfluenza 1 (PCR) Detected A (Not Detect.) 03/14/24 03/15/24 03/15/24 Range/Units 20:33 06:02 07:49 Potassium (3.3-5.1) mmol/L Chloride (96-108) mmol/L Anion Gap (12-20) BUN (9-16) mg/dL Creatinine (0.5-1.4) mg/dL POC Glucose 191 H 188 H 193 H (60-115) mg/dL Random Glucose (60-115) mg/dL Parainfluenza 1 (PCR) (Not Detect.) 03/15/24 Range/Units 08:05 Potassium 5.4 H (3.3-5.1) mmol/L Chloride 110 H (96-108) mmol/L Anion Gap 11 L (12-20) BUN 36 H (9-16) mg/dL Creatinine 2.45 H (0.5-1.4) mg/dL POC Glucose (60-115) mg/dL Random Glucose 202 H (60-115) mg/dL Parainfluenza 1 (PCR) (Not Detect.) BMP 03/15/24 08:05 Sodium 140 Potassium 5.4 H Chloride 110 H Carbon Dioxide 24 BUN 36 H Creatinine 2.45 H Calcium 9.0 All other labs normal. <Kalyn Garcia PA-C - Last Filed: 03/15/24 10:35> Imaging Abdominal x-ray: report reviewed and image reviewed <Kalyn Garcia PA-C - Last Filed: 03/15/24 10:35> Abdomen CT scan report/results: image reviewed <Kalyn Garcia PA-C - Last Filed: 03/15/24 10:35> Assessment and Plan (1) Gastroparesis: Status: Acute <Kalyn Garcia PA-C - Last Filed: 03/15/24 10:35> clinically not obstructed overall clinical picture c/w gastroparesis try prokinetics - erythromycin 250 mg TID blood sugar control exam benign seen and examined independently <José Ivy MD - Last Filed: 03/15/24 17:03> 88 year old female with multiple comorbidities admitted for COPD exacerbation who developed nausea/vomiting yesterday. She is clinically not obstructed. She has had no further vomiting and has evidence of GI function and oral contrast is in the colon. Her stomach however is distended on imaging with contrast present 2hrs following ingestion suggestive of gastroparesis. Can advance diet slowly as tolerated. Prokinetic to help with motility. She has been seen by Dr. Weaver and has a GI follow up scheduled. <Kalyn Garcia PA-C - Last Filed: 03/15/24 10:35> Procedures Date of Service Date of Service: 03/15/24 <Kalyn Garcia PA-C - Last Filed: 03/15/24 10:35> 03/15/24 <José Ivy MD - Last Filed: 03/15/24 17:03>
[2024-03-15] MEDS: LINAGLIPTIN 5 MG 5 EACH PO (10:20)
[2024-03-15] MEDS: Erythromycin Lactobionate 250 MG in 0.9 % Sodium Chloride 100 ML 100 MG IV ×3 (10:36→23:30)
[2024-03-15] MEDS: ALPRAZolam 0.25 MG TABLET 0.75 MG PO ×2 (11:09→20:51)
--- NOTE | 2024-03-15 11:19 | PC.NURSE ---
Pt dtr requesting pt to take only .5 mg of Xanax rather than.75 says her home dose is less than what is given here., aware
[2024-03-15 11:33] LABS: Glucose, Whole Blood 228 mg/dL (60-115)
--- NOTE | 2024-03-15 12:15 | MHC.SL.SWA ---
Speech Pathologist Impression:Mild to moderate oropharyngeal dysphagia Risk of Aspiration Due to: Medically Fragile Dysphasia Diet Status: Anticipate pt continues to benefit from VICE PRESIDENT QUALITY tx/intervention/assessment d/t nature of dysphagia. Liquid Consistency and Strategies for Safe Swallow: Liquid Intake Recommendation: [place] Thick Liquid Intake Strategies: Small Sips No Straws Solid Food Consistency: Dietary Recommendations: Pureed (NDD1) Additional Modifications to Solid Foods: Recommend DOWNGRADE to Pureed foods (NDD1) and [place] Thick liquids, pills to be administered Crushed in Puree. Standard aspiration precautions apply. Patient will need 1:1 assistance feeding. Oral Medication Intake: Crushed with Puree Please contact the pharmacy regarding appropriate crushable or liquid drug formulations that are available whenever modified delivery is recommended. Compensatory Strategies and Precautions to be Taken for Safe Swallow: Sitting Upright (90 deg) No Straw Small Bites and Sips Alternate Liquids/Solids Rate of Ingestion Change Avoid Specific Foods Supervision While Eating and Drinking for Safe Swallow: Total Assistance (1:1) Foods to Avoid: Mixed consistencies (i.e. heterogenous foods/ separation of solid and liquid component) Swallowing Recommended Treatments: Compens. Strategy Educat. Recommendation for Speech: Inpatient Speech Therapy Comment: 1:1 feeding, dtr verbalized use of safety strategies in place at home, but noted pt impulsivity in eating leads to complications, pt unable to safely self-monitor PO intake Frequency/Duration: PRN M-F Date Range for Service Req: Timeline to reassess: PRN Executive Director Sheltered Workshop Clinican/Clinical Fellow: No Supervisory Statement: I have reviewed and agree with the student/clinical fellow's documentation: N/A Speech Language Pathologist: Shannan Mccollum M.S., CCC-VICE PRESIDENT QUALITY
[2024-03-15] MEDS: Insulin Lispro 100 UNIT/ML 3 ML VIAL SUBCUT ×2 (12:40→20:51)
--- NOTE | 2024-03-15 13:55 | MHC.CM.PN ---
EMR REVIEWED AND PER MD ROUNDS, PT IS NOT MEDICALLY CLEARED FOR DC. HAD PERIOD OF AGITATION OVERNIGHT. CM WILL CONTINUE TO FOLLOW FOR ANY CHANGE TO DC PLAN/NEEDS.
--- NOTE | 2024-03-15 14:41 | HO.PM.IMPN ---
Subjective Subjective Date of Service: 03/15/24 Interval History: Possible Aspiration pneumonitis Review of Systems Nausea vomiting improving No cough or fever Physical Exam Vital Signs: Vital Signs: Last Vital Signs Temp 96.8 F 03/15/24 07:46 Pulse 74 03/15/24 07:46 Resp 18 03/15/24 07:46 BP 167/78 H 03/15/24 07:46 Pulse Ox 92 03/15/24 07:46 O2 Del Method Nasal Cannula 03/15/24 07:46 O2 Flow Rate 3 03/15/24 07:46 BMI result Body Mass Index 37.8 General: AOx3,y[place] speakin Resp: air entry fair ,few rhonchii at bases. CVS: S1, S2, RRR GI: NT, abd pain mild diffuse ,no rebound or guarding ,soft. Skin: Warm, dry Extremities: No edema Psych: Appropriate affect Objective Data Active Medications Acetaminophen (Acetaminophen 325 Mg Tablet) 650 mg PO Q6H PRN PRN Reason: Pain, Mild (Pain Scale 1-3), fever or headache Albuterol/Ipratropium (Albuterol/Iprat 2.5/0.5mg 3 Ml Ampul.Neb) 3 ml INHALE Q4H PRN PRN Reason: Shortness of Breath/Wheezing Last Admin: 03/14/24 08:27 Dose: 3 ml Documented By: LESLEE Alprazolam (Alprazolam 0.25 Mg Tablet) 0.75 mg PO BID [facility] Last Admin: 03/15/24 11:09 Dose: 0.5 mg Documented By: NEERU Comments: pt requesting reduced dose. aware. Amlodipine Besylate (Amlodipine Besylate 2.5 Mg Tablet) 2.5 mg PO DAILY [facility]; Protocol Last Admin: 03/15/24 09:21 Dose: 2.5 mg Documented By: NEERU Ascorbic Acid (Ascorbic Acid 500 Mg Tablet) 500 mg PO DAILY [facility] Last Admin: 03/15/24 09:20 Dose: 500 mg Documented By: NEERU Calcium Carbonate (Calcium Carbonate 750 Mg Tab.Chew) 750 mg PO Q4H PRN PRN Reason: Heartburn Cyanocobalamin (Cyanocobalamin (Vitamin B-12) 500 Mcg Tablet) 500 mcg PO DAILY [facility] Last Admin: 03/15/24 09:20 Dose: 500 mcg Documented By: NEERU Docusate Sodium (Docusate Sodium 100 Mg Capsule) 100 mg PO BID [facility] Last Admin: 03/15/24 09:21 Dose: 100 mg Documented By: NEERU Escitalopram Oxalate (Escitalopram Oxalate 10 Mg Tablet) 10 mg PO DAILY [facility] Last Admin: 03/15/24 09:20 Dose: 10 mg Documented By: NEERU Ferrous Sulfate (Ferrous Sulfate 324 Mg Tablet.Dr) 324 mg PO DAILY [facility] Last Admin: 03/15/24 09:20 Dose: 324 mg Documented By: NEERU Furosemide (Furosemide 20 Mg Tablet) 20 mg PO DAILY [facility]; Protocol Last Admin: 03/15/24 09:20 Dose: 20 mg Documented By: NEERU Glucose (Glucose Gel 15 Gm Gel..Gram.) 15 gm PO Q15M PRN; Protocol PRN Reason: per Hypoglycemia Standing Ord. Heparin Sodium (Porcine) (Heparin Sodium,Porcine 5,000 Unit/Ml Vial) 5,000 unit SUBCUT Q12H [facility] Last Admin: 03/15/24 03:10 Dose: 5,000 unit Documented By: ROXANA Dextrose (D10) 250 mls @ 750 mls/hr IV Q15M PRN; Protocol PRN Reason: per Hypoglycemia Standing Ord. Ampicillin Sodium/Sulbactam (Sodium 3 gm/ Sodium Chloride) 100 mls @ 200 mls/hr IV Q12H [facility] Last Infusion: 03/15/24 11:24 Dose: Infused Documented By: NEERU Dextrose/Sodium Chloride (D5ns) 1,000 mls @ 70 mls/hr IVCONT .[id number] [facility] Last Admin: 03/14/24 22:03 Dose: 70 mls/hr Documented By: ROXANA Erythromycin Lactobionate 250 (mg/ Sodium Chloride) 100 mls @ 100 mls/hr IV Q6H [facility] Last Infusion: 03/15/24 12:05 Dose: Infused Documented By: NEERU Insulin Human Lispro (Insulin Lispro 100 Unit/Ml 3 Ml Vial) 0 unit SUBCUT QIDACHS [facility]; Protocol Last Admin: 03/15/24 12:40 Dose: 2 unit Documented By: NEERU Comments: MEAL TRAYS LATE Loratadine (Loratadine 10 Mg Tablet) 10 mg PO DAILY [facility] Last Admin: 03/15/24 09:20 Dose: 10 mg Documented By: NEERU Magnesium Hydroxide (Milk Of Magnesia 30 Ml Oral.Susp) 30 ml PO DAILY PRN PRN Reason: Constipation Last Admin: 03/14/24 21:31 Dose: 30 ml Documented By: ROXANA Melatonin (Melatonin 3 Mg Tablet) 6 mg PO BEDTIME PRN PRN Reason: Insomnia Last Admin: 03/14/24 21:14 Dose: 6 mg Documented By: ROXANA Methylprednisolone Sodium Succinate (Methylprednisolone Sod Succ 40 Mg/Ml Vial) 40 mg IVPUSH Q24H [facility] Last Admin: 03/15/24 05:41 Dose: 40 mg Documented By: ROXANA Metoprolol Succinate (Metoprolol Succinate Er 12.5 Mg Halftab.Er.24h) 12.5 mg PO DAILY [facility]; Protocol Last Admin: 03/15/24 09:17 Dose: 12.5 mg Documented By: NEERU Pt Own (Linagliptin [Tradjenta] 5 Mg Tablet) 5 mg PO DAILY [facility] Last Admin: 03/15/24 10:20 Dose: 5 mg Documented By: NEERU Pantoprazole Sodium (Pantoprazole Sodium 40 Mg/10 Ml Vial) 40 mg IVPUSH BID@0630,1630 [facility] Last Admin: 03/15/24 05:41 Dose: 40 mg Documented By: ROXANA Polyethylene Glycol (Polyethylene Glycol 3350 17 Gm Powd.Pack) 17 gm PO DAILY [facility] Last Admin: 03/15/24 09:20 Dose: 17 gm Documented By: NEERU Pravastatin Sodium (Pravastatin Sodium 40 Mg Tablet) 40 mg PO BEDTIME [facility] Last Admin: 03/14/24 21:11 Dose: 40 mg Documented By: ROXANA Quetiapine Fumarate (Quetiapine Fumarate 25 Mg Tablet) 25 mg PO DAILY [facility] Last Admin: 03/15/24 09:22 Dose: 25 mg Documented By: NEERU Quetiapine Fumarate (Quetiapine Fumarate 100 Mg Tablet) 100 mg PO BEDTIME [facility] Last Admin: 03/14/24 21:11 Dose: 100 mg Documented By: ROXANA Sodium Chloride (0.9 % Sodium Chloride Flush 3 Ml Syringe) 3 ml IVFLUSH QSHIFT [facility] Last Admin: 03/15/24 09:50 Dose: Not Given Documented By: NEERU Non-Admin Reason: IV Running Vitamin D (Cholecalciferol (Vitamin D3) 25 Mcg Tablet) 25 mcg PO DAILY [facility] Last Admin: 03/15/24 09:20 Dose: 25 mcg Documented By: NEERU Labs 03/14/24 05:29 03/15/24 08:05 Labs: Laboratory Results - last 24 hr 03/14/24 03/14/24 03/15/24 15:48 20:33 06:02 Anion Gap Estim Creat Clear Calc Estimated GFR POC Glucose 279 H 191 H 188 H Random Glucose Calcium 03/15/24 03/15/24 03/15/24 07:49 08:05 11:20 Anion Gap 11 L Estim Creat Clear Calc 15.3 Estimated GFR 19 POC Glucose 193 H 228 H Random Glucose 202 H Calcium 9.0 Microbiology Microbiology Results: Microbiology 03/13/24 13:40 Blood Culture - Preliminary Blood - Venous No growth after 24 hours. 03/13/24 13:34 Blood Culture - Preliminary Blood - Venous No growth after 24 hours. Assessment and Plan (1) Gastroparesis: Status: Acute (2) COPD exacerbation: Status: Acute Plan 88 yo f with a pmhx significant for COPD, diastolic CHF, CAD, stage 4 CKD with anemia of chronic disease, HTN, HLD, T2DM, and cognitive impairment who presented to the ED today with COPD exacerbation x3 days. nausea /vomiting abd pain kub -gastric outlet obstructtion vs ?bowel obstruction ct abd with po contrast -No evidence of intestinal obstruction. plan: Patient seen by surgery-no acute surgical interventions because patient passing bowels, CT abdomen negative for bowel obstruction. It was pointed out the patient has contrast in the stomach so possible question gastroparesis. Continue PPI, Zofran, added IV erythromycin trial. COPD exacerbation - no sepsis, tachypnea due to exacerbation O2 satting well in the 90s RSV/flu/COVID negative,viral resp panel-positive for parainfluenza trop negtive, EKG ok, no leukocytosis cxr and abd kub pending continue duonebs, solumedrol and unasyn (intiated on 03/04/24). diastolic CHF/HTN- no IV fluids at this time. continue furosemide 40 QD, metoprolol QD HLD - continue statin T2DM - hold home PO meds - SSI - diabetic diet LESLIE - CPAP DNR/DNI. MOSLT form given per pt request. VTE prohpy: heparin and pneumoboots ongoin need for hospitlisation-COPD exacerbation ,aspiritional penumonitis with minimal improvement with breathing treatment, and IV steroid in ED with risk factors for worsening exacerbation including diastolic CHF requiring at least 2 midnights stay treatment of COPD exacerbation. Quality Stroke Does the patient have a stroke diagnosis?: No VTE Prior VTE?: No VTE Risk Level:: Medical - moderate - high VTE Device Contraindication: N/A - Device Ordered VTE Drug Contraindication: N/A - Med Ordered
[2024-03-15 15:12] VITALS: BP 142/56; PULSE 73; RESP 18; TEMP 36.6; O2SAT 97
[2024-03-15 16:06] LABS: Glucose, Whole Blood 197 mg/dL (60-115)
[2024-03-15] MEDS: Dextrose 5 % and 0.9 % NaCl 1,000 ML 70 ML IVCONT (17:28)
[2024-03-15 19:13] VITALS: BP 142/78; PULSE 76; RESP 18; TEMP 36.5; O2SAT 96
[2024-03-15 20:32] LABS: Glucose, Whole Blood 210 mg/dL (60-115)
[2024-03-15] MEDS: QUEtiapine Fumarate 100 MG TABLET PO (20:51)
[2024-03-15] MEDS: Pravastatin Sodium 40 MG TABLET PO (20:51)
[2024-03-15 22:54] VITALS: PULSE 74; RESP 23; O2SAT 97
[2024-03-16] VITALS (9 sets, daily range): BP systolic 134–169; BP diastolic 61–79; PULSE 73–102; RESP 18–22; TEMP 36.4–36.5; O2SAT 94–98
--- NOTE | 2024-03-16 01:20 | PC.NURSE ---
patient seemed in distress when I entered her room, breathing heavy, she had took off her CPAP beforehand says she feels like she is suffocating and refused to wear it again. I put her back on 2L via NC and she seemes to be more comfortable, O2 sats between 95-96%
[2024-03-16] MEDS: Heparin Sodium,Porcine 5,000 UNIT/ML VIAL 5000 UNIT SUBCUT ×2 (03:46→15:15)
[2024-03-16] MEDS: Erythromycin Lactobionate 250 MG in 0.9 % Sodium Chloride 100 ML 100 MG IV ×2 (03:48→10:34)
[2024-03-16] MEDS: methylPREDNISolone Sod Succ 40 MG/ML VIAL IVPUSH (06:16)
[2024-03-16] MEDS: Pantoprazole Sodium 40 MG/10 ML VIAL IVPUSH ×2 (06:16→15:15)
[2024-03-16 07:38] LABS: Glucose, Whole Blood 141 mg/dL (60-115)
[2024-03-16] MEDS: Cholecalciferol (Vitamin D3) 25 MCG TABLET PO (08:52)
[2024-03-16] MEDS: QUEtiapine Fumarate 25 MG TABLET PO (08:52)
[2024-03-16] MEDS: Cyanocobalamin (Vitamin B-12) 500 MCG TABLET PO (08:52)
[2024-03-16] MEDS: Escitalopram Oxalate 10 MG TABLET PO (08:52)
[2024-03-16] MEDS: Metoprolol Succinate ER 12.5 MG HALFTAB.ER.24H PO (08:53)
[2024-03-16] MEDS: Docusate Sodium 100 MG CAPSULE PO ×2 (08:53→20:22)
[2024-03-16] MEDS: Loratadine 10 MG TABLET PO (08:53)
[2024-03-16] MEDS: Ferrous Sulfate 324 MG TABLET.DR PO (08:53)
[2024-03-16] MEDS: amLODIPine Besylate 2.5 MG TABLET PO (08:54)
[2024-03-16] MEDS: Ascorbic Acid 500 MG TABLET PO (08:54)
[2024-03-16] MEDS: Sodium Zirconium Cyclosilicate 5 GM POWD.PACK PO (08:54)
[2024-03-16] MEDS: predniSONE 20 MG TABLET 40 MG PO (08:54)
[2024-03-16] MEDS: ALPRAZolam 0.25 MG TABLET 0.75 MG PO (08:55)
[2024-03-16] MEDS: LINAGLIPTIN 5 MG 5 EACH PO (08:55)
[2024-03-16] MEDS: Ampicillin Sodium/Sulbactam Na 3 GM in 0.9 % Sodium Chloride 100 ML IV (09:05)
[2024-03-16] MEDS: Albuterol/Iprat 2.5/0.5MG 3 ML AMPUL.NEB INHALE ×3 (11:00→19:46)
[2024-03-16 11:39] LABS: Glucose, Whole Blood 194 mg/dL (60-115)
[2024-03-16] MEDS: Furosemide 20 MG/2 ML VIAL IVPUSH (12:21)
--- NOTE | 2024-03-16 12:36 | MHC.SLORD ---
Speech Language Pathology Order Status: Attempted to see patient X3 today, Patient lethargic, sleeping throughout morning, early PM. [employer]ING CONSULTANT will continue to follow.
[2024-03-16 12:53] LABS: VBG Base Excess -0.3 mmol/L; VBG HCO3 26 mmol/L (22-26); VBG pCO2 49 mmHg; VBG pH 7.32 (7.32-7.43); VBG pO2 61 mmHg
[2024-03-16 12:54] LABS: Venous Blood Gas Refer to POC result
--- NOTE | 2024-03-16 13:28 | HO.PM.IMPN ---
Subjective Subjective Date of Service: 03/16/24 Interval History: copd excerebation Review of Systems says feel more sob, little sleepy-easly awake no nausea vomiting or abd pain denies any nausea or vomiting or abd pain Physical Exam Vital Signs: Vital Signs: Last Vital Signs Temp 97.6 F 03/16/24 07:27 Pulse 73 03/16/24 11:08 Resp 21 H 03/16/24 11:24 BP 169/77 H 03/16/24 07:27 Pulse Ox 98 03/16/24 07:27 O2 Del Method Nasal Cannula 03/16/24 07:27 O2 Flow Rate 3.0 03/16/24 07:27 BMI result Body Mass Index 37.8 General:easily awake , knows her name ,daughter name ,daytime Resp:air entry dimished ,has more wheezing ,few rales at bases CVS: S1, S2, RRR GI: NT, nt ,no rebound or guarding ,soft. Extremities:1+ edema neuro-moves all ext . Psych: Appropriate affect Objective Data Active Medications Acetaminophen (Acetaminophen 325 Mg Tablet) 650 mg PO Q6H PRN PRN Reason: Pain, Mild (Pain Scale 1-3), fever or headache Albuterol/Ipratropium (Albuterol/Iprat 2.5/0.5mg 3 Ml Ampul.Neb) 3 ml INHALE Q4H PRN PRN Reason: Shortness of Breath/Wheezing Last Admin: 03/14/24 08:27 Dose: 3 ml Documented By: LESLEE Albuterol/Ipratropium (Albuterol/Iprat 2.5/0.5mg 3 Ml Ampul.Neb) 3 ml INHALE RQ4H WHILE AWAKE [facility] Alprazolam (Alprazolam 0.25 Mg Tablet) 0.75 mg PO BID [facility] Last Admin: 03/16/24 08:55 Dose: 0.75 mg Documented By: NEERU Amlodipine Besylate (Amlodipine Besylate 2.5 Mg Tablet) 2.5 mg PO DAILY [facility]; Protocol Last Admin: 03/16/24 08:54 Dose: 2.5 mg Documented By: NEERU Ascorbic Acid (Ascorbic Acid 500 Mg Tablet) 500 mg PO DAILY [facility] Last Admin: 03/16/24 08:54 Dose: 500 mg Documented By: NEERU Calcium Carbonate (Calcium Carbonate 750 Mg Tab.Chew) 750 mg PO Q4H PRN PRN Reason: Heartburn Cyanocobalamin (Cyanocobalamin (Vitamin B-12) 500 Mcg Tablet) 500 mcg PO DAILY [facility] Last Admin: 03/16/24 08:52 Dose: 500 mcg Documented By: NEERU Docusate Sodium (Docusate Sodium 100 Mg Capsule) 100 mg PO BID [facility] Last Admin: 03/16/24 08:53 Dose: 100 mg Documented By: NEERU Escitalopram Oxalate (Escitalopram Oxalate 10 Mg Tablet) 10 mg PO DAILY [facility] Last Admin: 03/16/24 08:52 Dose: 10 mg Documented By: NEERU Ferrous Sulfate (Ferrous Sulfate 324 Mg Tablet.Dr) 324 mg PO DAILY [facility] Last Admin: 03/16/24 08:53 Dose: 324 mg Documented By: NEERU Furosemide (Furosemide 40 Mg/4 Ml Vial) 40 mg IVPUSH DAILY [facility]; Protocol Glucose (Glucose Gel 15 Gm Gel..Gram.) 15 gm PO Q15M PRN; Protocol PRN Reason: per Hypoglycemia Standing Ord. Guaifenesin (Guaifenesin 200 Mg/10 Ml 10 Ml Liquid) 10 ml PO Q4H PRN PRN Reason: Cough Heparin Sodium (Porcine) (Heparin Sodium,Porcine 5,000 Unit/Ml Vial) 5,000 unit SUBCUT Q12H [facility] Last Admin: 03/16/24 03:46 Dose: 5,000 unit Documented By: LYNDSEY Dextrose (D10) 250 mls @ 750 mls/hr IV Q15M PRN; Protocol PRN Reason: per Hypoglycemia Standing Ord. Ampicillin Sodium/Sulbactam (Sodium 3 gm/ Sodium Chloride) 100 mls @ 200 mls/hr IV Q12H [facility] Last Infusion: 03/16/24 10:08 Dose: Infused Documented By: NEERU Erythromycin Lactobionate 250 (mg/ Sodium Chloride) 100 mls @ 100 mls/hr IV Q6H [facility] Last Infusion: 03/16/24 12:34 Dose: Infused Documented By: NEERU Insulin Human Lispro (Insulin Lispro 100 Unit/Ml 3 Ml Vial) 0 unit SUBCUT QIDACHS [facility]; Protocol Last Admin: 03/16/24 12:12 Dose: Not Given Documented By: NEERU Non-Admin Reason: No Insulin Coverage Loratadine (Loratadine 10 Mg Tablet) 10 mg PO DAILY [facility] Last Admin: 03/16/24 08:53 Dose: 10 mg Documented By: NEERU Magnesium Hydroxide (Milk Of Magnesia 30 Ml Oral.Susp) 30 ml PO DAILY PRN PRN Reason: Constipation Last Admin: 03/14/24 21:31 Dose: 30 ml Documented By: ROXANA Melatonin (Melatonin 3 Mg Tablet) 6 mg PO BEDTIME PRN PRN Reason: Insomnia Last Admin: 03/14/24 21:14 Dose: 6 mg Documented By: ROXANA Melatonin (Melatonin 3 Mg Tablet) 9 mg PO BEDTIME [facility] Metoprolol Succinate (Metoprolol Succinate Er 12.5 Mg Halftab.Er.24h) 12.5 mg PO DAILY [facility]; Protocol Last Admin: 03/16/24 08:53 Dose: 12.5 mg Documented By: NEERU Pt Own (Linagliptin [Tradjenta] 5 Mg Tablet) 5 mg PO DAILY [facility] Last Admin: 03/16/24 08:55 Dose: 5 mg Documented By: NEERU Non-Formulary Medication (Nitroglycerin) 1 patch TOPICAL DAILY [facility] Pantoprazole Sodium (Pantoprazole Sodium 40 Mg/10 Ml Vial) 40 mg IVPUSH BID@0630,1630 [facility] Last Admin: 03/16/24 06:16 Dose: 40 mg Documented By: LYNDSEY Polyethylene Glycol (Polyethylene Glycol 3350 17 Gm Powd.Pack) 17 gm PO DAILY [facility] Last Admin: 03/16/24 09:14 Dose: Not Given Documented By: NEERU Non-Admin Reason: Patient Refused Pravastatin Sodium (Pravastatin Sodium 40 Mg Tablet) 40 mg PO BEDTIME [facility] Last Admin: 03/15/24 20:51 Dose: 40 mg Documented By: LYNDSEY Prednisone (Prednisone 20 Mg Tablet) 40 mg PO DAILY [facility] Last Admin: 03/16/24 08:54 Dose: 40 mg Documented By: NEERU Quetiapine Fumarate (Quetiapine Fumarate 25 Mg Tablet) 25 mg PO DAILY [facility] Last Admin: 03/16/24 08:52 Dose: 25 mg Documented By: NEERU Quetiapine Fumarate (Quetiapine Fumarate 100 Mg Tablet) 100 mg PO BEDTIME [facility] Last Admin: 03/15/24 20:51 Dose: 100 mg Documented By: LYNDSEY Sodium Chloride (0.9 % Sodium Chloride Flush 3 Ml Syringe) 3 ml IVFLUSH QSHIFT [facility] Last Admin: 03/16/24 09:13 Dose: Not Given Documented By: NEERU Non-Admin Reason: IV Running Vitamin D (Cholecalciferol (Vitamin D3) 25 Mcg Tablet) 25 mcg PO DAILY [facility] Last Admin: 03/16/24 08:52 Dose: 25 mcg Documented By: NEERU Labs 03/14/24 05:29 03/15/24 08:05 Labs: Laboratory Results - last 24 hr 03/15/24 03/15/24 03/16/24 16:00 20:21 07:32 VBG pH VBG pCO2 VBG pO2 VBG HCO3 VBG O2 Saturation VBG Base Excess POC Glucose 197 H 210 H 141 H 03/16/24 03/16/24 11:32 12:48 VBG pH 7.32 VBG pCO2 49 VBG pO2 61 VBG HCO3 26 VBG O2 Saturation 90.0 VBG Base Excess -0.3 POC Glucose 194 H Microbiology Microbiology Results: Microbiology 03/13/24 13:34 Blood Culture - Preliminary Blood - Venous No growth after 48 hours. 03/13/24 13:40 Blood Culture - Preliminary Blood - Venous No growth after 48 hours. Assessment and Plan (1) Gastroparesis: Status: Acute (2) COPD exacerbation: Status: Acute Plan 88 yo f with a pmhx significant for COPD, diastolic CHF, CAD, stage 4 CKD with anemia of chronic disease, HTN, HLD, T2DM, and cognitive impairment who presented to the ED today with COPD exacerbation x3 days. COPD exacerbation,possible acute on ch diastolic chf execerbation vbg noted ph manitained. sats fine but seems more RSV/flu/COVID negative,viral resp panel-positive for parainfluenza trop negtive, EKG ok, no leukocytosis cxr seems similar to previous, added ct chest continue duonebs, steriods and unasyn (intiated on 03/04/24). added iv lasix ,moniter i/o,daily weights pulm eval. toxic metabolic encepahlopathy: sec to above ,also her psych meds might be contributing hold alpreazolam,quetipine. nausea /vomiting abd pain -possible related to gasteroparesis vs constipation. kub -gastric outlet obstruction vs ?bowel obstruction ct abd with po contrast -No evidence of intestinal obstruction. plan: Patient seen by surgery-no acute surgical interventions because patient passing bowels, CT abdomen negative for bowel obstruction. It was pointed out the patient has contrast in the stomach so possible question gastroparesis. symptoms improved with PPI, Zofran, with trial of IV erythromycin . passing bm diastolic CHF/HTN switch to iv lasix moniter i/o metoprolol QD ckd 4 -stable hyperkalemia-low potassium diet, given lokelema moniter renal function and electrolytes closely. HLD - continue statin T2DM - hold home PO meds - SSI - diabetic diet LESLIE - CPAP DNR/DNI. MOSLT form given per pt request. VTE prohpy: heparin and pneumoboots ongoin need for hospitlisation-COPD/chf exacerbation ,aspiritional penumonitis with minimal improvement with breathing treatment, and IV steroid in ED with risk factors for worsening exacerbation including diastolic CHF requiring at least 2 midnights stay treatment of COPD exacerbation. above management d/w patient hcp /daughter at bedside , overall prognosis poor ,patient is dnr/dni . Quality Stroke Does the patient have a stroke diagnosis?: No VTE Prior VTE?: No VTE Risk Level:: Medical - moderate - high VTE Device Contraindication: N/A - Device Ordered VTE Drug Contraindication: N/A - Med Ordered
--- NOTE | 2024-03-16 14:30 | P.CONNP_ITS ---
History of Present Illness Reason for Consult Consult date: 03/16/24 Chief Complaint Chief complaint: copd exacerbation History of Present Illness Narrative: pt is an 88 y/o female with a medical history of CKD stage 4, COPD, diastolic CHF, CAD, HTN, HLD, DMII, cognitive impairment. She came to the hospital on 03/13 with dyspnea, cough and fatigue x3 days, here for management of COPD exacerbation Nephrology consulted for CKD monitoring, she follows Dr Cox outpatient. she has developed and continues to have some abdominal pain (reports bilateral sides of her abdomen), CT ruled out bowel obstruction; kidneys and ureters unremarkable without hydronephrosis, hydroureter or calculi seen. she reports today she has ongoing dysuria for a long time but is unable to specify further. She is incontinent of urine at baseline and has had 1 episode of urinary incontinence since this morning per her daughter at bedside. Creatinine 02/03 (prior to admission) 2.98 03/13 2.27 03/14 2.43 03/15 2.45 GFR 19 on 03/15; prior to admission was 15 on 02/03 patient denies flank pain, difficulty urinating, blood in urine endorses some discomfort with urination she endorses middle/side abdominal pain bilaterally she denies chest pain states ongoing shortness of breath and ongoing cough since admission denies lower extremity swelling denies other concerns UA for dysuria Review of Systems Constitutional: Reports fatigue, Denies headache(s), Reports lethargy and Reports weakness Denies dizziness and Denies headache(s) Cardiovascular: Denies chest pain, Reports dyspnea and Reports orthopnea Respiratory: Reports cough and Reports dyspnea Gastrointestinal: Reports abdominal pain (reports bilateral side pains in middle of abdomen ongoing pain), Denies diarrhea, Denies nausea and Denies vomiting Genitourinary: Denies hematuria, Denies difficulty voiding, Reports dysuria (reports chronic/ongoing ), Denies flank pain and Reports urinary incontinence (chronic) Musculoskeletal: Denies back pain Skin/Breast: Denies rash Denies dizziness, Denies headache(s) and Reports weakness Endocrine: Reports fatigue PMFSH Past Medical History Medical History Hyperparathyroidism, secondary renal Anemia of chronic disease Chronic kidney disease, stage 4 (severe) Mild cognitive impairment LESLIE on CPAP Chronic heart failure with preserved ejection fraction (HFpEF) COPD (chronic obstructive pulmonary disease) Cellulitis of right foot Morbid obesity with BMI of 40.0-44.9, adult Depression Primary insomnia GERD without esophagitis Vitamin D deficiency Obstructive sleep apnea Benign essential hypertension Pure hypercholesterolemia Chronic kidney disease (CKD), stage III (moderate) Type 2 diabetes mellitus with diabetic chronic kidney disease Coronary artery disease COVID-19 GI bleed GERD (gastroesophageal reflux disease) LESLIE (obstructive sleep apnea) Anxiety CKD (chronic kidney disease) stage 3, GFR 30-59 ml/min Pulmonary hypertension CAD (coronary artery disease) Diabetes mellitus Heart disease Hypercholesteremia HTN (hypertension) Family History Family History Father No problems noted. Mother No problems noted. Surgical History Surgical History Hx of colonoscopy History of esophagogastroduodenoscopy (EGD) History of eye surgery H/O abdominal hysterectomy Social History Social History Household Members: Children Household Members Other:: lives with her daughter who cares for her Housing: Apartment Do you presently have visiting nurse or other home services: No Alcohol intake: never Patient Tobacco Use Status: Never used Tobacco Smoked in Last 30 Days: No e-Cigarette/Vaping Use: Never Used Patient Interested in Nicotine Replacement: No Patient Given Instructions on How to Stop Smoking: No Second Hand Smoke Exposure: No Use of substances other than those prescribed or required for medical reasons: No Currently Displaying Signs/Symptoms of Drug Intoxication Withdrawal: No Any prior treatment program specific to substance use: No Have you been hit, kicked, punched, or otherwise hurt by someone within the past year? If so, by whom?: No Do you feel safe in your current relationship?: No Current Relationship Is there a partner from a previous relationship who is making you feel unsafe now?: No Advance Directives: No Advance Directives Information Provided: No Do you have a plan to hurt others: No Plan Recently lost weight without trying: No How much weight loss: Not applicable Eating poorly because of decreased appetite: No Nutrition screen score: 0 Nutrition Risks: No Nutritional Risk Patient : No : No Poor oral hygiene: No service: No Current occupational status: retired and disabled Cognitive needs: No Hearing needs: No Vision needs: Yes Meds Allergies Allergy/AdvReac Type Severity Reaction Status Date / Time No Known Allergies Allergy Verified 03/13/24 11:27 Active Medications: Current Medications Acetaminophen (Acetaminophen 325 Mg Tablet) 650 mg PO Q6H PRN PRN Reason: Pain, Mild (Pain Scale 1-3), fever or headache Albuterol/Ipratropium (Albuterol/Iprat 2.5/0.5mg 3 Ml Ampul.Neb) 3 ml INHALE Q4H PRN PRN Reason: Shortness of Breath/Wheezing Last Admin: 03/14/24 08:27 Dose: 3 ml Albuterol/Ipratropium (Albuterol/Iprat 2.5/0.5mg 3 Ml Ampul.Neb) 3 ml INHALE RQ4H WHILE AWAKE [facility] Last Admin: 03/16/24 14:20 Dose: Not Given Alprazolam (Alprazolam 0.25 Mg Tablet) 0.75 mg PO BID [facility] Last Admin: 03/16/24 08:55 Dose: 0.75 mg Amlodipine Besylate (Amlodipine Besylate 2.5 Mg Tablet) 2.5 mg PO DAILY [facility]; Protocol Last Admin: 03/16/24 08:54 Dose: 2.5 mg Ascorbic Acid (Ascorbic Acid 500 Mg Tablet) 500 mg PO DAILY [facility] Last Admin: 03/16/24 08:54 Dose: 500 mg Calcium Carbonate (Calcium Carbonate 750 Mg Tab.Chew) 750 mg PO Q4H PRN PRN Reason: Heartburn Cyanocobalamin (Cyanocobalamin (Vitamin B-12) 500 Mcg Tablet) 500 mcg PO DAILY [facility] Last Admin: 03/16/24 08:52 Dose: 500 mcg Docusate Sodium (Docusate Sodium 100 Mg Capsule) 100 mg PO BID [facility] Last Admin: 03/16/24 08:53 Dose: 100 mg Escitalopram Oxalate (Escitalopram Oxalate 10 Mg Tablet) 10 mg PO DAILY [facility] Last Admin: 03/16/24 08:52 Dose: 10 mg Ferrous Sulfate (Ferrous Sulfate 324 Mg Tablet.Dr) 324 mg PO DAILY [facility] Last Admin: 03/16/24 08:53 Dose: 324 mg Furosemide (Furosemide 40 Mg/4 Ml Vial) 40 mg IVPUSH DAILY [facility]; Protocol Glucose (Glucose Gel 15 Gm Gel..Gram.) 15 gm PO Q15M PRN; Protocol PRN Reason: per Hypoglycemia Standing Ord. Guaifenesin (Guaifenesin 200 Mg/10 Ml 10 Ml Liquid) 10 ml PO Q4H PRN PRN Reason: Cough Heparin Sodium (Porcine) (Heparin Sodium,Porcine 5,000 Unit/Ml Vial) 5,000 unit SUBCUT Q12H [facility] Last Admin: 03/16/24 03:46 Dose: 5,000 unit Dextrose (D10) 250 mls @ 750 mls/hr IV Q15M PRN; Protocol PRN Reason: per Hypoglycemia Standing Ord. Ampicillin Sodium/Sulbactam (Sodium 3 gm/ Sodium Chloride) 100 mls @ 200 mls/hr IV Q12H [facility] Last Infusion: 03/16/24 10:08 Dose: Infused Insulin Human Lispro (Insulin Lispro 100 Unit/Ml 3 Ml Vial) 0 unit SUBCUT QIDACHS [facility]; Protocol Last Admin: 03/16/24 12:12 Dose: Not Given Loratadine (Loratadine 10 Mg Tablet) 10 mg PO DAILY [facility] Last Admin: 03/16/24 08:53 Dose: 10 mg Magnesium Hydroxide (Milk Of Magnesia 30 Ml Oral.Susp) 30 ml PO DAILY PRN PRN Reason: Constipation Last Admin: 03/14/24 21:31 Dose: 30 ml Melatonin (Melatonin 3 Mg Tablet) 6 mg PO BEDTIME PRN PRN Reason: Insomnia Last Admin: 03/14/24 21:14 Dose: 6 mg Melatonin (Melatonin 3 Mg Tablet) 9 mg PO BEDTIME [facility] Metoprolol Succinate (Metoprolol Succinate Er 12.5 Mg Halftab.Er.24h) 12.5 mg PO DAILY [facility]; Protocol Last Admin: 03/16/24 08:53 Dose: 12.5 mg Pt Own (Linagliptin [Tradjenta] 5 Mg Tablet) 5 mg PO DAILY [facility] Last Admin: 03/16/24 08:55 Dose: 5 mg Non-Formulary Medication (Nitroglycerin) 1 patch TOPICAL DAILY [facility] Pantoprazole Sodium (Pantoprazole Sodium 40 Mg/10 Ml Vial) 40 mg IVPUSH BID@0630,1630 [facility] Last Admin: 03/16/24 06:16 Dose: 40 mg Polyethylene Glycol (Polyethylene Glycol 3350 17 Gm Powd.Pack) 17 gm PO DAILY [facility] Last Admin: 03/16/24 09:14 Dose: Not Given Pravastatin Sodium (Pravastatin Sodium 40 Mg Tablet) 40 mg PO BEDTIME [facility] Last Admin: 03/15/24 20:51 Dose: 40 mg Prednisone (Prednisone 20 Mg Tablet) 40 mg PO DAILY [facility] Last Admin: 03/16/24 08:54 Dose: 40 mg Quetiapine Fumarate (Quetiapine Fumarate 25 Mg Tablet) 25 mg PO DAILY [facility] Last Admin: 03/16/24 08:52 Dose: 25 mg Quetiapine Fumarate (Quetiapine Fumarate 100 Mg Tablet) 100 mg PO BEDTIME [facility] Last Admin: 03/15/24 20:51 Dose: 100 mg Sodium Chloride (0.9 % Sodium Chloride Flush 3 Ml Syringe) 3 ml IVFLUSH QSHIFT [facility] Last Admin: 03/16/24 09:13 Dose: Not Given Vitamin D (Cholecalciferol (Vitamin D3) 25 Mcg Tablet) 25 mcg PO DAILY [facility] Last Admin: 03/16/24 08:52 Dose: 25 mcg Home Medications ?Medication ?Instructions ?Recorded ?Confirmed ?Last Taken ?Type alprazolam 0.5 mg tablet 0.75 mg PO BID Anxiety 03/18/20 03/13/24 03/13/24 History ascorbic acid (vitamin C) 500 mg 500 mg PO DAILY 03/18/20 03/13/24 03/13/24 History capsule citalopram 20 mg tablet 20 mg PO DAILY 12/24/20 03/13/24 03/13/24 History melatonin 10 mg tablet 10 mg PO BEDTIME 10/04/23 03/13/24 Unknown History quetiapine 100 mg tablet 100 mg PO BEDTIME 10/04/23 03/13/24 Unknown History quetiapine 25 mg tablet 25 mg PO DAILY 10/05/23 03/13/24 03/13/24 History furosemide 40 mg tablet 20 mg PO DAILY 10/12/23 03/13/24 03/13/24 History cetirizine 10 mg tablet 10 mg PO DAILY for allergies 03/13/24 03/13/24 03/13/24 History glimepiride 1 mg tablet 1 mg PO DAILY 03/13/24 03/13/24 03/13/24 History ipratropium 0.5 mg-albuterol 3 mg 3 ml inhalation BID shortness of 03/13/24 03/13/24 03/13/24 History (2.5 mg base)/3 mL nebulization breath or wheezing soln omeprazole 20 mg capsule,delayed 20 mg PO DAILY@0630 03/13/24 03/13/24 03/13/24 History release pravastatin 40 mg tablet 40 mg PO BEDTIME 03/13/24 03/13/24 Unknown History Physical Exam Vital Signs: Last Vital Signs Temp 97.6 F 03/16/24 07:27 Pulse 73 03/16/24 11:08 Resp 21 H 03/16/24 11:24 BP 169/77 H 03/16/24 07:27 Pulse Ox 98 03/16/24 07:27 O2 Del Method Nasal Cannula 03/16/24 07:27 O2 Flow Rate 3.0 03/16/24 07:27 BMI result Body Mass Index 37.8 Const General: no acute distress Orientation/consciousness: oriented to person, oriented to place and oriented to time Neck Neck: Yes no JVD Resp Effort & Inspection: labored Auscultation: wheezes Cardio Jugular venous distension: no JVD Rate: regular rate Rhythm: regular rhythm Heart sounds: S1 normal heart sound present and S2 normal heart sound present GI Palpation (GI): Soft to palpation and nontender General: Yes no CVA tenderness Back/Spine/Pelvis Back: no CVA tenderness Skin Rashes: no rashes Neuro General: oriented to person, oriented to place and oriented to time Extrem General: Yes normal to inspection, No edema and No pedal edema Results Lab Results 03/14/24 05:29 03/15/24 08:05 Lab results: Chemistry 03/14/24 03/15/24 05:29 08:05 Sodium 142 140 Potassium 5.0 5.4 H Carbon Dioxide 20 L 24 BUN 30 H 36 H Creatinine 2.43 H 2.45 H Calcium 9.4 9.0 Hematology 03/14/24 05:29 WBC 9.0 Hgb 10.1 L Plt Count 209 Assessment and Plan (1) Chronic kidney disease, stage 4 (severe): Status: Acute Plan CKD stage 4 renal function is at baseline slightly hyperkalemic not metabolically acidotic follow potassium and if high can get potassium-lowering medication as needed blood pressure control needs to be better, will adjust tomorrow if trending up at that time will check a serum immunofixation, PTH and vitamin D will check UA for complaint of dysuria Discussed with Dr Cox Procedures Date of Service Date of Service: 03/16/24
[2024-03-16] MEDS: Furosemide 40 MG/4 ML VIAL IVPUSH (15:14)
[2024-03-16 15:31] LABS: Glucose, Whole Blood 234 mg/dL (60-115)
[2024-03-16] MEDS: Piperacillin Sodium/Tazobactam 2.25 GM in 0.9 % Sodium Chloride 50 ML IV ×2 (16:26→22:35)
--- NOTE | 2024-03-16 16:26 | PM.CNPUL ---
History of Present Illness History of Present Illness Consult date: 03/16/24 Chief complaint: copd exacerbation Narrative: 88-year-old lady with underlying history of ? COPD, LESLIE, diastolic heart failure admitted on 03/13/2024 with dyspnea and treated empirically for COPD exacerbation and pneumonia. Hospital course significant for progressive hypoxia now requiring 3-4 L of supplemental oxygen and grossly positive I/O. CT chest with no evidence of pneumonic infiltrate, but mild bronchiectasis. Review of Systems Constitutional: Constitutional: Denies daytime sleepiness, Denies excessive sweating, Denies fatigue, Denies fever(s), Denies lethargy, Denies malaise, Denies night sweats, Denies snoring and Denies weight loss Eyes: Eyes: Denies blurry vision and Denies itchy eyes ENT: Denies nasal congestion, Denies post nasal drip, Denies sinus pain, Denies sinus pressure and Denies other ( Thrush) Cardiovascular: Cardiovascular: Denies chest pain, Denies pedal edema, Denies dyspnea, Denies orthopnea and Denies paroxysmal nocturnal dyspnea Respiratory: Respiratory: Denies cough, Denies hemoptysis, Denies excessive phlegm production, Denies dyspnea, Denies snoring and Denies wheezing Gastrointestinal: Gastrointestinal: Denies abdominal pain and Denies heartburn Musculoskeletal: Musculoskeletal: Denies myalgias, Denies arthralgias and Denies joint swelling Integumentary/Breasts: Skin/Breast: Denies rash Neurologic: Denies memory loss and Denies seizure-like activity Psychiatric: Psychiatric: Denies abnormal sleep pattern, Denies anxiety and Denies memory loss Endocrine: Endocrine: Denies excessive sweating, Denies fatigue and Denies heat intolerance Hematologic/Lymphatic: Hematologic/Lymphatic: Denies easy bruising Allergic/Immunologic: Allergic/Immunologic: Denies itchy eyes, Denies seasonal rhinorrhea and Denies wheezing PMFSH Past Medical History Medical History (Updated 03/16/24 @ 16:30 by Eladio Chirinos MD) Hyperparathyroidism, secondary renal Anemia of chronic disease Chronic kidney disease, stage 4 (severe) Mild cognitive impairment LESLIE on CPAP Chronic heart failure with preserved ejection fraction (HFpEF) COPD (chronic obstructive pulmonary disease) Cellulitis of right foot Morbid obesity with BMI of 40.0-44.9, adult Depression Primary insomnia GERD without esophagitis Vitamin D deficiency Obstructive sleep apnea Benign essential hypertension Pure hypercholesterolemia Chronic kidney disease (CKD), stage III (moderate) Type 2 diabetes mellitus with diabetic chronic kidney disease Coronary artery disease COVID-19 GI bleed GERD (gastroesophageal reflux disease) LESLIE (obstructive sleep apnea) Anxiety CKD (chronic kidney disease) stage 3, GFR 30-59 ml/min Pulmonary hypertension CAD (coronary artery disease) Diabetes mellitus Heart disease Hypercholesteremia HTN (hypertension) Family History Family History Father No problems noted. Mother No problems noted. Surgical History Surgical History Hx of colonoscopy History of esophagogastroduodenoscopy (EGD) History of eye surgery H/O abdominal hysterectomy Social History Social History Household Members: Children Household Members Other:: lives with her daughter who cares for her Housing: Apartment Do you presently have visiting nurse or other home services: No Alcohol intake: never Patient Tobacco Use Status: Never used Tobacco Smoked in Last 30 Days: No e-Cigarette/Vaping Use: Never Used Patient Interested in Nicotine Replacement: No Patient Given Instructions on How to Stop Smoking: No Second Hand Smoke Exposure: No Use of substances other than those prescribed or required for medical reasons: No Currently Displaying Signs/Symptoms of Drug Intoxication Withdrawal: No Any prior treatment program specific to substance use: No Have you been hit, kicked, punched, or otherwise hurt by someone within the past year? If so, by whom?: No Do you feel safe in your current relationship?: No Current Relationship Is there a partner from a previous relationship who is making you feel unsafe now?: No Advance Directives: No Advance Directives Information Provided: No Do you have a plan to hurt others: No Plan Recently lost weight without trying: No How much weight loss: Not applicable Eating poorly because of decreased appetite: No Nutrition screen score: 0 Nutrition Risks: No Nutritional Risk Patient : No : No Poor oral hygiene: No service: No Current occupational status: retired and disabled Cognitive needs: No Hearing needs: No Vision needs: Yes Meds Allergies Allergy/AdvReac Type Severity Reaction Status Date / Time No Known Allergies Allergy Verified 03/13/24 11:27 Active Medications: Current Medications Acetaminophen (Acetaminophen 325 Mg Tablet) 650 mg PO Q6H PRN PRN Reason: Pain, Mild (Pain Scale 1-3), fever or headache Albuterol/Ipratropium (Albuterol/Iprat 2.5/0.5mg 3 Ml Ampul.Neb) 3 ml INHALE Q4H PRN PRN Reason: Shortness of Breath/Wheezing Last Admin: 03/14/24 08:27 Dose: 3 ml Albuterol/Ipratropium (Albuterol/Iprat 2.5/0.5mg 3 Ml Ampul.Neb) 3 ml INHALE RQ4H WHILE AWAKE [facility] Last Admin: 03/16/24 15:36 Dose: 3 ml Alprazolam (Alprazolam 0.25 Mg Tablet) 0.75 mg PO BID [facility] Last Admin: 03/16/24 08:55 Dose: 0.75 mg Amlodipine Besylate (Amlodipine Besylate 2.5 Mg Tablet) 2.5 mg PO DAILY [facility]; Protocol Last Admin: 03/16/24 08:54 Dose: 2.5 mg Ascorbic Acid (Ascorbic Acid 500 Mg Tablet) 500 mg PO DAILY [facility] Last Admin: 03/16/24 08:54 Dose: 500 mg Calcium Carbonate (Calcium Carbonate 750 Mg Tab.Chew) 750 mg PO Q4H PRN PRN Reason: Heartburn Cyanocobalamin (Cyanocobalamin (Vitamin B-12) 500 Mcg Tablet) 500 mcg PO DAILY [facility] Last Admin: 03/16/24 08:52 Dose: 500 mcg Docusate Sodium (Docusate Sodium 100 Mg Capsule) 100 mg PO BID [facility] Last Admin: 03/16/24 08:53 Dose: 100 mg Escitalopram Oxalate (Escitalopram Oxalate 10 Mg Tablet) 10 mg PO DAILY [facility] Last Admin: 03/16/24 08:52 Dose: 10 mg Ferrous Sulfate (Ferrous Sulfate 324 Mg Tablet.Dr) 324 mg PO DAILY [facility] Last Admin: 03/16/24 08:53 Dose: 324 mg Furosemide (Furosemide 40 Mg/4 Ml Vial) 40 mg IVPUSH DAILY [facility]; Protocol Last Admin: 03/16/24 15:14 Dose: 40 mg Glucose (Glucose Gel 15 Gm Gel..Gram.) 15 gm PO Q15M PRN; Protocol PRN Reason: per Hypoglycemia Standing Ord. Guaifenesin (Guaifenesin 200 Mg/10 Ml 10 Ml Liquid) 10 ml PO Q4H PRN PRN Reason: Cough Heparin Sodium (Porcine) (Heparin Sodium,Porcine 5,000 Unit/Ml Vial) 5,000 unit SUBCUT Q12H [facility] Last Admin: 03/16/24 15:15 Dose: 5,000 unit Dextrose (D10) 250 mls @ 750 mls/hr IV Q15M PRN; Protocol PRN Reason: per Hypoglycemia Standing Ord. Doxycycline Hyclate 100 mg/ (Sodium Chloride) 250 mls @ 166.67 mls/hr IV ONCE ONE Stop: 03/16/24 17:22 Piperacillin Sod/Tazobactam (Sod 2.25 gm/ Sodium Chloride) 50 mls @ 100 mls/hr IV Q6H [facility] Insulin Human Lispro (Insulin Lispro 100 Unit/Ml 3 Ml Vial) 0 unit SUBCUT QIDACHS [facility]; Protocol Last Admin: 03/16/24 12:12 Dose: Not Given Loratadine (Loratadine 10 Mg Tablet) 10 mg PO DAILY [facility] Last Admin: 03/16/24 08:53 Dose: 10 mg Magnesium Hydroxide (Milk Of Magnesia 30 Ml Oral.Susp) 30 ml PO DAILY PRN PRN Reason: Constipation Last Admin: 03/14/24 21:31 Dose: 30 ml Melatonin (Melatonin 3 Mg Tablet) 6 mg PO BEDTIME PRN PRN Reason: Insomnia Last Admin: 03/14/24 21:14 Dose: 6 mg Melatonin (Melatonin 3 Mg Tablet) 9 mg PO BEDTIME [facility] Metoprolol Succinate (Metoprolol Succinate Er 12.5 Mg Halftab.Er.24h) 12.5 mg PO DAILY [facility]; Protocol Last Admin: 03/16/24 08:53 Dose: 12.5 mg Pt Own (Linagliptin [Tradjenta] 5 Mg Tablet) 5 mg PO DAILY [facility] Last Admin: 03/16/24 08:55 Dose: 5 mg Non-Formulary Medication (Nitroglycerin) 1 patch TOPICAL DAILY [facility] Pantoprazole Sodium (Pantoprazole Sodium 40 Mg/10 Ml Vial) 40 mg IVPUSH BID@0630,1630 [facility] Last Admin: 03/16/24 15:15 Dose: 40 mg Polyethylene Glycol (Polyethylene Glycol 3350 17 Gm Powd.Pack) 17 gm PO DAILY [facility] Last Admin: 03/16/24 09:14 Dose: Not Given Pravastatin Sodium (Pravastatin Sodium 40 Mg Tablet) 40 mg PO BEDTIME [facility] Last Admin: 03/15/24 20:51 Dose: 40 mg Prednisone (Prednisone 20 Mg Tablet) 40 mg PO DAILY [facility] Last Admin: 03/16/24 08:54 Dose: 40 mg Quetiapine Fumarate (Quetiapine Fumarate 25 Mg Tablet) 25 mg PO DAILY [facility] Last Admin: 03/16/24 08:52 Dose: 25 mg Quetiapine Fumarate (Quetiapine Fumarate 100 Mg Tablet) 100 mg PO BEDTIME [facility] Last Admin: 03/15/24 20:51 Dose: 100 mg Sodium Chloride (0.9 % Sodium Chloride Flush 3 Ml Syringe) 3 ml IVFLUSH QSHIFT [facility] Last Admin: 03/16/24 15:26 Dose: Not Given Vitamin D (Cholecalciferol (Vitamin D3) 25 Mcg Tablet) 25 mcg PO DAILY [facility] Last Admin: 03/16/24 08:52 Dose: 25 mcg Home Medications ?Medication ?Instructions ?Recorded ?Confirmed ?Last Taken ?Type alprazolam 0.5 mg tablet 0.75 mg PO BID Anxiety 03/18/20 03/13/24 03/13/24 History ascorbic acid (vitamin C) 500 mg 500 mg PO DAILY 03/18/20 03/13/24 03/13/24 History capsule citalopram 20 mg tablet 20 mg PO DAILY 12/24/20 03/13/24 03/13/24 History melatonin 10 mg tablet 10 mg PO BEDTIME 10/04/23 03/13/24 Unknown History quetiapine 100 mg tablet 100 mg PO BEDTIME 10/04/23 03/13/24 Unknown History quetiapine 25 mg tablet 25 mg PO DAILY 10/05/23 03/13/24 03/13/24 History furosemide 40 mg tablet 20 mg PO DAILY 10/12/23 03/13/24 03/13/24 History cetirizine 10 mg tablet 10 mg PO DAILY for allergies 03/13/24 03/13/24 03/13/24 History glimepiride 1 mg tablet 1 mg PO DAILY 03/13/24 03/13/24 03/13/24 History ipratropium 0.5 mg-albuterol 3 mg 3 ml inhalation BID shortness of 03/13/24 03/13/24 03/13/24 History (2.5 mg base)/3 mL nebulization breath or wheezing soln omeprazole 20 mg capsule,delayed 20 mg PO DAILY@0630 03/13/24 03/13/24 03/13/24 History release pravastatin 40 mg tablet 40 mg PO BEDTIME 03/13/24 03/13/24 Unknown History Physical Exam Vital Signs: Vital Signs: Last Vital Signs Temp 97.6 F 03/16/24 07:27 Pulse 102 H 03/16/24 15:37 Resp 20 03/16/24 15:37 BP 164/79 H 03/16/24 15:15 Pulse Ox 97 03/16/24 15:15 O2 Del Method Nasal Cannula 03/16/24 15:15 O2 Flow Rate 2 03/16/24 15:15 BMI result Body Mass Index 37.8 Const: General: no acute distress and alert Nutritional Appearance: not obese Orientation/consciousness: Other orientation findings ( oriented) HEENT: Head: Yes atraumatic Eyes: General: appearance normal, both eyes and all related structures Sclerae: sclerae normal EOM: EOMs intact bilaterally Neck: Neck: Yes supple Lymphatic: no lymphadenopathy noted Resp: Effort & Inspection: normal respiratory effort and no use of accessory muscles Auscultation: clear to auscultation bilaterally Cardio: Rate: tachycardic Rhythm: regular rhythm Heart sounds: no gallops, no murmurs and no rubs Skin: General skin exam: other ( warm) Extrem: General: No clubbing, No cyanosis and Yes edema (Trace bilateral) Results Laboratory Findings 03/14/24 05:29 03/15/24 08:05 ABG, PT/INR, D-dimer: PT/INR, D-dimer PT 11.9 SEC (10.9-12.4) 03/13/24 11:47 INR 1.0 (0.9-1.1) 03/13/24 11:47 Abnormal lab findings: Abnormal Labs 03/13/24 03/13/24 03/13/24 11:47 17:06 17:55 RBC 3.27 L Hgb 10.4 L Hct 31.8 L Immature Gran % (Auto) 0.5 H Neut % (Auto) Lymph % (Auto) 18.3 L Lymph # (Auto) Abs Immat Gran (auto) 0.04 H Potassium Chloride 110 H Carbon Dioxide 20 L Anion Gap BUN 33 H Creatinine 2.72 H POC Glucose 162 H Random Glucose 118 H Magnesium 1.5 L Parainfluenza 1 (PCR) Detected A 03/13/24 03/14/24 03/14/24 19:57 05:29 07:28 RBC 3.20 L Hgb 10.1 L Hct 30.5 L Immature Gran % (Auto) 0.6 H Neut % (Auto) 89.8 H Lymph % (Auto) 6.3 L Lymph # (Auto) 0.6 L Abs Immat Gran (auto) 0.05 H Potassium Chloride 112 H Carbon Dioxide 20 L Anion Gap BUN 30 H Creatinine 2.43 H POC Glucose 283 H 224 H Random Glucose 249 H Magnesium Parainfluenza 1 (PCR) 03/14/24 03/14/24 03/14/24 11:44 15:48 20:33 RBC Hgb Hct Immature Gran % (Auto) Neut % (Auto) Lymph % (Auto) Lymph # (Auto) Abs Immat Gran (auto) Potassium Chloride Carbon Dioxide Anion Gap BUN Creatinine POC Glucose 262 H 279 H 191 H Random Glucose Magnesium Parainfluenza 1 (PCR) 03/15/24 03/15/24 03/15/24 06:02 07:49 08:05 RBC Hgb Hct Immature Gran % (Auto) Neut % (Auto) Lymph % (Auto) Lymph # (Auto) Abs Immat Gran (auto) Potassium 5.4 H Chloride 110 H Carbon Dioxide Anion Gap 11 L BUN 36 H Creatinine 2.45 H POC Glucose 188 H 193 H Random Glucose 202 H Magnesium Parainfluenza 1 (PCR) 03/15/24 03/15/24 03/15/24 11:20 16:00 20:21 RBC Hgb Hct Immature Gran % (Auto) Neut % (Auto) Lymph % (Auto) Lymph # (Auto) Abs Immat Gran (auto) Potassium Chloride Carbon Dioxide Anion Gap BUN Creatinine POC Glucose 228 H 197 H 210 H Random Glucose Magnesium Parainfluenza 1 (PCR) 03/16/24 03/16/24 03/16/24 07:32 11:32 15:26 RBC Hgb Hct Immature Gran % (Auto) Neut % (Auto) Lymph % (Auto) Lymph # (Auto) Abs Immat Gran (auto) Potassium Chloride Carbon Dioxide Anion Gap BUN Creatinine POC Glucose 141 H 194 H 234 H Random Glucose Magnesium Parainfluenza 1 (PCR) Microbiology: Microbiology 03/13/24 13:34 Blood - Venous Blood Culture - Preliminary No growth after 48 hours. 03/13/24 13:40 Blood - Venous Blood Culture - Preliminary No growth after 48 hours. Assessment and Plan (1) Acute respiratory failure with hypoxia: Status: Acute (2) LESLIE on CPAP: Status: Acute (3) COPD (chronic obstructive pulmonary disease): Qualifiers: COPD type: unspecified COPD Qualified Code(s): J44.9 - Chronic obstructive pulmonary disease, unspecified Status: Acute Plan Impression: 88-year-old lady admitted with dyspnea and further development of hypoxia requiring supplemental oxygen with underlying LESLIE and COPD empirically treated for COPD exacerbation and aspiration pneumonia with CT chest showing no significant pneumonic infiltrates, but with significantly positive fluid balance. Recommendations: Rule out pulmonary embolism. Consider diuresis. Consider discontinuation of empiric antibiotics. Procedures Date of Service Date of Service: 03/16/24
[2024-03-16] MEDS: Insulin Lispro 100 UNIT/ML 3 ML VIAL SUBCUT ×2 (16:49→20:22)
[2024-03-16] MEDS: Doxycycline Hyclate 100 MG in 0.9 % Sodium Chloride 250 ML 166.67 MG IV ×2 (16:50→17:02)
[2024-03-16 17:22] LABS: D Dimer High Sensitivity 344 NG/ML
[2024-03-16] MEDS: Acetaminophen 325 MG TABLET 650 MG PO (19:22)
[2024-03-16 20:09] LABS: Glucose, Whole Blood 318 mg/dL (60-115)
[2024-03-16] MEDS: Pravastatin Sodium 40 MG TABLET PO (20:22)
[2024-03-16] MEDS: 0.9 % Sodium Chloride Flush 3 ML SYRINGE IVFLUSH (20:22)
[2024-03-16] MEDS: Melatonin 3 MG TABLET 9 MG PO (20:22)
[2024-03-16 23:31] LABS: Appearance Urine Clear; Color Urine Yellow; Glucose Urine UA 100 mg/dL (Negative); Leukocyte Esterase Urine Negative (Negative); Nitrite Urine Negative (Negative); Urine Blood Negative (Negative); Urine Ketones Negative (Negative); Urine Protein Negative (Neg-Trace)
[2024-03-16 23:33] LABS: Bacteria Urine None Seen (None Seen); Hyaline Casts Urine 0-2 /LPF (0-2); RBC Urine 0-2 /HPF (0-2); Squamous Epithelial Cell Urine 0-2 /HPF (0-2); WBC Urine 0-5 /HPF (0-5)
[2024-03-17] VITALS (11 sets, daily range): BP systolic 151–180; BP diastolic 70–92; PULSE 89–94; RESP 18–23; TEMP 36.2–37.1; O2SAT 92–97
[2024-03-17] MEDS: Heparin Sodium,Porcine 5,000 UNIT/ML VIAL 5000 UNIT SUBCUT ×2 (02:52→15:32)
[2024-03-17] MEDS: Piperacillin Sodium/Tazobactam 2.25 GM in 0.9 % Sodium Chloride 50 ML IV ×4 (04:36→22:45)
[2024-03-17] MEDS: Pantoprazole Sodium 40 MG/10 ML VIAL IVPUSH (05:38)
[2024-03-17 07:34] LABS: Parathyroid Hormone Intact 447.1 pg/mL (8.7-77.1)
[2024-03-17 07:37] LABS: B Type Natriuretic Peptide 51 pg/mL (<100)
[2024-03-17 07:49] LABS: Blood Urea Nitrogen 37 mg/dL (9-16); Calcium 9.5 mg/dL (8.4-10.2); Creatinine Clr Calc Pharmacy 14.5; Estimated Glomerular Filt Rate 17; Glucose Random 179 mg/dL (60-115)
[2024-03-17 07:54] LABS: Glucose, Whole Blood 167 mg/dL (60-115)
[2024-03-17 07:59] LABS: Anion Gap 17 (12-20); Carbon Dioxide 27 mmol/L (22-29); Chloride 103 mmol/L (96-108); Sodium 143 mmol/L (135-145)
[2024-03-17] MEDS: Albuterol/Iprat 2.5/0.5MG 3 ML AMPUL.NEB INHALE ×4 (08:23→19:54)
[2024-03-17] MEDS: 0.9 % Sodium Chloride Flush 3 ML SYRINGE IVFLUSH ×3 (08:29→23:30)
[2024-03-17] MEDS: Furosemide 40 MG/4 ML VIAL IVPUSH (08:30)
[2024-03-17] MEDS: Ferrous Sulfate 324 MG TABLET.DR PO (08:31)
[2024-03-17] MEDS: polyethylene glycoL 3350 17 GM POWD.PACK PO (08:31)
[2024-03-17] MEDS: amLODIPine Besylate 2.5 MG TABLET PO ×2 (08:31→09:51)
[2024-03-17] MEDS: Docusate Sodium 100 MG CAPSULE PO ×2 (08:31→22:45)
[2024-03-17] MEDS: Metoprolol Succinate ER 12.5 MG HALFTAB.ER.24H PO (08:31)
[2024-03-17] MEDS: Loratadine 10 MG TABLET PO (08:31)
[2024-03-17] MEDS: predniSONE 20 MG TABLET 40 MG PO (08:31)
[2024-03-17] MEDS: Escitalopram Oxalate 10 MG TABLET PO (08:31)
[2024-03-17] MEDS: Cyanocobalamin (Vitamin B-12) 500 MCG TABLET PO (08:32)
[2024-03-17] MEDS: Ascorbic Acid 500 MG TABLET PO (08:32)
[2024-03-17] MEDS: Cholecalciferol (Vitamin D3) 25 MCG TABLET PO (08:32)
[2024-03-17] MEDS: LINAGLIPTIN 5 MG 5 EACH PO (08:32)
--- NOTE | 2024-03-17 09:17 | P.PNNP_ITS ---
Subjective Subjective Date of Service: 03/17/24 Interval history: pt is an 88 y/o female with a medical history of CKD stage 4, COPD, diastolic CHF, CAD, HTN, HLD, DMII, cognitive impairment. She came to the hospital on 03/13 with dyspnea, cough and fatigue x3 days, here for management of COPD exacerbation Nephrology consulted for CKD monitoring, she follows Dr Cox outpatient. blood pressures elevated since yesterday (also started prednisone at that time) taking amlodipine 2.5mg PO daily and furosemide 40mg IVP daily Creatinine 02/03 (prior to admission) 2.98 03/13 2.27 03/14 2.43 03/15 2.45 03/17 2.58 GFR 19 on 03/15; prior to admission was 15 on 02/03 patient denies flank pain, difficulty urinating, blood in urine endorses some discomfort with urination (reports chronic, UA yesterday negative for infection) she endorses middle/side abdominal pain bilaterally- states today feels worse when she coughs, thinks it is muscle pains (CT abd/pelvis unremarkable) she denies chest pain states ongoing shortness of breath and ongoing cough since admission has improved since yesterday (prednisone added to regimen) denies lower extremity swelling denies other concerns Physical Exam 2 Vital Signs: Vital Signs: Last Vital Signs Temp 98.1 F 03/17/24 08:00 Pulse 89 03/17/24 08:31 Resp 20 03/17/24 08:00 BP 180/92 H 03/17/24 08:31 Pulse Ox 97 03/17/24 08:00 O2 Del Method Nasal Cannula 03/17/24 08:00 O2 Flow Rate 2 03/17/24 08:00 BMI result Body Mass Index 37.8 Const: General: comfortable, no acute distress, alert and awake Neck: Neck: Yes no JVD Resp: Effort & Inspection: normal respiratory effort Auscultation: rhonchi and wheezes Cardio: Jugular venous distension: no JVD Rate: regular rate Rhythm: r egular rhythm Heart sounds: S1 normal heart sound present and S2 normal heart sound present GI: Palpation (GI): Soft to palpation and nontender : General: Yes no CVA tenderness Back/Spine/Pelvis: Back: no CVA tenderness Skin: Rashes: no rashes Extrem: General: Yes normal to inspection, No edema and No pedal edema Objective Data Labs 03/14/24 05:29 03/17/24 05:40 Labs: Laboratory Results - last 24 hr 03/16/24 03/16/24 03/16/24 11:32 12:48 15:26 Hold Purple Top D-Dimer High Sensitivty VBG pH 7.32 VBG pCO2 49 VBG pO2 61 VBG HCO3 26 VBG O2 Saturation 90.0 VBG Base Excess -0.3 Sodium Potassium Chloride Carbon Dioxide Anion Gap BUN Creatinine Estim Creat Clear Calc Estimated GFR POC Glucose 194 H 234 H Random Glucose Calcium B-Natriuretic Peptide PTH Intact Hold Yellow Top Urine Color Urine Appearance Urine pH Ur Specific [place] Urine Protein Urine Glucose (UA) Urine Ketones Urine Blood Urine Nitrite Ur Leukocyte Esterase Urine RBC Urine WBC Ur Squamous Epith Cells Urine Bacteria Hyaline Casts 03/16/24 03/16/24 03/16/24 17:01 19:59 23:18 Hold Purple Top SEE NOTE D-Dimer High Sensitivty 344 VBG pH VBG pCO2 VBG pO2 VBG HCO3 VBG O2 Saturation VBG Base Excess Sodium Potassium Chloride Carbon Dioxide Anion Gap BUN Creatinine Estim Creat Clear Calc Estimated GFR POC Glucose 318 H Random Glucose Calcium B-Natriuretic Peptide PTH Intact Hold Yellow Top See Note Urine Color Yellow Urine Appearance Clear Urine pH 5.0 Ur Specific [place] 1.010 Urine Protein Negative Urine Glucose (UA) 100 H Urine Ketones Negative Urine Blood Negative Urine Nitrite Negative Ur Leukocyte Esterase Negative Urine RBC 0-2 Urine WBC 0-5 Ur Squamous Epith Cells 0-2 Urine Bacteria None Seen Hyaline Casts 0-2 03/17/24 03/17/24 05:40 07:08 Hold Purple Top D-Dimer High Sensitivty VBG pH VBG pCO2 VBG pO2 VBG HCO3 VBG O2 Saturation VBG Base Excess Sodium 143 Potassium 4.0 D Chloride 103 Carbon Dioxide 27 Anion Gap 17 BUN 37 H Creatinine 2.58 H Estim Creat Clear Calc 14.5 Estimated GFR 17 POC Glucose 167 H Random Glucose 179 H Calcium 9.5 B-Natriuretic Peptide 51 PTH Intact 447.1 H Hold Yellow Top Urine Color Urine Appearance Urine pH Ur Specific [place] Urine Protein Urine Glucose (UA) Urine Ketones Urine Blood Urine Nitrite Ur Leukocyte Esterase Urine RBC Urine WBC Ur Squamous Epith Cells Urine Bacteria Hyaline Casts Microbiology Microbiology Results: Microbiology 03/13/24 13:34 Blood - Venous Blood Culture - Preliminary No growth after 48 hours. 03/13/24 13:40 Blood - Venous Blood Culture - Preliminary No growth after 48 hours. Procedures Date of Service Date of Service: 03/17/24 Assessment & Plan Assessment and plan (1) Chronic kidney disease, stage 4 (severe): Status: Acute Plan CKD stage 4 renal function is at baseline electrolytes within normal limits not metabolically acidotic follow potassium and if high can get potassium-lowering medication as needed blood pressure control suboptimal but slightly improved, will continue to monitor serum immunofixation and vitamin D pending PTH elevated at 447; will initiate treatment once data including vit D is back UA unremarkable, pt continues to pass urine regularly (incontinence at baseline) Discussed with Dr Time Spent With Patient Time: Total time managing care of this patient today ____ minutes. Progress Note: Quality Stroke Does the patient have a stroke diagnosis?: No
[2024-03-17] MEDS: NITROGLYCERIN 0.2 MG/HR 1 EACH TOPICAL (09:49)
[2024-03-17 11:29] LABS: Glucose, Whole Blood 269 mg/dL (60-115)
[2024-03-17] MEDS: Insulin Lispro 100 UNIT/ML 3 ML VIAL SUBCUT ×3 (11:43→20:33)
--- NOTE | 2024-03-17 11:52 | MHC.CM.PN ---
PER MD ROUNDS, PT WILL NOT BE READY TO DC TODAY DCP REMAINS HOME WITH DAUGHTER WHO IS HER ADULT FC PROVIDER FAMILY TO TRANSPORT
--- NOTE | 2024-03-17 11:56 | MHC.SL.SWA ---
Speech Pathologist Impression: Risk of aspiration, oropharyngeal dysphagia Risk of Aspiration Due to: Medically Fragile Dysphasia Diet Status: No change Liquid Consistency and Strategies for Safe Swallow: Liquid Intake Recommendation: [place] Thick Liquid Intake Strategies: Small Sips No Straws Solid Food Consistency: Dietary Recommendations: Pureed (NDD1) Oral Medication Intake: Crushed with Puree Please contact the pharmacy regarding appropriate crushable or liquid drug formulations that are available whenever modified delivery is recommended. Compensatory Strategies and Precautions to be Taken for Safe Swallow: Sitting Upright (90 deg) No Straw Small Bites and Sips Alternate Liquids/Solids Rate of Ingestion Change Oral Check Avoid Specific Foods Supervision While Eating and Drinking for Safe Swallow: Total Supervision (1:1) Foods to Avoid: Mixed consistencies (i.e. heterogenous foods/ separation of solid and liquid component) Swallowing Recommended Treatments: Compens. Strategy Educat. Recommendation for Speech: Inpatient Speech Therapy Comment: Frequency/Duration: PRN M-F Date Range for Service Req: Timeline to reassess: PRN Agriculture Teacher Clinican/Clinical Fellow: No Supervisory Statement: I have reviewed and agree with the student/clinical fellow's documentation: N/A Speech Language Pathologist: Sandra Mcmahan M.A., CCC-BIOCHEMISTRY SPECIALIST
[2024-03-17] MEDS: Acetaminophen 325 MG TABLET 650 MG PO ×2 (13:38→20:34)
--- NOTE | 2024-03-17 14:21 | HO.PM.IMPN ---
Subjective Subjective Date of Service: 03/17/24 Interval History: aspirtional pneumonia Review of Systems sob and cough,hypoxia improving Physical Exam Vital Signs: Vital Signs: Last Vital Signs Temp 98.1 F 03/17/24 08:00 Pulse 89 03/17/24 11:49 Resp 20 03/17/24 11:49 BP 168/70 H 03/17/24 10:43 Pulse Ox 97 03/17/24 08:00 O2 Del Method Nasal Cannula 03/17/24 08:00 O2 Flow Rate 2 03/17/24 08:00 BMI result Body Mass Index 37.8 General:easily awake , knows her name ,daughter name ,daytime Resp:air entry dimished ,has more wheezing ,few rales at bases CVS: S1, S2, RRR GI: NT, nt ,no rebound or guarding ,soft. Extremities:1+ edema neuro-moves all ext . Psych: Appropriate affect Objective Data Active Medications Acetaminophen (Acetaminophen 325 Mg Tablet) 650 mg PO Q6H PRN PRN Reason: Pain, Mild (Pain Scale 1-3), fever or headache Last Admin: 03/17/24 13:38 Dose: 650 mg Documented By: FARTUN Albuterol/Ipratropium (Albuterol/Iprat 2.5/0.5mg 3 Ml Ampul.Neb) 3 ml INHALE Q4H PRN PRN Reason: Shortness of Breath/Wheezing Last Admin: 03/14/24 08:27 Dose: 3 ml Documented By: LESLEE Albuterol/Ipratropium (Albuterol/Iprat 2.5/0.5mg 3 Ml Ampul.Neb) 3 ml INHALE RQ4H WHILE AWAKE [facility] Last Admin: 03/17/24 11:49 Dose: 3 ml Documented By: GERARD Alprazolam (Alprazolam 0.25 Mg Tablet) 0.75 mg PO BID [facility] Last Admin: 03/16/24 08:55 Dose: 0.75 mg Documented By: NEERU Amlodipine Besylate (Amlodipine Besylate 2.5 Mg Tablet) 2.5 mg PO DAILY [facility]; Protocol Last Admin: 03/17/24 08:31 Dose: 2.5 mg Documented By: FARTUN Ascorbic Acid (Ascorbic Acid 500 Mg Tablet) 500 mg PO DAILY [facility] Last Admin: 03/17/24 08:32 Dose: 500 mg Documented By: FARTUN Calcium Carbonate (Calcium Carbonate 750 Mg Tab.Chew) 750 mg PO Q4H PRN PRN Reason: Heartburn Cyanocobalamin (Cyanocobalamin (Vitamin B-12) 500 Mcg Tablet) 500 mcg PO DAILY [facility] Last Admin: 03/17/24 08:32 Dose: 500 mcg Documented By: FARTUN Docusate Sodium (Docusate Sodium 100 Mg Capsule) 100 mg PO BID [facility] Last Admin: 03/17/24 08:31 Dose: 100 mg Documented By: FARTUN Escitalopram Oxalate (Escitalopram Oxalate 10 Mg Tablet) 10 mg PO DAILY [facility] Last Admin: 03/17/24 08:31 Dose: 10 mg Documented By: FARTUN Ferrous Sulfate (Ferrous Sulfate 324 Mg Tablet.Dr) 324 mg PO DAILY [facility] Last Admin: 03/17/24 08:31 Dose: 324 mg Documented By: FARTUN Furosemide (Furosemide 40 Mg/4 Ml Vial) 40 mg IVPUSH DAILY [facility]; Protocol Last Admin: 03/17/24 08:30 Dose: 40 mg Documented By: FARTUN Glucose (Glucose Gel 15 Gm Gel..Gram.) 15 gm PO Q15M PRN; Protocol PRN Reason: per Hypoglycemia Standing Ord. Guaifenesin (Guaifenesin 200 Mg/10 Ml 10 Ml Liquid) 10 ml PO Q4H PRN PRN Reason: Cough Heparin Sodium (Porcine) (Heparin Sodium,Porcine 5,000 Unit/Ml Vial) 5,000 unit SUBCUT Q12H [facility] Last Admin: 03/17/24 02:52 Dose: 5,000 unit Documented By: LYNDSEY Dextrose (D10) 250 mls @ 750 mls/hr IV Q15M PRN; Protocol PRN Reason: per Hypoglycemia Standing Ord. Piperacillin Sod/Tazobactam (Sod 2.25 gm/ Sodium Chloride) 50 mls @ 100 mls/hr IV Q6H [facility] Last Infusion: 03/17/24 12:46 Dose: Infused Documented By: FARTUN Insulin Human Lispro (Insulin Lispro 100 Unit/Ml 3 Ml Vial) 0 unit SUBCUT QIDACHS [facility]; Protocol Last Admin: 03/17/24 11:43 Dose: 6 unit Documented By: FARTUN Loratadine (Loratadine 10 Mg Tablet) 10 mg PO DAILY [facility] Last Admin: 03/17/24 08:31 Dose: 10 mg Documented By: FARTUN Magnesium Hydroxide (Milk Of Magnesia 30 Ml Oral.Susp) 30 ml PO DAILY PRN PRN Reason: Constipation Last Admin: 03/14/24 21:31 Dose: 30 ml Documented By: ROXANA Melatonin (Melatonin 3 Mg Tablet) 6 mg PO BEDTIME PRN PRN Reason: Insomnia Last Admin: 03/14/24 21:14 Dose: 6 mg Documented By: ROXANA Melatonin (Melatonin 3 Mg Tablet) 9 mg PO BEDTIME [facility] Last Admin: 03/16/24 20:22 Dose: 9 mg Documented By: LYNDSEY Metoprolol Succinate (Metoprolol Succinate Er 12.5 Mg Halftab.Er.24h) 12.5 mg PO DAILY [facility]; Protocol Last Admin: 03/17/24 08:31 Dose: 12.5 mg Documented By: FARTUN Pt Own (Linagliptin [Tradjenta] 5 Mg Tablet) 5 mg PO DAILY [facility] Last Admin: 03/17/24 08:32 Dose: 5 mg Documented By: FARTUN Pt Own ( Nitroglycerin 0.2 Mg /Hr Patch 24 Hour) 1 patch TOPICAL DAILY [facility] Last Admin: 03/17/24 09:49 Dose: 1 patch Documented By: ASHOK Pantoprazole Sodium (Pantoprazole Sodium 40 Mg/10 Ml Vial) 40 mg IVPUSH BID@0630,1630 [facility] Last Admin: 03/17/24 05:38 Dose: 40 mg Documented By: LYNDSEY Polyethylene Glycol (Polyethylene Glycol 3350 17 Gm Powd.Pack) 17 gm PO DAILY [facility] Last Admin: 03/17/24 08:31 Dose: 17 gm Documented By: FARTUN Pravastatin Sodium (Pravastatin Sodium 40 Mg Tablet) 40 mg PO BEDTIME [facility] Last Admin: 03/16/24 20:22 Dose: 40 mg Documented By: LYNDSEY Prednisone (Prednisone 20 Mg Tablet) 40 mg PO DAILY [facility] Last Admin: 03/17/24 08:31 Dose: 40 mg Documented By: FARTUN Quetiapine Fumarate (Quetiapine Fumarate 25 Mg Tablet) 25 mg PO DAILY [facility] Last Admin: 03/16/24 08:52 Dose: 25 mg Documented By: NEERU Quetiapine Fumarate (Quetiapine Fumarate 100 Mg Tablet) 100 mg PO BEDTIME [facility] Last Admin: 03/15/24 20:51 Dose: 100 mg Documented By: LYNDSEY Sodium Chloride (0.9 % Sodium Chloride Flush 3 Ml Syringe) 3 ml IVFLUSH QSHIFT [facility] Last Admin: 03/17/24 08:29 Dose: 3 ml Documented By: FARTUN Vitamin D (Cholecalciferol (Vitamin D3) 25 Mcg Tablet) 25 mcg PO DAILY [facility] Last Admin: 03/17/24 08:32 Dose: 25 mcg Documented By: FARTUN Labs 03/14/24 05:29 03/17/24 05:40 Labs: Laboratory Results - last 24 hr 03/16/24 03/16/24 03/16/24 15:26 17:01 19:59 Hold Purple Top SEE NOTE D-Dimer High Sensitivty 344 Anion Gap Estim Creat Clear Calc Estimated GFR POC Glucose 234 H 318 H Random Glucose Calcium B-Natriuretic Peptide PTH Intact Hold Yellow Top See Note Urine Color Urine Appearance Urine pH Ur Specific [place] Urine Protein Urine Glucose (UA) Urine Ketones Urine Blood Urine Nitrite Ur Leukocyte Esterase Urine RBC Urine WBC Ur Squamous Epith Cells Urine Bacteria Hyaline Casts 03/16/24 03/17/24 03/17/24 23:18 05:40 07:08 Hold Purple Top D-Dimer High Sensitivty Anion Gap 17 Estim Creat Clear Calc 14.5 Estimated GFR 17 POC Glucose 167 H Random Glucose 179 H Calcium 9.5 B-Natriuretic Peptide 51 PTH Intact 447.1 H Hold Yellow Top Urine Color Yellow Urine Appearance Clear Urine pH 5.0 Ur Specific [place] 1.010 Urine Protein Negative Urine Glucose (UA) 100 H Urine Ketones Negative Urine Blood Negative Urine Nitrite Negative Ur Leukocyte Esterase Negative Urine RBC 0-2 Urine WBC 0-5 Ur Squamous Epith Cells 0-2 Urine Bacteria None Seen Hyaline Casts 0-2 03/17/24 11:21 Hold Purple Top D-Dimer High Sensitivty Anion Gap Estim Creat Clear Calc Estimated GFR POC Glucose 269 H Random Glucose Calcium B-Natriuretic Peptide PTH Intact Hold Yellow Top Urine Color Urine Appearance Urine pH Ur Specific [place] Urine Protein Urine Glucose (UA) Urine Ketones Urine Blood Urine Nitrite Ur Leukocyte Esterase Urine RBC Urine WBC Ur Squamous Epith Cells Urine Bacteria Hyaline Casts Assessment and Plan (1) Gastroparesis: Status: Acute (2) COPD exacerbation: Status: Acute Plan 88 yo f with a pmhx significant for COPD, diastolic CHF, CAD, stage 4 CKD with anemia of chronic disease, HTN, HLD, T2DM, and cognitive impairment who presented to the ED today with COPD exacerbation x3 days. COPD exacerbation,possible acute on ch diastolic chf execerbation vbg noted ph manitained. sats fine but seems more RSV/flu/COVID negative,viral resp panel-positive for parainfluenza trop negtive, EKG ok, no leukocytosis cxr seems similar to previous, added ct chest continue duonebs, steriods, iv doxy/zosyn( intiated 03/16/24) and iv lasix ,moniter i/o,daily weights pulm evalnoted-continue above management. toxic metabolic encepahlopathy: improving sec to above ,also her psych meds might be contributing hold alpreazolam,quetipine. nausea /vomiting abd pain -possible related to gasteroparesis vs constipation. kub -gastric outlet obstruction vs ?bowel obstruction ct abd with po contrast -No evidence of intestinal obstruction. plan: Patient seen by surgery-no acute surgical interventions because patient passing bowels, CT abdomen negative for bowel obstruction. It was pointed out the patient has contrast in the stomach so possible question gastroparesis. symptoms improved with PPI, Zofran, with trial of IV erythromycin . passing bm diastolic CHF/HTN switch to iv lasix moniter i/o metoprolol QD ckd 4 -stable hyperkalemia-low potassium diet, given lokelema moniter renal function and electrolytes closely. HLD - continue statin T2DM - hold home PO meds - SSI - diabetic diet LESLIE - CPAP DNR/DNI. MOSLT form given per pt request. VTE prohpy: heparin and pneumoboots ongoin need for hospitlisation-COPD/chf exacerbation ,aspiritional penumonitis with minimal improvement with breathing treatment, and IV steroid in ED with risk factors for worsening exacerbation including diastolic CHF requiring at least 2 midnights stay treatment of COPD exacerbation. above management d/w patient hcp /daughter at bedside , overall prognosis poor ,patient is dnr/dni . Quality Stroke Does the patient have a stroke diagnosis?: No VTE Prior VTE?: No VTE Risk Level:: Medical - moderate - high VTE Device Contraindication: N/A - Device Ordered VTE Drug Contraindication: N/A - Med Ordered
[2024-03-17 16:41] LABS: Glucose, Whole Blood 348 mg/dL (60-115)
[2024-03-17 20:30] LABS: Glucose, Whole Blood 338 mg/dL (60-115)
[2024-03-17] MEDS: Melatonin 3 MG TABLET 9 MG PO (20:34)
[2024-03-17] MEDS: Pravastatin Sodium 40 MG TABLET PO (20:35)
[2024-03-18] VITALS (8 sets, daily range): BP systolic 140–174; BP diastolic 60–85; PULSE 93–108; RESP 18–20; TEMP 36.3–37.2; O2SAT 92–98; BMI 37.6
[2024-03-18] MEDS: Heparin Sodium,Porcine 5,000 UNIT/ML VIAL 5000 UNIT SUBCUT ×2 (04:03→14:37)
[2024-03-18] MEDS: Piperacillin Sodium/Tazobactam 2.25 GM in 0.9 % Sodium Chloride 50 ML IV ×4 (04:04→22:13)
[2024-03-18] MEDS: Albuterol/Iprat 2.5/0.5MG 3 ML AMPUL.NEB INHALE ×3 (07:28→19:55)
[2024-03-18 07:40] LABS: Glucose, Whole Blood 170 mg/dL (60-115)
[2024-03-18] MEDS: Metoprolol Succinate ER 12.5 MG HALFTAB.ER.24H PO (08:06)
[2024-03-18] MEDS: polyethylene glycoL 3350 17 GM POWD.PACK PO (08:06)
[2024-03-18] MEDS: Furosemide 40 MG/4 ML VIAL IVPUSH (08:06)
[2024-03-18] MEDS: LINAGLIPTIN 5 MG 5 EACH PO (08:06)
[2024-03-18] MEDS: Docusate Sodium 100 MG CAPSULE PO ×2 (08:06→19:55)
[2024-03-18] MEDS: predniSONE 20 MG TABLET 40 MG PO (08:07)
[2024-03-18] MEDS: Loratadine 10 MG TABLET PO (08:07)
[2024-03-18] MEDS: Cyanocobalamin (Vitamin B-12) 500 MCG TABLET PO (08:07)
[2024-03-18] MEDS: Cholecalciferol (Vitamin D3) 25 MCG TABLET PO (08:07)
[2024-03-18] MEDS: Escitalopram Oxalate 10 MG TABLET PO (08:07)
[2024-03-18] MEDS: Ascorbic Acid 500 MG TABLET PO (08:07)
[2024-03-18] MEDS: Ferrous Sulfate 324 MG TABLET.DR PO (08:07)
[2024-03-18] MEDS: NITROGLYCERIN 0.2 MG/HR 1 EACH TOPICAL (08:07)
[2024-03-18] MEDS: amLODIPine Besylate 5 MG TABLET PO (08:07)
[2024-03-18] MEDS: 0.9 % Sodium Chloride Flush 3 ML SYRINGE IVFLUSH ×3 (08:08→20:17)
[2024-03-18 11:17] LABS: Glucose, Whole Blood 337 mg/dL (60-115)
--- NOTE | 2024-03-18 11:58 | HO.PM.IMPN ---
Subjective Subjective Date of Service: 03/18/24 Interval History: copd /pneumonia /chf Review of Systems sob and mentation improving no fevers Physical Exam Vital Signs: Vital Signs: Last Vital Signs Temp 97.7 F 03/18/24 07:38 Pulse 94 03/18/24 07:38 Resp 20 03/18/24 07:38 BP 174/83 H 03/18/24 07:38 Pulse Ox 93 03/18/24 07:38 O2 Del Method Nasal Cannula 03/18/24 07:38 O2 Flow Rate 2 03/18/24 07:38 BMI result Body Mass Index 37.6 General:awake ,alert near baseline as per daughter at bedside Resp:air entry dimished ,has few rhonchii, no rales or wheezing CVS: S1, S2, RRR GI: NT, nt ,no rebound or guarding ,soft. Extremities:trace edema neuro-moves all ext . Psych: Appropriate affect Objective Data Active Medications Acetaminophen (Acetaminophen 325 Mg Tablet) 650 mg PO Q6H PRN PRN Reason: Pain, Mild (Pain Scale 1-3), fever or headache Last Admin: 03/17/24 20:34 Dose: 650 mg Documented By: DEBRA Albuterol/Ipratropium (Albuterol/Iprat 2.5/0.5mg 3 Ml Ampul.Neb) 3 ml INHALE Q4H PRN PRN Reason: Shortness of Breath/Wheezing Last Admin: 03/14/24 08:27 Dose: 3 ml Documented By: LESLEE Albuterol/Ipratropium (Albuterol/Iprat 2.5/0.5mg 3 Ml Ampul.Neb) 3 ml INHALE RQ4H WHILE AWAKE [facility] Last Admin: 03/18/24 11:25 Dose: Not Given Documented By: TIM Non-Admin Reason: Patient Refused Alprazolam (Alprazolam 0.25 Mg Tablet) 0.75 mg PO BID [facility] Last Admin: 03/16/24 08:55 Dose: 0.75 mg Documented By: NEERU Amlodipine Besylate (Amlodipine Besylate 5 Mg Tablet) 5 mg PO DAILY [facility]; Protocol Last Admin: 03/18/24 08:07 Dose: 5 mg Documented By: BENJAMIN Ascorbic Acid (Ascorbic Acid 500 Mg Tablet) 500 mg PO DAILY [facility] Last Admin: 03/18/24 08:07 Dose: 500 mg Documented By: BENJAMIN Calcium Carbonate (Calcium Carbonate 750 Mg Tab.Chew) 750 mg PO Q4H PRN PRN Reason: Heartburn Cyanocobalamin (Cyanocobalamin (Vitamin B-12) 500 Mcg Tablet) 500 mcg PO DAILY [facility] Last Admin: 03/18/24 08:07 Dose: 500 mcg Documented By: BENJAMIN Docusate Sodium (Docusate Sodium 100 Mg Capsule) 100 mg PO BID [facility] Last Admin: 03/18/24 08:06 Dose: 100 mg Documented By: BENJAMIN Escitalopram Oxalate (Escitalopram Oxalate 10 Mg Tablet) 10 mg PO DAILY [facility] Last Admin: 03/18/24 08:07 Dose: 10 mg Documented By: BENJAMIN Ferrous Sulfate (Ferrous Sulfate 324 Mg Tablet.Dr) 324 mg PO DAILY [facility] Last Admin: 03/18/24 08:07 Dose: 324 mg Documented By: BENJAMIN Furosemide (Furosemide 40 Mg Tablet) 40 mg PO DAILY [facility]; Protocol Glucose (Glucose Gel 15 Gm Gel..Gram.) 15 gm PO Q15M PRN; Protocol PRN Reason: per Hypoglycemia Standing Ord. Guaifenesin (Guaifenesin 200 Mg/10 Ml 10 Ml Liquid) 10 ml PO Q4H PRN PRN Reason: Cough Heparin Sodium (Porcine) (Heparin Sodium,Porcine 5,000 Unit/Ml Vial) 5,000 unit SUBCUT Q12H [facility] Last Admin: 03/18/24 04:03 Dose: 5,000 unit Documented By: DEBRA Dextrose (D10) 250 mls @ 750 mls/hr IV Q15M PRN; Protocol PRN Reason: per Hypoglycemia Standing Ord. Piperacillin Sod/Tazobactam (Sod 2.25 gm/ Sodium Chloride) 50 mls @ 100 mls/hr IV Q6H [facility] Last Infusion: 03/18/24 04:35 Dose: Infused Documented By: DEBRA Insulin Human Lispro (Insulin Lispro 100 Unit/Ml 3 Ml Vial) 0 unit SUBCUT QIDACHS [facility]; Protocol Last Admin: 03/18/24 07:41 Dose: Not Given Documented By: BENJAMIN Non-Admin Reason: No Insulin Coverage Loratadine (Loratadine 10 Mg Tablet) 10 mg PO DAILY [facility] Last Admin: 03/18/24 08:07 Dose: 10 mg Documented By: BENJAMIN Magnesium Hydroxide (Milk Of Magnesia 30 Ml Oral.Susp) 30 ml PO DAILY PRN PRN Reason: Constipation Last Admin: 03/14/24 21:31 Dose: 30 ml Documented By: ROXANA Melatonin (Melatonin 3 Mg Tablet) 6 mg PO BEDTIME PRN PRN Reason: Insomnia Last Admin: 03/14/24 21:14 Dose: 6 mg Documented By: ROXANA Melatonin (Melatonin 3 Mg Tablet) 9 mg PO BEDTIME [facility] Last Admin: 03/17/24 20:34 Dose: 9 mg Documented By: DEBRA Metoprolol Succinate (Metoprolol Succinate Er 12.5 Mg Halftab.Er.24h) 12.5 mg PO DAILY [facility]; Protocol Last Admin: 03/18/24 08:06 Dose: 12.5 mg Documented By: BENJAMIN Pt Own (Linagliptin [Tradjenta] 5 Mg Tablet) 5 mg PO DAILY [facility] Last Admin: 03/18/24 08:06 Dose: 5 mg Documented By: BENJAMIN Pt Own ( Nitroglycerin 0.2 Mg /Hr Patch 24 Hour) 1 patch TOPICAL DAILY [facility] Last Admin: 03/18/24 08:07 Dose: 1 patch Documented By: BENJAMIN Polyethylene Glycol (Polyethylene Glycol 3350 17 Gm Powd.Pack) 17 gm PO DAILY [facility] Last Admin: 03/18/24 08:06 Dose: 17 gm Documented By: BENJAMIN Pravastatin Sodium (Pravastatin Sodium 40 Mg Tablet) 40 mg PO BEDTIME [facility] Last Admin: 03/17/24 20:35 Dose: 40 mg Documented By: DEBRA Prednisone (Prednisone 10 Mg Tablet) 30 mg PO DAILY [facility] Quetiapine Fumarate (Quetiapine Fumarate 25 Mg Tablet) 25 mg PO DAILY [facility] Last Admin: 03/16/24 08:52 Dose: 25 mg Documented By: NEERU Quetiapine Fumarate (Quetiapine Fumarate 100 Mg Tablet) 100 mg PO BEDTIME [facility] Last Admin: 03/15/24 20:51 Dose: 100 mg Documented By: LYNDSEY Sodium Chloride (0.9 % Sodium Chloride Flush 3 Ml Syringe) 3 ml IVFLUSH QSHIFT [facility] Last Admin: 03/18/24 08:08 Dose: 3 ml Documented By: BENJAMIN Vitamin D (Cholecalciferol (Vitamin D3) 25 Mcg Tablet) 25 mcg PO DAILY [facility] Last Admin: 03/18/24 08:07 Dose: 25 mcg Documented By: BENJAMIN Labs 03/14/24 05:29 03/17/24 05:40 Labs: Laboratory Results - last 24 hr 03/17/24 03/17/24 03/18/24 16:37 20:26 07:17 POC Glucose 348 H 338 H 170 H 03/18/24 11:07 POC Glucose 337 H Assessment and Plan (1) Gastroparesis: Status: Acute (2) COPD exacerbation: Status: Acute Plan 88 yo f with a pmhx significant for COPD, diastolic CHF, CAD, stage 4 CKD with anemia of chronic disease, HTN, HLD, T2DM, and cognitive impairment who presented to the ED today with COPD exacerbation x3 days. COPD exacerbation,possible acute on ch diastolic chf execerbation vbg noted ph manitained. sats fine but seems more RSV/flu/COVID negative,viral resp panel-positive for parainfluenza trop negtive, EKG ok, no leukocytosis moniter i/o,daily weights cxr seems similar to previous, ct chest-possible developing bronchopneumonia in the posterior segment right upper lobe. continue duonebs,taper oxygen , steriods and lasix continue iv doxy/zosyn( intiated 03/16/24) pulm evalnoted-continue above management. toxic metabolic encepahlopathy: improving sec to above ,also her psych meds might be contributing hold alpreazolam added back low dose quetipine. nausea /vomiting abd pain -possible related to gasteroparesis vs constipation. kub -gastric outlet obstruction vs ?bowel obstruction ct abd with po contrast -No evidence of intestinal obstruction. plan: Patient seen by surgery-no acute surgical interventions because patient passing bowels, CT abdomen negative for bowel obstruction. It was pointed out the patient has contrast in the stomach so possible question gastroparesis. symptoms improved with PPI, Zofran, with trial of IV erythromycin . passing bm diastolic CHF/HTN switch to iv lasix moniter i/o metoprolol QD ckd 4 -stable hyperkalemia-low potassium diet, given lokelema moniter renal function and electrolytes closely. HLD - continue statin T2DM - hold home PO meds - SSI - diabetic diet LESLIE - CPAP DNR/DNI. MOSLT form given per pt request. VTE prohpy: heparin and pneumoboots ongoin need for hospitlisation-COPD/chf exacerbation ,aspiritional penumonitis -taper oxygen ,steriods ,lasix -moniter renal function ,electrolytes , moniter respiratory status closely. Quality Stroke Does the patient have a stroke diagnosis?: No VTE Prior VTE?: No VTE Risk Level:: Medical - moderate - high VTE Device Contraindication: N/A - Device Ordered VTE Drug Contraindication: N/A - Med Ordered
[2024-03-18] MEDS: Insulin Lispro 100 UNIT/ML 3 ML VIAL SUBCUT ×3 (12:00→20:11)
[2024-03-18] MEDS: QUEtiapine Fumarate 25 MG TABLET PO ×2 (12:28→19:55)
[2024-03-18 16:10] LABS: Glucose, Whole Blood 351 mg/dL (60-115)
[2024-03-18] MEDS: ALPRAZolam 0.5 MG TABLET PO (16:19)
[2024-03-18] MEDS: ALPRAZolam 0.25 MG TABLET 0.75 MG PO (19:54)
[2024-03-18] MEDS: Pravastatin Sodium 40 MG TABLET PO (19:55)
[2024-03-18] MEDS: Melatonin 3 MG TABLET 9 MG PO (19:55)
[2024-03-18 20:11] LABS: Glucose, Whole Blood 232 mg/dL (60-115)
[2024-03-18] MEDS: Acetaminophen 325 MG TABLET 650 MG PO (20:11)
[2024-03-19] VITALS (9 sets, daily range): BP systolic 137–163; BP diastolic 66–94; PULSE 64–101; RESP 14–20; TEMP 36.1–37.3; O2SAT 91–98; BMI 36.0
[2024-03-19] MEDS: Melatonin 3 MG TABLET 6 MG PO (02:48)
[2024-03-19] MEDS: Heparin Sodium,Porcine 5,000 UNIT/ML VIAL 5000 UNIT SUBCUT ×2 (02:48→14:42)
[2024-03-19] MEDS: Piperacillin Sodium/Tazobactam 2.25 GM in 0.9 % Sodium Chloride 50 ML IV ×4 (04:35→23:19)
--- NOTE | 2024-03-19 06:34 | PC.NURSE ---
Patient is confused, impulsive and noncompliant to CPAP and 02, safety maintained.
[2024-03-19 08:08] LABS: Glucose, Whole Blood 196 mg/dL (60-115)
[2024-03-19] MEDS: polyethylene glycoL 3350 17 GM POWD.PACK PO (08:13)
[2024-03-19] MEDS: predniSONE 10 MG TABLET 30 MG PO (08:14)
[2024-03-19] MEDS: QUEtiapine Fumarate 25 MG TABLET PO (08:14)
[2024-03-19] MEDS: Escitalopram Oxalate 10 MG TABLET PO (08:14)
[2024-03-19] MEDS: Ascorbic Acid 500 MG TABLET PO (08:14)
[2024-03-19] MEDS: Albuterol/Iprat 2.5/0.5MG 3 ML AMPUL.NEB INHALE ×4 (08:14→19:52)
[2024-03-19] MEDS: Cholecalciferol (Vitamin D3) 25 MCG TABLET PO (08:14)
[2024-03-19] MEDS: Loratadine 10 MG TABLET PO (08:14)
[2024-03-19] MEDS: Ferrous Sulfate 324 MG TABLET.DR PO (08:14)
[2024-03-19] MEDS: Cyanocobalamin (Vitamin B-12) 500 MCG TABLET PO (08:15)
[2024-03-19] MEDS: Metoprolol Succinate ER 12.5 MG HALFTAB.ER.24H PO (08:15)
[2024-03-19] MEDS: NITROGLYCERIN 0.2 MG/HR 1 EACH TOPICAL (08:15)
[2024-03-19] MEDS: Docusate Sodium 100 MG CAPSULE PO ×2 (08:15→19:47)
[2024-03-19] MEDS: LINAGLIPTIN 5 MG 5 EACH PO (08:15)
[2024-03-19] MEDS: amLODIPine Besylate 5 MG TABLET PO (08:15)
[2024-03-19] MEDS: 0.9 % Sodium Chloride Flush 3 ML SYRINGE IVFLUSH ×2 (08:16→14:43)
[2024-03-19] MEDS: Insulin Lispro 100 UNIT/ML 3 ML VIAL SUBCUT ×4 (08:16→23:19)
[2024-03-19] MEDS: ALPRAZolam 0.25 MG TABLET 0.75 MG PO ×2 (08:18→19:46)
[2024-03-19] MEDS: Furosemide 40 MG TABLET PO (08:28)
--- NOTE | 2024-03-19 09:11 | HO.PM.IMPN ---
Subjective Subjective Date of Service: 03/19/24 Interval History: sob,pneumonia Review of Systems sob somewhat improving no nausea/vomitin or abd pain passing bms Physical Exam Vital Signs: Vital Signs: Last Vital Signs Temp 97.8 F 03/19/24 07:40 Pulse 87 03/19/24 08:14 Resp 14 03/19/24 08:14 BP 137/94 H 03/19/24 07:40 Pulse Ox 96 03/19/24 07:40 O2 Del Method Nasal Cannula 03/19/24 07:40 O2 Flow Rate 2 03/19/24 07:40 BMI result Body Mass Index 36.0 General:awake ,alert near baseline as per daughter at bedside Resp:air entry dimished ,has few rhonchii, no rales or wheezing CVS: S1, S2, RRR GI: NT, nt ,no rebound or guarding ,soft. Extremities:trace edema neuro-moves all ext . Psych: Appropriate affect Objective Data Active Medications Acetaminophen (Acetaminophen 325 Mg Tablet) 650 mg PO Q6H PRN PRN Reason: Pain, Mild (Pain Scale 1-3), fever or headache Last Admin: 03/18/24 20:11 Dose: 650 mg Documented By: GETACHEW Albuterol/Ipratropium (Albuterol/Iprat 2.5/0.5mg 3 Ml Ampul.Neb) 3 ml INHALE Q4H PRN PRN Reason: Shortness of Breath/Wheezing Last Admin: 03/14/24 08:27 Dose: 3 ml Documented By: LESLEE Albuterol/Ipratropium (Albuterol/Iprat 2.5/0.5mg 3 Ml Ampul.Neb) 3 ml INHALE RQ4H WHILE AWAKE [facility] Last Admin: 03/19/24 08:14 Dose: 3 ml Documented By: BIGG Alprazolam (Alprazolam 0.25 Mg Tablet) 0.75 mg PO BID [facility] Last Admin: 03/19/24 08:18 Dose: 0.75 mg Documented By: YEN Amlodipine Besylate (Amlodipine Besylate 5 Mg Tablet) 5 mg PO DAILY [facility]; Protocol Last Admin: 03/19/24 08:15 Dose: 5 mg Documented By: YEN Ascorbic Acid (Ascorbic Acid 500 Mg Tablet) 500 mg PO DAILY [facility] Last Admin: 03/19/24 08:14 Dose: 500 mg Documented By: YEN Calcium Carbonate (Calcium Carbonate 750 Mg Tab.Chew) 750 mg PO Q4H PRN PRN Reason: Heartburn Cyanocobalamin (Cyanocobalamin (Vitamin B-12) 500 Mcg Tablet) 500 mcg PO DAILY [facility] Last Admin: 03/19/24 08:15 Dose: 500 mcg Documented By: YEN Docusate Sodium (Docusate Sodium 100 Mg Capsule) 100 mg PO BID [facility] Last Admin: 03/19/24 08:15 Dose: 100 mg Documented By: YEN Escitalopram Oxalate (Escitalopram Oxalate 10 Mg Tablet) 10 mg PO DAILY [facility] Last Admin: 03/19/24 08:14 Dose: 10 mg Documented By: YEN Ferrous Sulfate (Ferrous Sulfate 324 Mg Tablet.Dr) 324 mg PO DAILY [facility] Last Admin: 03/19/24 08:14 Dose: 324 mg Documented By: YEN Furosemide (Furosemide 40 Mg Tablet) 40 mg PO DAILY [facility]; Protocol Last Admin: 03/19/24 08:28 Dose: 40 mg Documented By: YEN Glucose (Glucose Gel 15 Gm Gel..Gram.) 15 gm PO Q15M PRN; Protocol PRN Reason: per Hypoglycemia Standing Ord. Guaifenesin (Guaifenesin 200 Mg/10 Ml 10 Ml Liquid) 10 ml PO Q4H PRN PRN Reason: Cough Heparin Sodium (Porcine) (Heparin Sodium,Porcine 5,000 Unit/Ml Vial) 5,000 unit SUBCUT Q12H [facility] Last Admin: 03/19/24 02:48 Dose: 5,000 unit Documented By: GETACHEW Dextrose (D10) 250 mls @ 750 mls/hr IV Q15M PRN; Protocol PRN Reason: per Hypoglycemia Standing Ord. Piperacillin Sod/Tazobactam (Sod 2.25 gm/ Sodium Chloride) 50 mls @ 100 mls/hr IV Q6H [facility] Last Infusion: 03/19/24 05:05 Dose: Infused Documented By: GETACHEW Insulin Human Lispro (Insulin Lispro 100 Unit/Ml 3 Ml Vial) 0 unit SUBCUT QIDACHS [facility]; Protocol Last Admin: 03/19/24 08:16 Dose: 2 unit Documented By: HO.JERUSIA Loratadine (Loratadine 10 Mg Tablet) 10 mg PO DAILY [facility] Last Admin: 03/19/24 08:14 Dose: 10 mg Documented By: YEN Magnesium Hydroxide (Milk Of Magnesia 30 Ml Oral.Susp) 30 ml PO DAILY PRN PRN Reason: Constipation Last Admin: 03/14/24 21:31 Dose: 30 ml Documented By: ROXANA Melatonin (Melatonin 3 Mg Tablet) 6 mg PO BEDTIME PRN PRN Reason: Insomnia Last Admin: 03/19/24 02:48 Dose: 6 mg Documented By: GETACHEW Melatonin (Melatonin 3 Mg Tablet) 9 mg PO BEDTIME [facility] Last Admin: 03/18/24 19:55 Dose: 9 mg Documented By: GETACHEW Metoprolol Succinate (Metoprolol Succinate Er 12.5 Mg Halftab.Er.24h) 12.5 mg PO DAILY [facility]; Protocol Last Admin: 03/19/24 08:15 Dose: 12.5 mg Documented By: YEN Pt Own (Linagliptin [Tradjenta] 5 Mg Tablet) 5 mg PO DAILY [facility] Last Admin: 03/19/24 08:15 Dose: 5 mg Documented By: YEN Pt Own ( Nitroglycerin 0.2 Mg /Hr Patch 24 Hour) 1 patch TOPICAL DAILY [facility] Last Admin: 03/19/24 08:15 Dose: 1 patch Documented By: YEN Comments: right upper arm Polyethylene Glycol (Polyethylene Glycol 3350 17 Gm Powd.Pack) 17 gm PO DAILY [facility] Last Admin: 03/19/24 08:13 Dose: 17 gm Documented By: YEN Pravastatin Sodium (Pravastatin Sodium 40 Mg Tablet) 40 mg PO BEDTIME [facility] Last Admin: 03/18/24 19:55 Dose: 40 mg Documented By: GETACHEW Prednisone (Prednisone 10 Mg Tablet) 30 mg PO DAILY [facility] Last Admin: 03/19/24 08:14 Dose: 30 mg Documented By: YEN Quetiapine Fumarate (Quetiapine Fumarate 25 Mg Tablet) 25 mg PO DAILY [facility] Last Admin: 03/18/24 19:55 Dose: 25 mg Documented By: GETACHEW Quetiapine Fumarate (Quetiapine Fumarate 25 Mg Tablet) 25 mg PO BEDTIME [place] Sodium Chloride (0.9 % Sodium Chloride Flush 3 Ml Syringe) 3 ml IVFLUSH QSHIFT [facility] Last Admin: 03/19/24 08:16 Dose: 3 ml Documented By: YEN Vitamin D (Cholecalciferol (Vitamin D3) 25 Mcg Tablet) 25 mcg PO DAILY [facility] Last Admin: 03/19/24 08:14 Dose: 25 mcg Documented By: YEN Labs 03/14/24 05:29 03/17/24 05:40 Labs: Laboratory Results - last 24 hr 03/18/24 03/18/24 03/18/24 11:07 16:01 20:07 POC Glucose 337 H 351 H* 232 H 03/19/24 07:43 POC Glucose 196 H Microbiology Microbiology Results: Microbiology 03/13/24 13:34 Blood Culture - Final Blood - Venous No growth after 5 days. 03/13/24 13:40 Blood Culture - Final Blood - Venous No growth after 5 days. Assessment and Plan (1) Gastroparesis: Status: Acute (2) COPD exacerbation: Status: Acute Plan 88 yo f with a pmhx significant for COPD, diastolic CHF, CAD, stage 4 CKD with anemia of chronic disease, HTN, HLD, T2DM, and cognitive impairment who presented to the ED today with COPD exacerbation x3 days. COPD exacerbation,possible acute on ch diastolic chf execerbation vbg noted ph manitained. sats fine but seems more RSV/flu/COVID negative,viral resp panel-positive for parainfluenza trop negtive, EKG ok, no leukocytosis moniter i/o,daily weights cxr seems similar to previous, ct chest-possible developing bronchopneumonia in the posterior segment right upper lobe. continue duonebs,taper oxygen , steriods and lasix continue iv doxy/zosyn( intiated 03/16/24) pulm evalnoted-continue above management. toxic metabolic encepahlopathy: improving sec to above ,also her psych meds might be contributing resume alpreazolam and low dose quetipine. nausea /vomiting abd pain -possible related to gasteroparesis vs constipation. kub -gastric outlet obstruction vs ?bowel obstruction ct abd with po contrast -No evidence of intestinal obstruction. plan: Patient seen by surgery-no acute surgical interventions because patient passing bowels, CT abdomen negative for bowel obstruction. It was pointed out the patient has contrast in the stomach so possible question gastroparesis. symptoms improved with PPI, Zofran, with trial of IV erythromycin(which stopped) . passing bm diastolic CHF/HTN switch to po lasix moniter i/o metoprolol QD ckd 4 -stable hyperkalemia-low potassium diet, given lokelema moniter renal function and electrolytes closely. HLD - continue statin T2DM - hold home PO meds - SSI - diabetic diet LESLIE - CPAP DNR/DNI. MOSLT form given per pt request. VTE prohpy: heparin and pneumoboots ongoin need for hospitlisation-COPD/chf exacerbation ,aspiritional penumonitis -taper oxygen ,steriods ,lasix -moniter renal function ,electrolytes , moniter respiratory status closely. Quality Stroke Does the patient have a stroke diagnosis?: No VTE Prior VTE?: No VTE Risk Level:: Medical - moderate - high VTE Device Contraindication: N/A - Device Ordered VTE Drug Contraindication: N/A - Med Ordered
--- NOTE | 2024-03-19 11:35 | P.PNIM_ITS ---
Subjective Subjective Date of Service: 03/19/24 Interval History: paneumonia ,chf Review of Systems sob seems improving , has cough no nausea,vomiting ,diarrahe. Physical Exam 2 Vital Signs: Vital Signs: Last Vital Signs Temp 97.8 F 03/19/24 07:40 Pulse 64 03/19/24 11:34 Resp 18 03/19/24 11:34 BP 137/94 H 03/19/24 07:40 Pulse Ox 96 03/19/24 07:40 O2 Del Method Nasal Cannula 03/19/24 07:40 O2 Flow Rate 2 03/19/24 07:40 BMI result Body Mass Index 36.0 General:awake ,alert near baseline as per daughter at bedside Resp:air entry dimished ,has few rhonchii, no rales or wheezing CVS: S1, S2, RRR GI: NT, nt ,no rebound or guarding ,soft. Extremities:trace edema neuro-moves all ext . Psych: Appropriate affect Objective Data Active Medications Acetaminophen (Acetaminophen 325 Mg Tablet) 650 mg PO Q6H PRN PRN Reason: Pain, Mild (Pain Scale 1-3), fever or headache Last Admin: 03/18/24 20:11 Dose: 650 mg Documented By: GETACHEW Albuterol/Ipratropium (Albuterol/Iprat 2.5/0.5mg 3 Ml Ampul.Neb) 3 ml INHALE Q4H PRN PRN Reason: Shortness of Breath/Wheezing Last Admin: 03/14/24 08:27 Dose: 3 ml Documented By: LESLEE Albuterol/Ipratropium (Albuterol/Iprat 2.5/0.5mg 3 Ml Ampul.Neb) 3 ml INHALE RQ4H WHILE AWAKE [facility] Last Admin: 03/19/24 11:31 Dose: 3 ml Documented By: BIGG Alprazolam (Alprazolam 0.25 Mg Tablet) 0.75 mg PO BID [facility] Last Admin: 03/19/24 08:18 Dose: 0.75 mg Documented By: YEN Amlodipine Besylate (Amlodipine Besylate 5 Mg Tablet) 5 mg PO DAILY [facility]; Protocol Last Admin: 03/19/24 08:15 Dose: 5 mg Documented By: YEN Ascorbic Acid (Ascorbic Acid 500 Mg Tablet) 500 mg PO DAILY [facility] Last Admin: 03/19/24 08:14 Dose: 500 mg Documented By: YEN Calcium Carbonate (Calcium Carbonate 750 Mg Tab.Chew) 750 mg PO Q4H PRN PRN Reason: Heartburn Cyanocobalamin (Cyanocobalamin (Vitamin B-12) 500 Mcg Tablet) 500 mcg PO DAILY [facility] Last Admin: 03/19/24 08:15 Dose: 500 mcg Documented By: YEN Docusate Sodium (Docusate Sodium 100 Mg Capsule) 100 mg PO BID [facility] Last Admin: 03/19/24 08:15 Dose: 100 mg Documented By: YEN Escitalopram Oxalate (Escitalopram Oxalate 10 Mg Tablet) 10 mg PO DAILY [facility] Last Admin: 03/19/24 08:14 Dose: 10 mg Documented By: YEN Ferrous Sulfate (Ferrous Sulfate 324 Mg Tablet.Dr) 324 mg PO DAILY [facility] Last Admin: 03/19/24 08:14 Dose: 324 mg Documented By: YEN Furosemide (Furosemide 40 Mg Tablet) 40 mg PO DAILY [facility]; Protocol Last Admin: 03/19/24 08:28 Dose: 40 mg Documented By: YEN Glucose (Glucose Gel 15 Gm Gel..Gram.) 15 gm PO Q15M PRN; Protocol PRN Reason: per Hypoglycemia Standing Ord. Guaifenesin (Guaifenesin 200 Mg/10 Ml 10 Ml Liquid) 10 ml PO Q4H PRN PRN Reason: Cough Heparin Sodium (Porcine) (Heparin Sodium,Porcine 5,000 Unit/Ml Vial) 5,000 unit SUBCUT Q12H [facility] Last Admin: 03/19/24 02:48 Dose: 5,000 unit Documented By: GETACHEW Dextrose (D10) 250 mls @ 750 mls/hr IV Q15M PRN; Protocol PRN Reason: per Hypoglycemia Standing Ord. Piperacillin Sod/Tazobactam (Sod 2.25 gm/ Sodium Chloride) 50 mls @ 100 mls/hr IV Q6H [facility] Last Infusion: 03/19/24 05:05 Dose: Infused Documented By: GETACHEW Insulin Human Lispro (Insulin Lispro 100 Unit/Ml 3 Ml Vial) 0 unit SUBCUT QIDACHS [facility]; Protocol Last Admin: 03/19/24 08:16 Dose: 2 unit Documented By: YEN Loratadine (Loratadine 10 Mg Tablet) 10 mg PO DAILY [facility] Last Admin: 03/19/24 08:14 Dose: 10 mg Documented By: YEN Magnesium Hydroxide (Milk Of Magnesia 30 Ml Oral.Susp) 30 ml PO DAILY PRN PRN Reason: Constipation Last Admin: 03/14/24 21:31 Dose: 30 ml Documented By: ROXANA Melatonin (Melatonin 3 Mg Tablet) 6 mg PO BEDTIME PRN PRN Reason: Insomnia Last Admin: 03/19/24 02:48 Dose: 6 mg Documented By: GETACHEW Melatonin (Melatonin 3 Mg Tablet) 9 mg PO BEDTIME [facility] Last Admin: 03/18/24 19:55 Dose: 9 mg Documented By: GETACHEW Metoprolol Succinate (Metoprolol Succinate Er 12.5 Mg Halftab.Er.24h) 12.5 mg PO DAILY [facility]; Protocol Last Admin: 03/19/24 08:15 Dose: 12.5 mg Documented By: YEN Pt Own (Linagliptin [Tradjenta] 5 Mg Tablet) 5 mg PO DAILY [facility] Last Admin: 03/19/24 08:15 Dose: 5 mg Documented By: YEN Pt Own ( Nitroglycerin 0.2 Mg /Hr Patch 24 Hour) 1 patch TOPICAL DAILY [facility] Last Admin: 03/19/24 08:15 Dose: 1 patch Documented By: YEN Comments: right upper arm Polyethylene Glycol (Polyethylene Glycol 3350 17 Gm Powd.Pack) 17 gm PO DAILY [facility] Last Admin: 03/19/24 08:13 Dose: 17 gm Documented By: YEN Pravastatin Sodium (Pravastatin Sodium 40 Mg Tablet) 40 mg PO BEDTIME [facility] Last Admin: 03/18/24 19:55 Dose: 40 mg Documented By: GETACHEW Prednisone (Prednisone 10 Mg Tablet) 30 mg PO DAILY [facility] Last Admin: 03/19/24 08:14 Dose: 30 mg Documented By: YEN Quetiapine Fumarate (Quetiapine Fumarate 25 Mg Tablet) 25 mg PO DAILY [facility] Last Admin: 03/18/24 19:55 Dose: 25 mg Documented By: GETACHEW Quetiapine Fumarate (Quetiapine Fumarate 25 Mg Tablet) 25 mg PO BEDTIME [facility] Sodium Chloride (0.9 % Sodium Chloride Flush 3 Ml Syringe) 3 ml IVFLUSH QSHIFT [facility] Last Admin: 03/19/24 08:16 Dose: 3 ml Documented By: YEN Vitamin D (Cholecalciferol (Vitamin D3) 25 Mcg Tablet) 25 mcg PO DAILY [facility] Last Admin: 03/19/24 08:14 Dose: 25 mcg Documented By: YEN Labs 03/14/24 05:29 03/17/24 05:40 Labs: Laboratory Results - last 24 hr 03/18/24 03/18/24 03/19/24 16:01 20:07 07:43 POC Glucose 351 H* 232 H 196 H Microbiology Microbiology Results: Microbiology 03/13/24 13:34 Blood Culture - Final Blood - Venous No growth after 5 days. 03/13/24 13:40 Blood Culture - Final Blood - Venous No growth after 5 days. Assessment and Plan (1) Acute respiratory failure with hypoxia: Status: Acute Assessment and Plan: 88 yo f with a pmhx significant for COPD, diastolic CHF, CAD, stage 4 CKD with anemia of chronic disease, HTN, HLD, T2DM, and cognitive impairment who presented to the ED today with COPD exacerbation x3 days. COPD exacerbation,possible acute on ch diastolic chf execerbation vbg noted ph manitained. sats fine but seems more RSV/flu/COVID negative,viral resp panel-positive for parainfluenza trop negtive, EKG ok, no leukocytosis moniter i/o,daily weights cxr seems similar to previous, ct chest-possible developing bronchopneumonia in the posterior segment right upper lobe. continue duonebs,taper oxygen , steriods and lasix , iv doxy/zosyn( intiated 03/16/24) pulm evalnoted-continue above management. toxic metabolic encepahlopathy: improving sec to above ,also her psych meds might be contributing resume alpreazolam and low dose quetipine. nausea /vomiting abd pain -possible related to gasteroparesis vs constipation. kub -gastric outlet obstruction vs ?bowel obstruction ct abd with po contrast -No evidence of intestinal obstruction. plan: Patient seen by surgery-no acute surgical interventions because patient passing bowels, CT abdomen negative for bowel obstruction. It was pointed out the patient has contrast in the stomach so possible question gastroparesis. symptoms improved with PPI, Zofran, with trial of IV erythromycin(which stopped) . passing bm diastolic CHF/HTN switch to po lasix moniter i/o metoprolol QD ckd 4 -stable hyperkalemia-low potassium diet, given lokelema moniter renal function and electrolytes closely. HLD - continue statin T2DM - hold home PO meds - SSI - diabetic diet LESLIE - CPAP DNR/DNI. MOSLT form given per pt request. VTE prohpy: heparin and pneumoboots ongoin need for hospitlisation-COPD/chf exacerbation ,aspiritional penumonitis -taper oxygen ,steriods ,lasix -moniter renal function ,electrolytes , moniter respiratory status closely. Quality Stroke Does the patient have a stroke diagnosis?: No VTE Prior VTE?: No VTE Risk Level:: Medical - moderate - high VTE Device Contraindication: N/A - Device Ordered VTE Drug Contraindication: N/A - Med Ordered
[2024-03-19 11:50] LABS: Glucose, Whole Blood 341 mg/dL (60-115)
[2024-03-19 15:58] LABS: Glucose, Whole Blood 336 mg/dL (60-115)
[2024-03-19] MEDS: Acetaminophen 325 MG TABLET 650 MG PO (19:46)
[2024-03-19] MEDS: Pravastatin Sodium 40 MG TABLET PO (19:47)
[2024-03-19] MEDS: Melatonin 3 MG TABLET 9 MG PO (19:47)
[2024-03-19 21:30] LABS: Glucose, Whole Blood 314 mg/dL (60-115)
[2024-03-20] VITALS (10 sets, daily range): BP systolic 143–168; BP diastolic 65–81; PULSE 85–99; RESP 17–18; TEMP 34.8–36.9; O2SAT 92–100
[2024-03-20] MEDS: 0.9 % Sodium Chloride Flush 3 ML SYRINGE IVFLUSH ×3 (00:32→20:21)
[2024-03-20] MEDS: Haloperidol Lactate 5 MG/ML VIAL 2.5 MG IM (02:28)
[2024-03-20] MEDS: Heparin Sodium,Porcine 5,000 UNIT/ML VIAL 5000 UNIT SUBCUT ×2 (02:28→14:43)
[2024-03-20] MEDS: Piperacillin Sodium/Tazobactam 2.25 GM in 0.9 % Sodium Chloride 50 ML IV ×4 (04:49→22:41)
[2024-03-20] MEDS: Albuterol/Iprat 2.5/0.5MG 3 ML AMPUL.NEB INHALE ×4 (05:08→19:55)
[2024-03-20 06:25] LABS: Anion Gap 20 (12-20); Blood Urea Nitrogen 61 mg/dL (9-16); Carbon Dioxide 28 mmol/L (22-29); Chloride 104 mmol/L (96-108); Creatinine Clr Calc Pharmacy 11.1; Estimated Glomerular Filt Rate 13; Glucose Random 205 mg/dL (60-115); Potassium 3.5 mmol/L (3.3-5.1); Sodium 148 mmol/L (135-145)
[2024-03-20 07:17] LABS: Glucose, Whole Blood 228 mg/dL (60-115)
[2024-03-20] MEDS: Insulin Lispro 100 UNIT/ML 3 ML VIAL SUBCUT ×4 (07:37→20:21)
[2024-03-20] MEDS: Loratadine 10 MG TABLET PO (08:04)
[2024-03-20] MEDS: LINAGLIPTIN 5 MG 5 EACH PO (08:04)
[2024-03-20] MEDS: NITROGLYCERIN 0.2 MG/HR 1 EACH TOPICAL (08:04)
[2024-03-20] MEDS: Ascorbic Acid 500 MG TABLET PO (08:05)
[2024-03-20] MEDS: Ferrous Sulfate 324 MG TABLET.DR PO (08:05)
[2024-03-20] MEDS: amLODIPine Besylate 5 MG TABLET PO (08:05)
[2024-03-20] MEDS: QUEtiapine Fumarate 25 MG TABLET PO ×2 (08:05→20:21)
[2024-03-20] MEDS: ALPRAZolam 0.25 MG TABLET 0.75 MG PO ×2 (08:05→20:20)
[2024-03-20] MEDS: Cyanocobalamin (Vitamin B-12) 500 MCG TABLET PO (08:05)
[2024-03-20] MEDS: Escitalopram Oxalate 10 MG TABLET PO (08:05)
[2024-03-20] MEDS: Cholecalciferol (Vitamin D3) 25 MCG TABLET PO (08:05)
[2024-03-20] MEDS: Metoprolol Succinate ER 12.5 MG HALFTAB.ER.24H PO (08:05)
--- NOTE | 2024-03-20 09:06 | P.PNNP_ITS ---
Subjective Subjective Date of Service: 03/20/24 Interval history: pt is an 88 y/o female with a medical history of CKD stage 4, COPD, diastolic CHF, CAD, HTN, HLD, DMII, cognitive impairment. She came to the hospital on 03/13 with dyspnea, cough and fatigue x3 days, here for management of COPD exacerbation Nephrology consulted for CKD monitoring, she follows Dr Cox outpatient. blood pressures elevated since yesterday (also started prednisone at that time) taking amlodipine 5mg PO daily and metoprolol 12.5mg PO daily Creatinine 02/03 (prior to admission) 2.98 03/13 2.27 03/14 2.43 03/15 2.45 03/17 2.58 03/20 3.26; of note sodium also newly elevated at 148 GFR 19 on 03/15; prior to admission was 15 on 02/03 patient denies flank pain, difficulty urinating, blood in urine endorses some discomfort with urination (reports chronic, UA yesterday negative for infection) she endorses middle/side abdominal pain bilaterally- states today feels worse when she coughs, thinks it is muscle pains (CT abd/pelvis unremarkable) she denies chest pain states ongoing shortness of breath and ongoing cough since admission has improved since yesterday (prednisone added to regimen) denies lower extremity swelling denies other concerns Physical Exam 2 Vital Signs: Vital Signs: Last Vital Signs Temp 97.2 F 03/20/24 07:25 Pulse 93 03/20/24 07:29 Resp 18 03/20/24 07:29 BP 168/72 H 03/20/24 07:25 Pulse Ox 94 03/20/24 07:25 O2 Del Method Nasal Cannula 03/20/24 07:25 O2 Flow Rate 2 03/20/24 07:25 BMI result Body Mass Index 36.0 Const: General: comfortable, no acute distress, alert and awake Neck: Neck: Yes no JVD Resp: Effort & Inspection: normal respiratory effort Auscultation: rhonchi and wheezes Cardio: Jugular venous distension: no JVD Rate: regular rate Rhythm: r egular rhythm Heart sounds: S1 normal heart sound present and S2 normal heart sound present GI: Palpation (GI): Soft to palpation and nontender : General: Yes no CVA tenderness Back/Spine/Pelvis: Back: no CVA tenderness Skin: Rashes: no rashes Extrem: General: Yes normal to inspection, No edema and No pedal edema Objective Data Labs 03/14/24 05:29 03/20/24 05:43 Labs: Laboratory Results - last 24 hr 03/19/24 03/19/24 03/19/24 11:46 15:55 21:26 Hold Purple Top Sodium Potassium Chloride Carbon Dioxide Anion Gap BUN Creatinine Estim Creat Clear Calc Estimated GFR POC Glucose 341 H 336 H 314 H Random Glucose Calcium 03/20/24 03/20/24 05:43 07:13 Hold Purple Top SEE NOTE Sodium 148 H Potassium 3.5 Chloride 104 Carbon Dioxide 28 Anion Gap 20 BUN 61 H Creatinine 3.26 H Estim Creat Clear Calc 11.1 Estimated GFR 13 POC Glucose 228 H Random Glucose 205 H Calcium 9.0 Microbiology Microbiology Results: Microbiology 03/13/24 13:34 Blood - Venous Blood Culture - Final No growth after 5 days. 03/13/24 13:40 Blood - Venous Blood Culture - Final No growth after 5 days. Procedures Date of Service Date of Service: 03/20/24 Assessment & Plan Assessment and plan (1) Chronic kidney disease, stage 4 (severe): Status: Acute Plan CKD stage 4 renal function worsening over the weekend, likely secondary to volume depletion/renal hypoperfusion recommend encouraging PO free water recommend holding diuretics not metabolically acidotic follow potassium and if high can get potassium-lowering medication as needed blood pressure control suboptimal- continue to monitor for now serum immunofixation and vitamin D pending PTH elevated at 447; will initiate treatment once data including vit D is back pt continues to pass urine regularly (incontinence at baseline) Discussed with Dr Cox Time Spent With Patient Time: Total time managing care of this patient today ____ minutes. Progress Note: Quality Stroke Does the patient have a stroke diagnosis?: No
--- NOTE | 2024-03-20 09:38 | HO.PM.IMPN ---
Subjective Subjective Date of Service: 03/20/24 Interval History: copd/chf sarthak on ckd , hypernatremia Review of Systems sob seems improving denies any cough Physical Exam Vital Signs: Vital Signs: Last Vital Signs Temp 97.2 F 03/20/24 07:25 Pulse 93 03/20/24 07:29 Resp 18 03/20/24 07:29 BP 168/72 H 03/20/24 07:25 Pulse Ox 94 03/20/24 07:25 O2 Del Method Nasal Cannula 03/20/24 07:25 O2 Flow Rate 2 03/20/24 07:25 BMI result Body Mass Index 36.0 General:awake ,alert near baseline as per daughter at bedside Resp:air entry dimished ,has few rhonchii, no rales or wheezing CVS: S1, S2, RRR GI: NT, nt ,no rebound or guarding ,soft. Extremities:trace edema neuro-moves all ext . Psych: Appropriate affect Objective Data Active Medications Acetaminophen (Acetaminophen 325 Mg Tablet) 650 mg PO Q6H PRN PRN Reason: Pain, Mild (Pain Scale 1-3), fever or headache Last Admin: 03/19/24 19:46 Dose: 650 mg Documented By: DEBRA Albuterol/Ipratropium (Albuterol/Iprat 2.5/0.5mg 3 Ml Ampul.Neb) 3 ml INHALE Q4H PRN PRN Reason: Shortness of Breath/Wheezing Last Admin: 03/20/24 05:08 Dose: 3 ml Documented By: SHAYY Albuterol/Ipratropium (Albuterol/Iprat 2.5/0.5mg 3 Ml Ampul.Neb) 3 ml INHALE RQ4H WHILE AWAKE [facility] Last Admin: 03/20/24 07:29 Dose: 3 ml Documented By: TIM Alprazolam (Alprazolam 0.25 Mg Tablet) 0.75 mg PO BID [facility] Last Admin: 03/20/24 08:05 Dose: 0.75 mg Documented By: BLANCA Amlodipine Besylate (Amlodipine Besylate 5 Mg Tablet) 5 mg PO DAILY [facility]; Protocol Last Admin: 03/20/24 08:05 Dose: 5 mg Documented By: BLANCA Ascorbic Acid (Ascorbic Acid 500 Mg Tablet) 500 mg PO DAILY [facility] Last Admin: 03/20/24 08:05 Dose: 500 mg Documented By: BLANCA Calcium Carbonate (Calcium Carbonate 750 Mg Tab.Chew) 750 mg PO Q4H PRN PRN Reason: Heartburn Cyanocobalamin (Cyanocobalamin (Vitamin B-12) 500 Mcg Tablet) 500 mcg PO DAILY [facility] Last Admin: 03/20/24 08:05 Dose: 500 mcg Documented By: BLANCA Docusate Sodium (Docusate Sodium 100 Mg Capsule) 100 mg PO BID [facility] Last Admin: 03/20/24 08:13 Dose: Not Given Documented By: BLANCA Non-Admin Reason: Patient Condition Contraindication Escitalopram Oxalate (Escitalopram Oxalate 10 Mg Tablet) 10 mg PO DAILY [facility] Last Admin: 03/20/24 08:05 Dose: 10 mg Documented By: BLANCA Ferrous Sulfate (Ferrous Sulfate 324 Mg Tablet.Dr) 324 mg PO DAILY [facility] Last Admin: 03/20/24 08:05 Dose: 324 mg Documented By: BLANCA Glucose (Glucose Gel 15 Gm Gel..Gram.) 15 gm PO Q15M PRN; Protocol PRN Reason: per Hypoglycemia Standing Ord. Guaifenesin (Guaifenesin 200 Mg/10 Ml 10 Ml Liquid) 10 ml PO Q4H PRN PRN Reason: Cough Haloperidol Lactate (Haloperidol Lactate 5 Mg/Ml Vial) 2.5 mg IM ONCE PRN PRN Reason: agitation Last Admin: 03/20/24 02:28 Dose: 2.5 mg Documented By: DEBRA Heparin Sodium (Porcine) (Heparin Sodium,Porcine 5,000 Unit/Ml Vial) 5,000 unit SUBCUT Q12H [facility] Last Admin: 03/20/24 02:28 Dose: 5,000 unit Documented By: DEBRA Dextrose (D10) 250 mls @ 750 mls/hr IV Q15M PRN; Protocol PRN Reason: per Hypoglycemia Standing Ord. Piperacillin Sod/Tazobactam (Sod 2.25 gm/ Sodium Chloride) 50 mls @ 100 mls/hr IV Q6H [facility] Last Infusion: 03/20/24 05:25 Dose: Infused Documented By: DEBRA Insulin Human Lispro (Insulin Lispro 100 Unit/Ml 3 Ml Vial) 0 unit SUBCUT QIDACHS [facility]; Protocol Last Admin: 03/20/24 07:37 Dose: 4 unit Documented By: BLANCA Loratadine (Loratadine 10 Mg Tablet) 10 mg PO DAILY [facility] Last Admin: 03/20/24 08:04 Dose: 10 mg Documented By: BLANCA Magnesium Hydroxide (Milk Of Magnesia 30 Ml Oral.Susp) 30 ml PO DAILY PRN PRN Reason: Constipation Last Admin: 03/14/24 21:31 Dose: 30 ml Documented By: ROXANA Melatonin (Melatonin 3 Mg Tablet) 6 mg PO BEDTIME PRN PRN Reason: Insomnia Last Admin: 03/19/24 02:48 Dose: 6 mg Documented By: GETACHEW Melatonin (Melatonin 3 Mg Tablet) 9 mg PO BEDTIME [facility] Last Admin: 03/19/24 19:47 Dose: 9 mg Documented By: DEBRA Metoprolol Succinate (Metoprolol Succinate Er 12.5 Mg Halftab.Er.24h) 12.5 mg PO DAILY [facility]; Protocol Last Admin: 03/20/24 08:05 Dose: 12.5 mg Documented By: BLANCA Pt Own (Linagliptin [Tradjenta] 5 Mg Tablet) 5 mg PO DAILY [facility] Last Admin: 03/20/24 08:04 Dose: 5 mg Documented By: BLANCA Pt Own ( Nitroglycerin 0.2 Mg /Hr Patch 24 Hour) 1 patch TOPICAL DAILY [facility] Last Admin: 03/20/24 08:04 Dose: 1 patch Documented By: BLANCA Polyethylene Glycol (Polyethylene Glycol 3350 17 Gm Powd.Pack) 17 gm PO DAILY [facility] Last Admin: 03/20/24 08:13 Dose: Not Given Documented By: BLANCA Non-Admin Reason: Patient Condition Contraindication Pravastatin Sodium (Pravastatin Sodium 40 Mg Tablet) 40 mg PO BEDTIME [facility] Last Admin: 03/19/24 19:47 Dose: 40 mg Documented By: DEBRA Quetiapine Fumarate (Quetiapine Fumarate 25 Mg Tablet) 25 mg PO DAILY [facility] Last Admin: 03/20/24 08:05 Dose: 25 mg Documented By: BLANCA Quetiapine Fumarate (Quetiapine Fumarate 25 Mg Tablet) 25 mg PO BEDTIME [facility] Sodium Chloride (0.9 % Sodium Chloride Flush 3 Ml Syringe) 3 ml IVFLUSH QSHIFT [facility] Last Admin: 03/20/24 07:38 Dose: 3 ml Documented By: BLANCA Vitamin D (Cholecalciferol (Vitamin D3) 25 Mcg Tablet) 25 mcg PO DAILY [facility] Last Admin: 03/20/24 08:05 Dose: 25 mcg Documented By: BLANCA Labs 03/14/24 05:29 03/20/24 05:43 Labs: Laboratory Results - last 24 hr 03/19/24 03/19/24 03/19/24 11:46 15:55 21:26 Hold Purple Top Anion Gap Estim Creat Clear Calc Estimated GFR POC Glucose 341 H 336 H 314 H Random Glucose Calcium 03/20/24 03/20/24 05:43 07:13 Hold Purple Top SEE NOTE Anion Gap 20 Estim Creat Clear Calc 11.1 Estimated GFR 13 POC Glucose 228 H Random Glucose 205 H Calcium 9.0 Assessment and Plan (1) Acute respiratory failure with hypoxia: Status: Acute Assessment and Plan: 88 yo f with a pmhx significant for COPD, diastolic CHF, CAD, stage 4 CKD with anemia of chronic disease, HTN, HLD, T2DM, and cognitive impairment who presented to the ED today with COPD exacerbation x3 days. COPD exacerbation,possible acute on ch diastolic chf execerbation vbg noted ph manitained. sats fine but seems more RSV/flu/COVID negative,viral resp panel-positive for parainfluenza trop negtive, EKG ok, no leukocytosis moniter i/o,daily weights cxr seems similar to previous, ct chest-possible developing bronchopneumonia in the posterior segment right upper lobe. continue duonebs,taper oxygen , steriods and lasix , iv doxy/zosyn( intiated 03/16/24) pulm evalnoted-continue above management. toxic metabolic encepahlopathy: improving sec to above ,also her psych meds might be contributing resume alpreazolam and low dose quetipine. nausea /vomiting abd pain -possible related to gasteroparesis vs constipation. kub -gastric outlet obstruction vs ?bowel obstruction ct abd with po contrast -No evidence of intestinal obstruction. plan: Patient seen by surgery-no acute surgical interventions because patient passing bowels, CT abdomen negative for bowel obstruction. It was pointed out the patient has contrast in the stomach so possible question gastroparesis. symptoms improved with PPI, Zofran, with trial of IV erythromycin(which stopped) . passing bm diastolic CHF/HTN switch to po lasix moniter i/o metoprolol QD sarthak on ckd 4: hold lasix added free water 250 ml q6hr hyperkalemia-improved with loklema. moniter renal function and electrolytes closely. HLD - continue statin T2DM - hold home PO meds - SSI - diabetic diet LESLIE - CPAP DNR/DNI. MOSLT form given per pt request. VTE prohpy: heparin and pneumoboots ongoin need for hospitlisation-COPD/chf exacerbation ,aspiritional penumonitis -taper oxygen ,steriods ,lasix -moniter renal function ,electrolytes , moniter respiratory status closely. Quality Stroke Does the patient have a stroke diagnosis?: No VTE Prior VTE?: No VTE Risk Level:: Medical - moderate - high VTE Device Contraindication: N/A - Device Ordered VTE Drug Contraindication: N/A - Med Ordered
[2024-03-20 11:34] LABS: Glucose, Whole Blood 279 mg/dL (60-115)
--- NOTE | 2024-03-20 13:32 | MHC.CM.PN ---
EMR REVIEWED AND PER MD ROUNDS, PT IS NOT MEDICALLY CLEARED FOR DC (KRYSTA, NEEDS NEPHRO CONSULT) CM WILL CONTINUE TO FOLLOW FOR ANY CHANGE TO DC PLAN/NEEDS.
[2024-03-20 16:03] LABS: Glucose, Whole Blood 301 mg/dL (60-115)
[2024-03-20 20:11] LABS: Glucose, Whole Blood 181 mg/dL (60-115)
[2024-03-20] MEDS: Pravastatin Sodium 40 MG TABLET PO (20:20)
[2024-03-20] MEDS: Melatonin 3 MG TABLET 9 MG PO (20:20)
[2024-03-20] MEDS: Docusate Sodium 100 MG CAPSULE PO (20:20)
[2024-03-21] VITALS (9 sets, daily range): BP systolic 123–163; BP diastolic 58–71; PULSE 83–100; RESP 14–19; TEMP 36.4–36.9; O2SAT 92–100; BMI 36.2
[2024-03-21] MEDS: Heparin Sodium,Porcine 5,000 UNIT/ML VIAL 5000 UNIT SUBCUT ×2 (02:38→15:16)
[2024-03-21] MEDS: Piperacillin Sodium/Tazobactam 2.25 GM in 0.9 % Sodium Chloride 50 ML IV (04:34)
[2024-03-21 05:41] LABS: Anion Gap 13 (12-20); Blood Urea Nitrogen 64 mg/dL (9-16); Calcium 8.5 mg/dL (8.4-10.2); Carbon Dioxide 34 mmol/L (22-29); Chloride 101 mmol/L (96-108); Creatinine Clr Calc Pharmacy 11.3; Estimated Glomerular Filt Rate 14; Glucose Random 270 mg/dL (60-115); Potassium 3.8 mmol/L (3.3-5.1); Sodium 144 mmol/L (135-145)
[2024-03-21] MEDS: ALPRAZolam 0.25 MG TABLET 0.75 MG PO ×2 (06:18→19:44)
[2024-03-21 07:28] LABS: Glucose, Whole Blood 256 mg/dL (60-115)
[2024-03-21] MEDS: LINAGLIPTIN 5 MG 5 EACH PO (07:44)
[2024-03-21] MEDS: NITROGLYCERIN 0.2 MG/HR 1 EACH TOPICAL (07:44)
[2024-03-21] MEDS: amLODIPine Besylate 2.5 MG TABLET 7.5 MG PO (07:44)
[2024-03-21] MEDS: Ferrous Sulfate 324 MG TABLET.DR PO (07:44)
[2024-03-21] MEDS: Cyanocobalamin (Vitamin B-12) 500 MCG TABLET PO (07:45)
[2024-03-21] MEDS: Escitalopram Oxalate 10 MG TABLET PO (07:45)
[2024-03-21] MEDS: Ascorbic Acid 500 MG TABLET PO (07:45)
[2024-03-21] MEDS: Cholecalciferol (Vitamin D3) 25 MCG TABLET PO (07:45)
[2024-03-21] MEDS: Insulin Lispro 100 UNIT/ML 3 ML VIAL SUBCUT ×4 (07:45→20:03)
[2024-03-21] MEDS: Loratadine 10 MG TABLET PO (07:45)
[2024-03-21] MEDS: Metoprolol Succinate ER 12.5 MG HALFTAB.ER.24H PO (07:45)
[2024-03-21] MEDS: QUEtiapine Fumarate 25 MG TABLET PO ×2 (07:49→19:43)
[2024-03-21] MEDS: 0.9 % Sodium Chloride Flush 3 ML SYRINGE IVFLUSH ×3 (07:50→19:44)
[2024-03-21] MEDS: Albuterol/Iprat 2.5/0.5MG 3 ML AMPUL.NEB INHALE ×4 (07:57→19:20)
--- NOTE | 2024-03-21 10:31 | P.PNNP_ITS ---
Subjective Subjective Date of Service: 03/21/24 Interval history: pt is an 88 y/o female with a medical history of CKD stage 4, COPD, diastolic CHF, CAD, HTN, HLD, DMII, cognitive impairment. She came to the hospital on 03/13 with dyspnea, cough and fatigue x3 days, here for management of COPD exacerbation Nephrology consulted for CKD monitoring, she follows Dr Cox outpatient. hypertension- taking amlodipine 7.5mg PO daily Creatinine / (prior to admission) 2.98 03/13 2.27 03/14 2.43 03/15 2.45 03/17 2.58 03/20 3.26 03/21 3.22 patient denies flank pain, difficulty urinating, blood in urine denies pain with urination (incontinence of urine, reports urinating regularly, no changes) she denies chest pain states ongoing shortness of breath and ongoing cough since admission are gradually improving denies lower extremity swelling denies other concerns Physical Exam 2 Vital Signs: Vital Signs: Last Vital Signs Temp 97.6 F 03/21/24 07:10 Pulse 91 03/21/24 07:59 Resp 16 03/21/24 07:59 BP 131/69 03/21/24 07:10 Pulse Ox 96 03/21/24 07:10 O2 Del Method Nasal Cannula 03/21/24 07:10 O2 Flow Rate 2 03/21/24 07:10 BMI result Body Mass Index 36.2 Const: General: comfortable, no acute distress, alert and awake Neck: Neck: Yes no JVD Resp: Effort & Inspection: normal respiratory effort Auscultation: rhonchi and wheezes Cardio: Jugular venous distension: no JVD Rate: regular rate Rhythm: r egular rhythm Heart sounds: S1 normal heart sound present and S2 normal heart sound present GI: Palpation (GI): Soft to palpation and nontender : General: Yes no CVA tenderness Back/Spine/Pelvis: Back: no CVA tenderness Skin: Rashes: no rashes Extrem: General: Yes normal to inspection, No edema and No pedal edema Objective Data Labs 03/14/24 05:29 03/21/24 05:00 Labs: Laboratory Results - last 24 hr 03/20/24 03/20/24 03/20/24 11:29 15:55 20:01 Sodium Potassium Chloride Carbon Dioxide Anion Gap BUN Creatinine Estim Creat Clear Calc Estimated GFR POC Glucose 279 H 301 H 181 H Random Glucose Calcium 03/21/24 03/21/24 05:00 07:10 Sodium 144 Potassium 3.8 Chloride 101 Carbon Dioxide 34 H Anion Gap 13 BUN 64 H Creatinine 3.22 H Estim Creat Clear Calc 11.3 Estimated GFR 14 POC Glucose 256 H Random Glucose 270 H Calcium 8.5 Microbiology Microbiology Results: Microbiology 03/13/24 13:34 Blood - Venous Blood Culture - Final No growth after 5 days. 03/13/24 13:40 Blood - Venous Blood Culture - Final No growth after 5 days. Procedures Date of Service Date of Service: 03/21/24 Assessment & Plan Assessment and plan (1) Chronic kidney disease, stage 4 (severe): Status: Acute Plan CKD stage 4 renal function worsening over the weekend, likely secondary to volume depletion/renal hypoperfusion, has stabilized recommend continue to encouraging PO free water recommend continuing to hold diuretics today recommend follow intake and output closely not metabolically acidotic follow potassium and if high can get potassium-lowering medication as needed blood pressure control suboptimal- continue to monitor for now serum immunofixation and vitamin D pending PTH elevated at 447; will initiate treatment once data including vit D is back pt continues to pass urine regularly (incontinence at baseline) Discussed with Dr Cox Time Spent With Patient Time: Total time managing care of this patient today ____ minutes. Progress Note: Quality Stroke Does the patient have a stroke diagnosis?: No
[2024-03-21 11:29] LABS: Glucose, Whole Blood 230 mg/dL (60-115)
--- NOTE | 2024-03-21 12:34 | P.PNIM_ITS ---
Subjective Subjective Date of Service: 03/21/24 Interval History: History obtained via language interpreter. Patient feels better denies shortness of breath, denies fever, no chills, no headache, no dizziness, ambulate short distances at home, as per daughter at bedside patient seems to be at baseline. Review of Systems All other system reviewed and are negative. Physical Exam 2 Vital Signs: Vital Signs: Last Vital Signs Temp 97.6 F 03/21/24 07:10 Pulse 87 03/21/24 11:15 Resp 16 03/21/24 11:15 BP 131/69 03/21/24 07:10 Pulse Ox 96 03/21/24 07:10 O2 Del Method Nasal Cannula 03/21/24 07:10 O2 Flow Rate 2 03/21/24 07:10 BMI result Body Mass Index 36.2 Const: Other: General sitting comfortably in no acute distress. Anicteric sclera Neck no JVD. CVS regular rate rhythm, Respiratory lungs clear to auscultation, no respiratory distress, no wheeze, no rhonchi. Gastrointestinal abdomen soft, non tender, bowel sounds audible, no guarding , no rigidity. Extremities no edema. Neuro non focal Skin no rash Psych appropriate affect Objective Data Active Medications Acetaminophen (Acetaminophen 325 Mg Tablet) 650 mg PO Q6H PRN PRN Reason: Pain, Mild (Pain Scale 1-3), fever or headache Last Admin: 03/19/24 19:46 Dose: 650 mg Documented By: DEBRA Albuterol/Ipratropium (Albuterol/Iprat 2.5/0.5mg 3 Ml Ampul.Neb) 3 ml INHALE Q4H PRN PRN Reason: Shortness of Breath/Wheezing Last Admin: 03/20/24 05:08 Dose: 3 ml Documented By: SHAYY Albuterol/Ipratropium (Albuterol/Iprat 2.5/0.5mg 3 Ml Ampul.Neb) 3 ml INHALE RQ4H WHILE AWAKE [facility] Last Admin: 03/21/24 11:13 Dose: 3 ml Documented By: GERARD Alprazolam (Alprazolam 0.25 Mg Tablet) 0.75 mg PO BID [facility] Last Admin: 03/21/24 06:18 Dose: 0.75 mg Documented By: KIRSTIN Amlodipine Besylate (Amlodipine Besylate 2.5 Mg Tablet) 7.5 mg PO DAILY [facility]; Protocol Last Admin: 03/21/24 07:44 Dose: 7.5 mg Documented By: BLANCA Ascorbic Acid (Ascorbic Acid 500 Mg Tablet) 500 mg PO DAILY [facility] Last Admin: 03/21/24 07:45 Dose: 500 mg Documented By: BLANCA Calcium Carbonate (Calcium Carbonate 750 Mg Tab.Chew) 750 mg PO Q4H PRN PRN Reason: Heartburn Cyanocobalamin (Cyanocobalamin (Vitamin B-12) 500 Mcg Tablet) 500 mcg PO DAILY [facility] Last Admin: 03/21/24 07:45 Dose: 500 mcg Documented By: BLANCA Docusate Sodium (Docusate Sodium 100 Mg Capsule) 100 mg PO BID [facility] Last Admin: 03/21/24 07:50 Dose: Not Given Documented By: BLANCA Non-Admin Reason: Patient Condition Contraindication Escitalopram Oxalate (Escitalopram Oxalate 10 Mg Tablet) 10 mg PO DAILY [facility] Last Admin: 03/21/24 07:45 Dose: 10 mg Documented By: BLANCA Ferrous Sulfate (Ferrous Sulfate 324 Mg Tablet.Dr) 324 mg PO DAILY [facility] Last Admin: 03/21/24 07:44 Dose: 324 mg Documented By: BLANCA Glucose (Glucose Gel 15 Gm Gel..Gram.) 15 gm PO Q15M PRN; Protocol PRN Reason: per Hypoglycemia Standing Ord. Guaifenesin (Guaifenesin 200 Mg/10 Ml 10 Ml Liquid) 10 ml PO Q4H PRN PRN Reason: Cough Haloperidol Lactate (Haloperidol Lactate 5 Mg/Ml Vial) 2.5 mg IM ONCE PRN PRN Reason: agitation Last Admin: 03/20/24 02:28 Dose: 2.5 mg Documented By: DEBRA Heparin Sodium (Porcine) (Heparin Sodium,Porcine 5,000 Unit/Ml Vial) 5,000 unit SUBCUT Q12H [facility] Last Admin: 03/21/24 02:38 Dose: 5,000 unit Documented By: KIRSTIN Dextrose (D10) 250 mls @ 750 mls/hr IV Q15M PRN; Protocol PRN Reason: per Hypoglycemia Standing Ord. Insulin Human Lispro (Insulin Lispro 100 Unit/Ml 3 Ml Vial) 0 unit SUBCUT QIDACHS [facility]; Protocol Last Admin: 03/21/24 11:40 Dose: 4 unit Documented By: BLANCA Loratadine (Loratadine 10 Mg Tablet) 10 mg PO DAILY [facility] Last Admin: 03/21/24 07:45 Dose: 10 mg Documented By: BLANCA Magnesium Hydroxide (Milk Of Magnesia 30 Ml Oral.Susp) 30 ml PO DAILY PRN PRN Reason: Constipation Last Admin: 03/14/24 21:31 Dose: 30 ml Documented By: ROXANA Melatonin (Melatonin 3 Mg Tablet) 6 mg PO BEDTIME PRN PRN Reason: Insomnia Last Admin: 03/19/24 02:48 Dose: 6 mg Documented By: GETACHEW Melatonin (Melatonin 3 Mg Tablet) 9 mg PO BEDTIME [facility] Last Admin: 03/20/24 20:20 Dose: 9 mg Documented By: KIRSTIN Metoprolol Succinate (Metoprolol Succinate Er 12.5 Mg Halftab.Er.24h) 12.5 mg PO DAILY [facility]; Protocol Last Admin: 03/21/24 07:45 Dose: 12.5 mg Documented By: BLANCA Pt Own (Linagliptin [Tradjenta] 5 Mg Tablet) 5 mg PO DAILY [facility] Last Admin: 03/21/24 07:44 Dose: 5 mg Documented By: BLANCA Pt Own ( Nitroglycerin 0.2 Mg /Hr Patch 24 Hour) 1 patch TOPICAL DAILY [facility] Last Admin: 03/21/24 07:44 Dose: 1 patch Documented By: BLANCA Polyethylene Glycol (Polyethylene Glycol 3350 17 Gm Powd.Pack) 17 gm PO DAILY [facility] Last Admin: 03/21/24 07:50 Dose: Not Given Documented By: BLANCA Non-Admin Reason: Patient Condition Contraindication Pravastatin Sodium (Pravastatin Sodium 40 Mg Tablet) 40 mg PO BEDTIME [facility] Last Admin: 03/20/24 20:20 Dose: 40 mg Documented By: KIRSTIN Quetiapine Fumarate (Quetiapine Fumarate 25 Mg Tablet) 25 mg PO DAILY [facility] Last Admin: 03/21/24 07:49 Dose: 25 mg Documented By: BLANCA Quetiapine Fumarate (Quetiapine Fumarate 25 Mg Tablet) 25 mg PO BEDTIME [facility] Last Admin: 03/20/24 20:21 Dose: 25 mg Documented By: KIRSTIN Sodium Chloride (0.9 % Sodium Chloride Flush 3 Ml Syringe) 3 ml IVFLUSH QSHIFT [facility] Last Admin: 03/21/24 07:50 Dose: 3 ml Documented By: BLANCA Vitamin D (Cholecalciferol (Vitamin D3) 25 Mcg Tablet) 25 mcg PO DAILY [facility] Last Admin: 03/21/24 07:45 Dose: 25 mcg Documented By: BLANCA Labs 03/14/24 05:29 03/21/24 05:00 Labs: Laboratory Results - last 24 hr 03/20/24 03/20/24 03/21/24 15:55 20:01 05:00 Anion Gap 13 Estim Creat Clear Calc 11.3 Estimated GFR 14 POC Glucose 301 H 181 H Random Glucose 270 H Calcium 8.5 03/21/24 03/21/24 07:10 11:25 Anion Gap Estim Creat Clear Calc Estimated GFR POC Glucose 256 H 230 H Random Glucose Calcium Assessment and Plan (1) Acute respiratory failure with hypoxia: Status: Acute (2) Gastroparesis: Status: Acute (3) Obesity (BMI 30-39.9): Status: Acute Plan 88 yo f with a pmhx significant for COPD, diastolic CHF, CAD, stage 4 CKD with anemia of chronic disease, HTN, HLD, T2DM, and cognitive impairment who presented to the ED today with COPD exacerbation x3 days. COPD exacerbation,possible acute on ch diastolic chf execerbation Shortness of breath improved, status post diuresis RSV/flu/COVID negative,viral resp panel-positive for parainfluenza trop negtive, no acute EKG changes, no leukocytosis cxr seems similar to previous, ct chest-possible developing bronchopneumonia in the posterior segment right upper lobe received 5 days of antibiotics. continue duonebs change to q.i.d.,taper oxygen , DC IV Zosyn Continue low-dose beta-blockers, Norvasc increased to 7.5 mg, continue home dose of nitrates. toxic metabolic encepahlopathy: Resolved nausea /vomiting abd pain -possible related to gasteroparesis vs constipation. kub -gastric outlet obstruction vs ? bowel obstruction ct abd with po contrast -No evidence of intestinal obstruction. All symptoms resolved likely had gastroparesis status post treatment with IV erythromycin seen by surgery-no acute surgical intervention recommended sarthak on ckd 4: Likely due to diuresis Hold diuretics follow BMP Acute hypernatremia resolved likely due to dehydration Acute hyperkalemia-improved with loklema. HLD - continue statin T2DM - elevated blood sugars in 300, glimepiride on hold, adjust SSI, continue diabetic diet LESLIE- CPAP Class 2 obesity recommend low-calorie diet DNR/DNI. VTE prophylaxis: heparin ongoing need for hospitlisation-COPD/chf exacerbation , requiring monitoring of renal function due to acute on chronic kidney disease. Quality Stroke Does the patient have a stroke diagnosis?: No VTE Prior VTE?: No VTE Risk Level:: Medical - moderate - high VTE Device Contraindication: N/A - Device Ordered VTE Drug Contraindication: N/A - Med Ordered
--- NOTE | 2024-03-21 14:18 | MHC.SPEECHCO ---
Pt was getting breathing treatment this morning, was sleeping this afternoon. He Daughter remains at bedside. She completed all of her Lunch tray consisting of [place]-Thick Liquids and Puree Solids. Dtr reports understanding of recommendations and is willing to continue them at home. As this is her baseline diet, no further [employer] intervention is required at this time.
[2024-03-21 16:22] LABS: Glucose, Whole Blood 322 mg/dL (60-115)
[2024-03-21] MEDS: guaiFENesin 200 MG/10 ML 10 ML LIQUID PO (19:43)
[2024-03-21] MEDS: Docusate Sodium 100 MG CAPSULE PO (19:43)
[2024-03-21] MEDS: Melatonin 3 MG TABLET 9 MG PO (19:43)
[2024-03-21] MEDS: Pravastatin Sodium 40 MG TABLET PO (19:44)
[2024-03-21 20:10] LABS: Glucose, Whole Blood 245 mg/dL (60-115)
[2024-03-22 03:06] VITALS: BP 167/81; PULSE 86; RESP 18; TEMP 36.2; O2SAT 98
[2024-03-22] MEDS: Heparin Sodium,Porcine 5,000 UNIT/ML VIAL 5000 UNIT SUBCUT (03:28)
[2024-03-22 05:52] VITALS: BMI 37.3
[2024-03-22 06:52] LABS: Anion Gap 17 (12-20); Blood Urea Nitrogen 62 mg/dL (9-16); Calcium 8.8 mg/dL (8.4-10.2); Carbon Dioxide 28 mmol/L (22-29); Chloride 100 mmol/L (96-108); Creatinine Clr Calc Pharmacy 13.2; Estimated Glomerular Filt Rate 16; Glucose Random 259 mg/dL (60-115); Potassium 3.7 mmol/L (3.3-5.1); Sodium 141 mmol/L (135-145)
[2024-03-22 07:23] VITALS: BP 131/66; PULSE 83; RESP 18; TEMP 36.9; O2SAT 96
[2024-03-22 07:42] LABS: Glucose, Whole Blood 263 mg/dL (60-115)
[2024-03-22] MEDS: polyethylene glycoL 3350 17 GM POWD.PACK PO (07:58)
[2024-03-22] MEDS: Insulin Lispro 100 UNIT/ML 3 ML VIAL SUBCUT (07:58)
[2024-03-22] MEDS: NITROGLYCERIN 0.2 MG/HR 1 EACH TOPICAL (07:59)
[2024-03-22] MEDS: LINAGLIPTIN 5 MG 5 EACH PO (07:59)
[2024-03-22] MEDS: Ferrous Sulfate 324 MG TABLET.DR PO (08:00)
[2024-03-22] MEDS: Escitalopram Oxalate 10 MG TABLET PO (08:00)
[2024-03-22] MEDS: amLODIPine Besylate 2.5 MG TABLET 7.5 MG PO (08:00)
[2024-03-22] MEDS: QUEtiapine Fumarate 25 MG TABLET PO (08:00)
[2024-03-22] MEDS: Loratadine 10 MG TABLET PO (08:00)
[2024-03-22] MEDS: ALPRAZolam 0.25 MG TABLET 0.75 MG PO (08:00)
[2024-03-22] MEDS: Metoprolol Succinate ER 12.5 MG HALFTAB.ER.24H PO (08:00)
[2024-03-22] MEDS: Cholecalciferol (Vitamin D3) 25 MCG TABLET PO (08:00)
[2024-03-22] MEDS: Ascorbic Acid 500 MG TABLET PO (08:00)
[2024-03-22] MEDS: Docusate Sodium 100 MG CAPSULE PO (08:00)
[2024-03-22] MEDS: Cyanocobalamin (Vitamin B-12) 500 MCG TABLET PO (08:00)
[2024-03-22] MEDS: 0.9 % Sodium Chloride Flush 3 ML SYRINGE IVFLUSH (08:01)
[2024-03-22] MEDS: Albuterol/Iprat 2.5/0.5MG 3 ML AMPUL.NEB INHALE (08:31)
[2024-03-22 08:32] VITALS: PULSE 83; RESP 18; O2SAT 94
[2024-03-22 10:40] LABS: IgA 232 mg/dL (70-320); IgG 893 mg/dL (600-1540); IgM 86 mg/dL (50-300)
--- NOTE | 2024-03-22 11:00 | PM.DS ---
DS: Providers Provider Date of Service: 03/22/24 Date of admission: 03/13/24 14:47 Primary care physician: Nima Farooq MD Consults: 03/14/24 16:07 Consult to General Surgery Routine Consulting Provider: [facility] Sur[facility] Reason for consultation: n/v/abd pain -kub -? bowel obstruction Has provider been notified: No 03/16/24 11:31 Consult to Pulmonology Routine Consulting Provider: [facility] Pulmonology Services Reason for consultation: acute hypoxemic respiratory failure -copd Has provider been notified: No 03/16/24 13:35 Consult to Nephrology Routine Consulting Provider: [facility] Reason for consultation: sarthak on ckd ,possible chf Has provider been notified: No DS: Diagnosis Discharge Diagnosis (1) Acute respiratory failure with hypoxia: Status: Acute (2) Gastroparesis: Status: Acute (3) Obesity (BMI 30-39.9): Status: Acute DS: Summary Hospital Course Hospital Course: Date of Service: 03/13/24 Attending physician on admission: Klaus Cowan Chief Complaint: dyspnea, cough x3 days 88 yo f with a pmhx significant for COPD, diastolic CHF, CAD, stage 4 CKD with anemia of chronic disease, HTN, HLD, T2DM, and cognitive impairment who presented to the ED today with dyspnea, cough, fatigue and yellow sputum production x3 days. no fever. was exposed to a sick relative. also complains of pleuritic chest pain, worse with cough, describes as a constant discomfort with sharp pains. nasal congestion, decreased appetite and minimal fluid intake ?due to fatigue. no nausea or vomiting. Hospital course: 88 yo f with a pmhx significant for COPD, diastolic CHF, CAD, stage 4 CKD with anemia of chronic disease, HTN, HLD, T2DM, and cognitive impairment who presented to the ED with COPD exacerbation and admitted with a diagnosis of COPD exacerbation,and mild acute on ch. diastolic chf exacerbation, treated with IV steroids, updraft treatment, 5 day course of IV antibiotics for bronchopneumonia and IV diuretics, patient responded well to above treatment, RSV/flu/COVID negative, troponin negative, no acute EKG changes, viral resp panel-positive for parainfluenza likely contributed to above symptoms, since patient appears to be at baseline therefore she is being discharged home on all of her baseline medications she was noted to have mildly elevated blood pressure therefore dose of Norvasc is increased to 5 mg, patient was noted to have acute on chronic kidney disease stage IV likely due to over-diuresis diuretics were held creatinine returned back to baseline. toxic metabolic encepahlopathy: Likely due to above resolved Patient also noted to have transient episode of Nausea /vomiting abd pain -possible related to gasteroparesis resolved with IV erythromycin, CTA abdomen with by mouth contrast showed no evidence of intestinal obstruction, evaluated by General surgery no surgical intervention was recommended. Acute hypernatremia resolved likely due to dehydration. Acute hyperkalemia-improved with loklema. HLD - continue statin T2DM - continue glimepiride and diabetic diet LESLIE- recommend to continue CPAP Class 2 obesity recommend low-calorie diet. Time Attestation Discharge Coordination Time (in mins): 38 Quality: Safe Use of Opioids Does Pt have an Active Cancer Diagnosis on the Problem List?: No Quality: Stroke Does the patient have a stroke diagnosis?: No Physical Exam Vital Signs: Vital Signs: Last Vital Signs Temp 98.5 F 03/22/24 07:23 Pulse 83 03/22/24 08:32 Resp 18 03/22/24 08:32 BP 131/66 03/22/24 07:23 Pulse Ox 96 03/22/24 07:23 O2 Del Method Nasal Cannula 03/22/24 07:23 O2 Flow Rate 2 03/22/24 07:23 BMI result Body Mass Index 37.3 Const: Other: General sitting comfortably in no acute distress. Anicteric sclera Neck no JVD. CVS regular rate rhythm, Respiratory lungs clear to auscultation, no respiratory distress, no wheeze, no rhonchi. Gastrointestinal abdomen soft, non tender, bowel sounds audible, no guarding , no rigidity. Extremities no edema. Neuro non focal Skin no rash Psych appropriate affect DS: Data Data Completed and Pending Labs on day of discharge: Laboratory Results - last 24 hr 03/17/24 03/21/24 03/21/24 05:40 11:25 16:14 Hold Purple Top Sodium Potassium Chloride Carbon Dioxide Anion Gap BUN Creatinine Estim Creat Clear Calc Estimated GFR POC Glucose 230 H 322 H Random Glucose Calcium IgG Total 893 IgA Total 232 IgM 86 RUPINDER Interpretation SEE NOTE 03/21/24 03/22/24 03/22/24 19:59 05:46 07:20 Hold Purple Top SEE NOTE Sodium 141 Potassium 3.7 Chloride 100 Carbon Dioxide 28 Anion Gap 17 BUN 62 H Creatinine 2.83 H Estim Creat Clear Calc 13.2 Estimated GFR 16 POC Glucose 245 H 263 H Random Glucose 259 H Calcium 8.8 IgG Total IgA Total IgM RUPINDER Interpretation Discharge Plan Discharge Anticipated Discharge Date/Time: 03/22/24 10:11 Patient Disposition: Home, Self-Care Discharge Diagnosis: Acute COPD exacerbation Acute on chronic diastolic CHF Acute on chronic kidney disease stage 4 Referrals: Nima Farooq MD [Primary Care Provider] - 1 Week Discharge Medications: New amlodipine 5 mg tablet 5 mg PO DAILY Qty: 90 0RF Continued albuterol sulfate 90 mcg/actuation HFA aerosol inhaler 2 puff PO Q4-6H PRN (Reason: for wheezing) Qty: 8.5 1RF (DME) VixOne Nebulizer-Adult Mask Misc See Rx Instructions .ROUTE .MEDSUPPLY Qty: 1 2RF Rx Instructions: As directed (DME) OneTouch Verio test strips Strip See Rx Instructions .Route Qty: 100 3RF Rx Instructions: As directed- To test blood sugar daily. (DME) lancets 30 gauge misc See Rx Instructions .Route Qty: 100 0RF Rx Instructions: As directed-To test blood sugar daily. Tradjenta 5 mg tablet 5 mg PO DAILY Qty: 90 3RF metoprolol succinate [Toprol XL] 25 mg tablet extended release 24 hr 12.5 mg PO DAILY 90 Days Qty: 45 3RF cholecalciferol (vitamin D3) 25 mcg (1,000 unit) tablet 25 mcg PO DAILY 90 Days Qty: 90 2RF cyanocobalamin (vitamin B-12) 500 mcg tablet 500 mcg PO DAILY 90 Days Qty: 90 3RF nitroglycerin 0.2 mg/hr patch 24 hour 1 patch topical DAILY Qty: 30 5RF ferrous sulfate 325 mg (65 mg iron) tablet 325 mg PO DAILY Qty: 90 0RF glimepiride 1 mg tablet 1 mg PO DAILY Rx Instructions: administer with breakfast omeprazole 20 mg Capsule,Delayed Release(Dr/Ec) 20 mg PO DAILY@0630 ipratropium-albuterol 0.5 mg-3 mg(2.5 mg base)/3 mL solution for nebulization 3 ml inhalation BID cetirizine 10 mg tablet 10 mg PO DAILY pravastatin 40 mg tablet 40 mg PO BEDTIME (DME) LIGHTWEIGHT TRANSPORT WHEELCHAIR WITH HANDBRAKES See Rx Instructions .Route .MEDSUPPLY Qty: 1 0RF Rx Instructions: As directed (DME) CHAIR LIFT See Rx Instructions .Route .MEDSUPPLY Qty: 1 0RF Rx Instructions: As directed (DME) blood pressure monitor Kit See Rx Instructions .Route Qty: 1 0RF Rx Instructions: As directed alprazolam 0.5 mg tablet 0.75 mg PO BID Rx Instructions: TAKE TWICE A DAY AND 1 TABLET ADDITIONAL PER DAY NEEDED FOR AGITATION ascorbic acid (vitamin C) 500 mg capsule 500 mg PO DAILY citalopram 20 mg tablet 20 mg PO DAILY quetiapine 25 mg tablet 25 mg PO DAILY quetiapine 100 mg tablet 100 mg PO BEDTIME melatonin 10 mg tablet 10 mg PO BEDTIME furosemide 40 mg tablet 20 mg PO DAILY Discontinued amlodipine 2.5 mg tablet 2.5 mg PO DAILY Qty: 30 6RF Discharge Orders: Discharge Order (Routine); Ordered 03/22/24 Ordered By: Darrin Ferreira Diet: Advance to usual diet Activity on Discharge: As tolerated Stand Alone Forms: Patient Portal Discharge page Print Language: Iranian Care Plan Goals: Shortness of breath resolved, COPD exacerbation likely due to parainfluenza infection/pneumonia Elevated blood pressure dose of Norvasc increased to 5 mg daily Health Concerns: Diabetes mellitus Chronic kidney disease stage 4 Obstructive sleep apnea Resume all home medications Plan of Treatment: Outpatient follow-up with primary care physician call for appointment Assessment: As above
--- NOTE | 2024-03-22 11:15 | MHC.CM.PN ---
DP: PT HAS BEEN MEDICALLY CLEARED FOR DC HOME, NO SERVICES. PT'S DAUGHTERS WILL BE TRANSPORTING HOME.
[2024-03-22] MEDS: guaiFENesin 200 MG/10 ML 10 ML LIQUID PO (11:19)
[2024-03-22 13:36] LABS: Glucose, Whole Blood 220 mg/dL (60-115)
[2024-03-23 16:34] LABS: VITAMIN D (1,25 OH) D3 67 pg/mL; Vit D (1,25-Dihydroxy) Total 67 pg/mL (18-72); Vitamin D (1,25 OH) D2 <8 pg/mL
== END 2024-03-22 13:06 | disposition home or self-care (01) | DRG 190 ==
LOC: HO.ED 13:33 → HO.EDOVER 14:55 → HO.S3 15:28
PROVIDERS: Family Medicine; Internal Medicine; Internal Medicine Pulmonary Disease; Nurse Practitioner Family; Physician Assistant Medical; Admitting Provider Physician Assistant; Emergency Provider Emergency Medicine; PCP Internal Medicine; Visit Provider Hospitalist
DX: J44.1 Chronic obstructive pulmonary disease with (acute) exacerbation (principal); G92.8 Other toxic encephalopathy; I50.33 Acute on chronic diastolic (congestive) heart failure; J69.0 Pneumonitis due to inhalation of food and vomit; I13.0 Hypertensive heart and chronic kidney disease with heart failure and stage 1 through stage 4 chronic kidney disease, or unspecified chronic kidney disease; N18.4 Chronic kidney disease, stage 4 (severe); E87.0 Hyperosmolality and hypernatremia; N17.9 Acute kidney failure, unspecified; I25.10 Atherosclerotic heart disease of native coronary artery without angina pectoris; B97.89 Other viral agents as the cause of diseases classified elsewhere; E11.22 Type 2 diabetes mellitus with diabetic chronic kidney disease; Z66 Do not resuscitate; E87.5 Hyperkalemia; E11.43 Type 2 diabetes mellitus with diabetic autonomic (poly)neuropathy; K59.00 Constipation, unspecified; E66.812 Obesity, class 2; Z68.37 Body mass index [BMI] 37.0-37.9, adult; K31.84 Gastroparesis; E83.42 Hypomagnesemia; E86.0 Dehydration; D63.1 Anemia in chronic kidney disease; G47.33 Obstructive sleep apnea (adult) (pediatric); E78.5 Hyperlipidemia, unspecified; Z20.822 Contact with and (suspected) exposure to COVID-19; Z79.84 Long term (current) use of oral hypoglycemic drugs; Z79.899 Other long term (current) drug therapy
CPT/HCPCS: 0241U; 36415; 71045; 71046; 71250; 74018; 74176; 80048; 80076; 81001; 82652; 82784; 82803; 82947; 83735; 83880; 83970; 84484; 85025; 85379; 85610; 86334; 86335; 87040; 87633; 92526; 92610; 93005; 94640; 94660; 99285; J0295; J0456; J1364; J1630; J1644; J1940; J2405; J2470; J2543; J2919; J3475

== ENCOUNTER → 2024-03-13 11:29 | Outpatient (BNV) | payer OTHER, SELFPAY | PROVIDERS: Admitting Provider Physician Assistant; Emergency Provider Emergency Medicine; PCP Internal Medicine; Visit Provider Internal Medicine | DX: R06.02 Shortness of breath (principal); R94.31 Abnormal electrocardiogram [ECG] [EKG] | CPT/HCPCS: 93010 ==

== ENCOUNTER 2024-03-13 14:47 | Outpatient (BNV) | payer OTHER, SELFPAY | END 2024-03-14 10:00 | PROVIDERS: Admitting Provider Physician Assistant; Emergency Provider Emergency Medicine; PCP Internal Medicine; Visit Provider Radiology Diagnostic Radiology | DX: R10.9 Unspecified abdominal pain (principal) | CPT/HCPCS: 71045 ==

== ENCOUNTER 2024-03-13 14:47 | Outpatient (BNV) | payer OTHER, SELFPAY | END 2024-03-16 09:55 | PROVIDERS: Admitting Provider Physician Assistant; Emergency Provider Emergency Medicine; PCP Internal Medicine; Visit Provider Radiology Diagnostic Radiology | DX: R06.00 Dyspnea, unspecified (principal) | CPT/HCPCS: 71045; 71250 ==

== ENCOUNTER → 2024-03-13 14:47 | Outpatient (BNV) | payer OTHER, SELFPAY | PROVIDERS: Admitting Provider Physician Assistant; Emergency Provider Emergency Medicine; PCP Internal Medicine; Visit Provider Physician Assistant | DX: J96.01 Acute respiratory failure with hypoxia (principal); K31.84 Gastroparesis; E66.812 Obesity, class 2; Z68.36 Body mass index [BMI] 36.0-36.9, adult | CPT/HCPCS: 99222; 99231; 99232; 99239; 99499 ==

== ENCOUNTER → 2024-03-13 14:47 | Outpatient (BNV) | payer OTHER, SELFPAY | PROVIDERS: Admitting Provider Physician Assistant; Emergency Provider Emergency Medicine; PCP Internal Medicine; Visit Provider Physician Assistant Surgical | DX: K31.84 Gastroparesis (principal) | CPT/HCPCS: 99222 ==

== ENCOUNTER → 2024-03-13 14:47 | Outpatient (BNV) | payer OTHER, SELFPAY | PROVIDERS: Admitting Provider Physician Assistant; Emergency Provider Emergency Medicine; PCP Internal Medicine; Visit Provider Nurse Practitioner Family | DX: N18.4 Chronic kidney disease, stage 4 (severe) (principal) | CPT/HCPCS: 99222; 99232 ==

== ENCOUNTER → 2024-03-13 14:47 | Outpatient (BNV) | payer OTHER, SELFPAY | PROVIDERS: Admitting Provider Physician Assistant; Emergency Provider Emergency Medicine; PCP Internal Medicine; Visit Provider Internal Medicine Pulmonary Disease | DX: J96.01 Acute respiratory failure with hypoxia (principal); G47.33 Obstructive sleep apnea (adult) (pediatric); Z99.89 Dependence on other enabling machines and devices; J44.9 Chronic obstructive pulmonary disease, unspecified | CPT/HCPCS: 99222 ==

== ENCOUNTER 2024-04-03 14:27 | Outpatient (AMB) | payer OTHER, SELFPAY ==
--- NOTE | 2024-04-03 14:32 | A.OFFPC_ITS ---
Vital Signs 04/03/24 14:34 Height 5 ft Weight 194 lb 14.218 oz BMI 38.1 BP 130/68 Blood Pressure Location Rt brachial Position Sitting Pulse 89 Pulse Source Pulse Oximeter Pulse Oximetry (%) 91 L Oxygen Delivery Method Room Air Intake Visit Reasons: [facility] 03/22 copd/influenza Intake Note: Patient is here for hospital discharge follow up. [place] [facility] [place]. Complaint of pain in both ears ongoing for two weeks. Pt decline flu shot for today. [employer]ver Required: No Host Coordinator: Present Accompanied by: Daughters Allergies No Known Allergies Allergy (Verified 04/04/24 05:08) Medication List - Last Reconciled 04/04/24 by Ludwig Hong MD albuterol sulfate 90 mcg/actuation 2 puffs PO Q4-6H PRN alprazolam 0.75 mg PO BID amlodipine 5 mg PO DAILY ascorbic acid (vitamin C) 500 mg PO DAILY benzonatate 100 mg PO BID-TID PRN 30 days blood pressure monitor As directed blood sugar diagnostic (Elecaruch Verio test strips) As directed- To test blood sugar daily. cetirizine 10 mg PO DAILY [CHAIR LIFT As directed] cholecalciferol (vitamin D3) 25 mcg PO DAILY 90 days citalopram 20 mg PO DAILY cyanocobalamin (vitamin B-12) 500 mcg PO DAILY 90 days ferrous sulfate 325 mg PO DAILY furosemide 20 mg PO DAILY glimepiride 1 mg PO DAILY guaifenesin 100 mg (5 mL) PO Q6H PRN ipratropium-albuterol 0.5 mg-3 mg(2.5 mg base)/3 mL 3 mL inhalation BID lancets As directed-To test blood sugar daily. [LIGHTWEIGHT TRANSPORT WHEELCHAIR WITH HANDBRAKES As directed] linagliptin (Tradjenta) 5 mg PO DAILY melatonin 10 mg PO BEDTIME metoprolol succinate ER (Toprol XL) 12.5 mg (1/2 x 25 mg) PO DAILY 90 days nebulizers (VixOne Nebulizer-Adult Mask) As directed nitroglycerin 0.2 mg/hr 1 patch topical DAILY omeprazole 20 mg PO DAILY@0630 pravastatin 40 mg PO BEDTIME quetiapine 100 mg PO BEDTIME quetiapine 25 mg PO DAILY Tobacco use date assessed: 04/03/24 Fall risk assessment: No Falls in past year Last assessed Fall Risk: 04/03/24 Dental Screening Dental Screen Date: 02/23/24 [facility] [place] [facility] [place]/influenza HPI Details 88-year-old female presents to the [facility] for a TCM visit. She is acc ompanied by 2 daughters. Patient comes to the office in a wheelchair. Patient does not communicate with me due to language barrier. The daughter is speaking on behalf of the patient. Date of admission 03/13/2024. Date of discharge 03/22/2024. Discharge diagnosis COPD exacerbation that is improving. 88-year-old female was admitted to the [facility] for COPD exacerbation. During the hospital course a new antihypertensive was started at 5 mg a day. After discharge, as per the recommendations of the mat weaver the medication was discontinued because the blood pressure was in range without the antihypertensive. Patient is now back at baseline state. She is requesting a refill on few of her medications. The medication list was reconciled. TCM TCM Information Date of Discharge 03/22/24 Discharged From [facility] Interactive Contact Date (Reference documentation from this date) 03/23/24 [facility] Medical History Hyperparathyroidism, secondary renal Anemia of chronic disease Chronic kidney disease, stage 4 (severe) Mild cognitive impairment LESLIE on CPAP Chronic heart failure with preserved ejection fraction (HFpEF) COPD (chronic obstructive pulmonary disease) Cellulitis of right foot Morbid obesity with BMI of 40.0-44.9, adult Depression Primary insomnia GERD without esophagitis Vitamin D deficiency Obstructive sleep apnea Benign essential hypertension Pure hypercholesterolemia Chronic kidney disease (CKD), stage III (moderate) Type 2 diabetes mellitus with diabetic chronic kidney disease Coronary artery disease COVID-19 GI bleed GERD (gastroesophageal reflux disease) LESLIE (obstructive sleep apnea) Anxiety CKD (chronic kidney disease) stage 3, GFR 30-59 ml/min Pulmonary hypertension CAD (coronary artery disease) Diabetes mellitus Heart disease Hypercholesteremia HTN (hypertension) Surgical History Hx of colonoscopy History of esophagogastroduodenoscopy (EGD) History of eye surgery H/O abdominal hysterectomy Family History Father No problems noted. Mother No problems noted. Social History Household Members: Children Household Members Other:: lives with her daughter who cares for her Housing: Apartment Do you presently have visiting nurse or other home services: No Alcohol intake: never Patient Tobacco Use Status: Never used Tobacco e-Cigarette/Vaping Use: Never Used Second Hand Smoke Exposure: No service: No Current occupational status: retired and disabled Cognitive needs: Yes (Cane/Transport Wheelchair) Hearing needs: No Vision needs: Yes Questionnaire Thrive Questionnaire Date Thrive assessed: 03/14/24 Are you currently unemployed and looking for a job?: I choose not to answer this question AUDIT C Alcohol Use Questionnaire (AUDIT-C) 3. How often do you have six or more drinks on one occasion?: Never Total Score: 0 EMERSON-7 AMB Questionnaire EMERSON-7 Date EMERSON - 7 assessed: 02/23/24 Source: Developed by Drs. Feng Suazo, Liz Carrillo, Raymond Morales and colleagues, with an educational katarina from [employer]. Physical exam (Primary Care) Vital Signs: Last Vital Signs Pulse 89 04/03/24 14:34 BP 130/68 04/03/24 14:34 Pulse Ox 91 L 04/03/24 14:34 Oxygen Delivery Method Room Air 04/03/24 14:34 BMI result Body Mass Index 38.1 Tobacco/Smoking Status: Tobacco use Status Tobacco use date assessed 04/03/24 04/03/24 14:44 Patient Tobacco Use Status Never used Tobacco 04/03/24 14:44 e-Cigarette/Vaping Use Never Used 04/03/24 14:44 Thrive Assessment: Date of Thrive Assessment Date Thrive assessed 03/14/24 04/03/24 14:44 Const General: cooperative and healthy appearing Nutritional Appearance: well nourished Orientation/consciousness: patient oriented x3 Limitations: no limitations HENMT Head: Yes normal to inspection Eyes General: appearance normal, both eyes and all related structures Neck Neck: Yes normal visual inspection Chest Chest palpation & inspection: normal palpation of entire chest wall Resp Effort & Inspection: normal respiratory effort Neuro General: patient oriented x3 Results AMB Hemoglobin A1c AMB Hemoglobin A1c 7.2 % Last Edit by JACQUI Lr on 04/03/24 14:45 Results Reviewed Results Reviewed: Laboratory Last Values Hgb A1c (Clinic) 7.2 % (4.0-6.0) H 04/03/24 14:31 Coding Level of Care Code TCM Mod MDM <= 14 Days Diagnoses Chronic obstructive pulmonary disease, unspecified COPD type J44.9 COPD type: unspecified COPD Assessment & Plan Assessment & Plan (1) COPD (chronic obstructive pulmonary disease): Code(s): J44.9 - Chronic obstructive pulmonary disease, unspecified Category: Medical Qualifiers: COPD type: unspecified COPD Qualified Code(s): J44.9 - Chronic obstructive pulmonary disease, unspecified Plan: Hospital discharge summary reviewed. Medication list reconciled. Lab done at discharge reviewed. Patient has a follow-up appointment with her mat weaver. I encouraged her to keep the same. Antihypertensive has been discontinued Orders: Orders AMB Hemoglobin A1c 04/03/24 E11.8 - Type 2 diabetes mellitus with unspecified complications Medications: Refilled linagliptin (Tradjenta) 5 mg PO DAILY 90 tabs 3RF
[2024-04-03 14:34] VITALS: BP 130/68; PULSE 89; O2SAT 91; BMI 38.1
== END 2024-04-03 16:49 | disposition home or self-care (01) ==
LOC: HO.HMCH 14:27
PROVIDERS: PCP Internal Medicine; Visit Provider Internal Medicine
DX: J44.9 Chronic obstructive pulmonary disease, unspecified (principal); E11.9 Type 2 diabetes mellitus without complications

== ENCOUNTER → 2024-04-03 14:27 | Outpatient (BNVA) | payer OTHER, SELFPAY | PROVIDERS: PCP Internal Medicine; Visit Provider Internal Medicine | DX: J44.9 Chronic obstructive pulmonary disease, unspecified (principal); E11.8 Type 2 diabetes mellitus with unspecified complications | CPT/HCPCS: 83036; 99495 ==

== ENCOUNTER 2024-05-19 13:01 | Outpatient (AMB) | payer OTHER, SELFPAY ==
[2024-05-19 13:04] VITALS: BP 130/67; PULSE 75; O2SAT 95; BMI 36.9
--- NOTE | 2024-05-19 13:04 | A.OFFVIS_ITS ---
Vital Signs 05/19/24 13:04 Height 5 ft Weight 189 lb BMI 36.9 BP 130/67 Blood Pressure Location Rt brachial Position Sitting Pulse 75 Pulse Source Doppler Pulse Oximetry (%) 95 Oxygen Delivery Method Room Air Intake Visit Reasons: LESLIE, Coughing dry Allergies No Known Allergies Allergy (Verified 05/19/24 13:11) HPI HPI LESLIE, Coughing dry: Details: 88-year-old lady, patient of Dr. Blank, followed for COPD and allergic rhinitis today presents for sick visit complain of bronchitic symptoms symptomatic with cough productive of greenish sputum over the last 2 weeks. [facility] Medical History Hyperparathyroidism, secondary renal Anemia of chronic disease Chronic kidney disease, stage 4 (severe) Mild cognitive impairment LESLIE on CPAP Chronic heart failure with preserved ejection fraction (HFpEF) COPD (chronic obstructive pulmonary disease) Cellulitis of right foot Morbid obesity with BMI of 40.0-44.9, adult Depression Primary insomnia GERD without esophagitis Vitamin D deficiency Obstructive sleep apnea Benign essential hypertension Pure hypercholesterolemia Chronic kidney disease (CKD), stage III (moderate) Type 2 diabetes mellitus with diabetic chronic kidney disease Coronary artery disease COVID-19 GI bleed GERD (gastroesophageal reflux disease) LESLIE (obstructive sleep apnea) Anxiety CKD (chronic kidney disease) stage 3, GFR 30-59 ml/min Pulmonary hypertension CAD (coronary artery disease) Diabetes mellitus Heart disease Hypercholesteremia HTN (hypertension) Surgical History Hx of colonoscopy History of esophagogastroduodenoscopy (EGD) History of eye surgery H/O abdominal hysterectomy Family History Father No problems noted. Mother No problems noted. Social History Household Members: Children Household Members Other:: lives with her daughter who cares for her Housing: Apartment Do you presently have visiting nurse or other home services: No Alcohol intake: never Patient Tobacco Use Status: Never used Tobacco e-Cigarette/Vaping Use: Never Used Second Hand Smoke Exposure: No service: No Current occupational status: retired and disabled Cognitive needs: Yes (Cane/Transport Wheelchair) Hearing needs: No Vision needs: Yes Review of Systems Const Denies daytime sleepiness, Denies excessive sweating, Denies fatigue, Denies fever(s), Denies lethargy, Denies malaise, Denies night sweats, Denies snoring and Denies weight loss Eyes Denies blurry vision and Denies itchy eyes ENT Denies nasal congestion, Denies post nasal drip, Denies sinus pain, Denies sinus pressure and Denies other ( Thrush) Card Denies chest pain, Denies pedal edema, Denies dyspnea, Denies orthopnea and Denies paroxysmal nocturnal dyspnea Resp Reports cough, Denies hemoptysis, Reports excessive phlegm production, Denies dyspnea, Denies snoring and Denies wheezing GI Denies abdominal pain and Denies heartburn Musc Denies myalgias, Denies arthralgias and Denies joint swelling Skin/Breast Denies rash Neuro Denies memory loss and Denies seizure-like activity Psych Denies abnormal sleep pattern, Denies anxiety and Denies memory loss Endo Denies excessive sweating, Denies fatigue and Denies heat intolerance Samuel/Lymph Denies easy bruising Aller/Immun Denies itchy eyes, Denies seasonal rhinorrhea and Denies wheezing Physical Exam Vital Signs: Last Vital Signs Pulse 75 05/19/24 13:04 BP 130/67 05/19/24 13:04 Pulse Ox 95 05/19/24 13:04 Oxygen Delivery Method Room Air 05/19/24 13:04 BMI result Body Mass Index 36.9 Const General: no acute distress and alert Nutritional Appearance: obese Orientation/consciousness: Other orientation findings ( oriented) HEENT Head: Yes atraumatic Eyes General: appearance normal, both eyes and all related structures Sclerae: sclerae normal EOM: EOMs intact bilaterally Neck Neck: Yes supple Lymphatic: no lymphadenopathy noted Resp Effort & Inspection: normal respiratory effort and no use of accessory muscles Auscultation: clear to auscultation bilaterally Cardio Rate: regular rate Rhythm: regular rhythm Heart sounds: no gallops, no murmurs and no rubs Skin General skin exam: other ( warm) Extrem General: No clubbing, No cyanosis and Yes edema (Trace bilateral) Assessment & Plan Assessment & Plan (1) Bronchitis: Code(s): J40 - Bronchitis, not specified as acute or chronic Category: Medical Plan: Acute bronchitis, will treat with course of Augmentin. Benzonatate for symptomatic cough relief. Medications: New benzonatate 200 mg PO TID PRN 90 caps 0RF cough amoxicillin-pot clavulanate 875-125 mg 1 tab PO BID 14 tabs 0RF Discontinued benzonatate Discontinued Reason: Doctor's Order 100 mg PO BID-TID 30 days PRN 90 caps 0RF cough Coding Level of Care Code Est Pt Level 3 (18741) Complex EM visit Add On G2211 Diagnoses Bronchitis J40
== END 2024-05-19 13:21 | disposition home or self-care (01) ==
PROVIDERS: PCP Internal Medicine; Visit Provider Internal Medicine Pulmonary Disease
DX: J40 Bronchitis, not specified as acute or chronic (principal)
CPT/HCPCS: 99213; G2211

== ENCOUNTER → 2024-05-19 13:01 | Outpatient (BNVA) | payer OTHER, SELFPAY | PROVIDERS: PCP Internal Medicine; Visit Provider Internal Medicine Pulmonary Disease | DX: J40 Bronchitis, not specified as acute or chronic (principal) | CPT/HCPCS: 99212 ==

== ENCOUNTER 2024-05-29 14:09 | Outpatient (AMB) | payer OTHER, SELFPAY ==
--- NOTE | 2024-05-29 14:11 | MHC.PC.OV ---
Vital Signs 05/29/24 14:12 Height 5 ft Weight 187 lb 13.341 oz BMI 36.7 BP 118/70 Blood Pressure Location Lt brachial Position Sitting Pulse 75 Pulse Source Pulse Oximeter Pulse Oximetry (%) 93 Oxygen Delivery Method Room Air Intake Visit Reasons: 3mth f/u Media Sales Consultant Required: No Accompanied by: Self / Same As Patient Allergies No Known Allergies Allergy (Verified 05/29/24 14:42) Medication List - Last Reconciled 05/29/24 by Nima Farooq MD albuterol sulfate 90 mcg/actuation 2 puffs PO Q4-6H PRN alprazolam 0.75 mg PO BID amlodipine 5 mg PO DAILY amoxicillin-pot clavulanate 875-125 mg 1 tab PO BID ascorbic acid (vitamin C) 500 mg PO DAILY benzonatate 200 mg PO TID PRN blood pressure monitor As directed blood sugar diagnostic ([employer] test strips) As directed- To test blood sugar daily. cetirizine 10 mg PO DAILY [CHAIR LIFT As directed] cholecalciferol (vitamin D3) 25 mcg PO DAILY 90 days citalopram 20 mg PO DAILY cyanocobalamin (vitamin B-12) 500 mcg PO DAILY 90 days ferrous sulfate 325 mg PO DAILY furosemide 40 mg PO DAILY glimepiride 1 mg PO DAILY guaifenesin 100 mg (5 mL) PO Q6H PRN ipratropium-albuterol 0.5 mg-3 mg(2.5 mg base)/3 mL 3 mL inhalation BID lancets As directed-To test blood sugar daily. [LIGHTWEIGHT TRANSPORT WHEELCHAIR WITH HANDBRAKES As directed] linagliptin (Tradjenta) 5 mg PO DAILY melatonin 10 mg PO BEDTIME metoprolol succinate ER (Toprol XL) 12.5 mg (1/2 x 25 mg) PO DAILY 90 days nebulizers (VixOne Nebulizer-Adult Mask) As directed nitroglycerin 0.2 mg/hr 1 patch topical DAILY omeprazole 20 mg PO DAILY@0630 pravastatin 40 mg PO BEDTIME quetiapine 100 mg PO BEDTIME quetiapine 25 mg PO DAILY Tobacco use date assessed: 05/29/24 Fall risk assessment: 1 Fall in past year Last assessed Fall Risk: 05/29/24 Dental Screening Dental Screen Date: 05/29/24 Did you have a dental visit in the last 12 months?: No Did you have a dental problem in the last 6 months where you did not have access to dental care?: No Was dental information given to patient?: No HPI 3mth f/u HPI Details Patient comes in today for her follow up visit - she is accompanied as usual by her daughter, who is her caregiver and her HCP Patient's daughter states that she continues to feel fatigued often but has been eating well during mealtimes and sleeps well at night She denies any headaches or dizziness Denies any chest pains but still has some EVANS, which is chronic and her baseline Patient has also reportedly been experiencing increased cough and congestion and her daughter states that this has been going on for a while now She was seen by Dr. Chirinos at her recent pulmonary follow up and was started on Augmentin, which her daughter states helped somewhat but her symptoms increased again a couple of days after she took her last dose of the Abx No nausea/vomiting, no abdominal pain but patient has reportedly been complaining of recurrent symptoms of heartburns lately, despite being on Omeprazole 20 mg daily No change in bowel habits noted She still has pain in her knees and recalls experiencing little relief of her knee pain with injections of Euflexxa a few months ago She was not able to get her follow up labs done prior to her appointment today [facility] Medical History Hyperparathyroidism, secondary renal Anemia of chronic disease Chronic kidney disease, stage 4 (severe) Mild cognitive impairment LESLIE on CPAP Chronic heart failure with preserved ejection fraction (HFpEF) COPD (chronic obstructive pulmonary disease) Cellulitis of right foot Morbid obesity with BMI of 40.0-44.9, adult Depression Primary insomnia GERD without esophagitis Vitamin D deficiency Obstructive sleep apnea Benign essential hypertension Pure hypercholesterolemia Chronic kidney disease (CKD), stage III (moderate) Type 2 diabetes mellitus with diabetic chronic kidney disease Coronary artery disease COVID-19 GI bleed GERD (gastroesophageal reflux disease) LESLIE (obstructive sleep apnea) Anxiety CKD (chronic kidney disease) stage 3, GFR 30-59 ml/min Pulmonary hypertension CAD (coronary artery disease) Diabetes mellitus Heart disease Hypercholesteremia HTN (hypertension) Surgical History Hx of colonoscopy History of esophagogastroduodenoscopy (EGD) History of eye surgery H/O abdominal hysterectomy Family History Father No problems noted. Mother No problems noted. Social History Household Members: Children Household Members Other:: lives with her daughter who cares for her Housing: Apartment Do you presently have visiting nurse or other home services: No Alcohol intake: never Patient Tobacco Use Status: Never used Tobacco e-Cigarette/Vaping Use: Never Used Second Hand Smoke Exposure: No service: No Current occupational status: retired and disabled Cognitive needs: Yes (Cane/Transport Wheelchair) Hearing needs: No Vision needs: Yes Questionnaire PHQ-9 Over the last 2 weeks, how often have you been bothered by any of the following problems? 1. Little interest or pleasure in doing things: not at all 2. Feeling down, depressed, or hopeless: several days 3. Trouble falling or staying asleep, or sleeping too much: not at all 4. Feeling tired or having little energy: not at all 5. Poor appetite or overeating: not at all 6. Feeling bad about yourself - or that you are a failure or have let yourself or your family down: not at all 7. Trouble concentrating on things, such as reading the newspaper or watching television: not at all 8. Moving or speaking so slowly that other people could have noticed. Or the opposite - being so fidgety or restless that you have been moving around a lot more than usual: not at all 9. Thoughts that you would be better off or of hurting yourself in some way: not at all Total score: 1 Depression Screening Interpretation: Negative Depression Screening Done: Yes 49306 - PHQ-9 Billing: Yes Source: Developed by Drs. Feng Suazo, Liz Carrillo, Raymond Morales and colleagues, with an educational katarina from [employer]. Thrive Questionnaire Date Thrive assessed: 05/29/24 I am a: Patient What is your living situation today?: I have a steady place to live Within the past 12 months, did the food you bought not last and you didn't have the money to get more?: Never true Within the past 12 months, did you worry whether your food would run out before you got money to buy more?: Never true Do you have trouble paying for medicines?: No Do you have trouble getting transportation to medical appointments?: No Do you have trouble paying your heating and electricity bill?: No Do you have trouble taking care of your child, family member or friend?: No Do you have trouble with day-to-day activities such as bathing, preparing meals, shopping, managing finances, etc.?: No Are you currently unemployed and looking for a job?: I choose not to answer this question Are you interested in more education?: No Please select the resources that you would like help with: None Currently or been in a relationship where the following occur: No concerns reported THRIVE Score: 0 AUDIT C Alcohol Use Questionnaire (AUDIT-C) 1. How often do you have a drink containing alcohol?: Never 3. How often do you have six or more drinks on one occasion?: Never Total Score: 0 Score Reviewed/Action Taken: Yes EMERSON-7 AMB Questionnaire EMERSON-7 Date EMERSON - 7 assessed: 05/29/24 Feeling nervous, anxious, or on edge: 0 = Not at all Not being able to stop or control worryin = Not at all Worrying too much about different things: 0 = Not at all Trouble relaxin = Not at all Being so restless that it is hard to sit still: 0 = Not at all Becoming easily annoyed or irritable: 0 = Not at all Feeling afraid as if something awful might happen: 0 = Not at all Total EMERSON-7 score (0-4 normal; 5-9 mild; 10-14 moderate; 15-21 severe): 0 Source: Developed by Drs. eFng Suazo, Liz Carrillo, Raymond Morales and colleagues, with an educational katarina from [employer]. Review of Systems Const Details: information is obtained primarily from daughter as patient has some dementia and is unable to provide any pertinent info; also has issues with language barrier - patient speaks very little [place] Denies chills, Reports fatigue (frequent), Denies fever(s) and Denies headache(s) ENT Denies dysphagia, Denies dizziness, Reports dry mouth (frequent - mostly due to her nightly CPAP device use), Denies otalgia, Denies headache(s), Denies neck pain, Denies odynophagia and Denies sore throat Card Denies chest pain, Denies palpitations and Reports dyspnea on exertion (mild) Resp Denies chest congestion, Reports cough (recurrent, non-productive; often worse at night), Reports dyspnea on exertion (mild) and Denies wheezing GI Denies abdominal pain, Denies constipation, Denies dysphagia, Reports heartburn (recurrent lately), Denies diarrhea, Denies nausea, Denies odynophagia and Denies vomiting Denies difficulty voiding, Denies nocturia, Denies dysuria and Denies urinary urgency Musc Details: legs feel weak; gait is unsteady Reports arthralgias (in both knees), Denies neck pain and Reports tingling (on and off in both hands) Skin/Breast Denies rash Neuro Denies behavioral changes, Reports confusion (on and off), Denies dizziness, Denies headache(s), Reports memory loss, Reports tingling (on and off in both hands) and Reports paresthesias (on and off in her hands) Psych Denies behavioral changes, Reports confusion (on and off) and Reports memory loss Endo Reports fatigue (frequent) and Denies palpitations Aller/Immun Denies wheezing Physical exam (Primary Care) Vital Signs: Last Vital Signs Pulse 75 05/29/24 14:12 BP 118/70 05/29/24 14:12 Pulse Ox 93 05/29/24 14:12 Oxygen Delivery Method Room Air 05/29/24 14:12 BMI result Body Mass Index 36.7 Tobacco/Smoking Status: Tobacco use Status Tobacco use date assessed 05/29/24 05/29/24 14:14 Patient Tobacco Use Status Never used Tobacco 05/29/24 14:14 e-Cigarette/Vaping Use Never Used 05/29/24 14:14 PHQ-9: PHQ-9 Score PHQ-9: Total score 1 05/29/24 14:54 Depression Screening Interpretation: Negative Thrive Assessment: Date of Thrive Assessment Date Thrive assessed 05/29/24 05/29/24 14:14 Currently or been in a relationship where the following occur: No concerns reported Const General: confusion (on and off) Orientation/consciousness: confusion (on and off) HENMT Ears: TM's normal bilaterally and EAC's normal Throat: Yes posterior oropharynx normal and Yes tonsils normal (no TP congestion noted) Neck Neck: Yes supple and No lymphadenopathy Thyroid: Thyroid normal Resp Auscultation: no rales, rhonchi (scattered) throughout, no wheezes and diminished lung sounds (slightly) bilateral Cardio Rate: regular rate Rhythm: regular rhythm Heart sounds: no murmurs GI Palpation (GI): Soft to palpation and nontender Auscultation: normal bowel sounds General: Yes no CVA tenderness Back/Spine/Pelvis Back: no CVA tenderness Thoracic/Lumbar Spine: No lumbar spinal tenderness Skin Rashes: no rashes Neuro General: confusion (on and off) Extrem General: Yes no clubbing, cyanosis or edema Right lower extremity: knee Details: tenderness; no swelling Left lower extremity: knee Details: tenderness; no swelling Coding Level of Care Code Est Pt Level 4 (36259) Diagnoses COPD exacerbation J44.1 Chronic kidney disease, stage 4 (severe) N18.4 Anemia of chronic disease D63.8 Coronary artery disease involving [place] coronary artery of [place] heart without angina pectoris I25.10 Coronary Disease-Associated Artery/Lesion type: [place] artery [place] vs. transplanted heart: [place] heart Associated angina: without angina Chronic heart failure with preserved ejection fraction (HFpEF) I50.32 Hyperparathyroidism, secondary renal N25.81 Type 2 diabetes mellitus with chronic kidney disease, without long-term current use of insulin, unspecified CKD stage E11.22 Diabetes mellitus bonded structures repairer insulin use: without bonded structures repairer use Chronic kidney disease stage: unspecified stage Pure hypercholesterolemia E78.00 Benign essential hypertension I10 Mild cognitive impairment G31.84 Obstructive sleep apnea G47.33 GERD without esophagitis K21.9 At high risk for aspiration Z91.89 Vitamin D deficiency E55.9 Primary osteoarthritis of knees, bilateral M17.0 Paresthesia of both hands R20.2 Primary insomnia F51.01 Anxiety F41.9 Depression, unspecified depression type F32.9 Depression Type: unspecified Morbid obesity with BMI of 40.0-44.9, adult E66.01; Z68.41 Additional Codes PHQ-9 - 34960 - PHQ-9 Billing: Yes ([id number]) Assessment & Plan Assessment & Plan (1) COPD exacerbation: Comment: PATIENT HAS MODERATELY SEVERE OBSTRUCTIVE AIRWAY DISORDER. ALSO HAS SIGNIFICANT RESTRICTIVE DISORDER. NO RECENT PULMONARY FUNCTION TEST HAS BEEN DONE BECAUSE IT WILL BE IMPOSSIBLE TO DO Code(s): J44.1 - Chronic obstructive pulmonary disease with (acute) exacerbation Category: Medical Plan: Will start patient empirically on Doxycycline 100 mg BID x 10 days Continue Albuterol HFA 1 to 2 inhalations Q 6 hours PRN Per request, will provide her with Rx for a nebulizer unit (2) Chronic kidney disease, stage 4 (severe): Code(s): N18.4 - Chronic kidney disease, stage 4 (severe) Category: Medical Plan: Patient is approaching ESRD, based on her most recent lab results from a few months ago She was taken OFF her Metformin 1000 mg BID at a previous visit due to her declining renal function She recently had renal US done, which revealed no obstructive process Follow up with nephrology as scheduled (3) Anemia of chronic disease: Code(s): D63.8 - Anemia in other chronic diseases classified elsewhere Category: Medical Plan: Discussed again that this is most likely related to her declining renal function - anemia of chronic disease Her H/H appears to have stabilized recently - H/H is at 10.1/30.5% on her most recent CBC back in February 2024 They have been advised by nephrology that unless her Hct drops below 30%, she should not yet require Epogen Will continue to monitor her CBC regularly (4) Coronary artery disease: Code(s): I25.10 - Atherosclerotic heart disease of [place] coronary artery without angina pectoris Category: Medical Qualifiers: Coronary Disease-Associated Artery/Lesion type: [place] artery [place] vs. transplanted heart: [place] heart Associated angina: without angina Qualified Code(s): I25.10 - Atherosclerotic heart disease of [place] coronary artery without angina pectoris Plan: Myocardial perfusion scan done back in 2008 at [facility] showed (+) ischemia of the left ventricular apex; EF and wall motion studies were normal Echocardiogram done on 04/17/2009 showed low-normal LV systolic function with EF between 55-60%, mild concentric left ventricular hypertrophy, mild MR; diastolic filling pattern indicated impaired relaxation and moderate pulmonary hypertension Patient has been asymptomatic so far from a cardiac standpoint Continue Nitroglycerin patch 0.2 mg per hour once a day - Rx refilled She was seen by cardiology last year in September 2022 and advised to continue on current meds and management EKG done in the office at the time showed normal EKG with low voltage Follow up with cardiology as scheduled (5) Chronic heart failure with preserved ejection fraction (HFpEF): Code(s): I50.32 - Chronic diastolic (congestive) heart failure Category: Medical Plan: Patient has been compensated and was advised by cardiology to continue on low dose beta ciro and conservative medical management, given patient's age She was on Metoprolol ER 25 mg QD but patient's daughter cut this down to 1/2 tablet QD since she fell and was experiencing frequent dizziness and on and off headaches several months ago Amlodipine 5 mg QD has also been held since EKG done back in December 2022 revealed low voltage but EKG was otherwise normal Echocardiogram done in January 2023 showed that the left ventricular systolic function is hyperdynamic. The visually estimated ejection fraction is >70%. There is moderate septal asymmetric hypertrophy and evidence suggests grade I (mild) diastolic dysfunction. No obvious valvular pathology was seen on this study. (6) Hyperparathyroidism, secondary renal: Code(s): N25.81 - Secondary hyperparathyroidism of renal origin Category: Medical Plan: Patient also has hyperparathyroidism, with her PTH level at 447.1 pg/ml on her most recent labs done in 03/17/2024 This is likely due to her declining renal function and at her age and her multiple comorbidities, will just try to manage conservatively at this time (7) Type 2 diabetes mellitus with diabetic chronic kidney disease: Code(s): E11.22 - Type 2 diabetes mellitus with diabetic chronic kidney disease Category: Medical Qualifiers: Diabetes mellitus skilled nursing insulin use: without bonded structures repairer use Chronic kidney disease stage: unspecified stage Qualified Code(s): E11.22 - Type 2 diabetes mellitus with diabetic chronic kidney disease Plan: Patient's in-office HgbA1c was most recently at 7.2% back on 04/03/2024 - goal is at least < 7.5% Reinforced diabetic diet Continue Tradjenta 5 mg QD and Glimepiride 1 mg QD (is used to offset her Metformin being discontinued) Metformin 1000 mg BID was discontinued at a previous appointment as her renal function and serum creatinine were progressively declining over the past year - her serum creatinine is now at 2.83 on her recent labs in February 2024 (8) Pure hypercholesterolemia: Code(s): E78.00 - Pure hypercholesterolemia, unspecified Category: Medical Plan: Patient was not able to get her follow up labs done prior to her appointment today Reinforced low cholesterol diet Continue Pravastatin 40 mg QD Will recheck her labs and fasting lipids in 3 months for follow-up (9) Benign essential hypertension: Code(s): I10 - Essential (primary) hypertension Category: Medical Plan: Reinforced low-sodium diet -? goal is systolic BP of at least 140 to 150 mm or less She was on Amlodipine 5 mg QD and Furosemide 20 mg QD in AM as well as Metoprolol ER 25 mg QD but her Amlodipine has been held and Metoprolol ER cut in half by her daughter over the past few months (since she fell back in November 2022) and patient seems to be doing well on her reduced Rx dosage - will continue on her current dosages for now (10) Mild cognitive impairment: Code(s): G31.84 - Mild cognitive impairment of uncertain or unknown etiology Category: Medical Plan: Follow up with neurology as scheduled (11) Obstructive sleep apnea: Code(s): G47.33 - Obstructive sleep apnea (adult) (pediatric) Category: Medical Plan: Continue using her CPAP device when sleeping at night daily (12) GERD without esophagitis: Code(s): K21.9 - Gastro-esophageal reflux disease without esophagitis Category: Medical Plan: Dietary restrictions reinforced Will try increasing her Omeprazole to 40 mg QD Follow-up with GI as scheduled (13) At high risk for aspiration: Code(s): Z91.89 - Other specified personal risk factors, not elsewhere classified Category: Medical Plan: Barium swallow done in October 2022 revealed (+)limited exam but (+) retention of liquid barium in the vallecula; no aspiration or penetration; (+) gastroesophageal reflux. Barium tablet passed freely into the esophagus Following up Dr. Weaver (GI) as scheduled (14) Vitamin D deficiency: Code(s): E55.9 - Vitamin D deficiency, unspecified Category: Medical Plan: Continue Vitamin D3 1000 units QD (15) Primary osteoarthritis of knees, bilateral: Code(s): M17.0 - Bilateral primary osteoarthritis of knee Category: Medical Plan: Patient has received injections into her knees in the past with (+) relief of her knee pain She did not experience any significant or lasting improvement of her knee symptoms with injections of Euflexxa Follow-up with orthopedics as scheduled (16) Paresthesia of both hands: Code(s): R20.2 - Paresthesia of skin Category: Medical Plan: Symptoms are likely due to a combination of 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 (similar to what one would experience in carpal tunnel syndrome) Advised that unless her symptoms are significant and keep her up at night, would prefer not to start her on any Rx to help with her neuropathic pain as a lot of these Rx can cause sedation or are associated with some side effects that can be problematic for her given her age (17) Primary insomnia: Code(s): F51.01 - Primary insomnia Category: Medical Plan: Sleep hygiene reinforced Continue OTC Melatonin capsule 10 mg once a day at bedtime as needed (18) Anxiety: Code(s): F41.9 - Anxiety disorder, unspecified Category: Medical Plan: Continue Alprazolam 0.5 mg 1 tablet twice a day as needed for agitation (19) Depression: Code(s): F32.9 - Major depressive disorder, single episode, unspecified Category: Medical Qualifiers: Depression Type: unspecified Qualified Code(s): F32.9 - Major depressive disorder, single episode, unspecified Plan: Continue Citalopram? 20 mg QD in AM and Seroquel 25 mg Q HS Follow-up with Psychiatry as scheduled (20) Morbid obesity with BMI of 40.0-44.9, adult: Code(s): E66.01 - Morbid (severe) obesity due to excess calories; Z68.41 - Body mass index [BMI] 40.0-44.9, adult Category: Medical Plan: Reinforced diet; due to patient's age and comorbidities, there is no realistic expectation of any significant improvement in her activity level and in losing weight here Plan Follow up in 3 months Medications: New doxycycline hyclate 100 mg PO BID 10 days 20 caps 0RF ipratropium-albuterol 0.5 mg-3 mg(2.5 mg base)/3 mL 3 mL inhalation BID PRN 180 mL 2RF shortness of breath or wheezing omeprazole 40 mg PO DAILY 90 days 90 caps 1RF Refilled nebulizers (VixOne Nebulizer-Adult Mask) As directed 1 ea 2RF
[2024-05-29 14:12] VITALS: BP 118/70; PULSE 75; O2SAT 93; BMI 36.7
== END 2024-05-29 15:05 | disposition home or self-care (01) ==
PROVIDERS: PCP Internal Medicine; Visit Provider Internal Medicine
DX: I12.9 Hypertensive chronic kidney disease with stage 1 through stage 4 chronic kidney disease, or unspecified chronic kidney disease (principal); J44.1 Chronic obstructive pulmonary disease with (acute) exacerbation; N18.4 Chronic kidney disease, stage 4 (severe); I50.32 Chronic diastolic (congestive) heart failure; N25.81 Secondary hyperparathyroidism of renal origin; E11.22 Type 2 diabetes mellitus with diabetic chronic kidney disease; E66.01 Morbid (severe) obesity due to excess calories; Z68.41 Body mass index [BMI] 40.0-44.9, adult; D63.8 Anemia in other chronic diseases classified elsewhere; I25.10 Atherosclerotic heart disease of native coronary artery without angina pectoris; E78.00 Pure hypercholesterolemia, unspecified; G31.84 Mild cognitive impairment of uncertain or unknown etiology

== ENCOUNTER → 2024-07-05 21:07 | Outpatient (BNV) | payer OTHER, SELFPAY | PROVIDERS: Emergency Provider Emergency Medicine; PCP Internal Medicine; Visit Provider Radiology Neuroradiology | DX: R05.9 Cough, unspecified (principal) | CPT/HCPCS: 71045 ==

== ENCOUNTER → 2024-07-06 00:13 | Outpatient (BNV) | payer OTHER, SELFPAY | PROVIDERS: Admitting Provider Internal Medicine; Emergency Provider Emergency Medicine; PCP Internal Medicine; Visit Provider Internal Medicine | DX: J44.1 Chronic obstructive pulmonary disease with (acute) exacerbation (principal); J96.01 Acute respiratory failure with hypoxia; J12.1 Respiratory syncytial virus pneumonia; E11.22 Type 2 diabetes mellitus with diabetic chronic kidney disease; N18.5 Chronic kidney disease, stage 5 | CPT/HCPCS: 99223; 99499 ==